=== PATIENT | male | born 1940 | race Caucasian/White ===

== ENCOUNTER 2020-01-20 00:29 | Outpatient (CLI) | payer MEDICARE, SELFPAY ==
[2020-01-20 19:09] LABS: SARS-CoV-2 RNA PCR Negative
== END 2020-01-20 00:30 | disposition home or self-care (01) ==
LOC: ANHCOVIDDT 00:30
PROVIDERS: PCP Internal Medicine; Visit Provider Internal Medicine Gastroenterology
DX: Z01.812 Encounter for preprocedural laboratory examination (principal); Z11.59 Encounter for screening for other viral diseases
CPT/HCPCS: 87635; C9803; U0003

== ENCOUNTER 2020-01-20 22:09 | Emergency (ER) | payer MEDICARE, SELFPAY ==
[2020-01-20 22:11] VITALS: BP 182/111; PULSE 94; RESP 19; O2SAT 98
[2020-01-20 22:20] VITALS: BP 175/116; PULSE 78; RESP 18; O2SAT 98
[2020-01-20 22:28] VITALS: BP 175/114; PULSE 95; RESP 16; O2SAT 100
--- NOTE | 2020-01-20 22:40 | ED.GENADULT ---
HPI - General Adult General Chief complaint: Recheck/Abnormal Lab/Rx Stated complaint: High BP, REHMAN Time Seen by Provider: 01/20/20 22:39 Source: patient and family History of Present Illness HPI narrative: High blood pressure. 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 Patient also started on new medication for overactive bladder,MYRBETRIQ which also can increase blood pressure. Patient should measure his blood pressure once a day, today he measured more than 3 times, and every time the blood pressure goes higher and higher. Patient denies any chest pain, shortness of breath, back pain, headache, focal neurologic deficiency. Currently patient feeling okay. Blood pressure at home was 180/113, currently 159/105. Related Data Home Medications Medication Instructions Recorded Confirmed blood sugar diagnostic #10 each 06/03/19 07/15/19 cholecalciferol (vitamin D3) 25 1,000 unit PO DAILY 06/03/19 01/15/20 mcg (1,000 unit) capsule lancets #50 each 06/03/19 07/15/19 aspirin 81 mg tablet,delayed 81 mg PO DAILY 06/23/19 01/15/20 release coenzyme Q10 100 mg capsule 100 mg PO DAILY 06/23/19 01/15/20 finasteride 5 mg tablet 5 mg PO DAILY 06/23/19 01/15/20 polyethylene glycol 3350 17 gram 17 gm PO DAILY 06/23/19 01/15/20 oral powder packet metoprolol succinate 25 mg 25 mg PO BID 01/12/20 01/15/20 tablet,extended release 24 hr mirabegron [Myrbetriq] 25 mg PO DAILY 01/15/20 01/15/20 diltiazem HCl [DILT-XR] PO 01/20/20 Allergies Allergy/AdvReac Type Severity Reaction Status Date / Time rosuvastatin Allergy Mild leg cramps Verified 01/20/20 22:16 Tetanus Vaccines and Toxoid Allergy Mild Hives Verified 01/20/20 22:16 Penicillins Allergy Unknown Hives Verified 01/20/20 22:16 Review of Systems Review of Systems: Narrative: CONSTITUTIONAL: Denies fever, chills, or sweats. EYES: Denies visual changes, redness, or discharge. ENT: Denies rhinorrhea, congestion, sore throat, or otalgia. CARDIOVASCULAR: Denies chest pain, palpitations, or edema. RESPIRATORY: Denies cough or dyspnea. GASTROINTESTINAL: Denies abdominal pain, nausea, vomiting, or diarrhea. GENITOURINARY: Denies dysuria or hematuria. SKIN: Denies rash or itching. MUSCULOSKELETAL: Denies back pain, joint pain, or myalgia. NEUROLOGIC: Denies headache, numbness, or weakness. PSYCHIATRIC: Denies anxiety or depression. [facility] Past Medical History Medical History Enlarged prostate High cholesterol Presence of Watchman left atrial appendage closure device Thyroid disease Surgical History Surgical History H/O heart surgery History of thyroid surgery Total knee replacement status Family History Family History Father Heart attack Mother , passed at age 104 No problems noted. Sibling Cancer Mother Hypertension Sibling Family history of malignant neoplasm of breast in first degree relative Malignant neoplasm of prostate Father Patient's father is Other Diabetes mellitus Family history of malignant neoplasm of thyroid Social History Social History Smoking status: Never smoker Second hand tobacco smoke exposure: No Smoking end date: 07/09/92 Alcohol intake: never Substance use: never Gender identity (if verbalized by the patient): Male Exam Narrative: Exam Narrative: General appearance: Well-developed, well-nourished Skin: Normal color Head: Normocephalic, nontraumatic Eyes: Clear conjunctiva ENT: Oropharynx normal, ears normal, nose normal Neck: Supple, nontender Chest and respiratory: Airway patent, no respiratory d
[2020-01-20 23:00] VITALS: BP 156/94; PULSE 83; RESP 21; O2SAT 98
[2020-01-20 23:09] VITALS: BP 163/110; PULSE 84; RESP 16; O2SAT 98
[2020-01-20] MEDS: LORazepam 0.5 MG TABLET PO (23:09)
== END 2020-01-20 23:15 | disposition home or self-care (01) ==
PROVIDERS: Emergency Provider Emergency Medicine; PCP Internal Medicine
DX: I16.0 Hypertensive urgency (principal); E78.5 Hyperlipidemia, unspecified
CPT/HCPCS: 87635; 99283; A9270; C9803; U0003

== ENCOUNTER 2020-11-04 10:11 | Outpatient (CLI) | payer MEDICARE, SELFPAY ==
[2020-11-04 10:44] LABS: Hematocrit 48.5 % (42.0-52.0); Hemoglobin 16.5 g/dL (14.0-18.0); Mean Corpuscular Hemoglobin 33.7 pg (26-34); Mean Platelet Volume 9.7 fl (7.4-10.4); Platelet Count Result 197 k/mm3 (150-375); Red Cell Distribution Width 12.3 % (11.5-14.5); White Blood Count 6.9 K/mm3 (4.5-10.0)
[2020-11-04 11:21] LABS: Creatinine Urine 42.8 mg/dL
[2020-11-04 11:25] LABS: MALB Creatinine Ratio 195.3 mg/g (0-30); Microalbumin Urine Random 83.6 mg/L (0-16.7)
[2020-11-04 11:36] LABS: Hemoglobin A1C 5.7 % (<5.7)
[2020-11-04 11:37] LABS: Free T4 Free Thyroxine 1.73 ng/mL (0.78-2.19); Vitamin D 25 Hydroxy 35.8 ng/mL
[2020-11-04 11:41] LABS: Alanine Aminotransferase 23 U/L (4-50); Albumin Level 4.9 g/dL (3.5-5.1); Alkaline Phosphatase 71 U/L (38-126); Anion Gap 9 mmol/L (8-16); Aspartate Amino Transferase 34 U/L (17-59); Bilirubin,Total 2.1 mg/dL (0.2-1.3); Blood Urea Nitrogen 18 mg/dL (9-20); Calcium 9.5 mg/dL (8.4-10.2); Carbon Dioxide 28 mmol/L (22-30); Chloride 104 mmol/L (98-107); Cholesterol 177 mg/dL (0-200); Estimated Glomerular Filt Rate > 60; Glucose 130 mg/dL (75-110); HDL Direct 64 mg/dL; Potassium 3.7 mmol/L (3.4-5.0); Sodium 141 mmol/L (137-145); Triglycerides 98 mg/dL (<150)
[2020-11-04 11:58] LABS: LDL Cholesterol Direct 89 mg/dL
[2020-11-04 12:21] LABS: Prostate Specific Antigen 0.6 ng/mL (< OR = 4.0)
== END 2020-11-04 10:12 | disposition home or self-care (01) ==
PROVIDERS: PCP Internal Medicine; Visit Provider Internal Medicine
DX: E03.9 Hypothyroidism, unspecified (principal); E11.9 Type 2 diabetes mellitus without complications; I10 Essential (primary) hypertension; Z12.5 Encounter for screening for malignant neoplasm of prostate; E55.9 Vitamin D deficiency, unspecified
CPT/HCPCS: 36415; 80053; 80061; 82043; 82306; 83036; 84153; 84439; 84443; 85027; G0103

== ENCOUNTER 2021-02-22 10:31 | Outpatient (CLI) | payer MEDICARE, SELFPAY ==
[2021-02-22 11:23] LABS: Alanine Aminotransferase 22 U/L (4-50); Albumin Level 4.6 g/dL (3.5-5.1); Alkaline Phosphatase 63 U/L (38-126); Anion Gap 8 mmol/L (8-16); Aspartate Amino Transferase 32 U/L (17-59); Bilirubin,Total 1.8 mg/dL (0.2-1.3); Blood Urea Nitrogen 20 mg/dL (9-20); Calcium 9.4 mg/dL (8.4-10.2); Carbon Dioxide 27 mmol/L (22-30); Chloride 102 mmol/L (98-107); Estimated Glomerular Filt Rate > 60; Glucose 124 mg/dL (65-110); Potassium 4.5 mmol/L (3.4-5.0); Sodium 137 mmol/L (137-145)
[2021-02-22 13:58] LABS: Hemoglobin A1C 5.9 % (<5.7)
[2021-02-22 15:56] LABS: Folic Acid 9.8 ng/mL (2.76->20)
[2021-02-25 03:53] LABS: Albumin 4.2 g/dL (3.8-4.8); Alpha 1 Globulin 0.3 g/dL (0.2-0.3); Alpha 2 Globulin 0.8 g/dL (0.5-0.9); Beta 1 Globulin 0.4 g/dL (0.4-0.6); Protein, Total 7.1 g/dL (6.1-8.1)
[2021-02-26 07:01] LABS: Creatinine, Random Urine 105 mg/dL (20-320); Total Protein/Creatinine Ratio 95 mg/g creat (22-128)
== END 2021-02-22 10:32 | disposition home or self-care (01) ==
PROVIDERS: PCP Internal Medicine; Visit Provider Internal Medicine
DX: R77.8 Other specified abnormalities of plasma proteins (principal); R53.83 Other fatigue; E11.9 Type 2 diabetes mellitus without complications
CPT/HCPCS: 36415; 80053; 82570; 82607; 82746; 83036; 84155; 84156; 84165; 84166

== ENCOUNTER 2021-03-24 00:46 | Day surgery (SDC) | payer MEDICARE, SELFPAY ==
[2021-03-17 11:55] VITALS: BMI 28.2
--- NOTE | 2021-03-24 08:16 | WPDANESEPPF ---
Anes - Initial Pre Proc Eval Procedure: Operation Date: 03/24/21 10:00 Proposed Procedures p Esophagogastroduodenoscopy & Screening Colonoscopy - Sourav Traore MD Date/Time: 03/24/21 08:16 Surgeon: Sourav Traore MD Pre Op Diagnosis: Neoplasm screening Z12.11 GERD K21.9 Patient Data Age: 80 Gender: M Height: 1.7 m Weight: 81.8 kg Allergies Allergy/AdvReac Type Severity Reaction Status Date / Time rosuvastatin Allergy Mild leg cramps Verified 03/24/21 08:51 Tetanus Vaccines and Toxoid Allergy Mild Hives Verified 03/24/21 08:51 Penicillins Allergy Unknown Hives Verified 03/24/21 08:51 Home Medications Medication Instructions Recorded Confirmed Type blood sugar diagnostic #10 each 06/03/19 03/24/21 History cholecalciferol (vitamin D3) 25 1,000 unit PO DAILY 06/03/19 03/24/21 History mcg (1,000 unit) capsule lancets #50 each 06/03/19 03/24/21 History aspirin 81 mg tablet,delayed 81 mg PO DAILY 06/23/19 03/24/21 History release finasteride 5 mg tablet 5 mg PO DAILY 06/23/19 03/24/21 History polyethylene glycol 3350 17 gram 17 gm PO DAILY 06/23/19 03/24/21 History oral powder packet fluticasone propionate 50 2 spray NASAL DAILY PRN #15.8 ml 01/12/20 03/24/21 Rx mcg/actuation nasal spray,suspension simvastatin 20 mg tablet 20 mg PO DAILY #90 tablet 09/30/20 03/24/21 Rx metoprolol succinate 50 mg See Rx Instructions .ROUTE 10/08/20 03/17/21 Rx tablet,extended release 24 hr .COMPLEX #90 tablet levothyroxine 100 mcg tablet 100 mcg PO DAILY #90 tablet 10/12/20 03/17/21 Rx pantoprazole 40 mg tablet,delayed 40 mg PO QAM #90 tablet 01/11/21 03/24/21 Rx release irbesartan 300 mg tablet 300 mg PO DAILY #90 tablet 01/16/21 03/17/21 Rx amlodipine 5 mg tablet 5 mg PO DAILY #90 tablet 03/11/21 03/17/21 Rx Patient hx anesthesia problems: none Family hx anesthesia problems: none PMFSH Past Medical History Medical History (Updated 03/24/21 @ 09:26 by Sourav Traore MD) Afib Angina pectoris Arthritis BMI 28.0-28.9,adult BPH (benign prostatic hyperplasia) Chronic GERD Diabetes Enlarged prostate Essential (primary) hypertension High cholesterol History of CVA (cerebrovascular accident) Hypothyroidism Presence of Watchman left atrial appendage closure device Thyroid disease Surgical History Surgical History H/O heart surgery History of thyroid surgery Total knee replacement status Family History Family History Father Heart attack Mother , passed at age 104 No problems noted. Sibling Cancer Mother Hypertension Sibling Family history of malignant neoplasm of breast in first degree relative Malignant neoplasm of prostate Father Patient's father is Other Diabetes mellitus Family history of malignant neoplasm of thyroid Social History Social History Smoking status: Former smoker Tobacco type: cigarettes Second hand tobacco smoke exposure: No Smoking end date: 07/09/92 Alcohol intake: never Alcohol use details: wine occasionally Substance use: never Substance use type: does not use Living arrangements: with family Gender identity (if verbalized by the patient): Male Spiritual care concerns: No Anes - Eval Final PreProcedure Day of Procedure 03/24/21 08:16 Patient weight: overweight Heart: regular rate and rhythm Lungs: clear to auscultation and normal air movement Airway: Mallampati scale Neurological: alert and oriented Last oral intake: >/= 8 hours ASA classification: III Emergent: no Anesthetic plan: proceed Anesthesia type and monitoring: general GIVS Informed Consent: The patient's anesthetic plan and its attendant risks and benefits were discussed with the patient/family/POA. Questions were solicited and answers provid
[2021-03-24 08:53] VITALS: BP 145/101; PULSE 92; RESP 18; TEMP 36.3; O2SAT 98; BMI 27.1
[2021-03-24] MEDS: LACTATED RINGERS 1,000 ML 150 ML IV CONT (09:07)
--- NOTE | 2021-03-24 09:24 | WPDGICN ---
Assessment and Plan Assessment and plan (1) Encounter for screening colonoscopy: Code(s): Z12.11 - Encounter for screening for malignant neoplasm of colon Status: Acute Assessment and Plan: Patient referred for screening colonoscopy by primary care service. Plan is for patient to be on a high-fiber diet. Further recommendations may be given after endoscopy. GI Consult Note Consult date/time: 03/24/21 09:24 HPI: Colt Mann Jr. is a 80 year old male Referred at the request of Dr. Dexter. Patient is referred for neoplasia screening. Patient states his current weight appetite bowel movements are normal. He does have a history of a colonoscopy 2014 at which time diverticulosis was identified. Patient denies abdominal pain. He has had no blood in his stools. Past medical history significant for is GE reflux disease. He has a history of heart disease currently has a Watchman device implanted. Neoplasia screening to be performed today. Review of Systems Review of Systems: All systems reviewed & are unremarkable except as noted in HPI and below PMFSH Past Medical History Medical History (Updated 03/24/21 @ 09:26 by Sourav Traore MD) Afib Angina pectoris Arthritis BMI 28.0-28.9,adult BPH (benign prostatic hyperplasia) Chronic GERD Diabetes Enlarged prostate Essential (primary) hypertension High cholesterol History of CVA (cerebrovascular accident) Hypothyroidism Presence of Watchman left atrial appendage closure device Thyroid disease Surgical History Surgical History H/O heart surgery History of thyroid surgery Total knee replacement status Family History Family History Father Heart attack Mother , passed at age 104 No problems noted. Sibling Cancer Mother Hypertension Sibling Family history of malignant neoplasm of breast in first degree relative Malignant neoplasm of prostate Father Patient's father is Other Diabetes mellitus Family history of malignant neoplasm of thyroid Social History Social History Smoking status: Former smoker Tobacco type: cigarettes Second hand tobacco smoke exposure: No Smoking end date: 07/09/92 Alcohol intake: never Alcohol use details: wine occasionally Substance use: never Substance use type: does not use Living arrangements: with family Gender identity (if verbalized by the patient): Male Spiritual care concerns: No Meds Home Medications and Allergies Home Medications Medication Instructions Recorded Confirmed Type blood sugar diagnostic #10 each 06/03/19 03/24/21 History cholecalciferol (vitamin D3) 25 1,000 unit PO DAILY 06/03/19 03/24/21 History mcg (1,000 unit) capsule lancets #50 each 06/03/19 03/24/21 History aspirin 81 mg tablet,delayed 81 mg PO DAILY 06/23/19 03/24/21 History release finasteride 5 mg tablet 5 mg PO DAILY 06/23/19 03/24/21 History polyethylene glycol 3350 17 gram 17 gm PO DAILY 06/23/19 03/24/21 History oral powder packet fluticasone propionate 50 2 spray NASAL DAILY PRN #15.8 ml 01/12/20 03/24/21 Rx mcg/actuation nasal spray,suspension simvastatin 20 mg tablet 20 mg PO DAILY #90 tablet 09/30/20 03/24/21 Rx metoprolol succinate 50 mg See Rx Instructions .ROUTE 10/08/20 03/17/21 Rx tablet,extended release 24 hr .COMPLEX #90 tablet levothyroxine 100 mcg tablet 100 mcg PO DAILY #90 tablet 10/12/20 03/17/21 Rx pantoprazole 40 mg tablet,delayed 40 mg PO QAM #90 tablet 01/11/21 03/24/21 Rx release irbesartan 300 mg tablet 300 mg PO DAILY #90 tablet 01/16/21 03/17/21 Rx amlodipine 5 mg tablet 5 mg PO DAILY #90 tablet 03/11/21 03/17/21 Rx Allergies Allergy/AdvReac Type Severity Reaction Status Date / Time rosuvastatin 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
[2021-03-24 10:28] VITALS: BP 109/74; PULSE 93; RESP 18; O2SAT 99
[2021-03-24 10:38] VITALS: BP 119/79; PULSE 84; RESP 18; O2SAT 100
[2021-03-24 10:48] VITALS: BP 128/85; PULSE 77; RESP 18; O2SAT 100
== END 2021-03-24 11:08 | disposition home or self-care (01) ==
PROVIDERS: PCP Internal Medicine; Visit Provider Internal Medicine Gastroenterology
PROC: 0DJ08ZZ Inspection of Upper Intestinal Tract, Via Natural or Artificial Opening Endoscopic (ICD-10-PCS; CPT 43235; principal; 2021-03-24 10:00)
DX: Z12.11 Encounter for screening for malignant neoplasm of colon (principal); K64.8 Other hemorrhoids; K57.30 Diverticulosis of large intestine without perforation or abscess without bleeding; K21.00 Gastro-esophageal reflux disease with esophagitis, without bleeding; I48.91 Unspecified atrial fibrillation; E11.9 Type 2 diabetes mellitus without complications; I10 Essential (primary) hypertension; E78.00 Pure hypercholesterolemia, unspecified; K21.9 Gastro-esophageal reflux disease without esophagitis; E03.9 Hypothyroidism, unspecified; Z86.73 Personal history of transient ischemic attack (TIA), and cerebral infarction without residual deficits; N40.0 Benign prostatic hyperplasia without lower urinary tract symptoms; Z87.891 Personal history of nicotine dependence; Z79.82 Long term (current) use of aspirin
CPT/HCPCS: 43239; G0121; 87081; J2704; J7120

== ENCOUNTER → 2021-05-06 13:50 | Outpatient (CLI) | payer MEDICARE, SELFPAY ==
--- NOTE | ~2021-05-06 | CT_ITS ---
EXAMINATION: CT lumbar spine wo con DATE: 05/06/2021 14:10 INDICATION: Low back pain. Lumbar stenosis. TECHNIQUE: Computed tomography (CT) of the lumbar spine was performed without intravenous contrast. A utomated exposure control and iterative reconstruction technique were employed. The dose-length produ ct was 749.75 mGy-cm. COMPARISON: Lumbar spine radiographs 01/07/2008 FINDINGS: There is 5 degrees levocurvature of thoracolumbar spine. There is 3 mm retrolisthesis of T1 2 on L1 and 5 mm retrolisthesis of L1 on L2. There are chronic bilateral L5 pars defects. There is 5 mm anterolisthesis of L5 on S1. There is mild chronic anterior wedging of T12 and L1 vertebral bodies . There is severely decreased disc height at T12-L1, L1-L2, and L2-L3 and moderately decreased disc h eight at L3-L4, L4-L5, and L5-S1. The following disc levels are specifically discussed: T12-L1: The disc is bulging. There is moderate and mild left facet joint osteoarthritis. There is mod erate right and mild left neural foraminal stenosis. There is mild central canal stenosis. L1-L2: The disc is bulging. There is mild bilateral facet joint osteoarthritis. There is moderate tobin ateral neural foraminal stenosis. There is mild central canal stenosis. L2-L3: The disc is bulging. There is moderate right and mild left facet joint osteoarthritis. There i s moderate bilateral neural foraminal stenosis. There is mild central canal stenosis. L3-L4: The disc is bulging. There is mild right and moderate left facet joint osteoarthritis. There i s mild bilateral neural foraminal stenosis. There is mild central canal stenosis. L4-L5: The disc is bulging. There is severe bilateral facet joint osteoarthritis. There is moderate b ilateral neural foraminal stenosis. There is mild central canal stenosis. L5-S1: The disc is bulging. There is severe bilateral facet joint osteoarthritis. There is mild bilat eral neural foraminal stenosis. There is no central canal stenosis. IMPRESSION: 1. Severe lumbar spondylosis. 2. Chronic bilateral L5 pars defects with grade 1 anterolisthesis of L5 on S1. Reviewed, dictated and finalized at location A.
== END ==
PROVIDERS: PCP Internal Medicine; Visit Provider Nurse Practitioner Family
DX: M47.896 Other spondylosis, lumbar region (principal)
CPT/HCPCS: 72131

== ENCOUNTER 2021-06-15 11:06 | Outpatient (CLI) | payer MEDICARE, SELFPAY ==
[2021-06-15 12:23] LABS: Add Urine Microscopic? NO; Appearance Urine Clear (Clear); Bilirubin Urine Negative (Negative); Blood Urine Negative (Negative); Color Urine Yellow (Yellow); Glucose Urine UA Negative (Negative); Ketones Urine Negative (Negative); Leukocyte Esterase Ur Negative LEU/UL (Negative); Nitrate Urine Negative (Negative); Protein Urine Negative (Negative); Specific Grav Ur 1.013 (1.001-1.035); Urobilinogen Urine Negative mg/dL (<2.0)
== END 2021-06-15 11:07 | disposition home or self-care (01) ==
LOC: ANHLAB 11:09
PROVIDERS: PCP Internal Medicine; Visit Provider Internal Medicine
DX: M54.9 Dorsalgia, unspecified (principal)
CPT/HCPCS: 81003

== ENCOUNTER 2021-11-02 09:30 | Outpatient (CLI) | payer MEDICARE, SELFPAY ==
[2021-11-02 10:20] LABS: Basophils Percent Auto 0.6 % (0.2-1.2); Eosinophils Absolute Auto 0.2 K/mm3 (0-0.3); Eosinophils Percent Auto 2.6 % (0-4.4); Hematocrit 44.9 % (42.0-52.0); Hemoglobin 14.6 g/dL (14.0-18.0); Immature Granulocyte Absolute 0.01 K/mm3 (0.00-0.031); Immature Granulocyte Percent A 0.2 % (0-0.5); Lymphocytes Absolute Auto 2.91 K/mm3 (0.9-3.2); Lymphocytes Percent Auto 43.9 % (18.3-44.2); Mean Corpuscular HGB Conc 32.5 g/dl (32-36); Mean Corpuscular Hemoglobin 33.6 pg (26-34); Mean Corpuscular Volume 103.5 fl (80-100); Mean Platelet Volume 10.2 fl (7.4-10.4); Monocytes Absolute Auto 0.5 K/mm3 (0.1-0.6); Monocytes Percent Auto 8.1 % (2.6-8.5); Neutrophils Percent Auto 44.6 % (45.5-73.1); Platelet Count Result 210 k/mm3 (150-375); Red Blood Count 4.34 M/mm3 (4.6-6.20); Red Cell Distribution Width 12.8 % (11.5-14.5); White Blood Count 6.6 K/mm3 (4.5-10.0)
[2021-11-02 10:33] LABS: Creatinine Urine 45.1 mg/dL
[2021-11-02 10:37] LABS: Alanine Aminotransferase 23 U/L (4-50); Albumin Level 4.5 g/dL (3.5-5.1); Alkaline Phosphatase 70 U/L (38-126); Anion Gap 6 mmol/L (8-16); Aspartate Amino Transferase 36 U/L (17-59); Bilirubin,Total 1.4 mg/dL (0.2-1.3); Blood Urea Nitrogen 15 mg/dL (9-20); Calcium 8.8 mg/dL (8.4-10.2); Carbon Dioxide 29 mmol/L (22-30); Chloride 104 mmol/L (98-107); Estimated Glomerular Filt Rate > 60; Glucose 128 mg/dL (65-110); Potassium 4.2 mmol/L (3.4-5.0); Sodium 139 mmol/L (137-145)
[2021-11-02 10:38] LABS: MALB Creatinine Ratio 121.1 mg/g (0-30); Microalbumin Urine Random 54.6 mg/L (0-16.7)
[2021-11-02 10:54] LABS: Hemoglobin A1C 5.6 % (<5.7)
[2021-11-02 11:02] LABS: Free T4 Free Thyroxine 1.87 ng/mL (0.78-2.19); Vitamin D 25 Hydroxy 47.4 ng/mL
[2021-11-02 11:21] LABS: Prostate Specific Antigen 0.2 ng/mL (< OR = 4.0)
[2021-11-02 11:57] LABS: Folic Acid 6.6 ng/mL (2.76->20)
== END 2021-11-02 09:31 | disposition home or self-care (01) ==
LOC: ANHLAB 09:32
PROVIDERS: PCP Internal Medicine; Visit Provider Internal Medicine
DX: E03.9 Hypothyroidism, unspecified (principal); E11.9 Type 2 diabetes mellitus without complications; E55.9 Vitamin D deficiency, unspecified; I10 Essential (primary) hypertension; R53.83 Other fatigue; N40.0 Benign prostatic hyperplasia without lower urinary tract symptoms; Z12.5 Encounter for screening for malignant neoplasm of prostate
CPT/HCPCS: 36415; 80053; 82043; 82306; 82607; 82746; 83036; 83735; 84153; 84439; 84443; 85025; G0103

== ENCOUNTER 2021-11-15 11:30 | Outpatient (CLI) | payer MEDICARE, SELFPAY ==
--- NOTE | 2021-11-15 11:30 | ECG_ITS ---
Measurements Intervals [place]antam Rate: 96 P: LA: 0 QRS: 95 QRSD: 117 T: -40 QT: 359 QTc: 454 Interpretive Statements ATRIAL FIBRILLATION INTRAVENTRICULAR CONDUCTION DELAY CANNOT RULE OUT SEPTAL INFARCT, AGE INDETERMINATE BORDERLINE ST-T WAVE ABNORMALITY- INFERIOR LEADS BASELINE ARTIFACT- I, II, III, AVR, AVL, AVF, V4 ABNORMAL ECG Electronically Signed On 11-15-2021 12:20:25 CDT by Giovany Kennedy D.O.
== END 2021-11-15 11:31 | disposition home or self-care (01) ==
PROVIDERS: PCP Internal Medicine; Visit Provider Urology
DX: N40.1 Benign prostatic hyperplasia with lower urinary tract symptoms (principal); I10 Essential (primary) hypertension; Z01.818 Encounter for other preprocedural examination; I45.9 Conduction disorder, unspecified
CPT/HCPCS: 87086; 93005

== ENCOUNTER 2021-11-22 00:37 | Day surgery (SDC) | payer MEDICARE, SELFPAY ==
[2021-11-10 14:06] VITALS: BMI 29.0
--- NOTE | 2021-11-10 14:37 | PC.NURSE ---
Report to the Outpatient Waiting Room, entrance under the green pavilion located off [facility], at time __6:00AM on date __11/22/21 . OR Time: ___7:30AM . - You and your visitor will be asked a series of questions to screen for COVID 19 for your protection. - Only one visitor is allowed at this time. - The patient visitor is requested to leave or wait in car when not with patient. - A mask is required within the hospital. Patients may have clear liquids (water, carbonated beverages, clear teas, apple juice) until 3 hours prior to surgery with a maximum of 20 ounces. - No food from midnight until time of surgery - Infants may have breast milk until 4 hours before surgery, formula 6 hours prior to surgery. - Children will be allowed to drink immediately following surgery. If applicable, please bring a bottle or sippy cup to assist with drinking. Juice, water, soda, and popsicles are readily available. For infants on formula, please bring formula the day of surgery. Pacifiers are allowed. Take the following medications with a SIP of water the morning of surgery: ____AMLODIPINE, LEVOTHYROXINE, METOPROLOL Medications to discontinue per physician ___HOLD ASPIRIN 7 DAYS PRE-OP- LAST DOSE 11/15/21, HOLD ALL VITAMINS/SUPPLEMENTS 3 DAYS PRE-OP- LAST DOSE 11/11/21 Please no make-up, nail macedonian, hairspray, perfume, deodorant, or body powder the day of surgery. No jewelry (including any body piercings) or valuables the day of surgery, leave them at home. Please take a shower or bath the night before, or the morning of, surgery with an antibacterial soap. Wear comfortable, loose fitting clothing. Children are encouraged to wear pajamas. - Jewelry must be removed prior to entering the operating room. Rings and piercings that are not removed may be cut off. - The hospital will not accept responsibility for valuables. - Please leave all valuables, including medications, at home the day of surgery. If you are going home after surgery, a licensed high lift driver must drive you home. - NO public transportation without another adult. - We recommend that an adult stay with you for 24 hours following discharge. - We also recommend that you do not drive, make important decision, drink alcoholic beverages, or take any drugs that were not prescribed by your health care provider for at least 24 hours after your discharge time. For Pediatric surgeries, we recommend two adults accompany the child home (only one inside the building at this time). Follow any additional instructions given to you from your surgeon. If you or anyone in your household have experienced Covid symptoms in the past week, please notify your surgeon or the nurse liaison at the phone number below for possible testing. Telephone instructions given to __PATIENT AND WIFE__and asked if any additional questions and then verbalized understanding. Patient advised to call surgeon office or pre surgery nurse liaison [phone] if any additional questions.
[2021-11-22] VITALS (10 sets, daily range): BP systolic 106–157; BP diastolic 76–96; PULSE 70–105; RESP 12–18; TEMP 36.3–36.6; O2SAT 94–99; BMI 27.3
[2021-11-22] MEDS: LACTATED RINGERS 1,000 ML 30 ML IV CONT (06:30)
--- NOTE | 2021-11-22 06:33 | WPDANESEPPF ---
Anes - Initial Pre Proc Eval Procedure: Operation Date: 11/22/21 07:30 Proposed Procedures p Urolift - Rishi Dougherty MD Date/Time: 11/22/21 06:33 Surgeon: Rishi Dougherty MD Pre Op Diagnosis: BPH Obstruction Patient Data Age: 81 Gender: M Height: 1.7 m Weight: 84 kg Allergies Allergy/AdvReac Type Severity Reaction Status Date / Time Tetanus Vaccines and Toxoid Allergy Mild Hives Verified 11/10/21 13:56 Penicillins Allergy Unknown Hives Verified 11/10/21 13:56 rosuvastatin AdvReac Mild leg cramps Verified 11/10/21 13:56 Home Medications Medication Instructions Recorded Confirmed Type blood sugar diagnostic #10 each 06/03/19 07/30/21 History cholecalciferol (vitamin D3) 25 1,000 unit PO DAILY 06/03/19 11/10/21 History mcg (1,000 unit) capsule lancets #50 each 06/03/19 07/30/21 History aspirin 81 mg tablet,delayed 81 mg PO DAILY 06/23/19 11/10/21 History release finasteride 5 mg tablet 5 mg PO DAILY 06/23/19 11/10/21 History polyethylene glycol 3350 17 gram 17 gm PO DAILY PRN 06/23/19 11/10/21 History oral powder packet simethicone 125 mg capsule 125 mg PO TID PRN #30 cap 05/23/21 11/10/21 Rx amlodipine 5 mg PO QAM 11/10/21 11/10/21 History docusate sodium [Dulcolax Stool 100 mg PO BID PRN 11/10/21 11/10/21 History Softener (dss)] fluticasone propionate 2 spray NASAL HS PRN 11/10/21 11/10/21 History irbesartan 300 mg PO QAM 11/10/21 11/10/21 History levothyroxine 112 mcg PO QAM 11/10/21 11/10/21 History metoprolol succinate 50 mg PO BID 11/10/21 11/10/21 History pantoprazole [Protonix] 40 mg PO BID 11/10/21 11/10/21 History simvastatin 20 mg PO HS 11/10/21 11/10/21 History tamsulosin 0.4 mg PO HS 11/10/21 11/10/21 History Patient hx anesthesia problems: none Family hx anesthesia problems: none Results Review: All pre-operative results and documents have been reviewed as part of the pre-operative evaluation. [facility] Past Medical History Medical History Afib Angina pectoris Arthritis BMI 28.0-28.9,adult BPH (benign prostatic hyperplasia) Chronic GERD Diabetes Enlarged prostate Essential (primary) hypertension High cholesterol History of CVA (cerebrovascular accident) Hypothyroidism Presence of Watchman left atrial appendage closure device Thyroid disease Surgical History Surgical History H/O heart surgery History of thyroid surgery Total knee replacement status Family History Family History Father Heart attack Mother , passed at age 104 No problems noted. Sibling Cancer Mother Hypertension Sibling Family history of malignant neoplasm of breast in first degree relative Malignant neoplasm of prostate Father Patient's father is Other Diabetes mellitus Family history of malignant neoplasm of thyroid Social History Social History Smoking status: Former smoker Tobacco type: cigarettes Second hand tobacco smoke exposure: No Smoking end date: 07/09/92 Alcohol intake: never Alcohol use details: wine occasionally Substance use: never Substance use type: does not use Living arrangements: with family Additional living arrangements comments: Gender identity (if verbalized by the patient): Male Spiritual care concerns: No Anes - Eval Final PreProcedure Day of Procedure 11/22/21 06:33 Patient weight: overweight Heart: irregular rhythm Lungs: clear to auscultation Airway: Mallampati scale class II Neurological: alert and oriented Last oral intake: >/= 8 hours ASA classification: III Emergent: no Anesthetic plan: proceed Anesthesia type and monitoring: general LMA Results Review: All pre-operative results and documents have been reviewed as part of the pre-o
--- NOTE | 2021-11-22 06:52 | WPDHPUPDATE1 ---
History and Physical Update Update Date/Time: 11/22/21 06:52 History and Physical has been reviewed, including an updated exam of the patient. There are NO changes in the patient's condition. Risks, benefits, and alternatives have been discussed and questions answered. Patient agrees to proceed with procedure. Proceed with urolift
[2021-11-22] MEDS: ceFAZolin 2 GM/D5W 50 ML 2 GM/50 ML BAG IVPB (07:27)
[2021-11-22] MEDS: LIDOCAINE HCL 2% GEL UROJET 10 ML PKG MUCOUS MEM (07:48)
--- NOTE | 2021-11-22 08:02 | W.PM.PROC2 ---
Procedure Note - Detailed Date of Procedure 11/22/21 Pre-op Diagnosis BPH Obstruction Post-op Diagnosis Same Procedure Performed Uro lift with 4 maria del carmen Surgeon Rishi Dougherty MD Anesthesia General Description of Procedure Patient is taken to the operative suite correctly identified. Once anesthesia was obtained was placed in dorsal lithotomy position and prepped and draped usual sterile fashion. Your left scope was inserted into the bladder under direct vision. Patient has some mild lateral lobe hypertrophy it did not appear overly obstructive in nature but his uro cuff showed a high-pressure low-flow pattern consistent with an obstructive process. The bladder itself does have some marked trabeculation present no tumors noted. We went ahead and placed a staple somewhat at the mid prostate at the 1 to 2 o'clock position. Second staple was placed at 10 to 11 o'clock position. 3rd staple at the 3 o'clock position and the final staple approximately 9 o'clock position. The prostatic fossa appeared open. Flexible scope was used to retroflex at the bladder neck. There was no evidence of any maria del carmen in the bladder. Bladder was somewhat drained and 2% viscous lidocaine was inserted into the urethra. Patient is taken recovery stable condition. Drains No Packing No Pathology None sent Complications No immediate complications Condition Stable Disposition PACU
[2021-11-22] MEDS: fentaNYL CITRATE INJ (*CRX) 100 MCG/2 ML VIAL 25 MCG IV PUSH ×4 (08:34→08:53)
[2021-11-22 08:41] LABS: Glucose Point of Care 119 mg/dl (65-105)
[2021-11-22] MEDS: oxyCODONE HCL (*CRX) 2.5 MG TAB IR PO (10:02)
== END 2021-11-22 10:05 | disposition home or self-care (01) ==
PROVIDERS: PCP Internal Medicine; Visit Provider Urology
PROC: 0T7D8DZ Dilation of Urethra with Intraluminal Device, Via Natural or Artificial Opening Endoscopic (ICD-10-PCS; CPT 52441; principal; 2021-11-22 07:30)
DX: N40.1 Benign prostatic hyperplasia with lower urinary tract symptoms (principal); R35.0 Frequency of micturition; R35.1 Nocturia; R39.15 Urgency of urination; I10 Essential (primary) hypertension; I48.91 Unspecified atrial fibrillation; E11.9 Type 2 diabetes mellitus without complications; E03.9 Hypothyroidism, unspecified; K21.9 Gastro-esophageal reflux disease without esophagitis; E78.00 Pure hypercholesterolemia, unspecified; Z86.73 Personal history of transient ischemic attack (TIA), and cerebral infarction without residual deficits; Z87.891 Personal history of nicotine dependence
CPT/HCPCS: C9740; 82948; A9270; J0690; J2405; J2704; J3010; J7120; L8699

== ENCOUNTER 2022-01-17 10:33 | Outpatient (CLI) | payer MEDICARE, SELFPAY ==
--- NOTE | ~2022-01-17 | US_ITS ---
US abdomen complete EXAMINATION: US Abdomen Complete INDICATION: Abdominal pain PROCEDURE: Realtime High Resolution abdomen ultrasound. COMPARISON: No prior studies for comparison FINDINGS: Gallbladder within normal limits. No gallstones, pericholecystic fluid, gallbladder wall t hickening or biliary dilatation. Common bile duct measures 3.6 mm. Study limited by bowel gas. Liver echotexture within normal limits without focal mass. Pancreas within normal limits. Pancreati c tail is obscured by bowel gas. Spleen is unremarkeable. Renal echotexture is within normal limits bilaterally without hydronephrosis, contour deforming mass or renal stone. Right kidney measures 9.8 cm. Left kidney measures 10.5 cm. Visualized aspects of the aorta and IVC are within normal limits. Portal vein is patent. No sonograph ic Hernandez's sign indicated by the technologist. IMPRESSION: 1: Unremarkable abdominal ultrasound. Reviewed, dictated and finalized at location A.
== END 2022-01-17 10:34 | disposition home or self-care (01) ==
PROVIDERS: PCP Internal Medicine; Visit Provider Internal Medicine
DX: R10.9 Unspecified abdominal pain (principal)
CPT/HCPCS: 76700

== ENCOUNTER 2022-01-18 09:45 | Outpatient (CLI) | payer MEDICARE, SELFPAY ==
--- NOTE | ~2022-01-18 | US_ITS ---
EXAMINATION: US art doppler w press UE BI DATE: 01/18/2022 10:52 INDICATION: Decreased pulses at the right hand TECHNIQUE: Segmental pressures and plethysmographic and Doppler waveforms of the upper extremity dario melia were obtained. COMPARISON: None. FINDINGS: Right and left brachial artery pressures of 125 mm Hg and 138 mm Hg, respectively, are concordant (no rmal difference <= 30 mmHg). The right finger:brachial systolic pressure ratio is 0.77 (normal > 0.8) . Arterial waveforms are triphasic at the right radial artery and biphasic in the remaining arteries with brisk systolic upstrokes throughout (normal upstroke < 0.2 s). The left finger:brachial systolic pressure ratio is 0.69. Arterial waveforms are triphasic at the lef t brachial, radial and ulnar arteries and biphasic at the left subclavian and axillary arteries with brisk systolic upstrokes throughout. IMPRESSION: 1. 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 2. Cardiac arrhythmia is present. Correlate with EKG. Reviewed, dictated and finalized at location B. IMPRESSION: 1. 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 2. Cardiac arrhythmia is present. Correlate with EKG.
== END 2022-01-18 09:46 | disposition home or self-care (01) ==
PROVIDERS: PCP Internal Medicine; Visit Provider Internal Medicine
DX: R09.89 Other specified symptoms and signs involving the circulatory and respiratory systems (principal); I70.208 Unspecified atherosclerosis of native arteries of extremities, other extremity; I49.8 Other specified cardiac arrhythmias
CPT/HCPCS: 93923

== ENCOUNTER 2022-02-03 09:17 | Outpatient (CLI) | payer MEDICARE, SELFPAY ==
[2022-02-03 10:24] LABS: Free T4 Free Thyroxine 1.67 ng/mL (0.78-2.19)
== END 2022-02-03 09:18 | disposition home or self-care (01) ==
LOC: ANHLAB 09:20
PROVIDERS: PCP Internal Medicine; Visit Provider Internal Medicine
DX: E03.9 Hypothyroidism, unspecified (principal)
CPT/HCPCS: 36415; 84439; 84443

== ENCOUNTER 2022-04-13 01:52 | Day surgery (SDC) | payer MEDICARE, SELFPAY ==
[2022-04-06 08:57] VITALS: BMI 27.4
--- NOTE | 2022-04-06 09:17 | PC.NURSE ---
Report to the Outpatient Waiting Room, entrance under the green pavilion located off [facility], at time _1000 on date _04/13/22 . OR Time: ____1200____. Time changes happen often and if your time is changed the preop area will call you the afternoon before. - You and your visitor will be asked to self-screen and do not enter if you have any COVID symptoms. - Only one visitor and NO children visitors are allowed at this time. - The patient visitor is requested to leave or wait in car when not with patient due to restrictions. - A mask is required within the hospital. Patients may have clear liquids (water, carbonated beverages, clear teas, apple juice) until 3 hours prior to surgery (0900 AM) with a maximum of 20 ounces. - No food from midnight until time of surgery - Infants may have breast milk until 4 hours before surgery, infant formula 6 hours prior to surgery. - Children will be allowed to drink immediately following surgery. If applicable, please bring a bottle or sippy cup to assist with drinking. Juice, water, soda, and popsicles are readily available. For infants on formula, please bring formula the day of surgery. Pacifiers are allowed. Take the following medications with a SIP of water the morning of surgery: _AMLODIPINE, LEVOTHYROXINE, METOPROLOL__ Medications to discontinue per physician _VITAMINS/SUPPLEMENTS 3 DAYS PRIOR TO SURGERY__ Date to take last dose____04/09/22 Please no make-up, nail tajik, hairspray, perfume, deodorant, or body powder the day of surgery. No jewelry (including any body piercings) or valuables the day of surgery, leave them at home. Please take a shower or bath the night before, or the morning of, surgery with an antibacterial soap. Wear comfortable, loose fitting clothing. Children are encouraged to wear pajamas. - Jewelry must be removed prior to entering the operating room. Rings and piercings that are not removed may be cut off. - The hospital will not accept responsibility for valuables. - Please leave all valuables, including medications, at home the day of surgery. If you are going home after surgery, a licensed dump truck driver must drive you home. - NO public transportation without another adult. - We recommend that an adult stay with you for 24 hours following discharge. - We also recommend that you do not drive, make important decision, drink alcoholic beverages, or take any drugs that were not prescribed by your health care provider for at least 24 hours after your discharge time. For Pediatric surgeries, we recommend two adults accompany the child home (only one inside the building at this time). Follow any additional instructions given to you from your surgeon. If you or anyone in your household have experienced Covid symptoms in the past week, please notify your surgeon or the nurse liaison at the phone number below for possible testing. Telephone instructions given to __PT and asked if any additional questions and then verbalized understanding. Patient advised to call surgeon office or pre surgery nurse liaison [phone] if any additional questions.
--- NOTE | 2022-04-11 15:45 | PM.SD2 ---
Same Day Admit/Disch: HPI History of Present Illness Chief complaint: Rt Ing Hernia Narrative: Colt Mann Jr. is a 81 year old male Who has had a bulge in the right groin area for at least 2 years. It has been getting bigger and causes him to have a pulling sensation when he sits up or gets out of bed. He was seen in the office and found to have a reducible right inguinal hernia. He is taken to surgery now for repair. [facility] Past Medical History Medical History (Updated 04/13/22 @ 14:14 by Doug Singh MD) Afib Angina pectoris Arthritis BMI 28.0-28.9,adult BPH (benign prostatic hyperplasia) Chronic GERD Diabetes Enlarged prostate Essential (primary) hypertension High cholesterol History of CVA (cerebrovascular accident) HTN (hypertension) Hypothyroidism Overweight (BMI 25.0-29.9) Presence of Watchman left atrial appendage closure device Thyroid disease Surgical History Surgical History H/O heart surgery History of thyroid surgery Total knee replacement status Family History Family History Father Heart attack Mother , passed at age 104 No problems noted. Sibling Cancer Mother Hypertension Sibling Family history of malignant neoplasm of breast in first degree relative Malignant neoplasm of prostate Father Patient's father is Other Diabetes mellitus Family history of malignant neoplasm of thyroid Social History Social History Smoking status: Never smoker Tobacco type: cigarettes Second hand tobacco smoke exposure: No Smoking end date: 07/09/92 Alcohol intake: never Alcohol use details: wine occasionally Substance use: never Substance use type: does not use Living arrangements: with family Additional living arrangements comments: Gender identity (if verbalized by the patient): Male Spiritual care concerns: No Same Day Admit/Disch: Med Pre-admit Medications Home Medications Medication Instructions Recorded Confirmed Type blood sugar diagnostic #10 ea 06/03/19 04/06/22 History cholecalciferol (vitamin D3) 25 1,000 unit PO DAILY 06/03/19 04/13/22 History mcg (1,000 unit) capsule lancets #50 ea 06/03/19 04/06/22 History aspirin 81 mg tablet,delayed 81 mg PO DAILY 06/23/19 04/13/22 History release (Adult Low Dose Aspirin) finasteride 5 mg tablet 5 mg PO DAILY 06/23/19 04/13/22 History polyethylene glycol 3350 17 gram 17 gm PO DAILY PRN Constipation 06/23/19 04/13/22 History oral powder packet (Miralax) simethicone 125 mg capsule (Gas 125 mg PO TID PRN abdominal 05/23/21 04/13/22 Rx Relief (simethicone)) distention #30 caps docusate sodium 100 mg capsule 100 mg PO BID PRN Constipation 11/10/21 04/13/22 History (Dulcolax Stool Softener (docusate)) fluticasone propionate 50 2 spray intranasal HS PRN nasal 11/10/21 04/13/22 History mcg/actuation nasal congestion spray,suspension irbesartan 300 mg tablet 300 mg PO QAM 11/10/21 04/13/22 History levothyroxine 112 mcg tablet 112 mcg PO QAM 11/10/21 04/13/22 History pantoprazole 40 mg tablet,delayed 40 mg PO BID 11/10/21 04/13/22 History release (Protonix) tamsulosin 0.4 mg capsule 0.4 mg PO HS 11/10/21 04/13/22 History metoprolol succinate 50 mg 50 mg PO BID #180 tabs 12/18/21 04/13/22 Rx tablet,extended release 24 hr amlodipine 5 mg tablet 5 mg PO QAM #90 tabs 03/07/22 04/13/22 Rx simvastatin 20 mg tablet 20 mg PO HS #90 tabs 03/29/22 04/13/22 Rx tramadol 50 mg tablet 50 - 100 mg PO Q6H PRN pain #15 04/13/22 Rx tabs Exam Const: General: comfortable, no acute distress, alert and awake HENMT: Head: normocephalic and atraumatic Mouth: Yes Normal oral and palatal mucosa present Eyes: Conjunctivae: conjunctivae normal Pupils: Equal, round and reactive
--- NOTE | 2022-04-12 13:56 | WPDANESEPPF ---
Anes - Initial Pre Proc Eval Procedure: Operation Date: 04/13/22 12:00 Proposed Procedures p Right Inguinal Hernia Repair with Mesh - Doug Singh MD Date/Time: 04/12/22 13:56 Surgeon: Doug Singh MD Pre Op Diagnosis: Rt Ing Hernia Patient Data Age: 81 Gender: M Height: 1.7 m Weight: 79.5 kg Allergies Allergy/AdvReac Type Severity Reaction Status Date / Time Tetanus Vaccines and Toxoid Allergy Mild Hives Verified 04/13/22 10:28 Penicillins Allergy Unknown Hives Verified 04/13/22 10:28 rosuvastatin AdvReac Mild leg cramps Verified 04/13/22 10:28 Home Medications Medication Instructions Recorded Confirmed Type blood sugar diagnostic #10 ea 06/03/19 04/06/22 History cholecalciferol (vitamin D3) 25 1,000 unit PO DAILY 06/03/19 04/13/22 History mcg (1,000 unit) capsule lancets #50 ea 06/03/19 04/06/22 History aspirin 81 mg tablet,delayed 81 mg PO DAILY 06/23/19 04/13/22 History release (Adult Low Dose Aspirin) finasteride 5 mg tablet 5 mg PO DAILY 06/23/19 04/13/22 History polyethylene glycol 3350 17 gram 17 gm PO DAILY PRN Constipation 06/23/19 04/13/22 History oral powder packet (Miralax) simethicone 125 mg capsule (Gas 125 mg PO TID PRN abdominal 05/23/21 04/13/22 Rx Relief (simethicone)) distention #30 caps docusate sodium 100 mg capsule 100 mg PO BID PRN Constipation 11/10/21 04/13/22 History (Dulcolax Stool Softener (docusate)) fluticasone propionate 50 2 spray intranasal HS PRN nasal 11/10/21 04/13/22 History mcg/actuation nasal congestion spray,suspension irbesartan 300 mg tablet 300 mg PO QAM 11/10/21 04/13/22 History levothyroxine 112 mcg tablet 112 mcg PO QAM 11/10/21 04/13/22 History pantoprazole 40 mg tablet,delayed 40 mg PO BID 11/10/21 04/13/22 History release (Protonix) tamsulosin 0.4 mg capsule 0.4 mg PO HS 11/10/21 04/13/22 History metoprolol succinate 50 mg 50 mg PO BID #180 tabs 12/18/21 04/13/22 Rx tablet,extended release 24 hr amlodipine 5 mg tablet 5 mg PO QAM #90 tabs 03/07/22 04/13/22 Rx simvastatin 20 mg tablet 20 mg PO HS #90 tabs 03/29/22 04/13/22 Rx ECG: Date of Service: 11/15/21 Procedure(s): CA 12 lead EKG Accession Number(s): [id number] cc: ~ ? Measurements Intervals? [place]? Rate: ? 96 ? P:? IA: ? 0? QRS:? 95 QRSD: ? 117? T:? -40 QT: ? 359? QTc:? 454? Interpretive Statements ATRIAL FIBRILLATION INTRAVENTRICULAR CONDUCTION DELAY CANNOT RULE OUT SEPTAL INFARCT, AGE INDETERMINATE BORDERLINE ST-T WAVE ABNORMALITY- INFERIOR LEADS BASELINE ARTIFACT- I, II, III, AVR, AVL, AVF, V4 ABNORMAL ECG Electronically Signed On 11-15-2021 12:20:25 CDT by Giovany Kennedy D.O. Patient hx anesthesia problems: none Family hx anesthesia problems: none Results Review: All pre-operative results and documents have been reviewed as part of the pre-operative evaluation. [facility] Past Medical History Medical History (Updated 04/12/22 @ 13:57 by Benito Valadez MD) Afib Angina pectoris Arthritis BMI 28.0-28.9,adult BPH (benign prostatic hyperplasia) Chronic GERD Diabetes Enlarged prostate Essential (primary) hypertension High cholesterol History of CVA (cerebrovascular accident) HTN (hypertension) Hypothyroidism Overweight (BMI 25.0-29.9) Presence of Watchman left atrial appendage closure device Thyroid disease Surgical History Surgical History H/O heart surgery History of thyroid surgery Total knee replacement status Family History Family History Father Heart attack Mother , passed at age 104 No problems noted.
[2022-04-13 10:15] VITALS: BP 140/84; PULSE 79; RESP 18; TEMP 37; O2SAT 99
[2022-04-13] MEDS: LACTATED RINGERS 1,000 ML 30 ML IV CONT (10:55)
[2022-04-13] MEDS: ACETAMINOPHEN 500 MG TABLET 1000 MG PO (10:56)
[2022-04-13] MEDS: KETOROLAC 15 MG/ML VIAL (*BKC) IV PUSH (10:56)
--- NOTE | 2022-04-13 12:20 | WPDHPUPDATE1 ---
History and Physical Update Update Date/Time: 04/13/22 12:20 History and Physical has been reviewed, including an updated exam of the patient. There are NO changes in the patient's condition. Risks, benefits, and alternatives have been discussed and questions answered. Patient agrees to proceed with procedure.
[2022-04-13] MEDS: ceFAZolin 2 GM/D5W 50 ML 2 GM/50 ML BAG IVPB (12:29)
[2022-04-13] MEDS: BUPIVACAINE/EPINEPHRINE 0.25% 50 ML VIAL INFILTRATE (13:02)
[2022-04-13 14:03] VITALS: BP 117/72; PULSE 77; RESP 14; O2SAT 97
--- NOTE | 2022-04-13 14:18 | P.OP_ITS ---
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 Exam in the office showed a right inguinal hernia. He is taken to surgery now for repair. Findings Patient had a large direct right inguinal hernia. Description of Procedure Patient was taken to surgery and anesthesia was introduced. The right groin and genitalia were prepped and draped. The proposed incision was marked on the skin in the right inguinal region. Local was infiltrated into the skin and the deeper subcutaneous tissues. Incision was made dissection was carried down through the skin and subcutaneous. We continued the dissection down to the external oblique aponeurosis. The aponeurosis was exposed as was the external ring. I infiltrated additional local deep to the aponeurosis in the area of the inguinal canal and the spermatic cord. I then opened the aponeurosis laterally and extended this medially through the external ring. The ilioinguinal nerve was left attached to the cord and was carefully preserved during the surgery. The leaves of the aponeurosis were freed from the inguinal canal contents. The cord was mobilized medially on a Diallo drain. I then mobilized the cord back to the internal ring. A large hernia sac was evident. It was carefully dissected away from the spermatic cord. It was evident this was a large direct hernia. I dissected that out completely and circumferentially. I then scored circumferentially around the hernia sac just above its neck. It was scored through the transversalis fascia. I then dunked hernia into the retroperitoneum. The extra-large plug was then placed in the defect. I sutured the edges of the plug to the transversalis fascia. I then partially closed the defect with interrupted 3-0 Vicryl. I cut the patch to the appropriate size and placed it over the inguinal canal floor. The lateral leaves were passed beyond the cord. I then placed the 1st piece of Xaracoll over the patch. The cord and ilioinguinal nerve were then laid over the Xaracoll. The external oblique aponeurosis was closed with interrupted 3-0 Vicryl suture. The 2nd piece of Xaracoll was then placed. Sana's fascia was closed with interrupted 3-0 Vicryl suture. The last pieces Xaracoll was placed in the subcutaneous. The skin was loosely approximated with 4-0 Vicryl subcuticular skin stitches. Finally the skin was closed with a running 4-0 Monocryl skin suture. The wound was dressed with Exofin surgical adhesive. The patient was then awakened and taken to recovery in good condition. Sponge and needle counts were correct x2. Implants Extra large PerFix plug and patch Estimated Blood Loss -5 Urine Output 600 Drains No Packing No Pathology None sent Complications No immediate complications Condition Stable Disposition Same day [facility] Billing Surgery - Charge Forward: Surgery Billing (Right inguinal hernia repair)
[2022-04-13 14:30] VITALS: BP 112/73; PULSE 71; O2SAT 100
[2022-04-13 15:00] VITALS: BP 117/72; PULSE 77
--- NOTE | 2022-04-13 15:35 | SUR.PHASEII ---
Rt leg was weak prior to surgery from a previous CVA. This RN didn't know patient's baseline. RN called Dr. Singh and he said if patient felt comfortable going home it was fine to send patient home.
== END 2022-04-13 15:30 | disposition home or self-care (01) ==
PROVIDERS: PCP Internal Medicine; Visit Provider Surgery
PROC: (CPT 49505; principal; 2022-04-13 12:00)
DX: K40.90 Unilateral inguinal hernia, without obstruction or gangrene, not specified as recurrent (principal); I48.91 Unspecified atrial fibrillation; K21.9 Gastro-esophageal reflux disease without esophagitis; E11.9 Type 2 diabetes mellitus without complications; I10 Essential (primary) hypertension; E78.00 Pure hypercholesterolemia, unspecified; E03.9 Hypothyroidism, unspecified; Z86.73 Personal history of transient ischemic attack (TIA), and cerebral infarction without residual deficits
CPT/HCPCS: 49505; A9270; C1781; J0690; J1885; J2704; J3010; J7120

== ENCOUNTER 2022-05-08 11:40 | Outpatient (CLI) | payer MEDICARE, SELFPAY ==
[2022-05-08 12:36] LABS: Basophils Percent Auto 0.6 % (0.2-1.2); Eosinophils Absolute Auto 0.6 K/mm3 (0-0.3); Eosinophils Percent Auto 8.9 % (0-4.4); Hematocrit 45.5 % (42.0-52.0); Hemoglobin 15.3 g/dL (14.0-18.0); Immature Granulocyte Absolute 0.01 K/mm3 (0.00-0.031); Immature Granulocyte Percent A 0.1 % (0-0.5); Lymphocytes Absolute Auto 2.42 K/mm3 (0.9-3.2); Lymphocytes Percent Auto 36.1 % (18.3-44.2); Mean Corpuscular HGB Conc 33.6 g/dl (32-36); Mean Corpuscular Hemoglobin 33.3 pg (26-34); Mean Corpuscular Volume 99.1 fl (80-100); Monocytes Absolute Auto 0.5 K/mm3 (0.1-0.6); Monocytes Percent Auto 6.9 % (2.6-8.5); Neutrophils Absolute Auto 3.2 K/mm3 (1.3-6.7); Neutrophils Percent Auto 47.4 % (45.5-73.1); Platelet Count Result 187 k/mm3 (150-375); Red Blood Count 4.59 M/mm3 (4.6-6.20); Red Cell Distribution Width 12.5 % (11.5-14.5); White Blood Count 6.7 K/mm3 (4.5-10.0)
[2022-05-08 12:47] LABS: Alanine Aminotransferase 24 U/L (6-50); Albumin Level 4.4 g/dL (3.5-5.1); Alkaline Phosphatase 78 U/L (38-126); Anion Gap 10 mmol/L (8-16); Aspartate Amino Transferase 33 U/L (17-59); Bilirubin,Total 1.6 mg/dL (0.2-1.3); Blood Urea Nitrogen 14 mg/dL (9-20); Calcium 8.8 mg/dL (8.4-10.2); Carbon Dioxide 22 mmol/L (22-30); Chloride 104 mmol/L (98-107); Cholesterol 165 mg/dL (0-200); Estimated Glomerular Filt Rate > 60; Glucose 133 mg/dL (65-110); HDL Direct 51 mg/dL; Potassium 3.8 mmol/L (3.4-5.0); Sodium 136 mmol/L (137-145); Triglycerides 87 mg/dL (<150)
[2022-05-08 12:48] LABS: Hemoglobin A1C 6.1 % (<5.7)
[2022-05-08 12:58] LABS: LDL Cholesterol Direct 79 mg/dL
[2022-05-08 13:11] LABS: Creatinine Urine 138.7 mg/dL
[2022-05-08 13:15] LABS: MALB Creatinine Ratio 37.2 mg/g (0-30); Microalbumin Urine Random 51.6 mg/L (0-16.7)
[2022-05-08 13:26] LABS: Vitamin D 25 Hydroxy 45.6 ng/mL
[2022-05-08 13:51] LABS: Folic Acid 8.3 ng/mL (2.76->20)
== END 2022-05-08 11:41 | disposition home or self-care (01) ==
PROVIDERS: PCP Internal Medicine; Visit Provider Internal Medicine
DX: E11.9 Type 2 diabetes mellitus without complications (principal); E55.9 Vitamin D deficiency, unspecified; R53.83 Other fatigue; Z79.02 Long term (current) use of antithrombotics/antiplatelets
CPT/HCPCS: 36415; 80053; 80061; 82043; 82306; 82607; 82746; 83036; 85025

== ENCOUNTER 2022-05-29 10:54 | Outpatient (CLI) | payer MEDICARE, SELFPAY ==
[2022-05-29 11:45] LABS: Appearance Urine Clear (Clear); Bilirubin Urine Negative (Negative); Blood Urine Negative (Negative); Color Urine Light Yellow (Yellow); Glucose Urine UA Negative (Negative); Ketones Urine Negative (Negative); Leukocyte Esterase Ur Trace LEU/UL (Negative); Nitrate Urine Negative (Negative); Protein Urine Negative (Negative); Urobilinogen Urine 0.2 mg/dL (<2.0)
[2022-05-29 12:04] LABS: Mucus Urine Rare /lpf; RBC Urine 0-2 /hpf (0-2); Squamous Epithelial Cell Urine Rare /hpf (Few)
[2022-05-29 12:15] LABS: Add Urine Microscopic? YES
== END 2022-05-29 10:55 | disposition home or self-care (01) ==
PROVIDERS: PCP Internal Medicine; Visit Provider Internal Medicine
DX: R35.0 Frequency of micturition (principal)
CPT/HCPCS: 81001; 87086

== ENCOUNTER 2022-09-11 11:46 | Outpatient (CLI) | payer MEDICARE, SELFPAY ==
[2022-09-11 13:59] LABS: Toxigenic C. Diff POSITIVE (NEGATIVE)
== END 2022-09-11 11:47 | disposition home or self-care (01) ==
LOC: ANHLAB 11:47
PROVIDERS: PCP Internal Medicine; Visit Provider Internal Medicine
DX: R19.7 Diarrhea, unspecified (principal)
CPT/HCPCS: 87493

== ENCOUNTER 2022-09-20 07:00 | Outpatient (NON) | payer MEDICARE, SELFPAY | END 2022-09-20 07:01 | disposition home or self-care (01) | LOC: ANHLAB 09-21 11:19 | PROVIDERS: PCP Internal Medicine | DX: L92.8 Other granulomatous disorders of the skin and subcutaneous tissue (principal); A42.89 Other forms of actinomycosis | CPT/HCPCS: 88304 ==

== ENCOUNTER 2022-10-31 10:17 | Outpatient (CLI) | payer MEDICARE, SELFPAY ==
[2022-10-31 10:58] LABS: Basophils Percent Auto 0.4 % (0.2-1.2); Eosinophils Absolute Auto 0.4 K/mm3 (0-0.3); Eosinophils Percent Auto 4.6 % (0-4.4); Hematocrit 49.3 % (42.0-52.0); Hemoglobin 16.5 g/dL (14.0-18.0); Immature Granulocyte Absolute 0.03 K/mm3 (0.00-0.031); Immature Granulocyte Percent A 0.4 % (0-0.5); Lymphocytes Absolute Auto 3.84 K/mm3 (0.9-3.2); Lymphocytes Percent Auto 47.5 % (18.3-44.2); Mean Corpuscular HGB Conc 33.5 g/dl (32-36); Mean Corpuscular Hemoglobin 32.7 pg (26-34); Mean Corpuscular Volume 97.8 fl (80-100); Mean Platelet Volume 9.8 fl (7.4-10.4); Monocytes Absolute Auto 0.5 K/mm3 (0.1-0.6); Monocytes Percent Auto 6.2 % (2.6-8.5); Neutrophils Absolute Auto 3.3 K/mm3 (1.3-6.7); Neutrophils Percent Auto 40.9 % (45.5-73.1); Platelet Count Result 180 k/mm3 (150-375); Red Blood Count 5.04 M/mm3 (4.6-6.20); Red Cell Distribution Width 12.7 % (11.5-14.5); White Blood Count 8.1 K/mm3 (4.5-10.0)
[2022-10-31 11:12] LABS: Alanine Aminotransferase 32 U/L (6-50); Albumin Level 4.5 g/dL (3.5-5.1); Alkaline Phosphatase 66 U/L (38-126); Anion Gap 7 mmol/L (8-16); Aspartate Amino Transferase 32 U/L (17-59); Bilirubin,Total 2.3 mg/dL (0.2-1.3); Blood Urea Nitrogen 19 mg/dL (9-20); Carbon Dioxide 28 mmol/L (22-30); Chloride 102 mmol/L (98-107); Cholesterol 170 mg/dL (0-200); Estimated Glomerular Filt Rate > 60; Glucose 129 mg/dL (65-110); HDL Direct 58 mg/dL; Magnesium 2.3 mg/dL (1.6-2.3); Potassium 4.3 mmol/L (3.4-5.0); Sodium 137 mmol/L (137-145); Triglycerides 91 mg/dL (<150)
[2022-10-31 11:22] LABS: LDL Cholesterol Direct 82 mg/dL
[2022-10-31 11:33] LABS: Microalbumin Urine Random 39.3 mg/L (0-16.7)
== END 2022-10-31 10:18 | disposition home or self-care (01) ==
LOC: ANHLAB 10:19
PROVIDERS: PCP Internal Medicine; Visit Provider Internal Medicine
DX: E03.9 Hypothyroidism, unspecified (principal); E11.9 Type 2 diabetes mellitus without complications; E55.9 Vitamin D deficiency, unspecified; I10 Essential (primary) hypertension; I48.91 Unspecified atrial fibrillation; R53.83 Other fatigue
CPT/HCPCS: 36415; 80053; 80061; 82043; 82306; 82607; 82746; 83036; 83735; 84439; 84443; 85025

== ENCOUNTER 2022-12-13 12:27 | Outpatient (CLI) | payer MEDICARE, SELFPAY ==
--- NOTE | ~2022-12-13 | CT_ITS ---
EXAMINATION: CT abdomen pelvis w con DATE: 12/13/2022 13:18 INDICATION: Left lower quadrant abdominal pain TECHNIQUE: Computed tomography (CT) of the abdomen and pelvis was performed with 100 CC Omnipaque 350 intravenous contrast. Automated exposure control and iterative reconstruction technique were employe d. Exam dose: 525.03 mGy-cm total exam DLP. COMPARISON: 12/13/2022 complete abdominal ultrasound examination FINDINGS: The lung bases are clear of infiltrate or consolidation. Heart size is within normal range. Coronary artery calcifications. There is some calcification at the aortic valve. No pericardial or pleural effusion. No suspicious hepatic, splenic, pancreatic, and adrenal space-occupying mass lesions. At least 7 right renal cysts and 2 left renal cysts. No urinary tract calculus or hydroureteronephros is. There is prostate enlargement, with some prostate clips or seeds noted. There is diffuse thickening o f the urinary bladder wall and a couple of posterolateral prominent right-sided urinary bladder diver ticula. Small bilateral fat-containing inguinal hernias. There are diverticula of the left and right colon, particularly the sigmoid and descending colon; no CT evidence of diverticulitis. No bowel obstruction, bowel wall thickening, pneumatosis or intraperit jefferson free air. Normal appendix. There is atherosclerotic calcification and tortuosity of the aorta but no aneurysm. There is prominen t calcification at the origins of the celiac, superior mesenteric and left and right renal arteries. No intraperitoneal or retroperitoneal or pelvic mass lesion or adenopathy or ascites is noted. Small fat-containing umbilical hernia. Diffuse idiopathic skeletal hyperostosis of the thoracic spine. 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 There is bilateral L5 pars interarticularis defects, with associated grade 1 anterolisthesis at L5-S1 . 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 Reviewed, dictated and finalized at location [] IMPRESSION: Aortic valve calcification Coronary artery calcifications Bilateral renal cysts Prostate enlargement; prostate clips and/or seeds Bladder outlet obstruction with diffuse urinary bladder wall thickening and a c ouple prominent right-sided urinary bladder diverticula Small bilateral fat-containing inguinal hernias Diverticulosis of the colon; no evidence of diverticulitis Normal appendix Bilateral L5 pars interarticularis defects with associated grade 1 anterolisthe sis at L5-S1
--- NOTE | ~2022-12-13 | US_ITS ---
Abdominal Sonogram: Real-time sonographic imaging of the abdomen was performed. Clinical History: Abdominal pain Findings: The liver appears normal with no evidence of mass lesion or bile duct dilatation. Main por violet vein demonstrates normal direction of flow. The spleen is normal in size without evidence of foca l lesion. The gallbladder is well distended, and appears normal with no evidence of gallstone or wal l thickening. The common bile duct measures 4 mm. The pancreas is obscured by bowel gas shadowing. A ashley and IVC are unremarkable. The right kidney measures 8.5 cm in length and the left kidney measure s 10.4 cm. There is no hydronephrosis or renal calculus. Impression: No significant abnormality seen. Reviewed, dictated and finalized at location . Impression: No significant abnormality seen.
[2022-12-13 13:09] LABS: Estimated Glomerular Filt Rate > 60
== END 2022-12-13 12:28 | disposition home or self-care (01) ==
PROVIDERS: PCP Internal Medicine; Visit Provider Internal Medicine
DX: I70.0 Atherosclerosis of aorta (principal); I25.10 Atherosclerotic heart disease of native coronary artery without angina pectoris; N28.1 Cyst of kidney, acquired; N40.0 Benign prostatic hyperplasia without lower urinary tract symptoms; K40.20 Bilateral inguinal hernia, without obstruction or gangrene, not specified as recurrent; K57.30 Diverticulosis of large intestine without perforation or abscess without bleeding; N32.3 Diverticulum of bladder; M43.17 Spondylolisthesis, lumbosacral region
CPT/HCPCS: 74177; 76700; Q9967

== ENCOUNTER 2022-12-14 10:11 | Outpatient (CLI) | payer MEDICARE, SELFPAY ==
[2022-12-14 11:23] LABS: Prostate Specific Antigen 0.2 ng/mL (< OR = 4.0)
== END 2022-12-14 10:12 | disposition home or self-care (01) ==
PROVIDERS: PCP Internal Medicine; Visit Provider Internal Medicine
DX: N40.0 Benign prostatic hyperplasia without lower urinary tract symptoms (principal); Z12.5 Encounter for screening for malignant neoplasm of prostate
CPT/HCPCS: 36415; 84153; G0103

== ENCOUNTER 2022-12-18 11:48 | Observation (INO) | payer MEDICARE, SELFPAY ==
[2022-12-18] VITALS (11 sets, daily range): BP systolic 125–168; BP diastolic 73–109; PULSE 71–101; RESP 14–20; TEMP 36.2–37; O2SAT 97–100
--- NOTE | ~2022-12-18 | CT_ITS ---
EXAMINATION: CT brain wo con INDICATION: Left arm weakness COMPARISON: None TECHNIQUE: Standard unenhanced head CT. The dose-length product (DLP) was 605.33 mGy-cm. The mA was a djusted according to patient size. Iterative reconstruction technique was employed. FINDINGS: There is no acute intraparenchymal hemorrhage. No evidence of mass lesion. No evidence of a cute infarction. There is an old infarct of the left basal ganglia with mild compensatory enlargement in the anterior horn of the left lateral ventricle. There is mild periventricular and subcortical hy podensity probably related to small vessel ischemic disease. There is mild prominence of the sulci an d ventricles related to cerebral atrophy. Intracranial calcified cerebral atherosclerosis is noted. T here are no extra-axial collections. There is no mass effect or midline shift. Changes in the globes are likely from ocular lens surgery. The visualized sinuses and mastoid air cells are well aerated. IMPRESSION: 1. No acute intracranial abnormality. 2. Age related findings. As per stroke protocol, I called these results to the Emergency Department, and discussed with Dr. Alisha Oliver MD at 1212 hours on 12/18/2022. Reviewed, dictated and finalized at location A. IMPRESSION: 1. No acute intracranial abnormality. 2. Age related findings. As per stroke protocol, I called these results to the Emergency Department, and discussed with Dr. Paramjit Oliver MD at 1212 hours on 12/18/2022.
--- NOTE | ~2022-12-18 | XR_ITS ---
EXAMINATION: XR chest 1V portable 12/18/2022 12:48 INDICATION: CVA PROCEDURE: AP portable chest COMPARISON: Comparison to multiple prior studies sequentially, with oldest reviewed study dated 09/05. FINDINGS: The lungs are clear. The cardiomediastinal silhouette is within normal limits. There are no pleural effusions. There is no pneumothorax suspected. IMPRESSION: 1: NO ACUTE CARDIOPULMONARY DISEASE. Reviewed, dictated and finalized at location []
--- NOTE | ~2022-12-18 | CT_ITS ---
EXAMINATION: CTA brain carotid DATE: 12/18/2022 12:38 INDICATION: Left upper extremity weakness. TECHNIQUE: Computed tomographic angiography (CTA) of the head was performed with 100 mL Omnipaque-350 intravenous contrast. CTA of the neck was performed with intravenous contrast. Automated exposure co ntrol and iterative reconstruction technique were employed. The dose-length product was 1160.71 mGy-c m. Maximum intensity projection and volume rendered 3D-reconstructions were created by the [employer]bhav[employer]ai on a separate workstation. COMPARISON: Head CT 12/18/2022 FINDINGS: HEAD CTA: There is an old infarct involving the left basal ganglia and left internal capsule. There a re scattered areas of low attenuation in the cerebral white matter. There is no intracranial hemorrha ge, acute infarction, or abnormal intracranial mass lesion. There is ex vacuo dilatation of body of l eft lateral ventricle. There is mild mucosal thickening in the paranasal sinuses. There are likely ch anges of ocular lens replacement surgeries. The mastoid air cells are normal. The vertebral arteries are codominant. There is no significant stenosis of basilar artery or the posterior cerebral arteries . There is no significant stenosis of the intracranial internal carotid arteries or anterior or middl e cerebral arteries. Anterior communicating artery is normal. The posterior communicating arteries ar e normal. There is no aneurysm. NECK CTA: There are no pathologically enlarged lymph nodes. There are changes of right hemithyroidect kirti. There is no significant stenosis of the vertebral arteries. There is plaque in the proximal inte rnal carotid arteries. There is 17% stenosis of the proximal right internal carotid artery relative t o normal distal artery lumen diameter (NASCET criteria). There is 0% stenosis of the proximal left in ternal carotid artery relative to normal distal artery lumen diameter. There is severe cervical spond ylosis. IMPRESSION: 1. Old infarct involving the left basal ganglia and left internal capsule. 2. Moderate nonspecific cerebral white matter disease, which likely represents chronic small vessel i schemic disease. 3. No aneurysm or significant intracranial arterial stenosis. 4. 17% stenosis of the proximal right internal carotid artery relative to normal distal artery lumen diameter (NASCET criteria). 5. 0% stenosis of the proximal left internal carotid artery relative to normal distal artery lumen di ameter. Reviewed, dictated and finalized at location A. IMPRESSION: 1. Old infarct involving the left basal ganglia and left internal capsule. 2. Moderate nonspecific cerebral white matter disease, which likely represents chronic small vessel ischemic disease. 3. No aneurysm or significant intracranial arterial stenosis. 4. 17% stenosis of the proximal right internal carotid artery relative to manoj l distal artery lumen diameter (NASCET criteria). 5. 0% stenosis of the proximal left internal carotid artery relative to normal distal artery lumen diameter.
--- NOTE | 2022-12-18 11:57 | ECG_ITS ---
Measurements Intervals [place] Rate: 98 P: [place]: 0 QRS: -36 QRSD: 129 T: 95 QT: 355 QTc: 455 Interpretive Statements ATRIAL FIBRILLATION WITH ABERRANT CONDUCTION OR VENTRICULAR PREMATURE COMPLEXES LEFT AXIS DEVIATION POSSIBLE RIGHT VENTRICULAR CONDUCTION DELAY [RSR (QR) IN V1/V2] VOLTAGE CRITERIA FOR LVH CANNOT RULE OUT sEPTAL MYOCARDIAL INFARCTION , PROBABLY OLD ABNORMAL ECG COMPARED TO ECG 11/15/2021 11:50:53 ABERRANT CONDUCTION OF SUPRAVENTRICULAR BEAT(S) NOW PRESENT LEFT-AXIS DEVIATION NOW PRESENT LEFT VENTRICULAR HYPERTROPHY NOW PRESENT Electronically Signed On 12-18-2022 17:12:47 CDT by Colt Raymond M.D.
--- NOTE | 2022-12-18 12:00 | ED.NEUROSD ---
HPI - Neuro Symptoms/Deficit General Chief Complaint: Neuro Symptoms/Deficit Stated Complaint: left arm numbness 2 hours ago Time Seen by Provider: 12/18/22 11:59 History of Present Illness HPI Narrative: Patient is an 82-year-old male who presents ER with strokelike symptoms. At 10 AM patient began to have weakness in his left arm. Reports initial tingling in the finger which is improved. Patient has history of hemorrhagic stroke in 2003. He currently has an implanted Watchman device. He has had no regular heart rate in the past. He takes baby aspirin daily but takes no other blood thinning medications. He has no dizziness, he is able to walk, no slurred speech or facial droop. Denies any headache or trauma. Related Data Home Medications Medication Instructions Recorded Confirmed blood sugar diagnostic #10 ea 06/03/19 12/05/22 cholecalciferol (vitamin D3) 25 1,000 unit PO DAILY 06/03/19 12/05/22 mcg (1,000 unit) capsule lancets #50 ea 06/03/19 12/05/22 aspirin 81 mg tablet,delayed 81 mg PO DAILY 06/23/19 12/05/22 release (Adult Low Dose Aspirin) finasteride 5 mg tablet 5 mg PO DAILY 06/23/19 12/05/22 polyethylene glycol 3350 17 gram 17 gm PO DAILY PRN Constipation 06/23/19 12/05/22 oral powder packet (Miralax) docusate sodium 100 mg capsule 100 mg PO BID PRN Constipation 11/10/21 12/05/22 (Dulcolax Stool Softener (docusate)) fluticasone propionate 50 2 spray intranasal HS PRN nasal 11/10/21 12/05/22 mcg/actuation nasal congestion spray,suspension tamsulosin 0.4 mg capsule 0.4 mg PO HS 11/10/21 12/05/22 Allergies Allergy/AdvReac Type Severity Reaction Status Date / Time Tetanus Vaccines and Toxoid Allergy Mild Hives Verified 12/05/22 10:18 Penicillins Allergy Unknown Hives Verified 12/05/22 10:18 rosuvastatin AdvReac Mild leg cramps Verified 12/05/22 10:18 Review of Systems Review of Systems: All systems reviewed & are unremarkable except as noted in HPI and below Constitutional: Constitutional: Denies chills, Denies fatigue and Denies fever(s) Eyes: Eyes: Denies change in vision and Denies photophobia Cardiovascular: Cardiovascular: Denies chest pain, Denies rapid heart rate and Denies radiating jaw, neck or arm pain Respiratory: Respiratory: Denies cough and Denies dyspnea Gastrointestinal: Gastrointestinal: Denies abdominal pain, Denies nausea and Denies vomiting Neurologic: Denies syncope, Denies headache(s), Reports focal weakness and Denies numbness [facility] Past Medical History Medical History Afib Angina pectoris Arthritis BMI 28.0-28.9,adult BPH (benign prostatic hyperplasia) Chronic GERD Diabetes Enlarged prostate Essential (primary) hypertension High cholesterol History of CVA (cerebrovascular accident) HTN (hypertension) Hypothyroidism Overweight (BMI 25.0-29.9) Presence of Watchman left atrial appendage closure device Thyroid disease Surgical History Surgical History H/O heart surgery H/O right inguinal hernia repair 04/13/22 History of thyroid surgery Total knee replacement status Family History Family History Father Heart attack Mother , passed at age 104 No problems noted. Sibling Cancer Mother Hypertension Sibling Family history of malignant neoplasm of breast in first degree relative Malignant neoplasm of prostate Father Patient's father is Other Diabetes mellitus Family history of malignant neoplasm of thyroid Social History Social History (Updated 12/05/22 @ 10:22 by Mary Bustamante MA) Smoking status: Never smoker Tobacco type: cigarettes Second hand tobacco smoke exposure: No Smoking end date: 07/09/92 Alcohol intake: never Alcohol use details: wine occasionally Substance use: never Substance use type: does not
[2022-12-18 12:01] LABS: Glucose Point of Care 206 mg/dl (65-105)
[2022-12-18 12:10] LABS: Basophils Percent Auto 0.3 % (0.2-1.2); Eosinophils Absolute Auto 0.1 K/mm3 (0-0.3); Eosinophils Percent Auto 2.1 % (0-4.4); Hematocrit 45.2 % (42.0-52.0); Hemoglobin 15.4 g/dL (14.0-18.0); Immature Granulocyte Absolute 0.02 K/mm3 (0.00-0.031); Immature Granulocyte Percent A 0.3 % (0-0.5); Lymphocytes Absolute Auto 2.79 K/mm3 (0.9-3.2); Mean Corpuscular HGB Conc 34.1 g/dl (32-36); Mean Corpuscular Hemoglobin 33.1 pg (26-34); Mean Corpuscular Volume 97.2 fl (80-100); Mean Platelet Volume 9.2 fl (7.4-10.4); Monocytes Absolute Auto 0.3 K/mm3 (0.1-0.6); Monocytes Percent Auto 5.3 % (2.6-8.5); Neutrophils Absolute Auto 2.9 K/mm3 (1.3-6.7); Platelet Count Result 223 k/mm3 (150-375); Red Blood Count 4.65 M/mm3 (4.6-6.20); Red Cell Distribution Width 12.6 % (11.5-14.5); White Blood Count 6.2 K/mm3 (4.5-10.0)
[2022-12-18 12:20] LABS: Alanine Aminotransferase 28 U/L (6-50); Albumin Level 4.5 g/dL (3.5-5.1); Alkaline Phosphatase 65 U/L (38-126); Anion Gap 9 mmol/L (8-16); Aspartate Amino Transferase 33 U/L (17-59); Bilirubin,Total 1.8 mg/dL (0.2-1.3); Blood Urea Nitrogen 16 mg/dL (9-20); Calcium 8.9 mg/dL (8.4-10.2); Carbon Dioxide 26 mmol/L (22-30); Chloride 102 mmol/L (98-107); Estimated CRCL calculation 50 ml/min; Estimated Glomerular Filt Rate > 60; Glucose 204 mg/dL (65-110); Potassium 3.8 mmol/L (3.4-5.0); Sodium 137 mmol/L (137-145)
[2022-12-18 12:22] LABS: Estimated CRCL calculation 45 ml/min; Estimated Glomerular Filt Rate > 60
[2022-12-18 12:23] LABS: Partial Thromboplastin Time 25.6 SECONDS (22.3-36.8); Prothrombin Time 13.9 Seconds (11.1-14.7)
[2022-12-18 12:31] LABS: Troponin I < 0.012 ng/mL (0.000-0.034)
[2022-12-18] MEDS: CLOPIDOGREL BISULFATE 300 MG TABLET PO (14:19)
--- NOTE | 2022-12-18 20:23 | PM.IMHP ---
H&P: HPI History of Present Illness Date/Time: 12/18/22 16:30 Chief Complaint: Left arm weakness and numbness. Narrative: This is a very pleasant 82-year-old gentleman with history hemorrhagic stroke, persistent atrial fibrillation status post Watchman procedure, hypertension, type 2 diabetes mellitus, and hypothyroidism who presented to the emergency department via private vehicle from home for evaluation of left arm weakness and numbness. The patient provides the following history. He felt just fine when he got up this morning and did some work on his pool. When his work was completed he sat down to remove his boots and his left arm suddenly fell off of the arm rest. It felt heavy, numb, and weak and he had difficulties lifting it back up. His symptoms persisted for almost 2 hours before presenting to the ER. He had no other deficits and he specifically denies vertigo, visual changes, facial droop, and difficulty speaking and swallowing. On initial exam he had some difficulties with left-sided oxwysj-pw-blsh and left upper extremity drift. CTA of the head and neck showed old infarcts and no significant aneurysm or stenosis. ED physician spoke with [facility] stroke center and due to his history of hemorrhagic stroke in 2003 they did not recommend tPA or TNKase. He was loaded with clopidogrel 300 mg and is being admitted in this setting for close observation and neurology consultation. Within a couple of hours the weakness in his left arm improved significantly at the time my evaluation he does not have any specific complaints. Review of Systems Review of Systems: Twelve systems were reviewed and are negative except for as per HPI. [facility] Past Medical History Medical History (Updated 12/18/22 @ 20:42 by Jerrica Sampson PA-C) Arthritis Basal cell carcinoma of skin Benign prostatic hyperplasia Cerebrovascular accident Chronic GERD Hyperlipidemia Hypertension Hypothyroidism Persistent atrial fibrillation Type 2 diabetes mellitus Surgical History Surgical History (Updated 12/18/22 @ 20:42 by Jerrica Sampson PA-C) History of arthroplasty of right knee History of cataract extraction with lens replacement History of partial thyroidectomy History of right inguinal hernia repair (04/13/22) Presence of Watchman left atrial appendage closure device Family History Family History Father Heart attack Mother , passed at age 104 No problems noted. Sibling Cancer Mother Hypertension Sibling Family history of malignant neoplasm of breast in first degree relative Malignant neoplasm of prostate Father Patient's father is Other Diabetes mellitus Family history of malignant neoplasm of thyroid Social History Social History (Updated 12/18/22 @ 20:38 by Jerrica Sampson PA-C) Social History: Surrogate medical decision maker: Madonna Mann, spouse. Code status: Full code. Smoking status: Former smoker Tobacco type: cigarettes Second hand tobacco smoke exposure: No Smoking end date: 07/09/92 Alcohol intake: never Alcohol use details: wine occasionally Substance use: never Substance use type: does not use Lack of Transportation: No Lack of Food: Never True Current Housing: I Have Housing Concerned About Future Housing: No Difficulty Paying Gas/Electric Bills: No Difficulty Paying for Meds: No Currently Unemployed: No Education: High School Diploma/GED Difficulty w/ Childcare or Family Care: No Living arrangements: with family Additional living arrangements comments: Lives with spouse in [place]. Occupation/Education: retired Additional occupation/education comments: Retired from [employer]. Spiritual care concerns: No Meds Home Medications and Allergies Home Medications Medication Instructions Recorded Confirmed Type cholecalciferol (vitamin D3
[2022-12-18 21:16] LABS: Glucose Point of Care 151 mg/dl (65-105)
[2022-12-18] MEDS: PANTOPRAZOLE 40 MG TABLET PO (22:09)
[2022-12-18] MEDS: METOPROLOL SUCCINATE EXT REL 50 MG TABCR PO (22:09)
[2022-12-18] MEDS: TAMSULOSIN HCL 0.4 MG CAPSULE PO (22:09)
[2022-12-18] MEDS: SIMVASTATIN 20 MG TABLET PO (22:09)
[2022-12-19] VITALS (7 sets, daily range): BP systolic 141; BP diastolic 88; PULSE 71–87; RESP 16; TEMP 35.9; O2SAT 97–99
--- NOTE | 2022-12-19 06:00 | ECHO_ITS ---
Patient Info Name: Colt Mann Age: 82 years : 1940 Gender: Male Ht: 67 in Wt: 176 lbs BSA: 1.96 m2 HR: 86 bpm BP: 141 / 88 mmHg Heart Rhythm: Atrial Fibrillation Technical Quality: Fair Exam Date: 12/19/2022 9:15 AM Exam Location: [facility] Card Pulmonary Patient Status: Inpatient Admit Date: 12/18/2022 Staff Ordering Physician: Paramjit Oliver MD Ops Manager: PATRICIA Attending Provider: Saul Lou MD Referring Physician: Benito HARO; Exam Type: CA echo doppler color flow Study Info Indications - stroke Complete two-dimensional, color flow and Doppler transthoracic echocardiogram is performed. Summary 1. Complete two-dimensional, color flow and Doppler transthoracic echocardiogram is performed. 2. Left ventricular chamber dimension is normal. 3. Left ventricular systolic function is normal, estimated at 65-70%. 4. There is moderately increased left ventricular wall thickness. 5. Right ventricular systolic function is normal. 6. Left atrial chamber dimension is moderately enlarged. 7. There is moderate aortic valve calcification. 8. The mitral valve has thickened leaflets. 9. The mitral valve annulus is moderately calcified. 10. There is mild mitral valve regurgitation. 11. There is mild tricuspid valve regurgitation. Left Ventricle Left ventricular chamber dimension is normal. Left ventricular systolic function is normal, estimated at 65-70%. There is moderately increased left ventricular wall thickness. Right Ventricle Right ventricular chamber dimension is normal. Right ventricular systolic function is normal. Left Atria Left atrial chamber dimension is moderately enlarged. Right Atria Right atrial chamber dimension is normal. Atrial Septum Intact interatrial septum visualized by color flow imaging. Aortic Valve The aortic valve is trileaflet. There is no aortic valve stenosis. There is no aortic valve regurgitation. There is moderate aortic valve calcification. Pulmonic Valve The pulmonic valve is not well visualized. Mitral Valve The mitral valve has thickened leaflets. There is mild mitral valve regurgitation. The mitral valve annulus is moderately calcified. Tricuspid Valve There is mild tricuspid valve regurgitation. Pericardium/Pleural There is no pericardial effusion. Inferior Vena Cava Normal inferior vena cava with >50% collapse upon inspiration consistent with normal right atrial pressure, 3 mmHg. Aorta The aortic root size at the sinus of Valsalva is normal. Tricuspid Valve Name Value Normal Estimated PAP/RSVP RA Pressure 3 mmHg <=5 Report Signatures
[2022-12-19] MEDS: LEVOTHYROXINE SODIUM 100 MCG TABLET PO (06:14)
[2022-12-19 06:29] LABS: Hematocrit 44.2 % (42.0-52.0); Hemoglobin 15.1 g/dL (14.0-18.0); Mean Corpuscular HGB Conc 34.2 g/dl (32-36); Mean Corpuscular Hemoglobin 33.1 pg (26-34); Mean Corpuscular Volume 96.9 fl (80-100); Mean Platelet Volume 9.4 fl (7.4-10.4); Platelet Count Result 215 k/mm3 (150-375); Red Blood Count 4.56 M/mm3 (4.6-6.20); Red Cell Distribution Width 12.6 % (11.5-14.5); White Blood Count 6.6 K/mm3 (4.5-10.0)
[2022-12-19 06:45] LABS: Anion Gap 9 mmol/L (8-16); Blood Urea Nitrogen 17 mg/dL (9-20); Calcium 8.5 mg/dL (8.4-10.2); Carbon Dioxide 23 mmol/L (22-30); Chloride 106 mmol/L (98-107); Cholesterol 148 mg/dL (0-200); Estimated CRCL calculation 56 ml/min; Estimated Glomerular Filt Rate > 60; Glucose 116 mg/dL (65-110); HDL Direct 54 mg/dL; Magnesium 2.1 mg/dL (1.6-2.3); Potassium 3.8 mmol/L (3.4-5.0); Sodium 138 mmol/L (137-145); Triglycerides 56 mg/dL (<150)
[2022-12-19 06:56] LABS: LDL Cholesterol Direct 76 mg/dL
[2022-12-19 07:16] LABS: Hemoglobin A1C 5.9 % (<5.7)
[2022-12-19] MEDS: amLODIPine BESYLATE 5 MG TABLET PO (08:16)
[2022-12-19] MEDS: CHOLECALCIFEROL 1,000 UNITS TABLET 1000 UNITS PO (08:16)
[2022-12-19] MEDS: ASPIRIN 81 MG ENTERIC TABLET PO (08:16)
[2022-12-19] MEDS: IRBESARTAN 150 MG TABLET 300 MG PO (08:16)
[2022-12-19] MEDS: PANTOPRAZOLE 40 MG TABLET PO (08:16)
[2022-12-19] MEDS: FINASTERIDE 5 MG TABLET PO (08:16)
[2022-12-19] MEDS: METOPROLOL SUCCINATE EXT REL 50 MG TABCR PO (08:58)
--- NOTE | 2022-12-19 11:15 | WPDNEURCNPN ---
Assessment and Plan Assessment and plan (1) Presence of Watchman left atrial appendage closure device: Code(s): Z95.818 - Presence of other cardiac implants and grafts Status: Acute (2) Left arm weakness: Code(s): R29.898 - Other symptoms and signs involving the musculoskeletal system Status: Acute (3) Cerebrovascular accident: Code(s): I63.9 - Cerebral infarction, unspecified Status: Acute (4) Hypertension: Code(s): I10 - Essential (primary) hypertension Status: Acute (5) Type 2 diabetes mellitus: Code(s): E11.9 - Type 2 diabetes mellitus without complications Status: Acute (6) Persistent atrial fibrillation: Code(s): I48.19 - Other persistent atrial fibrillation Status: Acute Plan 1 atrial fibrillation2 diabetes mellitus 3 hypertension. 4 left upper extremity weakness with a change in status .admitted for neuro evaluation otherwise, obviously not a candidate for tPA andtnkase, given the history of hemorrhagic stroke and also now negative CTA as well ,medications will be continued as such once the MRI obtained will discuss further. Consult date: 12/19/22 HPI: Colt Mann Jr. is a 82 year old male Admitted to the hospital through the emergency room with information that around 10:00 a.m. he began to have weakness in his left upper extremity. He complained of no dizziness was able to walk and his speech was not slurred,and also he gave no history of headaches, patient does have a history of hemorrhagic stroke in 2003. Medications included aspirin 81 mg daily ,he is allergic to rosuvastatin, Does have ongoing history of atrial fibrillation, diabetes mellitus, hypercholesterolemia, hypertension, has a watchman in left atrial appendage closure devise and also has undergone surgery in the past on his heart, he has never smoked, drinks alcohol occasionally and on initial exam in the emergency room he was noted to have left upper extremity difficulties, vital signs were normal, lab was normal, CT scan of head was negative and CTA documented only old infarct involving left basal ganglia and left internal capsule but no aneurysm and only 17% stenosis of proximal right internal carotid artery, negative chest x-ray,l EKG with atrial fibrillation and stroke scale of 1 , ER physician had talked to the [facility] due to the history of hemorrhagic stroke in 2003 and they did not recommend tPA orTNKase ,was loaded with clopidogrel 300 mg admitted for only neurology consultation and observation his past history as mentioned before consistent with the atrial fibrillation and type 2 diabetes mellitus in addition to the history of stroke. [facility] Past Medical History Medical History (Updated 12/18/22 @ 20:42 by Jerrica Sampson PA-C) Arthritis Basal cell carcinoma of skin Benign prostatic hyperplasia Cerebrovascular accident Chronic GERD Hyperlipidemia Hypertension Hypothyroidism Persistent atrial fibrillation Type 2 diabetes mellitus Surgical History Surgical History (Updated 12/18/22 @ 20:42 by Jerrica Sampson PA-C) History of arthroplasty of right knee History of cataract extraction with lens replacement History of partial thyroidectomy History of right inguinal hernia repair (04/13/22) Presence of Watchman left atrial appendage closure device Family History Family History Father Heart attack Mother , passed at age 104 No problems noted. Sibling Cancer Mother Hypertension Sibling Family history of malignant neoplasm of breast in first degree relative Malignant neoplasm of prostate Father Patient's father is Other Diabetes mellitus Family history of malignant neoplasm of thyroid Social History Social History (Updated 12/18/22 @ 20:38 by Jerrica Sampson PA-C) Social History: Surrogate medical decision maker: Madonna Mcconnell
[2022-12-19 11:36] LABS: Glucose Point of Care 132 mg/dl (65-105)
--- NOTE | 2022-12-19 12:53 | WPDPN ---
Progress Note: A&P Assessment and Plan (1) Left arm weakness: Code(s): R29.898 - Other symptoms and signs involving the musculoskeletal system Status: Acute (2) Persistent atrial fibrillation: Code(s): I48.19 - Other persistent atrial fibrillation Status: Acute (3) Presence of Watchman left atrial appendage closure device: Code(s): Z95.818 - Presence of other cardiac implants and grafts Status: Acute (4) Type 2 diabetes mellitus: Code(s): E11.9 - Type 2 diabetes mellitus without complications Status: Acute (5) Hypertension: Code(s): I10 - Essential (primary) hypertension Status: Acute (6) Hypothyroidism: Code(s): E03.9 - Hypothyroidism, unspecified Status: Acute Plan The patient presented to the emergency department approximately 2 hours after sudden onset of left upper extremity weakness and numbness. Initial exam in the ED demonstrated left upper extremity drift and dysmetria with left snunxc-pe-ytqz. CTA of the head and neck did not show any acute finding. [facility] stroke team did not recommend tPA are TNKase given his history of hemorrhagic stroke. Within a couple of hours of presentation to the ER his left upper extremity weakness improved significantly. He has been loaded with clopidogrel 300 mg. He will be monitored on telemetry. Echocardiogram ordered for a.m. Continue neurologic checks q.4 hours. Neurology has been consulted and their input is appreciated. His blood pressures were reviewed and they have been reasonable. Random glucose today was 204 and I do not see that he is currently on any medications to treat diabetes; presumably this has been diet controlled. Initiate sliding scale insulin, Accu-Cheks, and hypoglycemic protocol. Check hemoglobin A1c. Continue levothyroxine and check TSH. Home medications will be reviewed and resumed as appropriate. 12/19/2022 interval history: Patient with left upper extremity weakness stats his symptoms have improved some is able to lift his left arm but unable to touch his nose, CT scan of the head is negative for acute stroke and patient is refusing MRI of the brain, patient being treated with aspirin, will have a PT OT evaluate the patient, patient will be seen by Neurologist and further recommendation to follow. Subjective Date/time seen: 12/19/22 12:53 Interval history: HPI-Narrative: This is a very pleasant 82-year-old gentleman with history hemorrhagic stroke, persistent atrial fibrillation status post Watchman procedure, hypertension, type 2 diabetes mellitus, and hypothyroidism who presented to the emergency department via private vehicle from home for evaluation of left arm weakness and numbness.? The patient provides the following history. He felt just fine when he got up this morning and did some work on his pool. When his work was completed he sat down to remove his boots and his left arm suddenly fell off of the arm rest. It felt heavy, numb, and weak and he had difficulties lifting it back up. His symptoms persisted for almost 2 hours before presenting to the ER. He had no other deficits and he specifically denies vertigo, visual changes, facial droop, and difficulty speaking and swallowing. On initial exam he had some difficulties with left-sided aqtyzs-pl-pkwg and left upper extremity drift. CTA of the head and neck showed old infarcts and no significant aneurysm or stenosis. ED physician spoke with [facility] stroke center and due to his history of hemorrhagic stroke in 2003 they did not recommend tPA or TNKase. He was loaded with clopidogrel 300 mg and is being admitted in this setting for close observation and neurology consultation. Within a couple of hours the weakness in his left arm improved significantly at the time my evaluation he does not have any specific complaints. 12/19/2022 interval history: Patient with left upper extremity weakness stats his symptoms have improved some is able to lift his left arm bu
--- NOTE | 2022-12-19 14:27 | PM.DS ---
DS: Admitting Diagnosis Discharge Date 12/19/2022 Admitting Diagnosis Left arm weakness and numbness. DS: Discharge Diagnosis Discharge Diagnosis (1) Left arm weakness: Code(s): R29.898 - Other symptoms and signs involving the musculoskeletal system Status: Acute (2) Persistent atrial fibrillation: Code(s): I48.19 - Other persistent atrial fibrillation Status: Acute (3) Presence of Watchman left atrial appendage closure device: Code(s): Z95.818 - Presence of other cardiac implants and grafts Status: Acute (4) Type 2 diabetes mellitus: Code(s): E11.9 - Type 2 diabetes mellitus without complications Status: Acute (5) Hypertension: Code(s): I10 - Essential (primary) hypertension Status: Acute (6) Hypothyroidism: Code(s): E03.9 - Hypothyroidism, unspecified Status: Acute Plan The patient presented to the emergency department approximately 2 hours after sudden onset of left upper extremity weakness and numbness. Initial exam in the ED demonstrated left upper extremity drift and dysmetria with left iavsqu-fo-xxdd. CTA of the head and neck did not show any acute finding. [facility] stroke team did not recommend tPA are TNKase given his history of hemorrhagic stroke. Within a couple of hours of presentation to the ER his left upper extremity weakness improved significantly. He has been loaded with clopidogrel 300 mg. He will be monitored on telemetry. Echocardiogram ordered for a.m. Continue neurologic checks q.4 hours. Neurology has been consulted and their input is appreciated. His blood pressures were reviewed and they have been reasonable. Random glucose today was 204 and I do not see that he is currently on any medications to treat diabetes; presumably this has been diet controlled. Initiate sliding scale insulin, Accu-Cheks, and hypoglycemic protocol. Check hemoglobin A1c. Continue levothyroxine and check TSH. Home medications will be reviewed and resumed as appropriate. 12/19/2022 interval history: Patient with left upper extremity weakness stats his symptoms have improved some is able to lift his left arm but unable to touch his nose, CT scan of the head is negative for acute stroke and patient is refusing MRI of the brain, patient being treated with aspirin, will have a PT OT evaluate the patient, patient will be seen by Neurologist and further recommendation to follow. DS: Summary Hospital Course Reason for hospitalization: Left arm weakness and numbness. Narrative: This is a very pleasant 82-year-old gentleman with history hemorrhagic stroke, persistent atrial fibrillation status post Watchman procedure, hypertension, type 2 diabetes mellitus, and hypothyroidism who presented to the emergency department via private vehicle from home for evaluation of left arm weakness and numbness.? The patient provides the following history. He felt just fine when he got up this morning and did some work on his pool. When his work was completed he sat down to remove his boots and his left arm suddenly fell off of the arm rest. It felt heavy, numb, and weak and he had difficulties lifting it back up. His symptoms persisted for almost 2 hours before presenting to the ER. He had no other deficits and he specifically denies vertigo, visual changes, facial droop, and difficulty speaking and swallowing. On initial exam he had some difficulties with left-sided frooun-kf-oogb and left upper extremity drift. CTA of the head and neck showed old infarcts and no significant aneurysm or stenosis. ED physician spoke with [facility] stroke center and due to his history of hemorrhagic stroke in 2003 they did not recommend tPA or TNKase. He was loaded with clopidogrel 300 mg and is being admitted in this setting for close observation and neurology consultation. Within a couple of hours the weakness in his left arm improved significantly at the time my evaluation he does not have any specific complaints. [facility]
== END 2022-12-19 15:15 | disposition home or self-care (01) ==
LOC: ANHED 14:27 → ANH3MEDSUR 12-19 13:14
PROVIDERS: Physician Assistant; Admitting Provider Hospitalist; Emergency Provider Emergency Medicine; PCP Internal Medicine; Visit Provider Family Medicine
DX: R29.898 Other symptoms and signs involving the musculoskeletal system (principal); I48.19 Other persistent atrial fibrillation; Z95.818 Presence of other cardiac implants and grafts; E11.9 Type 2 diabetes mellitus without complications; I10 Essential (primary) hypertension; E03.9 Hypothyroidism, unspecified; R20.2 Paresthesia of skin; N40.0 Benign prostatic hyperplasia without lower urinary tract symptoms; E66.3 Overweight; R94.31 Abnormal electrocardiogram [ECG] [EKG]; Z68.27 Body mass index [BMI] 27.0-27.9, adult; F10.90 Alcohol use, unspecified, uncomplicated; Z87.891 Personal history of nicotine dependence; Z86.73 Personal history of transient ischemic attack (TIA), and cerebral infarction without residual deficits; Z79.82 Long term (current) use of aspirin; Z79.51 Long term (current) use of inhaled steroids; Z79.899 Other long term (current) drug therapy; Z82.49 Family history of ischemic heart disease and other diseases of the circulatory system; Z83.3 Family history of diabetes mellitus
CPT/HCPCS: 36415; 70450; 70496; 70498; 71045; 80048; 80053; 80061; 82948; 83036; 83735; 84443; 84484; 85025; 85027; 85610; 85730; 93005; 93306; 99285; A9270; G0378; Q9967

== ENCOUNTER 2023-02-10 16:22 | Emergency (ER) | payer MEDICARE, SELFPAY ==
[2023-02-10 16:38] VITALS: BP 141/82; PULSE 73; RESP 18; TEMP 36.7; O2SAT 100
--- NOTE | 2023-02-10 16:39 | ED.MALEGU ---
HPI - Male Genitourinary General Chief complaint: Urogenital-Male Stated complaint: uti symptoms Time Seen by Provider: 02/10/23 16:40 Source: patient Mode of arrival: ambulatory Limitations: no limitations History of Present Illness HPI Narrative: Colt is an 82-year-old male patient presenting to the clinic today with complaints of possible urinary tract infection. His reports that he just finished antibiotics about for 5 days ago. States that he is still having UTI symptoms- Complaining of fatigue and frequent urination. History of overactive bladder syndrome and BPH. His urologist tested his urine and placed him on Bactrim. He finished all the Bactrim except for 1 dose. States the Bactrim made him nauseous and the urologist sent him and prescription for Zofran. He denies any fever, chills, abdominal pain, or flank pain. Related Data Home Medications Medication Instructions Recorded Confirmed cholecalciferol (vitamin D3) 25 1,000 unit PO DAILY 06/03/19 02/10/23 mcg (1,000 unit) capsule aspirin 81 mg tablet,delayed 81 mg PO DAILY 06/23/19 02/10/23 release (Adult Low Dose Aspirin) finasteride 5 mg tablet 5 mg PO DAILY 06/23/19 02/10/23 docusate sodium 100 mg capsule 100 mg PO BID PRN Constipation 11/10/21 02/10/23 (Dulcolax Stool Softener (docusate)) tamsulosin 0.4 mg capsule 0.4 mg PO HS 11/10/21 02/10/23 ondansetron HCl 4 mg tablet 4 mg PO DAILY 02/10/23 02/10/23 trospium 20 mg tablet 20 mg PO DAILY 02/10/23 02/10/23 Allergies Allergy/AdvReac Type Severity Reaction Status Date / Time Tetanus Vaccines and Toxoid Allergy Mild Hives Verified 02/10/23 16:45 Penicillins Allergy Unknown Hives Verified 02/10/23 16:45 rosuvastatin AdvReac Mild leg cramps Verified 02/10/23 16:45 Sulfa (Sulfonamide AdvReac Unknown Verified 02/10/23 16:46 Antibiotics) PMFSH Past Medical History Medical History Arthritis Basal cell carcinoma of skin Benign prostatic hyperplasia Cerebrovascular accident Chronic GERD Hyperlipidemia Hypertension Hypothyroidism Persistent atrial fibrillation Type 2 diabetes mellitus Surgical History Surgical History History of arthroplasty of right knee History of cataract extraction with lens replacement History of partial thyroidectomy History of right inguinal hernia repair (04/13/22) Presence of Watchman left atrial appendage closure device Family History Family History Father Heart attack Mother , passed at age 104 No problems noted. Sibling Cancer Mother Hypertension Sibling Family history of malignant neoplasm of breast in first degree relative Malignant neoplasm of prostate Father Patient's father is Other Diabetes mellitus Family history of malignant neoplasm of thyroid Social History Social History Social History: Surrogate medical decision maker: Madonna Mann, spouse. Code status: Full code. Smoking status: Former smoker Tobacco type: cigarettes Second hand tobacco smoke exposure: No Smoking end date: 07/09/92 Alcohol intake: never Alcohol use details: wine occasionally Substance use: never Substance use type: does not use Lack of Transportation: No Lack of Food: Never True Current Housing: I Have Housing Concerned About Future Housing: No Difficulty Paying Gas/Electric Bills: No Difficulty Paying for Meds: No Currently Unemployed: No Education: High School Diploma/GED Difficulty w/ Childcare or Family Care: No Living arrangements: with family Additional living arrangements comments: Lives with spouse in [place]. Occupation/Education: retired Additional occupation/education comments: Retired from [employer])
== END 2023-02-10 17:00 | disposition home or self-care (01) ==
PROVIDERS: Emergency Provider Nurse Practitioner Family; PCP Internal Medicine
DX: R35.0 Frequency of micturition (principal); N32.81 Overactive bladder; R53.83 Other fatigue; R31.29 Other microscopic hematuria; Z87.891 Personal history of nicotine dependence; M19.90 Unspecified osteoarthritis, unspecified site; N40.0 Benign prostatic hyperplasia without lower urinary tract symptoms; Z86.73 Personal history of transient ischemic attack (TIA), and cerebral infarction without residual deficits; K21.9 Gastro-esophageal reflux disease without esophagitis; E78.5 Hyperlipidemia, unspecified; I10 Essential (primary) hypertension; E03.9 Hypothyroidism, unspecified; E11.9 Type 2 diabetes mellitus without complications; I48.19 Other persistent atrial fibrillation; Z90.89 Acquired absence of other organs; Z96.651 Presence of right artificial knee joint; Z79.82 Long term (current) use of aspirin
CPT/HCPCS: 81003; 99212; G0463

== ENCOUNTER 2023-02-13 19:55 | Emergency (ER) | payer MEDICARE, SELFPAY ==
--- NOTE | ~2023-02-13 | CT_ITS ---
EXAMINATION: CT brain wo con DATE: 02/13/2023 21:01 INDICATION: fall . TECHNIQUE: Computed tomography (CT) of the head was performed without intravenous contrast. The mA wa s adjusted according to patient size. Iterative reconstruction technique was employed. The dose-lengt h product was 605.33 mGy-cm. COMPARISON: 12/18/2022. FINDINGS: No acute intracranial hemorrhage or extra-axial fluid collection. No hydrocephalus, mass, or herniation. No acute ischemic infarct. Unremarkable dural venous sinus attenuation. No acute osseous abnormality. The aerated spaces are clear. Moderate atrophy and chronic white matter change. Atherosclerotic intracranial calcification. Bilater al lens replacements. Focal left basal ganglia and bilateral periventricular encephalomalacia. IMPRESSION: No acute intracranial process. Reviewed, dictated and finalized at location K.
--- NOTE | ~2023-02-13 | CT_ITS ---
EXAMINATION: CT cervical spine wo con DATE: 02/13/2023 21:01 INDICATION: fall TECHNIQUE: Computed tomography (CT) of the cervical spine was performed without intravenous contrast. Automated exposure control and iterative reconstruction technique were employed. The dose-length pro duct was 524.54 mGy-cm. COMPARISON: None. FINDINGS: Vertebral Body Alignment: Intact. Craniocervical and atlantoaxial alignment: Moderate degenerative change. Alignment intact. Osseous structures/fracture: No evidence of a lytic or blastic process in the visualized spine. No e vidence of acute fracture. Cervical soft tissues: The paraspinal soft tissues planes are maintained. Degenerative changes: Degenerative changes, without severe neural foraminal or central canal narrowin g. IMPRESSION: No acute fracture or traumatic malalignment in the cervical spine. Reviewed, dictated and finalized at location K.
[2023-02-13 20:20] VITALS: BP 137/84; PULSE 72; RESP 16; TEMP 37.1; O2SAT 100
[2023-02-13 22:08] VITALS: BP 146/92; PULSE 77; RESP 20; TEMP 36.7; O2SAT 97
--- NOTE | 2023-02-13 22:13 | ECG_ITS ---
Measurements Intervals [place] Rate: 75 P: GA: 0 QRS: -33 QRSD: 120 T: 114 QT: 368 QTc: 411 Interpretive Statements ATRIAL FIBRILLATION MARKED LEFT AXIS DEVIATION [QRS AXIS < -30] POSSIBLE RIGHT VENTRICULAR CONDUCTION DELAY [RSR (QR) IN V1/V2] VOLTAGE CRITERIA FOR LVH [MEETS CRITERIA IN ONE OF: R(aVL), S(V1), R(V5), R(V5/V6)+S(V1)] POSSIBLE SEPTAL MYOCARDIAL INFARCTION , OF INDETERMINATE AGE [30 ms Q WAVE IN V1/V2] MODERATE T-WAVE ABNORMALITY, CONSIDER LATERAL ISCHEMIA [-0.1+ mV T WAVE IN I/aVL/V5/V6] ABNORMAL ECG COMPARED TO ECG 12/18/2022 12:10:54 NO SIGNIFICANT CHANGES Electronically Signed On 02-14-2023 9:24:28 CDT by Oscar Powell M.D.
[2023-02-13 22:32] VITALS: BP 142/95; PULSE 77; RESP 15; TEMP 37.1; O2SAT 98
[2023-02-13 23:16] VITALS: PULSE 84
[2023-02-13] MEDS: METOPROLOL SUCCINATE EXT REL 50 MG TABCR PO (23:16)
--- NOTE | 2023-02-14 01:05 | ED.FALL ---
HPI - Fall General Chief Complaint: Fall Stated Complaint: fall Time Seen by Provider: 02/13/23 22:40 History of Present Illness HPI Narrative: Patient has history of bad arthritis and as a result was having difficulty ambulating due to his bad left knee, for which she is going to physical therapy for them for which she has a walker at home due to the knee and the fact that he was only using his cane earlier, he did lose his balance and fall, landing on his face, causing a black eye and a small cut above his eyebrow. He has no injuries or pain anywhere else other than his chronic knee pain, no loss of consciousness, no nausea or vomiting, no focal numbness or weakness. Related Data Home Medications Medication Instructions Recorded Confirmed cholecalciferol (vitamin D3) 25 1,000 unit PO DAILY 06/03/19 02/10/23 mcg (1,000 unit) capsule aspirin 81 mg tablet,delayed 81 mg PO DAILY 06/23/19 02/10/23 release (Adult Low Dose Aspirin) finasteride 5 mg tablet 5 mg PO DAILY 06/23/19 02/10/23 docusate sodium 100 mg capsule 100 mg PO BID PRN Constipation 11/10/21 02/10/23 (Dulcolax Stool Softener (docusate)) tamsulosin 0.4 mg capsule 0.4 mg PO HS 11/10/21 02/10/23 ondansetron HCl 4 mg tablet 4 mg PO DAILY 02/10/23 02/10/23 trospium 20 mg tablet 20 mg PO DAILY 02/10/23 02/10/23 Allergies Allergy/AdvReac Type Severity Reaction Status Date / Time Tetanus Vaccines and Toxoid Allergy Mild Hives Verified 02/13/23 20:23 Penicillins Allergy Unknown Hives Verified 02/13/23 20:23 rosuvastatin AdvReac Mild leg cramps Verified 02/13/23 20:23 Sulfa (Sulfonamide AdvReac Unknown Verified 02/13/23 20:23 Antibiotics) Review of Systems Review of Systems: CONST: No fever. HEENT: No sore throat C/V: No chest pain RESP: No cough GI: No nausea or vomiting : No dysuria. M/S: Knee pain SKIN: Cut to right eyebrow NEURO: [No headache or focal numbness or weakness] PSYCH: [No depression] [facility] Past Medical History Medical History Arthritis Basal cell carcinoma of skin Benign prostatic hyperplasia Cerebrovascular accident Chronic GERD Hyperlipidemia Hypertension Hypothyroidism Persistent atrial fibrillation Type 2 diabetes mellitus Surgical History Surgical History History of arthroplasty of right knee History of cataract extraction with lens replacement History of partial thyroidectomy History of right inguinal hernia repair (04/13/22) Presence of Watchman left atrial appendage closure device Family History Family History Father Heart attack Mother , passed at age 104 No problems noted. Sibling Cancer Mother Hypertension Sibling Family history of malignant neoplasm of breast in first degree relative Malignant neoplasm of prostate Father Patient's father is Other Diabetes mellitus Family history of malignant neoplasm of thyroid Social History Social History Social History: Surrogate medical decision maker: Madonna Mann, spouse. Code status: Full code. Smoking status: Former smoker Tobacco type: cigarettes Second hand tobacco smoke exposure: No Smoking end date: 07/09/92 Alcohol intake: never Alcohol use details: wine occasionally Substance use: never Substance use type: does not use Lack of Transportation: No Lack of Food: Never True Current Housing: I Have Housing Concerned About Future Housing: No Difficulty Paying Gas/Electric Bills: No Difficulty Paying for Meds: No Currently Unemployed: No Education: High School Diploma/GED Difficulty w/ Childcare or Family Care: No Living arrangements: with family Additional living arrangements comments: Lives with spouse in
== END 2023-02-13 23:40 | disposition home or self-care (01) ==
PROVIDERS: Emergency Provider Emergency Medicine; PCP Internal Medicine
DX: S01.111A Laceration without foreign body of right eyelid and periocular area, initial encounter (principal); S00.11XA Contusion of right eyelid and periocular area, initial encounter; I48.19 Other persistent atrial fibrillation; I10 Essential (primary) hypertension; E03.9 Hypothyroidism, unspecified; E78.5 Hyperlipidemia, unspecified; E11.9 Type 2 diabetes mellitus without complications; N40.0 Benign prostatic hyperplasia without lower urinary tract symptoms; K21.9 Gastro-esophageal reflux disease without esophagitis; M19.90 Unspecified osteoarthritis, unspecified site; Z96.651 Presence of right artificial knee joint; Z86.73 Personal history of transient ischemic attack (TIA), and cerebral infarction without residual deficits; Z85.828 Personal history of other malignant neoplasm of skin; Z98.49 Cataract extraction status, unspecified eye; Z96.1 Presence of intraocular lens; Z87.891 Personal history of nicotine dependence; R94.31 Abnormal electrocardiogram [ECG] [EKG]; W18.39XA Other fall on same level, initial encounter; Z79.82 Long term (current) use of aspirin
CPT/HCPCS: 12011; 70450; 72125; 93005; 99284; A9270

== ENCOUNTER 2023-02-15 10:00 | Inpatient (IN) | payer MEDICARE, SELFPAY ==
[2023-02-15] VITALS (7 sets, daily range): BP systolic 119–142; BP diastolic 63–88; PULSE 70–97; RESP 16–20; TEMP 36.2–37.1; O2SAT 97–99; BMI 26.6
--- NOTE | ~2023-02-15 | XR_ITS ---
EXAMINATION: XR hip LT min 3V w AP pelvis DATE: 02/15/2023 12:06 INDICATION: Fall. Inability to walk. TECHNIQUE: An anteroposterior view of the pelvis and 3 views of left hip were obtained. COMPARISON: None. FINDINGS: There is lumbar dextrocurvature and moderate spondylosis. No fracture. There is mild osteoa rthritis of the hips. There are surgical clips in the pelvis. IMPRESSION: 1. Mild osteoarthritis of the hips. Reviewed, dictated and finalized at location A.
--- NOTE | ~2023-02-15 | CT_ITS ---
EXAMINATION: CT knee LT wo con DATE: 02/15/2023 15:21 INDICATION: Left knee pain post fall TECHNIQUE: High resolution computed tomography (CT) of the left knee was performed without intravenou s contrast. Additional sagittal and coronal reconstructions were performed. Automated exposure contro l and iterative reconstruction technique were employed. The dose-length product was 452.14 mGy-cm. COMPARISON: Left knee radiograph dated 02/15/2023 FINDINGS: There is a nondisplaced intra-articular fracture extending obliquely from the superolateral to the in feromedial aspect of the patella with no significant fracture gap or incongruity at the articular cor tomasz. There is a secondary moderate sized lipohemarthrosis with dependently layering hematocrit level in the suprapatellar pouch. No other fractures identified. Tricompartmental osteoarthritis with small marginal osteophytes in all 3 compartments and at least moderate joint space narrowing in the latera l compartment. IMPRESSION: 1. Nondisplaced intra-articular fracture of the patella with moderate-sized hemarthrosis. Reviewed, dictated and finalized at location L. IMPRESSION: 1. Nondisplaced intra-articular fracture of the patella with moderate-sized hem arthrosis.
--- NOTE | ~2023-02-15 | XR_ITS ---
EXAMINATION: XR knee LT min 4V DATE: 02/15/2023 12:06 INDICATION: Left knee pain and swelling. Fall. TECHNIQUE: 4 views of left knee were obtained. COMPARISON: None. FINDINGS: Bone alignment is normal. No fracture. There is mild osteoarthritis of medial compartment a nd moderate osteoarthritis of lateral and patellofemoral compartments. There is a moderate-sized knee joint effusion. IMPRESSION: 1. Moderate left knee osteoarthritis. 2. Moderate-sized left knee joint effusion. Reviewed, dictated and finalized at location A.
--- NOTE | 2023-02-15 11:45 | ED.LOWEXIN ---
HPI - Extremity Injury (Lower) General Chief Complaint: Extremity Injury, Lower <Judith Whyte PA-C - Last Filed: 02/15/23 16:15> Stated Complaint: fall/ knee pain <MACEY Souza Last Filed: 02/15/23 16:15> Time Seen by Provider: 02/15/23 10:05 <MACEY Souza Last Filed: 02/15/23 16:15> Source: patient, family and old records reviewed <MACEY Souza Last Filed: 02/15/23 16:15> Mode of arrival: ambulatory <MACEY Souza Last Filed: 02/15/23 16:15> Limitations: no limitations <MACEY Souza Last Filed: 02/15/23 16:15> History of Present Illness HPI Narrative: Patient is an 82-year-old male who presents ED with report of left knee pain. Patient was seen in the ED here 2 days ago after a ground-level fall in which he became lightheaded, lost his balance and fell hitting his head. He had a benign workup at that time, CT scans were negative. He was not having any pain in his left knee at that time. Since then, however he has had progressively worsening pain and swelling in his left anterior knee. He has been unable to ambulate or bear weight due to the pain. He has been mostly in bed since the fall occurred. He is prescribed tramadol and has been taking this without much relief. Denies any further injury. Denies any numbness or tingling. Denies any hip pain. <MACEY Souza Last Filed: 02/15/23 16:15> Related Data Home Medications: Home Medications Medication Instructions Recorded Confirmed cholecalciferol (vitamin D3) 25 1,000 unit PO DAILY 06/03/19 02/15/23 mcg (1,000 unit) capsule aspirin 81 mg tablet,delayed 81 mg PO DAILY 06/23/19 02/15/23 release (Adult Low Dose Aspirin) finasteride 5 mg tablet 5 mg PO DAILY 06/23/19 02/15/23 docusate sodium 100 mg capsule 100 mg PO BID PRN Constipation 11/10/21 02/15/23 (Dulcolax Stool Softener (docusate)) tamsulosin 0.4 mg capsule 0.4 mg PO HS 11/10/21 02/15/23 ondansetron HCl 4 mg tablet 4 mg PO DAILY 02/10/23 02/15/23 trospium 20 mg tablet 20 mg PO DAILY 02/10/23 02/15/23 metoprolol succinate 50 mg 50 mg PO Q12H 02/15/23 02/15/23 tablet,extended release 24 hr <Judith Whyte PA-C - Last Filed: 02/15/23 16:15> Allergies/Adverse Reactions: Allergies Allergy/AdvReac Type Severity Reaction Status Date / Time Tetanus Vaccines and Toxoid Allergy Mild Hives Verified 02/15/23 18:02 Penicillins Allergy Unknown Hives Verified 02/15/23 18:02 rosuvastatin AdvReac Mild Other Verified 02/15/23 18:03 Sulfa (Sulfonamide AdvReac Unknown Verified 02/15/23 18:02 Antibiotics) <Judith Whyte PA-C - Last Filed: 02/15/23 16:15> Review of Systems Review of Systems: CONSTITUTIONAL: Denies fever, chills, or sweats. EYES: Denies visual changes. CARDIOVASCULAR: Denies chest pain. RESPIRATORY: Denies dyspnea. GASTROINTESTINAL: Denies abdominal pain, nausea, vomiting. MUSCULOSKELETAL: See HPI. NEUROLOGIC: Denies headache, numbness, or weakness. <Judith Whyte PA-C - Last Filed: 02/15/23 16:15> All systems reviewed & are unremarkable except as noted in HPI and below <Judith Whyte PA-C - Last Filed: 02/15/23 16:15> [facility] Past Medical History Medical History: Medical History Arthritis Basal cell carcinoma of skin Benign prostatic hyperplasia Cerebrovascular accident Chronic GERD Hyperlipidemia Hypertension Hypothyroidism Persistent atrial fibrillation Type 2 diabetes mellitus <Judith Whyte PA-C - Last Filed: 02/15/23 16:15> Surgical History Surgical History: Surgical History History of arthroplasty of right knee History of cataract extraction with lens replacement History of partial thyroidectomy History of right inguinal hernia repair (04/13/22) P
[2023-02-15] MEDS: HYDROcodone/acetaminophen (*CRX) 5-325 MG TABLET 1 TAB PO (12:17)
[2023-02-15 12:29] LABS: Appearance Urine Clear (Clear); Bacteria Urine None Seen /hpf; Bilirubin Urine Negative (Negative); Blood Urine Trace (Negative); Color Urine Yellow (Yellow); Glucose Urine UA 1+ mg/dL (Negative); Ketones Urine Trace mg/dL (Negative); Leukocyte Esterase Ur Negative LEU/UL (Negative); Nitrate Urine Negative (Negative); Non Pathogenic Casts 0-2; Protein Urine 1+ mg/dL (Negative); Specific Grav Ur 1.019 (1.001-1.035); Squamous Epithelial Cell Urine None seen /hpf (Few); Urobilinogen Urine 0.2 mg/dL (<2.0); WBC Urine 0-5 /hpf; pH Urine 6.5 (5.0-9.0)
[2023-02-15 12:31] LABS: Add Urine Microscopic? YES
--- NOTE | 2023-02-15 13:01 | PC.NURSE ---
Patient's sister-in law for any communication needs. Radha Thompson [phone]
[2023-02-15] MEDS: SODIUM CHLORIDE 0.9% IV 1,000 ML 999 ML IV CONT (14:43)
[2023-02-15 14:56] LABS: Basophils Percent Auto 0.2 % (0.2-1.2); Hemoglobin 15.4 g/dL (14.0-18.0); Immature Granulocyte Absolute 0.07 K/mm3 (0.00-0.031); Immature Granulocyte Percent A 0.5 % (0-0.5); Lymphocytes Absolute Auto 1.43 K/mm3 (0.9-3.2); Lymphocytes Percent Auto 11.1 % (18.3-44.2); Mean Corpuscular HGB Conc 35.8 g/dl (32-36); Mean Corpuscular Hemoglobin 33.6 pg (26-34); Mean Corpuscular Volume 93.7 fl (80-100); Mean Platelet Volume 8.5 fl (7.4-10.4); Monocytes Absolute Auto 1.1 K/mm3 (0.1-0.6); Monocytes Percent Auto 8.7 % (2.6-8.5); Neutrophils Absolute Auto 10.2 K/mm3 (1.3-6.7); Neutrophils Percent Auto 79.5 % (45.5-73.1); Platelet Count Result 202 k/mm3 (150-375); Red Blood Count 4.59 M/mm3 (4.6-6.20); Red Cell Distribution Width 12.1 % (11.5-14.5); White Blood Count 12.9 K/mm3 (4.5-10.0)
[2023-02-15 15:05] LABS: Alanine Aminotransferase 28 U/L (6-50); Albumin Level 4.2 g/dL (3.5-5.1); Alkaline Phosphatase 48 U/L (38-126); Anion Gap 9 mmol/L (8-16); Aspartate Amino Transferase 35 U/L (17-59); Bilirubin,Total 3.1 mg/dL (0.2-1.3); Blood Urea Nitrogen 15 mg/dL (9-20); Calcium 8.7 mg/dL (8.4-10.2); Carbon Dioxide 22 mmol/L (22-30); Chloride 88 mmol/L (98-107); Estimated CRCL calculation 73 ml/min; Estimated Glomerular Filt Rate > 60; Glucose 175 mg/dL (65-110); Potassium 4.2 mmol/L (3.4-5.0); Sodium 119 mmol/L (137-145)
[2023-02-15] MEDS: SODIUM CHLORIDE 0.9% IV 1,000 ML 100 ML IV CONT (15:45)
--- NOTE | 2023-02-15 17:59 | ADMGEN ---
This patient, Colt Mann Jr., was admitted to [address] [place] [address] Room 316-02. Patient/family oriented to hospital policies and general routines including ID bracelet, bed and alarms, visiting hours, pain management, procedures, bathroom and other care routines, personal items, smoking policy, room service/diet, and visiting hours. Information on how to activate the Rapid Response Team has been discussed. Patient/Family are encouraged to report perceived risks to care and to ask questions if they do not understand what they are told or what they should do.
--- NOTE | 2023-02-15 18:21 | ECG_ITS ---
Measurements Intervals [place] Rate: 75 P: SC: 0 QRS: -34 QRSD: 117 T: 125 QT: 379 QTc: 425 Interpretive Statements ATRIAL FIBRILLATION MARKED LEFT AXIS DEVIATION [QRS AXIS < -30] MODERATE INTRAVENTRICULAR CONDUCTION DELAY [110+ ms QRS DURATION] VOLTAGE CRITERIA FOR LVH [MEETS CRITERIA IN ONE OF: R(aVL), S(V1), R(V5), R(V5/V6)+S(V1)] ST DEVIATION AND MODERATE T-WAVE ABNORMALITY, CONSIDER LATERAL ISCHEMIA [-0.1+ mV T WAVE IN I/aVL/V5/V6] COMPARED TO ECG 02/13/2023 22:45:20 NO SIGNIFICANT CHANGES Electronically Signed On 02-16-2023 8:53:31 CDT by Melecio Acosta M.D.
[2023-02-15 19:19] LABS: Anion Gap 6 mmol/L (8-16); Blood Urea Nitrogen 14 mg/dL (9-20); Calcium 8.2 mg/dL (8.4-10.2); Carbon Dioxide 20 mmol/L (22-30); Chloride 91 mmol/L (98-107); Estimated CRCL calculation 73 ml/min; Estimated Glomerular Filt Rate > 60; Glucose 194 mg/dL (65-110); Potassium 3.9 mmol/L (3.4-5.0); Sodium 117 mmol/L (137-145)
--- NOTE | 2023-02-15 23:49 | PM.IMHP ---
H&P: HPI History of Present Illness Date/Time: 02/15/23 20:00 Chief Complaint: Left knee pain Narrative: 82-year-old male with a past medical history of essential hypertension, chronic atrial fibrillation status post Watchman procedure, BPH, chronic constipation and hypothyroidism who presented to the ER with left knee pain. The patient fell 02/13/2023. He stated he had just finished putting chemicals in his pool. He was walking in his basement and suddenly felt lightheaded. He reportedly took another couple steps with his cane and then fell. Initially it sounded like he may have passed out but the patient is adamant that he did not pass out. He did strike his head and had bleeding from above his eyebrow. He came in and had a CT scan of his head. No labs were done at that time. No imaging was done of his lower extremities. He reported that he hit 1 of his knees but he did not know which knee he hit. He reports that they pushed on his right knee in the ER but he did not think they exam in his left knee. He reported that the knee began to swell and became painful. It was 11/10 in intensity when he would try to bend it and walk. He reports that he has chronic nausea for the last month or so. He stated that his nausea got hours after he was placed on antibiotics for UTI. Review of external records indicate the patient was placed on Bactrim 01/30/2023. Since that time he has had more persistent nausea. And received a script for Zofran on the 07 of February. The Zofran does seem to help his nausea. He is still had persistently decreased appetite. Since all this occurred he has had episodes of lightheadedness. He denies any palpitations. He denies lower extremity edema or orthopnea. He has not noticed any palpitations. He does have a history of chronic atrial fibrillation but was rate controlled on arrival to the ER. He denies any chest pain. In the ER and x-ray of the knee demonstrated arthritic changes and a moderate joint effusion. CT scan of the knee demonstrated nondisplaced intra-articular fracture of the patella with moderate sized hemarthrosis. Patient tells nursing staff that he is on tramadol but this has not been ordered since April of 2022. Source of information is past medical records and patient report. Patient is a fair historian. Review of Systems Review of Systems: 12 systems were reviewed with pertinent positives and negatives per HPI. Except as documented in the HPI, all other systems were reviewed and are negative. [facility] Past Medical History Medical History (Updated 02/16/23 @ 00:51 by Kimberli Mcneil DO) Arthritis Basal cell carcinoma of skin Benign prostatic hyperplasia Cerebrovascular accident Chronic GERD Hyperlipidemia Hypertension Hypothyroidism Peripheral artery disease Persistent atrial fibrillation Type 2 diabetes mellitus Surgical History Surgical History History of arthroplasty of right knee History of cataract extraction with lens replacement History of partial thyroidectomy History of right inguinal hernia repair (04/13/22) Presence of Watchman left atrial appendage closure device Family History Family History Father Heart attack Mother , passed at age 104 No problems noted. Sibling Cancer Family history of malignant neoplasm of thyroid Mother Hypertension Sibling Malignant neoplasm of prostate Family history of malignant neoplasm of breast in first degree relative Father Patient's father is Sibling Diabetes mellitus Grandparent Diabetes mellitus Social History Social History (Updated 02/16/23 @ 00:45 by Kimberli Mcneil DO) Social History: Surrogate medical decision maker: Madonna Mann, spouse. Code status: Full code. Smoking status: Never smoker Second hand tobacco smoke exposure: No
[2023-02-16] VITALS (8 sets, daily range): BP systolic 128–140; BP diastolic 78–80; PULSE 71–100; RESP 14–16; TEMP 36.8–37.5; O2SAT 98
[2023-02-16 00:16] LABS: Sodium 119 mmol/L (137-145)
[2023-02-16 05:32] LABS: Alanine Aminotransferase 25 U/L (6-50); Albumin Level 3.4 g/dL (3.5-5.1); Alkaline Phosphatase 50 U/L (38-126); Anion Gap 7 mmol/L (8-16); Aspartate Amino Transferase 29 U/L (17-59); Bilirubin,Total 2.3 mg/dL (0.2-1.3); Blood Urea Nitrogen 12 mg/dL (9-20); Calcium 8.1 mg/dL (8.4-10.2); Carbon Dioxide 21 mmol/L (22-30); Chloride 92 mmol/L (98-107); Estimated CRCL calculation 73 ml/min; Estimated Glomerular Filt Rate > 60; Glucose 143 mg/dL (65-110); Potassium 4.1 mmol/L (3.4-5.0); Sodium 120 mmol/L (137-145)
[2023-02-16] MEDS: LEVOTHYROXINE SODIUM 100 MCG TABLET PO (05:43)
[2023-02-16 06:06] LABS: Hematocrit 37.6 % (42.0-52.0); Hemoglobin 13.3 g/dL (14.0-18.0); Mean Corpuscular HGB Conc 35.4 g/dl (32-36); Mean Corpuscular Hemoglobin 33.7 pg (26-34); Mean Corpuscular Volume 95.2 fl (80-100); Mean Platelet Volume 8.9 fl (7.4-10.4); Platelet Count Result 180 k/mm3 (150-375); Red Blood Count 3.95 M/mm3 (4.6-6.20); Red Cell Distribution Width 12.2 % (11.5-14.5); White Blood Count 9.2 K/mm3 (4.5-10.0)
[2023-02-16 07:08] LABS: Creatinine Urine 62.2 mg/dL
[2023-02-16 07:09] LABS: Sodium Urine Random 17 meq/L
--- NOTE | 2023-02-16 08:02 | PM.CNOR ---
Assessment and Plan Assessment and plan (1) Patellar fracture: Qualifiers: Encounter type: initial encounter Fracture alignment: nondisplaced Fracture morphology: unspecified fracture morphology Fracture type: closed Laterality: left Qualified Code(s): S82.002A - Unspecified fracture of left patella, initial encounter for closed fracture <ORLY Dinero - Last Filed: 02/16/23 08:10> Code(s): S82.009A - Unspecified fracture of unspecified patella, initial encounter for closed fracture <ORLY Dinero - Last Filed: 02/16/23 08:10> Status: Acute <ORLY Dinero - Last Filed: 02/16/23 08:10> Assessment and Plan: Patient seen and examined. I agree with plan as outlined. 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 He may resume his aspirin. I also encouraged early gentle range of motion, quadriceps set exercises and mobilization while using a walker and a knee immobilizer. He may remove the immobilizer while in bed for comfort, hygiene, and exercise. Follow-up in 1 month in clinic with x-rays. <Robles Harman MD - Last Filed: 02/16/23 14:05> (2) Ground-level fall: Code(s): W18.30XA - Fall on same level, unspecified, initial encounter <ORLY Dinero - Last Filed: 02/16/23 08:10> Status: Acute <ORLY Dinero - Last Filed: 02/16/23 08:10> Assessment and Plan: Nondisplaced transverse patella fracture after a fall from standing height on 02/15/23. He fell in his home. He was dizzy and woke up on the floor. Typically lives at home with his . Fracture can be treated non-operatively with a knee immobilizer. He may weight bear as tolerated with a walker and the knee immobilizer. We discussed the risk of displacement. I recommend follow up in the office in 2 weeks with xrays. Will discuss with Dr. Harman. <ORLY Dinero - Last Filed: 02/16/23 08:10> History of Present Illness HPI Consult date: 02/16/23 <ORLY Dinero - Last Filed: 02/16/23 08:10> 02/16/23 <Robles Harman MD - Last Filed: 02/16/23 14:05> Chief complaint: l knee pain/joint effusion,unable to ambulate <ORLY Dinero - Last Filed: 02/16/23 08:10> Narrative: Patient fell yesterday 02/15/23 in his home from standing height. He was in his basement, got dizzy, and fell. He states he did walk after but had pain in his left knee and stopped. He did have some pain in his chest on the right but this is improving. Patient complains of some pain at his right eye. No numbness or tingling. No other pain. <ORLY Dinero - Last Filed: 02/16/23 08:10> Review of Systems Review of Systems: All systems reviewed & are unremarkable except as noted in HPI and below <ORLY Dinero - Last Filed: 02/16/23 08:10> [facility] Past Medical History Medical History: Medical History (Updated 02/16/23 @ 00:51 by Kimberli Mcneil DO) Arthritis Basal cell carcinoma of skin Benign prostatic hyperplasia Cerebrovascular accident Chronic GERD Hyperlipidemia Hypertension Hypothyroidism Peripheral artery disease Persistent atrial fibrillation Type 2 diabetes mellitus <ORLY Dinero - Last Filed: 02/16/23 08:10> Surgical History Surgical History: Surgical History History of arthroplasty of right knee History of cataract extraction with lens replacement History of partial thyroidectomy History of right inguinal hernia repair (04/13/22) Presence of Watchman left atrial appendage closure device <ORLY Dinero - Last Filed: 02/16/23 08:10> Family History Family History: Family History Father Heart attack Mother , passed at age 104 No problems noted. Sibling Cancer Fam
[2023-02-16] MEDS: IRBESARTAN 150 MG TABLET 300 MG PO (08:26)
[2023-02-16] MEDS: FINASTERIDE 5 MG TABLET PO (08:26)
[2023-02-16] MEDS: amLODIPine BESYLATE 5 MG TABLET PO (08:26)
[2023-02-16] MEDS: PANTOPRAZOLE 40 MG TABLET PO ×2 (08:26→16:17)
[2023-02-16] MEDS: METOPROLOL SUCCINATE EXT REL 50 MG TABCR PO ×2 (08:26→20:46)
[2023-02-16] MEDS: polyethylene glycoL 3350 17 GM POWD.PACK PO (08:26)
--- NOTE | 2023-02-16 09:51 | PM.IMPN ---
Progress Note: A&P Assessment and Plan (1) Patellar fracture: Qualifiers: Encounter type: initial encounter Fracture alignment: nondisplaced Fracture morphology: unspecified fracture morphology Fracture type: closed Laterality: left Qualified Code(s): S82.002A - Unspecified fracture of left patella, initial encounter for closed fracture Code(s): S82.009A - Unspecified fracture of unspecified patella, initial encounter for closed fracture Status: Acute Assessment and Plan: Appreciate orthopedic consultation, non operable, knee immobilizer and rehab at d/c recommended (2) Acute hyponatremia: Code(s): E87.1 - Hypo-osmolality and hyponatremia Status: Acute Assessment and Plan: Worsened with IV fluid administration, trial fluid restriction Appreciate nephrology consultation, suspect SIADH (3) Unable to ambulate: Code(s): R26.2 - Difficulty in walking, not elsewhere classified Status: Acute Assessment and Plan: PT/OT, likely secondary to patellar fracture (4) Ground-level fall: Code(s): W18.30XA - Fall on same level, unspecified, initial encounter Status: Acute (5) Persistent atrial fibrillation: Code(s): I48.19 - Other persistent atrial fibrillation Status: Acute (6) Hypertension: Qualifiers: Hypertension type: primary hypertension Qualified Code(s): I10 - Essential (primary) hypertension Code(s): I10 - Essential (primary) hypertension Status: Acute Assessment and Plan: Blood pressure reviewed 02/16 Plan DVT prophylaxis with SCDs GI prophylaxis not indicated Code status full code Subjective Date/time seen: 02/16/23 09:51 Interval history: 82-year-old male with history of high blood pressure, atrial fibrillation, hypothyroidism other comorbidities is presenting with left knee pain and being treated for left patellar fracture. No overnight events noted. No chest pain or shortness of breath. No nausea, vomiting or diarrhea. No fevers or chills. Review of Systems Review of Systems: 12 point review of systems was assessed and was negative except as noted in the HPI Exam Narrative: General: No acute distress, alert and oriented per baseline HEENT: Atraumatic, normocephalic, mucous membranes moist CV: Regular rate and rhythm, S1, S2 Lungs: Clear to auscultation bilaterally, no rales or crackles noted, no wheezes, good air entry Abdomen: Soft, nontender, nondistended Extremities: Normal to inspection Skin: No rashes noted, no lesions or wounds seen Psych: Euthymic, normal affect Objective Data Vital Signs Vital Signs: Vital Signs - 24 hr 02/15/23 10:02 02/15/23 12:17 02/15/23 15:46 Temperature 97.1 F L Pulse Rate 82 76 97 Respiratory Rate 18 18 18 Blood Pressure 139/87 128/83 130/88 Pulse Oximetry 98 97 98 Oxygen Delivery Room Air 02/15/23 17:13 02/15/23 17:45 02/15/23 18:24 Temperature 97.6 F Pulse Rate 82 70 Respiratory Rate 16 20 Blood Pressure 142/84 H 124/63 Pulse Oximetry 99 98 Oxygen Delivery Room Air 02/15/23 20:37 02/16/23 00:00 02/16/23 04:43 Temperature 98.7 F 98.2 F Pulse Rate 83 75 71 Respiratory Rate 16 16 Blood Pressure 119/77 140/80 Pulse Oximetry 99 98 Oxygen Delivery 02/16/23 08:00 02/15/23 18:13 Temperature 97.6 F Pulse Rate 70 Respiratory Rate 20 Blood Pressure 124/63 Pulse Oximetry 98 Oxygen Delivery Room Air Intake/Output Intake/Output: Intake & Output 02/13/23 02/14/23 02/15/23 02/16/23 23:59 23:59 23:59 23:59 Intake Total 1000 240 Output Total 125 Balance 1000 115 Meds/Results Medications: Active Medications Generic Name Dose Route Start Last Admin Trade Name Freq PRN Reason Stop Dose Admin Amlodipine Besylate 5 mg 02/16/23 09:00 02/16/23 08:26 Amlodipine Besylate 5 Mg Tablet PO 5 mg QAM ALLEN Administration Docusate Sod
--- NOTE | 2023-02-16 11:10 | PM.CNNEP ---
Assessment and Plan Assessment and plan (1) Hyponatremia: Code(s): E87.1 - Hypo-osmolality and hyponatremia Status: Acute Assessment and Plan: appears acute -- sodium normal in December 2022 admission sodium 119 and now down to 117mmol/L no significant improvement in sodium with normal saline IVF hydration agree with holding further normal saline and fluid restriction will give 3% saline to try to get sodium back up to 120ish range check urine studies, cortisol, SPEP, UPEP, and serum/urine osmolality agree with holding SSRI/sertraline since this medication was started in late December 2022, it may be responsible for his drop in sodium follow serial sodium levels (2) Patellar fracture: Qualifiers: Encounter type: initial encounter Fracture alignment: nondisplaced Fracture morphology: unspecified fracture morphology Fracture type: closed Laterality: left Qualified Code(s): S82.002A - Unspecified fracture of left patella, initial encounter for closed fracture Code(s): S82.009A - Unspecified fracture of unspecified patella, initial encounter for closed fracture Status: Acute Assessment and Plan: as noted by admission imaging Orthopedic recommendations noted: non-operative management with knee imobilizer and DVT prophylaxis pain control gentle ROM as tolerated (3) Hypertension: Qualifiers: Hypertension type: primary hypertension Qualified Code(s): I10 - Essential (primary) hypertension Code(s): I10 - Essential (primary) hypertension Status: Chronic Assessment and Plan: reasonable control at this time follow trend of hemodynamics (4) Type 2 diabetes mellitus: Code(s): E11.9 - Type 2 diabetes mellitus without complications Status: Acute Assessment and Plan: follow accu-cheks glycemic control per hospitalists I will continue to follow patient with you while remains hospitalized and make further recommendations as needed. Thank you for allowing me to participate in care this patient. History of Present Illness Reason for Consult Consult date: 02/16/23 Reason for consult: hyponatremia Chief Complaint Chief complaint: l knee pain/joint effusion,unable to ambulate History of Present Illness Narrative: The patient is an 82-year-old male with a past medical history as outlined below who presented to [facility] Emergency room for further evaluation of left knee pain. The patient actually fell several days ago. He apparently was putting chemicals in his pool and when he was walking to his basement some the felt lightheaded and fell. He reports he did not lose consciousness or pass out. He did strike his head within noted laceration above his right eyebrow. He came into the ER for evaluation at that time which include a CT scan of his head but no imaging or blood work was done at that time. He did report that when he fell he hit 1 of his knees but he was not clear on which one. In any case, he was discharged. Following his discharge from the ER, he noticed that his left knee started to swell and become painful to touch. Any type of movement or ambulation with the use of his left knee resulted in severe pain. Further complicating matters is that he has been having issues and problems with nausea for the last several weeks which she attributes to an antibiotic that he was given for a suspected urinary tract infection, specifically, Bactrim. He has been taking fugi-fhi-xigglth and prescription nausea medications would seem to help. Unfortunately, because of the nausea, he reports a decrease in his overall appetite as well. Given these constellation of symptoms, he presented to the ER for further assessment. Workup and evaluation emergency room demonstrated patient be hemodynamically stable and in body-jy-[id number] distress secondary to his left knee pain. Routine blood test were significant for hypona
[2023-02-16 11:55] LABS: Sodium 117 mmol/L (137-145)
[2023-02-16] MEDS: SODIUM CHLORIDE 3% 225 ML 75 ML IVPB (12:58)
[2023-02-16] MEDS: ASPIRIN 81 MG ENTERIC TABLET PO (16:17)
[2023-02-16 17:40] LABS: Sodium 120 mmol/L (137-145)
[2023-02-16] MEDS: TAMSULOSIN HCL 0.4 MG CAPSULE PO (20:46)
[2023-02-16] MEDS: SIMVASTATIN 20 MG TABLET PO (20:46)
[2023-02-16 21:33] LABS: Sodium 120 mmol/L (137-145)
[2023-02-17] VITALS (10 sets, daily range): BP systolic 124–151; BP diastolic 71–82; PULSE 73–106; RESP 12–20; TEMP 36.7–37.7; O2SAT 96–97
[2023-02-17] MEDS: LEVOTHYROXINE SODIUM 100 MCG TABLET PO (05:49)
[2023-02-17 08:41] LABS: Albumin Level 3.3 g/dL (3.5-5.1); Anion Gap 7 mmol/L (8-16); Blood Urea Nitrogen 12 mg/dL (9-20); Calcium 8.2 mg/dL (8.4-10.2); Carbon Dioxide 22 mmol/L (22-30); Chloride 96 mmol/L (98-107); Estimated CRCL calculation 63 ml/min; Estimated Glomerular Filt Rate > 60; Glucose 108 mg/dL (65-110); Phosphorus 2.7 mg/dL (2.5-4.5); Potassium 4.4 mmol/L (3.4-5.0); Sodium 125 mmol/L (137-145)
[2023-02-17] MEDS: amLODIPine BESYLATE 5 MG TABLET PO (08:59)
[2023-02-17] MEDS: PANTOPRAZOLE 40 MG TABLET PO ×2 (08:59→16:15)
[2023-02-17] MEDS: IRBESARTAN 150 MG TABLET 300 MG PO (08:59)
[2023-02-17] MEDS: FINASTERIDE 5 MG TABLET PO (08:59)
[2023-02-17] MEDS: METOPROLOL SUCCINATE EXT REL 50 MG TABCR PO ×2 (09:00→20:00)
[2023-02-17] MEDS: ASPIRIN 81 MG ENTERIC TABLET PO ×2 (09:01→16:17)
[2023-02-17 10:48] LABS: Creatinine Urine 38.9 mg/dL; Total Protein Urine Random 17 mg/dL; Ur Ttl Prot Creatinine Ratio 0.44 mg/mg (0-0.20)
--- NOTE | 2023-02-17 11:07 | PM.IMPN ---
Progress Note: A&P Assessment and Plan (1) Patellar fracture: Qualifiers: Encounter type: initial encounter Fracture alignment: nondisplaced Fracture morphology: unspecified fracture morphology Fracture type: closed Laterality: left Qualified Code(s): S82.002A - Unspecified fracture of left patella, initial encounter for closed fracture Code(s): S82.009A - Unspecified fracture of unspecified patella, initial encounter for closed fracture Status: Acute Assessment and Plan: Appreciate orthopedic consultation, non operable, knee immobilizer and rehab at d/c recommended (2) Acute hyponatremia: Code(s): E87.1 - Hypo-osmolality and hyponatremia Status: Acute Assessment and Plan: Worsened with IV fluid administration, trial fluid restriction Appreciate nephrology consultation, suspect SIADH D/c SSRI (3) Unable to ambulate: Code(s): R26.2 - Difficulty in walking, not elsewhere classified Status: Acute Assessment and Plan: PT/OT, likely secondary to patellar fracture (4) Ground-level fall: Code(s): W18.30XA - Fall on same level, unspecified, initial encounter Status: Acute (5) Persistent atrial fibrillation: Code(s): I48.19 - Other persistent atrial fibrillation Status: Acute (6) Hypertension: Qualifiers: Hypertension type: primary hypertension Qualified Code(s): I10 - Essential (primary) hypertension Code(s): I10 - Essential (primary) hypertension Status: Chronic Assessment and Plan: Blood pressure reviewed 02/17 Plan Dispo pending rehab acceptance DVT prophylaxis with SCDs GI prophylaxis not indicated Code status full code Subjective Date/time seen: 02/17/23 11:07 Interval history: 82-year-old male with history of high blood pressure, atrial fibrillation, hypothyroidism other comorbidities is presenting with left knee pain and being treated for left patellar fracture. No overnight events noted. No chest pain or shortness of breath. No nausea, vomiting or diarrhea. No fevers or chills. Review of Systems Review of Systems: 12 point review of systems was assessed and was negative except as noted in the HPI Exam Narrative: General: No acute distress, alert and oriented per baseline HEENT: Bruising noted over right orbit, normocephalic, mucous membranes moist CV: Regular rate and rhythm, S1, S2 Lungs: Clear to auscultation bilaterally, no rales or crackles noted, no wheezes, good air entry Abdomen: Soft, nontender, nondistended Extremities: Normal to inspection Skin: No rashes noted, no lesions or wounds seen Psych: Euthymic, normal affect Objective Data Vital Signs Vital Signs: Vital Signs - 24 hr 02/16/23 13:40 02/16/23 12:00 02/16/23 16:00 Temperature 99.5 F Pulse Rate 77 87 82 Respiratory Rate 16 Blood Pressure 128/78 Pulse Oximetry 98 Oxygen Delivery 02/16/23 21:32 02/16/23 20:00 02/16/23 20:00 Temperature 98.6 F Pulse Rate 88 91 Respiratory Rate 14 Blood Pressure 129/79 Pulse Oximetry 98 Oxygen Delivery Room Air 02/17/23 00:00 02/17/23 04:00 02/17/23 05:43 Temperature 98.1 F Pulse Rate 85 79 73 Respiratory Rate 12 Blood Pressure 151/82 H Pulse Oximetry 97 Oxygen Delivery 02/17/23 09:00 02/17/23 08:55 02/17/23 08:00 Temperature Pulse Rate 76 82 Respiratory Rate Blood Pressure Pulse Oximetry Oxygen Delivery Room Air Intake/Output Intake/Output: Intake & Output 02/14/23 02/15/23 02/16/23 02/17/23 23:59 23:59 23:59 23:59 Intake Total 1000 1170 740 Output Total 425 500 Balance 1000 745 240 Meds/Results Medications: Active Medications Generic Name Dose Route Start Last Admin Trade Name Freq PRN Reason Stop Dose Admin Amlodipine Besylate 5 mg 02/16/23 09:00 02/17/23 08:59 Amlodipine Besylate 5 Mg Tablet PO 5 mg [facility]
--- NOTE | 2023-02-17 11:13 | PM.PNNEP ---
Progress Note: A&P Assessment and Plan (1) Hyponatremia: Code(s): E87.1 - Hypo-osmolality and hyponatremia Status: Acute Assessment and Plan: slow improvement noted appears acute -- sodium normal in December 2022 sodium dropped as low as 117mmol/L risk factors for low sodium: acute pain recent initiation/use of SSRI PPI use history of BPH thyroid disease no significant improvement in sodium with normal saline IVF hydration evaluation to date: TSH okay cortisol, SPEP/UPEP and serum/urine osmo pending urine electrolytes prerenal started on fluid restriction s/p 3% saline to get sodium > 120 agree with holding SSRI/sertraline since this medication was started in late December 2022, it may be responsible for his drop in sodium follow serial sodium levels (2) Patellar fracture: Qualifiers: Encounter type: initial encounter Fracture alignment: nondisplaced Fracture morphology: unspecified fracture morphology Fracture type: closed Laterality: left Qualified Code(s): S82.002A - Unspecified fracture of left patella, initial encounter for closed fracture Code(s): S82.009A - Unspecified fracture of unspecified patella, initial encounter for closed fracture Status: Acute Assessment and Plan: as noted by admission imaging Orthopedic recommendations noted: non-operative management with knee imobilizer and DVT prophylaxis pain control gentle ROM as tolerated (3) Hypertension: Qualifiers: Hypertension type: primary hypertension Qualified Code(s): I10 - Essential (primary) hypertension Code(s): I10 - Essential (primary) hypertension Status: Chronic Assessment and Plan: reasonable control at this time follow trend of hemodynamics (4) Type 2 diabetes mellitus: Code(s): E11.9 - Type 2 diabetes mellitus without complications Status: Acute Assessment and Plan: follow accu-cheks glycemic control per hospitalists Will continue to follow. Subjective Date/time seen: 02/17/23 11:13 Interval history: Follow-up for acute hyponatremia. Appears to be doing reasonably well; tolerated 3% saline infusion yesterday with appropriate rise in sodium level; otherwise, no apparent disress noted; no other issues/events overnight or earlier this morning. Exam Narrative: General: elderly but WD/WN male in NAD Heart: normal S1 and S2; no rub Lungs: clear to auscultation Abdomen: soft, nontender, nondistended, positive bowel sounds Extremities: no cyanosis or clubbing; no edema Skin: warm and dry Objective Data Vital Signs Vital Signs: Vital Signs Temp Pulse Resp BP Pulse Ox O2 Del Method 02/17/23 08:00 82 02/17/23 08:55 Room Air 02/17/23 09:00 76 02/17/23 05:43 98.1 F 73 12 151/82 H 97 02/17/23 04:00 79 02/17/23 00:00 85 02/16/23 20:00 91 02/16/23 20:00 Room Air 02/16/23 21:32 98.6 F 88 14 129/79 98 02/16/23 16:00 82 02/16/23 12:00 87 02/16/23 13:40 99.5 F 77 16 128/78 98 Intake/Output Intake/Output: Intake & Output 02/14/23 02/15/23 02/16/23 02/17/23 23:59 23:59 23:59 23:59 Intake Total 1000 1170 740 Output Total 425 500 Balance 1000 745 240 Meds/Results Medications: Active Medications Generic Name Dose Route Start Last Admin Trade Name Jorgeq PRN Reason Stop Dose Admin Amlodipine Besylate 5 mg 02/16/23 09:00 02/17/23 08:59 Amlodipine Besylate 5 Mg Tablet PO 5 mg QAM ALLEN Administration Aspirin 81 mg 02/16/23 17:00 02/17/23 09:01 Aspirin 81 Mg Enteric Tablet PO 81 mg BID ALLEN Administration Docusate Sodium 100 mg 02/15/23 23:51 Docusate Sodium 100 Mg Capsule PO BID PRN Constipation Finasteride 5 mg 02/16/23 09:00 02/17/23 08:59 Finasteride 5 Mg Tablet PO 5 mg DAILY ALLEN Administration Irbesartan 300 mg 02/16/23 09
--- NOTE | 2023-02-17 11:13 | P.PNNP_ITS ---
Progress Note: A&P Assessment and Plan (1) Hyponatremia: Code(s): E87.1 - Hypo-osmolality and hyponatremia Status: Acute Assessment and Plan: * slow improvement noted * appears acute -- sodium normal in December 2022 * sodium dropped as low as 117mmol/L * risk factors for low sodium: * acute pain * recent initiation/use of SSRI * PPI use * history of BPH * thyroid disease * no significant improvement in sodium with normal saline IVF hydration * evaluation to date: * TSH okay * cortisol, SPEP/UPEP and serum/urine osmo pending * urine electrolytes prerenal * started on fluid restriction * s/p 3% saline to get sodium > 120 * agree with holding SSRI/sertraline * since this medication was started in late December 2022, it may be responsible for his drop in sodium * follow serial sodium levels (2) Patellar fracture: Qualifiers: Encounter type: initial encounter Fracture alignment: nondisplaced Fracture morphology: unspecified fracture morphology Fracture type: closed Laterality: left Qualified Code(s): S82.002A - Unspecified fracture of left patella, initial encounter for closed fracture Code(s): S82.009A - Unspecified fracture of unspecified patella, initial encounter for closed fracture Status: Acute Assessment and Plan: * as noted by admission imaging * Orthopedic recommendations noted: * non-operative management with knee imobilizer and DVT prophylaxis * pain control * gentle ROM as tolerated (3) Hypertension: Qualifiers: Hypertension type: primary hypertension Qualified Code(s): I10 - Essential (primary) hypertension Code(s): I10 - Essential (primary) hypertension Status: Chronic Assessment and Plan: * reasonable control at this time * follow trend of hemodynamics (4) Type 2 diabetes mellitus: Code(s): E11.9 - Type 2 diabetes mellitus without complications Status: Acute Assessment and Plan: * follow accu-cheks * glycemic control per hospitalists Will continue to follow. Subjective Date/time seen: 02/17/23 11:13 Interval history: Follow-up for acute hyponatremia. Appears to be doing reasonably well; tolerated 3% saline infusion yesterday with appropriate rise in sodium level; otherwise, no apparent disress noted; no other issues/events overnight or earlier this morning. Exam Narrative: General: elderly but WD/WN male in NAD Heart: normal S1 and S2; no rub Lungs: clear to auscultation Abdomen: soft, nontender, nondistended, positive bowel sounds Extremities: no cyanosis or clubbing; no edema Skin: warm and dry Objective Data Vital Signs Vital Signs: Vital Signs Temp Pulse Resp BP Pulse Ox O2 Del Method 02/17/23 08:00 82 02/17/23 08:55 Room Air 02/17/23 09:00 76 02/17/23 05:43 98.1 F 73 12 151/82 H 97 02/17/23 04:00 79 02/17/23 00:00 85 02/16/23 20:00 91 02/16/23 20:00 Room Air 02/16/23 21:32 98.6 F 88 14 129/79 98 02/16/23 16:00 82 02/16/23 12:00 87 02/16/23 13:40 99.5 F 77 16 128/78 98 Intake/Output Intake/Output: Intake & Output 02/14/23 02/15/23 02/16/23 02/17/23 23:5
[2023-02-17 12:25] LABS: Sodium 122 mmol/L (137-145)
[2023-02-17 18:18] LABS: Sodium 125 mmol/L (137-145)
[2023-02-17] MEDS: TAMSULOSIN HCL 0.4 MG CAPSULE PO (20:00)
[2023-02-17] MEDS: SIMVASTATIN 20 MG TABLET PO (20:00)
[2023-02-18] VITALS (9 sets, daily range): BP systolic 113–127; BP diastolic 71–77; PULSE 80–98; RESP 18–20; TEMP 36.1–37.3; O2SAT 97–98
[2023-02-18 00:49] LABS: Sodium 126 mmol/L (137-145)
[2023-02-18] MEDS: LEVOTHYROXINE SODIUM 100 MCG TABLET PO (05:53)
[2023-02-18 06:58] LABS: Albumin Level 3.4 g/dL (3.5-5.1); Anion Gap 6 mmol/L (8-16); Blood Urea Nitrogen 13 mg/dL (9-20); Calcium 8.4 mg/dL (8.4-10.2); Carbon Dioxide 23 mmol/L (22-30); Chloride 97 mmol/L (98-107); Estimated CRCL calculation 63 ml/min; Estimated Glomerular Filt Rate > 60; Glucose 117 mg/dL (65-110); Phosphorus 3.4 mg/dL (2.5-4.5); Potassium 4.1 mmol/L (3.4-5.0); Sodium 126 mmol/L (137-145)
[2023-02-18] MEDS: PANTOPRAZOLE 40 MG TABLET PO ×2 (08:02→16:18)
[2023-02-18] MEDS: IRBESARTAN 150 MG TABLET 300 MG PO (08:02)
[2023-02-18] MEDS: polyethylene glycoL 3350 17 GM POWD.PACK PO (08:02)
[2023-02-18] MEDS: METOPROLOL SUCCINATE EXT REL 50 MG TABCR PO ×2 (08:02→21:10)
[2023-02-18] MEDS: ASPIRIN 81 MG ENTERIC TABLET PO ×2 (08:02→16:18)
[2023-02-18] MEDS: amLODIPine BESYLATE 5 MG TABLET PO (08:02)
[2023-02-18] MEDS: FINASTERIDE 5 MG TABLET PO (08:02)
[2023-02-18] MEDS: ONDANSETRON INJ 4 MG/2 ML VIAL IV PUSH (08:03)
--- NOTE | 2023-02-18 08:49 | PM.IMPN ---
Progress Note: A&P Assessment and Plan (1) Acute hyponatremia: Code(s): E87.1 - Hypo-osmolality and hyponatremia Status: Acute Assessment and Plan: Worsened with IV fluid administration, trial fluid restriction, now improving to 129 Appreciate nephrology consultation, suspect SIADH D/c SSRI (2) Patellar fracture: Qualifiers: Encounter type: initial encounter Fracture alignment: nondisplaced Fracture morphology: unspecified fracture morphology Fracture type: closed Laterality: left Qualified Code(s): S82.002A - Unspecified fracture of left patella, initial encounter for closed fracture Code(s): S82.009A - Unspecified fracture of unspecified patella, initial encounter for closed fracture Status: Acute Assessment and Plan: Appreciate orthopedic consultation, non operable, knee immobilizer and rehab at d/c recommended (3) Unable to ambulate: Code(s): R26.2 - Difficulty in walking, not elsewhere classified Status: Acute Assessment and Plan: PT/OT, likely secondary to patellar fracture (4) Ground-level fall: Code(s): W18.30XA - Fall on same level, unspecified, initial encounter Status: Acute (5) Persistent atrial fibrillation: Code(s): I48.19 - Other persistent atrial fibrillation Status: Acute (6) Hypertension: Qualifiers: Hypertension type: primary hypertension Qualified Code(s): I10 - Essential (primary) hypertension Code(s): I10 - Essential (primary) hypertension Status: Chronic Assessment and Plan: Blood pressure reviewed 02/18 Plan Dispo pending rehab acceptance and sodium stabilization DVT prophylaxis with SCDs GI prophylaxis not indicated Code status full code Subjective Date/time seen: 02/18/23 08:49 Interval history: 82-year-old male with history of high blood pressure, atrial fibrillation, hypothyroidism other comorbidities is presenting with left knee pain and being treated for left patellar fracture. No overnight events noted. No chest pain or shortness of breath. No nausea, vomiting or diarrhea. No fevers or chills. Review of Systems Review of Systems: 12 point review of systems was assessed and was negative except as noted in the HPI Exam Narrative: General: No acute distress, alert and oriented per baseline HEENT: Bruising noted over right orbit, normocephalic, mucous membranes moist CV: Regular rate and rhythm, S1, S2 Lungs: Clear to auscultation bilaterally, no rales or crackles noted, no wheezes, good air entry Abdomen: Soft, nontender, nondistended Extremities: Normal to inspection Skin: No rashes noted, no lesions or wounds seen Psych: Euthymic, normal affect Objective Data Vital Signs Vital Signs: Vital Signs - 24 hr 02/17/23 09:00 02/17/23 08:55 02/17/23 12:00 Temperature Pulse Rate 76 99 Respiratory Rate Blood Pressure Pulse Oximetry Oxygen Delivery Room Air 02/17/23 14:00 02/17/23 16:00 02/17/23 21:57 Temperature 99.9 F H 99 F Pulse Rate 98 101 H 97 Respiratory Rate 16 20 Blood Pressure 129/80 124/71 Pulse Oximetry 96 97 Oxygen Delivery 02/17/23 20:00 02/17/23 20:00 02/18/23 00:00 Temperature Pulse Rate 106 H 84 Respiratory Rate Blood Pressure Pulse Oximetry Oxygen Delivery Room Air 02/18/23 04:00 02/18/23 05:01 02/18/23 08:02 Temperature 99.1 F Pulse Rate 87 87 80 Respiratory Rate 20 Blood Pressure 127/73 Pulse Oximetry 97 Oxygen Delivery Intake/Output Intake/Output: Intake & Output 02/15/23 02/16/23 02/17/23 02/18/23 23:59 23:59 23:59 23:59 Intake Total 1000 1170 980 Output Total 425 1700 350 Balance 1000 355 -055 -350 Meds/Results Medications: Active Medications Generic Name Dose Route Start Last Admin Trade Name Freq PRN Reason Stop Dose Admin Amlodipine Besylate 5 mg 02/16/23 09:00 02/18/23 08:0
[2023-02-18 09:09] LABS: Basophils Percent Auto 0.6 % (0.2-1.2); Eosinophils Absolute Auto 0.2 K/mm3 (0-0.3); Eosinophils Percent Auto 3.1 % (0-4.4); Hematocrit 40.2 % (42.0-52.0); Hemoglobin 13.9 g/dL (14.0-18.0); Immature Granulocyte Absolute 0.03 K/mm3 (0.00-0.031); Immature Granulocyte Percent A 0.4 % (0-0.5); Lymphocytes Absolute Auto 1.25 K/mm3 (0.9-3.2); Lymphocytes Percent Auto 18.7 % (18.3-44.2); Mean Corpuscular HGB Conc 34.6 g/dl (32-36); Mean Corpuscular Hemoglobin 33.7 pg (26-34); Mean Corpuscular Volume 97.3 fl (80-100); Mean Platelet Volume 9.1 fl (7.4-10.4); Monocytes Absolute Auto 0.6 K/mm3 (0.1-0.6); Monocytes Percent Auto 8.4 % (2.6-8.5); Neutrophils Absolute Auto 4.6 K/mm3 (1.3-6.7); Neutrophils Percent Auto 68.8 % (45.5-73.1); Platelet Count Result 219 k/mm3 (150-375); Red Blood Count 4.13 M/mm3 (4.6-6.20); Red Cell Distribution Width 12.5 % (11.5-14.5); White Blood Count 6.7 K/mm3 (4.5-10.0)
[2023-02-18 09:50] LABS: Alanine Aminotransferase 68 U/L (6-50); Albumin Level 3.7 g/dL (3.5-5.1); Alkaline Phosphatase 74 U/L (38-126); Anion Gap 9 mmol/L (8-16); Aspartate Amino Transferase 50 U/L (17-59); Bilirubin,Total 2.6 mg/dL (0.2-1.3); Blood Urea Nitrogen 14 mg/dL (9-20); Calcium 8.5 mg/dL (8.4-10.2); Carbon Dioxide 23 mmol/L (22-30); Chloride 97 mmol/L (98-107); Estimated CRCL calculation 63 ml/min; Estimated Glomerular Filt Rate > 60; Glucose 135 mg/dL (65-110); Potassium 4.4 mmol/L (3.4-5.0); Sodium 129 mmol/L (137-145)
--- NOTE | 2023-02-18 12:15 | P.PNNP_ITS ---
Progress Note: A&P Assessment and Plan (1) Hyponatremia: Code(s): E87.1 - Hypo-osmolality and hyponatremia Status: Acute Assessment and Plan: * slow improvement noted * appears acute -- sodium normal in December 2022 * sodium dropped as low as 117mmol/L on admission * risk factors for low sodium: * acute pain * recent initiation/use of SSRI (started zoloft in late December 2022) * PPI use * history of BPH * thyroid disease * no significant improvement in sodium with normal saline IVF hydration * evaluation to date: * TSH okay * cortisol, SPEP/UPEP and serum/urine osmo pending * urine electrolytes prerenal * 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 given evidence to date * started on fluid restriction * s/p 3% saline x 1 to get sodium > 120 * agree with holding SSRI/sertraline * follow serial sodium levels (2) Patellar fracture: Qualifiers: Encounter type: initial encounter Fracture alignment: nondisplaced Fracture morphology: unspecified fracture morphology Fracture type: closed Laterality: left Qualified Code(s): S82.002A - Unspecified fracture of left patella, initial encounter for closed fracture Code(s): S82.009A - Unspecified fracture of unspecified patella, initial encounter for closed fracture Status: Acute Assessment and Plan: * as noted by admission imaging * Orthopedic recommendations noted: * non-operative management with knee imobilizer and DVT prophylaxis * pain control * gentle ROM as tolerated (3) Hypertension: Qualifiers: Hypertension type: primary hypertension Qualified Code(s): I10 - Essential (primary) hypertension Code(s): I10 - Essential (primary) hypertension Status: Chronic Assessment and Plan: * reasonable control at this time * follow trend of hemodynamics (4) Type 2 diabetes mellitus: Code(s): E11.9 - Type 2 diabetes mellitus without complications Status: Acute Assessment and Plan: * follow accu-cheks * glycemic control per hospitalists Will continue to follow. Subjective Date/time seen: 02/18/23 12:15 Interval history: Follow-up for acute hyponatremia. Continues to do well in general; sodium was fluctuation but overall is slowly improving in the last 24 hours with fluid restriction; no further need for 3% saline since admission; no other issues/events overnight or earlier this morning; no apparent distress noted. Exam Narrative: General: elderly but WD/WN male in NAD Heart: normal S1 and S2; no rub Lungs: clear to auscultation Abdomen: soft, nontender, nondistended, positive bowel sounds Extremities: no cyanosis or clubbing; no edema Skin: warm and intact Objective Data Vital Signs Vital Signs: Vital Signs Temp Pulse Resp BP Pulse Ox O2 Del Method 02/18/23 12:00 96.9 F L 98 18 113/71 98 02/18/23 08:00 91 02/18/23 08:00 Room Air 02/18/23 08:02 80 02/18/23 05:01 99.1 F 87 20 127/73 97 02/18/23 04:00 87 02/18/23 00:00 84 02/17/23 20:00 106 H 02/17/23 20:00 Room Air 02/17/23 21:57 99 F 97 20 124/71 97 02/17/23 16:00 101 H Intake/Output Intake/Output: Intake & Output 02/15/23 02/16/23 02/17/23 0
--- NOTE | 2023-02-18 12:15 | PM.PNNEP ---
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 given evidence to date started on fluid restriction s/p 3% saline x 1 to get sodium > 120 agree with holding SSRI/sertraline follow serial sodium levels (2) Patellar fracture: Qualifiers: Encounter type: initial encounter Fracture alignment: nondisplaced Fracture morphology: unspecified fracture morphology Fracture type: closed Laterality: left Qualified Code(s): S82.002A - Unspecified fracture of left patella, initial encounter for closed fracture Code(s): S82.009A - Unspecified fracture of unspecified patella, initial encounter for closed fracture Status: Acute Assessment and Plan: as noted by admission imaging Orthopedic recommendations noted: non-operative management with knee imobilizer and DVT prophylaxis pain control gentle ROM as tolerated (3) Hypertension: Qualifiers: Hypertension type: primary hypertension Qualified Code(s): I10 - Essential (primary) hypertension Code(s): I10 - Essential (primary) hypertension Status: Chronic Assessment and Plan: reasonable control at this time follow trend of hemodynamics (4) Type 2 diabetes mellitus: Code(s): E11.9 - Type 2 diabetes mellitus without complications Status: Acute Assessment and Plan: follow accu-cheks glycemic control per hospitalists Will continue to follow. Subjective Date/time seen: 02/18/23 12:15 Interval history: Follow-up for acute hyponatremia. Continues to do well in general; sodium was fluctuation but overall is slowly improving in the last 24 hours with fluid restriction; no further need for 3% saline since admission; no other issues/events overnight or earlier this morning; no apparent distress noted. Exam Narrative: General: elderly but WD/WN male in NAD Heart: normal S1 and S2; no rub Lungs: clear to auscultation Abdomen: soft, nontender, nondistended, positive bowel sounds Extremities: no cyanosis or clubbing; no edema Skin: warm and intact Objective Data Vital Signs Vital Signs: Vital Signs Temp Pulse Resp BP Pulse Ox O2 Del Method 02/18/23 12:00 96.9 F L 98 18 113/71 98 02/18/23 08:00 91 02/18/23 08:00 Room Air 02/18/23 08:02 80 02/18/23 05:01 99.1 F 87 20 127/73 97 02/18/23 04:00 87 02/18/23 00:00 84 02/17/23 20:00 106 H 02/17/23 20:00 Room Air 02/17/23 21:57 99 F 97 20 124/71 97 02/17/23 16:00 101 H Intake/Output Intake/Output: Intake & Output 02/15/23 02/16/23 02/17/23 02/18/23 23:59 23:59 23:59 23:59 Intake Total 1000 1170 980 240 Output Total 425 1700 350 Balance 1000 745 -720 -110 Meds/Results Medications: Active Medications Generic Name Dose Route Start Last Admin Trade Name Freq PRN Reason Stop Dose Admin Amlodipine Besylate 5 mg 02/16/23 09:00 02/18/23 08:02 Amlodipine Besylate 5 Mg Tablet PO 5 mg QAM [facility] Administration Aspirin 81 mg 02/16/23 17:00 02/18/23 08:02 Aspirin 81 Mg Enteric Tablet PO 81 mg BID [facility] Administration Docusate Sodium 100 mg 02/15/23 23:51 Docusate Sodium 100 Mg Capsule PO BID PRN Constipation Finasteride 5 mg 02/16/23 09:00 02/18/23 08:02 Finasteride 5 Mg Tablet PO 5 mg DAILY
[2023-02-18] MEDS: TAMSULOSIN HCL 0.4 MG CAPSULE PO (21:10)
[2023-02-18] MEDS: SIMVASTATIN 20 MG TABLET PO (21:10)
[2023-02-19] MEDS: LEVOTHYROXINE SODIUM 100 MCG TABLET PO (05:41)
[2023-02-19 06:00] VITALS: BP 128/75; PULSE 80; RESP 16; TEMP 36.3; O2SAT 98
[2023-02-19] MEDS: ACETAMINOPHEN 500 MG TABLET 1000 MG PO (06:24)
[2023-02-19 06:36] LABS: Basophils Percent Auto 0.7 % (0.2-1.2); Eosinophils Absolute Auto 0.2 K/mm3 (0-0.3); Eosinophils Percent Auto 3.4 % (0-4.4); Hematocrit 39.5 % (42.0-52.0); Hemoglobin 13.6 g/dL (14.0-18.0); Immature Granulocyte Absolute 0.02 K/mm3 (0.00-0.031); Immature Granulocyte Percent A 0.4 % (0-0.5); Lymphocytes Absolute Auto 1.57 K/mm3 (0.9-3.2); Lymphocytes Percent Auto 27.7 % (18.3-44.2); Mean Corpuscular HGB Conc 34.4 g/dl (32-36); Mean Corpuscular Hemoglobin 33.5 pg (26-34); Mean Corpuscular Volume 97.3 fl (80-100); Mean Platelet Volume 8.9 fl (7.4-10.4); Monocytes Absolute Auto 0.6 K/mm3 (0.1-0.6); Monocytes Percent Auto 10.6 % (2.6-8.5); Neutrophils Absolute Auto 3.3 K/mm3 (1.3-6.7); Neutrophils Percent Auto 57.2 % (45.5-73.1); Platelet Count Result 224 k/mm3 (150-375); Red Blood Count 4.06 M/mm3 (4.6-6.20); Red Cell Distribution Width 12.4 % (11.5-14.5); White Blood Count 5.7 K/mm3 (4.5-10.0)
[2023-02-19 06:49] LABS: Alanine Aminotransferase 104 U/L (6-50); Albumin Level 3.3 g/dL (3.5-5.1); Alkaline Phosphatase 83 U/L (38-126); Anion Gap 5 mmol/L (8-16); Aspartate Amino Transferase 73 U/L (17-59); Blood Urea Nitrogen 19 mg/dL (9-20); Calcium 8.3 mg/dL (8.4-10.2); Carbon Dioxide 24 mmol/L (22-30); Chloride 98 mmol/L (98-107); Estimated CRCL calculation 56 ml/min; Estimated Glomerular Filt Rate > 60; Glucose 117 mg/dL (65-110); Sodium 127 mmol/L (137-145)
[2023-02-19 08:46] VITALS: PULSE 75
[2023-02-19] MEDS: METOPROLOL SUCCINATE EXT REL 50 MG TABCR PO (08:46)
[2023-02-19] MEDS: IRBESARTAN 150 MG TABLET 300 MG PO (08:46)
[2023-02-19] MEDS: PANTOPRAZOLE 40 MG TABLET PO ×2 (08:46→16:43)
[2023-02-19] MEDS: FINASTERIDE 5 MG TABLET PO (08:47)
[2023-02-19] MEDS: amLODIPine BESYLATE 5 MG TABLET PO (08:47)
[2023-02-19] MEDS: polyethylene glycoL 3350 17 GM POWD.PACK PO (08:48)
[2023-02-19] MEDS: ASPIRIN 81 MG ENTERIC TABLET PO ×2 (08:53→16:30)
[2023-02-19] MEDS: SODIUM CHLORIDE 1 GM TABLET PO ×2 (08:57→14:19)
--- NOTE | 2023-02-19 09:40 | PM.IMPN ---
Progress Note: A&P Assessment and Plan (1) Acute hyponatremia: Code(s): E87.1 - Hypo-osmolality and hyponatremia Status: Acute Assessment and Plan: Worsened with IV fluid administration, trial fluid restriction, now improving to 127, increase NaCl tabs to 1g TID from BID Appreciate nephrology consultation, suspect SIADH D/c SSRI (2) Patellar fracture: Qualifiers: Encounter type: initial encounter Fracture alignment: nondisplaced Fracture morphology: unspecified fracture morphology Fracture type: closed Laterality: left Qualified Code(s): S82.002A - Unspecified fracture of left patella, initial encounter for closed fracture Code(s): S82.009A - Unspecified fracture of unspecified patella, initial encounter for closed fracture Status: Acute Assessment and Plan: Appreciate orthopedic consultation, non operable, knee immobilizer and rehab at d/c recommended (3) Unable to ambulate: Code(s): R26.2 - Difficulty in walking, not elsewhere classified Status: Acute Assessment and Plan: PT/OT, likely secondary to patellar fracture (4) Ground-level fall: Code(s): W18.30XA - Fall on same level, unspecified, initial encounter Status: Acute (5) Persistent atrial fibrillation: Code(s): I48.19 - Other persistent atrial fibrillation Status: Acute (6) Hypertension: Qualifiers: Hypertension type: primary hypertension Qualified Code(s): I10 - Essential (primary) hypertension Code(s): I10 - Essential (primary) hypertension Status: Chronic Assessment and Plan: Blood pressure reviewed 02/19 Plan Dispo pending rehab acceptance and sodium stabilization DVT prophylaxis with SCDs GI prophylaxis not indicated Code status full code Subjective Date/time seen: 02/19/23 09:40 Interval history: 82-year-old male with history of high blood pressure, atrial fibrillation, hypothyroidism other comorbidities is presenting with left knee pain and being treated for left patellar fracture. No overnight events noted. No chest pain or shortness of breath. No nausea, vomiting or diarrhea. No fevers or chills. Review of Systems Review of Systems: 12 point review of systems was assessed and was negative except as noted in the HPI Exam Narrative: General: No acute distress, alert and oriented per baseline HEENT: Bruising noted over right orbit, normocephalic, mucous membranes moist CV: Regular rate and rhythm, S1, S2 Lungs: Clear to auscultation bilaterally, no rales or crackles noted, no wheezes, good air entry Abdomen: Soft, nontender, nondistended Extremities: Normal to inspection Skin: No rashes noted, no lesions or wounds seen Psych: Euthymic, normal affect Objective Data Vital Signs Vital Signs: Vital Signs - 24 hr 02/18/23 12:00 02/18/23 14:00 02/18/23 21:10 Temperature 96.9 F L Pulse Rate 86 98 85 Respiratory Rate 18 Blood Pressure 113/71 Pulse Oximetry 98 Oxygen Delivery 02/18/23 20:00 02/18/23 22:00 02/19/23 06:00 Temperature 96.9 F L 97.3 F L Pulse Rate 87 80 Respiratory Rate 18 16 Blood Pressure 122/77 128/75 Pulse Oximetry 98 98 Oxygen Delivery Room Air 02/19/23 08:46 Temperature Pulse Rate 75 Respiratory Rate Blood Pressure Pulse Oximetry Oxygen Delivery Intake/Output Intake/Output: Intake & Output 02/16/23 02/17/23 02/18/23 02/19/23 23:59 23:59 23:59 23:59 Intake Total 1170 980 480 240 Output Total 425 1399 538 5276 Balance 745 -720 130 -860 Meds/Results Medications: Active Medications Generic Name Dose Route Start Last Admin Trade Name David PRN Reason Stop Dose Admin Amlodipine Besylate 5 mg 02/16/23 09:00 02/19/23 08:47 Amlodipine Besylate 5 Mg Tablet PO 5 mg QAM [facility] Administration Aspirin 81 mg 02/16/23 17:00 02/19/23 08:53 Aspirin 81 Mg Enteric Tablet PO 81 mg BID [facility]
--- NOTE | 2023-02-19 10:59 | P.PNNP_ITS ---
Progress Note: A&P Assessment and Plan (1) Hyponatremia: Code(s): E87.1 - Hypo-osmolality and hyponatremia Status: Acute Assessment and Plan: * slow improvement noted * appears acute -- sodium normal in December 2022 * sodium dropped as low as 117mmol/L on admission * risk factors for low sodium: * acute pain * recent initiation/use of SSRI (started zoloft in late December 2022) * PPI use * history of BPH * thyroid disease * no significant improvement in sodium with normal saline IVF hydration * evaluation to date: * TSH okay * cortisol, SPEP/UPEP and serum/urine osmo pending * urine electrolytes prerenal * 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 given evidence to date * on fluid restriction and salt tabs * s/p 3% saline x 1 to get sodium > 120 * continue to holding SSRI/sertraline * follow serial sodium levels (2) Patellar fracture: Qualifiers: Encounter type: initial encounter Fracture alignment: nondisplaced Fracture morphology: unspecified fracture morphology Fracture type: closed Laterality: left Qualified Code(s): S82.002A - Unspecified fracture of left patella, initial encounter for closed fracture Code(s): S82.009A - Unspecified fracture of unspecified patella, initial encounter for closed fracture Status: Acute Assessment and Plan: * as noted by admission imaging * Orthopedic recommendations noted: * non-operative management with knee imobilizer and DVT prophylaxis * pain control * gentle ROM as tolerated (3) Hypertension: Qualifiers: Hypertension type: primary hypertension Qualified Code(s): I10 - Essential (primary) hypertension Code(s): I10 - Essential (primary) hypertension Status: Chronic Assessment and Plan: * reasonable control at this time * follow trend of hemodynamics (4) Type 2 diabetes mellitus: Code(s): E11.9 - Type 2 diabetes mellitus without complications Status: Acute Assessment and Plan: * follow accu-cheks * glycemic control per hospitalists Will continue to follow. Subjective Date/time seen: 02/19/23 10:59 Interval history: Follow-up for acute hyponatremia. Sodium appears relatively stable; reports significant nausea at the time of my visit due to salt tablet that he took earlier this morning; other than this issue/complaint; he was doing reasonably well; no acute distress voiced. Exam Narrative: General: elderly but WD/WN male in NAD Heart: normal S1 and S2; no rub Lungs: clear to auscultation Abdomen: soft, nontender, nondistended, positive bowel sounds Extremities: no cyanosis or clubbing; no edema Skin: no rash Objective Data Vital Signs Vital Signs: Vital Signs Temp Pulse Resp BP Pulse Ox O2 Del Method 02/19/23 08:45 Room Air 02/19/23 08:46 75 02/19/23 06:00 97.3 F L 80 16 128/75 98 02/18/23 22:00 96.9 F L 87 18 122/77 98 02/18/23 20:00 Room Air 02/18/23 21:10 85 02/18/23 14:00 96.9 F L 98 18 113/71 98 Intake/Output Intake/Output: Intake & Output 02/16/23 02/17/23 02/18/23 02/19/23 23:59 23:59 23:59 23:59 Intake Total 1170 980 480 240 Output Total 425 5442 227 9984 Balance 745 720 130 -860 M
--- NOTE | 2023-02-19 10:59 | PM.PNNEP ---
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 given evidence to date on fluid restriction and salt tabs s/p 3% saline x 1 to get sodium > 120 continue to holding SSRI/sertraline follow serial sodium levels (2) Patellar fracture: Qualifiers: Encounter type: initial encounter Fracture alignment: nondisplaced Fracture morphology: unspecified fracture morphology Fracture type: closed Laterality: left Qualified Code(s): S82.002A - Unspecified fracture of left patella, initial encounter for closed fracture Code(s): S82.009A - Unspecified fracture of unspecified patella, initial encounter for closed fracture Status: Acute Assessment and Plan: as noted by admission imaging Orthopedic recommendations noted: non-operative management with knee imobilizer and DVT prophylaxis pain control gentle ROM as tolerated (3) Hypertension: Qualifiers: Hypertension type: primary hypertension Qualified Code(s): I10 - Essential (primary) hypertension Code(s): I10 - Essential (primary) hypertension Status: Chronic Assessment and Plan: reasonable control at this time follow trend of hemodynamics (4) Type 2 diabetes mellitus: Code(s): E11.9 - Type 2 diabetes mellitus without complications Status: Acute Assessment and Plan: follow accu-cheks glycemic control per hospitalists Will continue to follow. Subjective Date/time seen: 02/19/23 10:59 Interval history: Follow-up for acute hyponatremia. Sodium appears relatively stable; reports significant nausea at the time of my visit due to salt tablet that he took earlier this morning; other than this issue/complaint; he was doing reasonably well; no acute distress voiced. Exam Narrative: General: elderly but WD/WN male in NAD Heart: normal S1 and S2; no rub Lungs: clear to auscultation Abdomen: soft, nontender, nondistended, positive bowel sounds Extremities: no cyanosis or clubbing; no edema Skin: no rash Objective Data Vital Signs Vital Signs: Vital Signs Temp Pulse Resp BP Pulse Ox O2 Del Method 02/19/23 08:45 Room Air 02/19/23 08:46 75 02/19/23 06:00 97.3 F L 80 16 128/75 98 02/18/23 22:00 96.9 F L 87 18 122/77 98 02/18/23 20:00 Room Air 02/18/23 21:10 85 02/18/23 14:00 96.9 F L 98 18 113/71 98 Intake/Output Intake/Output: Intake & Output 02/16/23 02/17/23 02/18/23 02/19/23 23:59 23:59 23:59 23:59 Intake Total 1170 980 480 240 Output Total 425 3643 487 5980 Balance 745 -292 130 -860 Meds/Results Medications: Active Medications Generic Name Dose Route Start Last Admin Trade Name Freq PRN Reason Stop Dose Admin Amlodipine Besylate 5 mg 02/16/23 09:00 02/19/23 08:47 Amlodipine Besylate 5 Mg Tablet PO 5 mg QAM [facility] Administration Aspirin 81 mg 02/16/23 17:00 02/19/23 08:53 Aspirin 81 Mg Enteric Tablet PO 81 mg BID [facility] Administration Docusate Sodium 100 mg 02/15/23 23:51 Docusate Sodium 100 Mg Capsule PO BID PRN Constipation Finasteride 5 mg 02/16/23 09:00 02/19/23 08:47 Finasteride 5 Mg Tablet PO 5 mg DAILY [facility] Administration Irbesartan 300 mg 02/16/23 09:00 02/19/23 08:46 Irbesartan 150 Mg Tablet PO 300 mg QAM [facility] Administration
--- NOTE | 2023-02-19 11:28 | PCOTNOTE ---
Attempted to see pt for Occupational Therapy this AM. Pt reports very sleepy and tired and being nauseous from the salt tablets. Pt declined to participate in any self care and/or therapeutic activities at this time despite education from therapist on benefits of participation. RN is made aware of pt's complaints. Will continue per poc duration/frequency tomorrow.
[2023-02-19] MEDS: ONDANSETRON INJ 4 MG/2 ML VIAL IV PUSH (11:30)
--- NOTE | 2023-02-19 13:23 | PM.DS ---
DS: Admitting Diagnosis Discharge Date 02/19/23 Admitting Diagnosis knee pain DS: Summary Hospital Course Hospital Course: 82-year-old male with history of high blood pressure, atrial fibrillation, hypothyroidism other comorbidities is presenting with left knee pain and being treated for left patellar fracture. Hyponatremia: Worsened with IV fluid administration, trial fluid restriction, now improving to 127, NaCl tabs to 1g BID, appreciate nephrology consultation, suspect SIADH, D/c SSRI. Appreciate orthopedic consultation, non operable, knee immobilizer and rehab at d/c recommended. See above and med rec for details. Patient was discharged inpatient rehab in stable condition. Time Spent with Patient Time attestation: Total time spent providing and/or coordinating discharge services: DS: Data Data Completed and Pending Labs on day of discharge: Labs from last 24 hours 02/19/23 05:53 WBC 5.7 RBC 4.06 L Hgb 13.6 L Hct 39.5 L MCV 97.3 MCH 33.5 MCHC 34.4 RDW 12.4 Plt Count 224 MPV 8.9 Immature Gran % (Auto) 0.4 Neut % (Auto) 57.2 Lymph % (Auto) 27.7 [place] % (Auto) 10.6 H Eos % (Auto) 3.4 Baso % (Auto) 0.7 Lymph # (Auto) 1.57 [place] # (Auto) 0.6 Eos # (Auto) 0.2 Baso # (Auto) 0.0 Abs Immat Gran (auto) 0.02 Absolute Neuts (auto) 3.3 Absolute Nucleated RBC 0.0 Nucleated RBC % 0.0 Sodium 127 L Potassium 4.0 Chloride 98 Carbon Dioxide 24 Anion Gap 5 L BUN 19 Creatinine 0.80 Estim Creat Clear Calc 56 Estimated GFR > 60 Glucose 117 H Calcium 8.3 L Total Bilirubin 2.0 H AST 73 H ALT 104 H Alkaline Phosphatase 83 Total Protein 6.0 L Albumin 3.3 L Discharge Plan Discharge Attending physician on discharge: Paula Colmenares Consulting providers: Robles Harman; Judith Whyte; Deneen Dunaway Discharging Clinician: Paula Colmenares Patient Disposition: Inpatient Rehab Facility Activity: as tolerated Diet: as tolerated Patient Instructions: Pain Management (DC) Stand Alone Forms: General Discharge Information Follow-up/Referrals: Suman Dexter DO [Primary Care Provider] - Deneen Dunaway MD [Physician] - Robles Harman MD [Physician] - Discharge Medications: New polyethylene glycol 3350 [Miralax] 17 gram Powder In Packet 17 g PO QAM 30 Days Qty: 30 0RF sodium chloride 1,000 mg Tablet,Soluble 1,000 mg PO BID 30 Days Qty: 60 0RF Continued ondansetron HCl 4 mg tablet 4 mg PO DAILY Rx Instructions: family lost pill bottle, unknown last date trospium 20 mg tablet 20 mg PO DAILY cholecalciferol (vitamin D3) 1,000 unit capsule 1,000 unit PO DAILY Patient Comments: QAM aspirin [Adult Low Dose Aspirin] 81 mg tablet,delayed release (DR/EC) 81 mg PO DAILY Patient Comments: QAM finasteride 5 mg tablet 5 mg PO DAILY Patient Comments: QAM sertraline 25 mg tablet 25 mg PO DAILY Qty: 90 1RF docusate sodium [Dulcolax Stool Softener (dss)] 100 mg Capsule 100 mg PO BID PRN (Reason: Constipation) tamsulosin 0.4 mg capsule 0.4 mg PO HS metoprolol succinate 50 mg tablet extended release 24 hr 50 mg PO Q12H amlodipine 5 mg tablet 5 mg PO QAM Qty: 90 1RF pantoprazole [Protonix] 40 mg tablet,delayed release (DR/EC) 40 mg PO BID Qty: 60 12RF simvastatin 20 mg tablet 20 mg PO HS Qty: 90 1RF irbesartan 300 mg tablet 300 mg PO QAM Qty: 90 1RF levothyroxine 100 mcg tablet 100 mcg PO DAILY Qty: 90 1RF tramadol 50 mg tablet 50 mg PO Q8H PRN (Reason: pain) Qty: 30 0RF Other Ambulatory Orders: Basic Metabolic Panel (Routine) Timeframe: 1 Week Location: Determined by Patient Ordered By: Paula Colmenares Date of admission: 02/16/23 10:31 Primary Care Provider: Suman Dexter Admitting Provider: Kimberli Mcneil Attending physician on admission: Kimberli Mcneil
[2023-02-19 14:00] VITALS: BP 113/66; PULSE 73; RESP 16; TEMP 36.4; O2SAT 99
--- NOTE | 2023-02-19 15:55 | PM.PNORT ---
Progress Note: A&P Assessment and Plan (1) Patellar fracture: Qualifiers: Encounter type: initial encounter Fracture alignment: nondisplaced Fracture morphology: unspecified fracture morphology Fracture type: closed Laterality: left Qualified Code(s): S82.002A - Unspecified fracture of left patella, initial encounter for closed fracture Code(s): S82.009A - Unspecified fracture of unspecified patella, initial encounter for closed fracture Status: Acute Assessment and Plan: Non-displaced patella fracture. Healing appropriately. Minimal pain. Working well with PT. Plan to be discharged to inpt rehab. Continue immobilizer and therapy. Follow up in 1 month with xrays in office. Subjective Subjective Date/Time Seen: 02/19/23 15:55 Interval history: Patient resting comfortably in bed. He just finished PT. He notes minimal pain. Wearing immobilizer. NO other complaints. Review of Systems Review of Systems: All systems reviewed & are unremarkable except as noted in HPI and below Exam Narrative: Elderly 82 y/o male. Resting comfortably in bed. Large ecchymosis around the right eye. Left Knee immobilizer and karie wrap in place. Moderate swelling at the left knee. No ecchymosis at the knee. Unable to raise the leg due to pain. Quad fires. No pain at the hip. Hip exam benign. No pain at the ankle. Light touch sensation intact. Distal neurovascularly intact. No drop foot. Objective Data Vital Signs Vital Signs: Vital Signs - 24 hr 02/18/23 21:10 02/18/23 20:00 02/18/23 22:00 Temperature 96.9 F L Pulse Rate 85 87 Respiratory Rate 18 Blood Pressure 122/77 Pulse Oximetry 98 Oxygen Delivery Room Air 02/19/23 06:00 02/19/23 08:46 02/19/23 08:45 Temperature 97.3 F L Pulse Rate 80 75 Respiratory Rate 16 Blood Pressure 128/75 Pulse Oximetry 98 Oxygen Delivery Room Air 02/19/23 14:00 Temperature 97.6 F Pulse Rate 73 Respiratory Rate 16 Blood Pressure 113/66 Pulse Oximetry 99 Oxygen Delivery Intake/Output Intake/Output: Intake & Output 02/16/23 02/17/23 02/18/23 02/19/23 23:59 23:59 23:59 23:59 Intake Total 1170 980 480 240 Output Total 425 6819 346 3912 Balance 745 -720 130 -860 Meds/Results Medications: Active Medications Generic Name Dose Route Start Last Admin Trade Name David PRN Reason Stop Dose Admin Amlodipine Besylate 5 mg 02/16/23 09:00 02/19/23 08:47 Amlodipine Besylate 5 Mg Tablet PO 5 mg QAM ALLEN Administration Aspirin 81 mg 02/16/23 17:00 02/19/23 08:53 Aspirin 81 Mg Enteric Tablet PO 81 mg BID ALLEN Administration Docusate Sodium 100 mg 02/15/23 23:51 Docusate Sodium 100 Mg Capsule PO BID PRN Constipation Finasteride 5 mg 02/16/23 09:00 02/19/23 08:47 Finasteride 5 Mg Tablet PO 5 mg DAILY ALLEN Administration Irbesartan 300 mg 02/16/23 09:00 02/19/23 08:46 Irbesartan 150 Mg Tablet PO 300 mg QAM ALLEN Administration Levothyroxine Sodium 100 mcg 02/16/23 06:30 02/19/23 05:41 Levothyroxine Sodium 100 Mcg Tablet PO 100 mcg DAILY@0630 ALLEN Administration Metoprolol Succinate 50 mg 02/16/23 09:00 02/19/23 08:46 Metoprolol Succinate Ext Rel 50 Mg Tabcr PO 50 mg Q12HR ALLEN Administration Ondansetron HCl 4 mg 02/15/23 19:10 02/19/23 11:30 Ondansetron Inj 4 Mg/2 Ml Vial IV PUSH 4 mg Q4H PRN Administration Nausea And Vomiting Pantoprazole Sodium 40 mg 02/16/23 09:00 02/19/23 08:46 Pantoprazole 40 Mg Tablet PO 40 mg BID ALLEN Administration Polyethylene Glycol 17 gm 02/16/23 09:00 02/19/23 08:48 Polyethylene Glycol 3350 17 Gm Powd.Pack PO 17 gm QAM ALLEN Administration Sertraline HCl 25 mg 02/16/23 09:00 Sertraline Hcl 25 Mg Tablet PO DAILY ALLEN Simvastatin 20 mg 02/16/23 21:00 02/18/23 21:10 Simvastatin 20 Mg Tablet PO 20 mg HS ALLEN Administration Sodium Chloride 1 gm 02/19/23 13:00 02/19
[2023-02-19 16:18] LABS: SARS-CoV-2 RNA PCR Negative (Negative)
[2023-02-21 09:54] LABS: Kappa\\Lambda Light Chains 1.17 (0.26-1.65); Lambda Light Chain 16.2 mg/L (5.7-26.3)
[2023-02-21 11:11] LABS: Albumin 2.8 g/dL (3.8-4.8); Alpha 1 Globulin 0.4 g/dL (0.2-0.3); Alpha 2 Globulin 0.9 g/dL (0.5-0.9); Beta 1 Globulin 0.4 g/dL (0.4-0.6); Gamma Globulin 0.6 g/dL (0.8-1.7); Protein, Total 5.5 g/dL (6.1-8.1)
[2023-02-21 13:23] LABS: Osmolality, Urine 228 mOsm/kg (50-1200)
[2023-02-22 04:52] LABS: Creatinine, Random Urine 39 mg/dL (20-320); Total Protein/Creatinine Ratio 205 mg/g creat (25-148)
== END 2023-02-19 18:10 | DRG 563 ==
LOC: ANHED 15:01 → ANH3MEDSUR 17:01
PROVIDERS: Internal Medicine; Internal Medicine Nephrology; Admitting Provider Internal Medicine; Emergency Provider Physician Assistant; PCP Internal Medicine; Visit Provider Student in an Organized Health Care Education/Training Program
DX: S82.035A Nondisplaced transverse fracture of left patella, initial encounter for closed fracture (principal); I48.19 Other persistent atrial fibrillation; E22.2 Syndrome of inappropriate secretion of antidiuretic hormone; W18.30XA Fall on same level, unspecified, initial encounter; I10 Essential (primary) hypertension; N40.0 Benign prostatic hyperplasia without lower urinary tract symptoms; K59.09 Other constipation; E03.9 Hypothyroidism, unspecified; Z86.73 Personal history of transient ischemic attack (TIA), and cerebral infarction without residual deficits; K21.9 Gastro-esophageal reflux disease without esophagitis; E11.9 Type 2 diabetes mellitus without complications; E86.1 Hypovolemia
CPT/HCPCS: 12011; 36415; 70450; 72125; 73502; 73564; 73700; 80048; 80053; 80069; 81001; 81050; 82533; 82570; 83883; 83930; 83935; 84155; 84156; 84165; 84166; 84295; 84300; 84443; 85025; 85027; 87635; 93005; 96360; 97110; 97116; 97162; 97165; 97530; 97535; 99284; 99285; A9270; G0378; J2405; J7030; J7131

== ENCOUNTER 2023-03-09 14:34 | Outpatient (NON) | payer MEDICARE, SELFPAY ==
[2023-03-09 15:20] LABS: Appearance Urine Clear (Clear); Bilirubin Urine Negative (Negative); Blood Urine Negative (Negative); Color Urine Yellow (Yellow); Glucose Urine UA Negative (Negative); Ketones Urine Negative (Negative); Leukocyte Esterase Ur Negative LEU/UL (NEGATIVE); Nitrate Urine Negative (Negative); Protein Urine Negative (Negative); Specific Grav Ur 1.007 (1.001-1.035); Urobilinogen Urine 0.2 mg/dL (<2.0); pH Urine 6.5 (5.0-9.0)
[2023-03-09 15:21] LABS: Add Urine Microscopic? NO
== END 2023-03-09 14:35 | disposition home or self-care (01) ==
LOC: ANHLAB 14:36
PROVIDERS: PCP Physician Assistant; Visit Provider Physician Assistant
DX: R41.0 Disorientation, unspecified (principal)
CPT/HCPCS: 81003; 87086

== ENCOUNTER 2023-03-27 09:29 | Outpatient (CLI) | payer MEDICARE, SELFPAY ==
[2023-03-27 10:58] LABS: Basophils Percent Auto 0.4 % (0.2-1.2); Eosinophils Absolute Auto 0.2 K/mm3 (0-0.3); Hematocrit 43.8 % (42.0-52.0); Hemoglobin 15.2 g/dL (14.0-18.0); Immature Granulocyte Absolute 0.02 K/mm3 (0.00-0.031); Immature Granulocyte Percent A 0.3 % (0-0.5); Lymphocytes Absolute Auto 1.72 K/mm3 (0.9-3.2); Lymphocytes Percent Auto 25.6 % (18.3-44.2); Mean Corpuscular HGB Conc 34.7 g/dl (32-36); Mean Platelet Volume 9.4 fl (7.4-10.4); Monocytes Absolute Auto 0.4 K/mm3 (0.1-0.6); Monocytes Percent Auto 6.1 % (2.6-8.5); Neutrophils Absolute Auto 4.3 K/mm3 (1.3-6.7); Neutrophils Percent Auto 64.6 % (45.5-73.1); Platelet Count Result 191 k/mm3 (150-375); Red Blood Count 4.47 M/mm3 (4.6-6.20); Red Cell Distribution Width 13.1 % (11.5-14.5); White Blood Count 6.7 K/mm3 (4.5-10.0)
[2023-03-27 11:14] LABS: Alanine Aminotransferase 23 U/L (6-50); Albumin Level 4.3 g/dL (3.5-5.1); Alkaline Phosphatase 67 U/L (38-126); Anion Gap 11 mmol/L (8-16); Aspartate Amino Transferase 29 U/L (17-59); Bilirubin,Total 1.7 mg/dL (0.2-1.3); Blood Urea Nitrogen 20 mg/dL (9-20); Calcium 9.1 mg/dL (8.4-10.2); Carbon Dioxide 23 mmol/L (22-30); Chloride 102 mmol/L (98-107); Estimated Glomerular Filt Rate > 60; Glucose 136 mg/dL (65-110); Potassium 3.9 mmol/L (3.4-5.0); Sodium 136 mmol/L (137-145)
[2023-03-27 11:18] LABS: Albumin Level 4.4 g/dL (3.5-5.1); Anion Gap 8 mmol/L (8-16); Blood Urea Nitrogen 20 mg/dL (9-20); Calcium 9.2 mg/dL (8.4-10.2); Carbon Dioxide 25 mmol/L (22-30); Chloride 102 mmol/L (98-107); Estimated Glomerular Filt Rate > 60; Glucose 136 mg/dL (65-110); Phosphorus 3.5 mg/dL (2.5-4.5); Potassium 3.8 mmol/L (3.4-5.0); Sodium 135 mmol/L (137-145)
[2023-03-27 11:34] LABS: Hemoglobin A1C 5.8 % (<5.7)
== END 2023-03-27 09:30 | disposition home or self-care (01) ==
PROVIDERS: PCP Internal Medicine; Referring Provider Internal Medicine Nephrology; Visit Provider Internal Medicine
DX: I48.91 Unspecified atrial fibrillation (principal); I10 Essential (primary) hypertension; R79.89 Other specified abnormal findings of blood chemistry; E03.9 Hypothyroidism, unspecified; E53.8 Deficiency of other specified B group vitamins; E87.1 Hypo-osmolality and hyponatremia; E11.9 Type 2 diabetes mellitus without complications
CPT/HCPCS: 36415; 80053; 80069; 82607; 83036; 84439; 84443; 85025

== ENCOUNTER 2023-04-16 15:03 | Outpatient (CLI) | payer MEDICARE, SELFPAY ==
[2023-04-16 16:41] LABS: Albumin Level 4.5 g/dL (3.5-5.1); Anion Gap 12 mmol/L (8-16); Blood Urea Nitrogen 18 mg/dL (9-20); Calcium 9.1 mg/dL (8.4-10.2); Carbon Dioxide 20 mmol/L (22-30); Chloride 103 mmol/L (98-107); Estimated Glomerular Filt Rate > 60; Glucose 236 mg/dL (65-110); Phosphorus 2.3 mg/dL (2.5-4.5); Potassium 4.1 mmol/L (3.4-5.0); Sodium 135 mmol/L (137-145)
== END 2023-04-16 15:04 | disposition home or self-care (01) ==
PROVIDERS: PCP Internal Medicine; Visit Provider Internal Medicine Nephrology
DX: E87.1 Hypo-osmolality and hyponatremia (principal)
CPT/HCPCS: 36415; 80069

== ENCOUNTER 2023-05-08 01:35 | Day surgery (SDC) | payer MEDICARE, SELFPAY ==
[2023-04-26 12:24] VITALS: BMI 26.7
[2023-05-08 09:40] VITALS: BP 151/99; PULSE 84; RESP 18; TEMP 36.3; O2SAT 99; BMI 26.4
--- NOTE | 2023-05-08 10:04 | PM.HPGS ---
History of Present Illness History of Present Illness Consent: Risks, benefits, and alternatives have been discussed and questions answered. Patient agrees to proceed with procedure. Chief complaint: GERD Narrative: Colt Mann Jr. is a 83 year old male Presents for EGD. Patient complains of ongoing nausea. Patient known to have GE reflux. Was found to have distal esophageal erosions on previous EGD several years ago. Recently has had multiple medical problems including a fall in a patellar fracture. He has been on narcotics. Recently became constipated. Currently followed by Nephrology for chronic kidney disease. Because of ongoing nausea follow-up EGD advised this time. Patient currently maintained on pantoprazole 40mg p.o. b.i.d.. Review of Systems Review of Systems: Review of systems noncontributory. [facility] Past Medical History Medical History Arthritis Basal cell carcinoma of skin Benign prostatic hyperplasia Cerebrovascular accident Chronic GERD Hyperlipidemia Hypertension Hypothyroidism Peripheral artery disease Persistent atrial fibrillation Type 2 diabetes mellitus Surgical History Surgical History History of arthroplasty of right knee History of cataract extraction with lens replacement History of partial thyroidectomy History of right inguinal hernia repair (04/13/22) Presence of Watchman left atrial appendage closure device Family History Family History Father Heart attack Mother , passed at age 104 No problems noted. Sibling Cancer Family history of malignant neoplasm of thyroid Mother Hypertension Sibling Malignant neoplasm of prostate Family history of malignant neoplasm of breast in first degree relative Father Patient's father is Sibling Diabetes mellitus Grandparent Diabetes mellitus Social History Social History Social History: Surrogate medical decision maker: Madonna Caritotanmay, spouse. Code status: Full code. Smoking status: Never smoker Second hand tobacco smoke exposure: No Alcohol intake: current Drinks per week: 1 Alcohol use details: wine occasionally Substance use: never Substance use type: does not use Lack of Transportation: No Lack of Food: Never True Current Housing: I Have Housing Concerned About Future Housing: No Difficulty Paying Gas/Electric Bills: No Difficulty Paying for Meds: No Currently Unemployed: No Education: High School Diploma/GED Difficulty w/ Childcare or Family Care: No Living arrangements: with family Additional living arrangements comments: Lives with spouse in [place]. They have been since he was 20 years old. They have a daughter was a nurse practitioner in [place]. Their son lives nearby. He ambulates with a cane. Occupation/Education: retired Additional occupation/education comments: Retired from [employer]. Gender identity (if verbalized by the patient): Male Sexual Orientation (if Verbalized by the Patient): Straight or Heterosexual Spiritual care concerns: No Meds Home Medications and Allergies Home Medications Medication Instructions Recorded Confirmed Type finasteride 5 mg tablet 5 mg PO DAILY 06/23/19 05/08/23 History docusate sodium 100 mg capsule 100 mg PO BID PRN Constipation 11/10/21 05/08/23 History (Dulcolax Stool Softener (docusate)) tamsulosin 0.4 mg capsule 0.4 mg PO HS 11/10/21 05/08/23 History metoprolol succinate 50 mg 50 mg PO Q12H 02/15/23 05/08/23 History tablet,extended release 24 hr acetaminophen 650 mg 650 mg PO Q6H PRN Pain (Scale 02/19/23 05/08/23 History tablet,extended release (Tylenol Score 4-6) Arthritis Pain) calcium carbonat
[2023-05-08] MEDS: LACTATED RINGERS 1,000 ML 150 ML IV CONT (10:08)
--- NOTE | 2023-05-08 10:21 | WPDANESEPPF ---
Anes - Initial Pre Proc Eval Procedure: Operation Date: 05/08/23 11:00 Proposed Procedures p Esophagogastroduodenoscopy - Sourav Traore MD Date/Time: 05/08/23 10:21 Surgeon: Sourav Traore MD Pre Op Diagnosis: GERD Patient Data Age: 83 Gender: M Height: 1.7 m Weight: 76.4 kg Last Vital Signs Temp 97.3 F L 05/08/23 09:40 Pulse 84 05/08/23 09:40 Resp 18 05/08/23 09:40 BP 151/99 H 05/08/23 09:40 Pulse Ox 99 05/08/23 09:40 O2 Del Method Room Air 05/08/23 09:40 Allergies Allergy/AdvReac Type Severity Reaction Status Date / Time Tetanus Vaccines and Toxoid Allergy Mild Hives Verified 05/08/23 09:53 Penicillins Allergy Unknown Hives Verified 05/08/23 09:53 rosuvastatin AdvReac Mild Other Verified 05/08/23 09:53 Sulfa (Sulfonamide AdvReac Unknown Verified 05/08/23 09:53 Antibiotics) Home Medications Medication Instructions Recorded Confirmed Type finasteride 5 mg tablet 5 mg PO DAILY 06/23/19 05/08/23 History docusate sodium 100 mg capsule 100 mg PO BID PRN Constipation 11/10/21 05/08/23 History (Dulcolax Stool Softener (docusate)) tamsulosin 0.4 mg capsule 0.4 mg PO HS 11/10/21 05/08/23 History metoprolol succinate 50 mg 50 mg PO Q12H 02/15/23 05/08/23 History tablet,extended release 24 hr acetaminophen 650 mg 650 mg PO Q6H PRN Pain (Scale 02/19/23 05/08/23 History tablet,extended release (Tylenol Score 4-6) Arthritis Pain) calcium carbonate 200 mg calcium 200 mg PO PRN PRN Acid Reflux 02/19/23 05/08/23 History (500 mg) chewable tablet (Tums) aspirin 81 mg chewable tablet 81 mg PO BID #60 tabs 03/01/23 05/08/23 Rx (Children's Aspirin) pantoprazole 40 mg tablet,delayed 40 mg PO Q12HR #30 tabs 03/01/23 05/08/23 Rx release polyethylene glycol 3350 17 gram 17 g PO DAILY #30 ea 03/01/23 05/08/23 Rx oral powder packet (Miralax) sodium chloride 1,000 mg soluble 1,000 mg PO BID 1 month #60 tabs 03/05/23 05/08/23 Rx tablet levothyroxine 88 mcg tablet 88 mcg PO DAILY #90 tabs 03/27/23 05/08/23 Rx simvastatin 20 mg tablet 20 mg PO HS #90 tabs 04/25/23 05/08/23 Rx Patient hx anesthesia problems: none Family hx anesthesia problems: none Results Review: All pre-operative results and documents have been reviewed as part of the pre-operative evaluation. PENDING SALE TO [facility] Past Medical History Medical History Arthritis Basal cell carcinoma of skin Benign prostatic hyperplasia Cerebrovascular accident Chronic GERD Hyperlipidemia Hypertension Hypothyroidism Peripheral artery disease Persistent atrial fibrillation Type 2 diabetes mellitus Surgical History Surgical History History of arthroplasty of right knee History of cataract extraction with lens replacement History of partial thyroidectomy History of right inguinal hernia repair (04/13/22) Presence of Watchman left atrial appendage closure device Family History Family History Father Heart attack Mother , passed at age 104 No problems noted. Sibling Cancer Family history of malignant neoplasm of thyroid Mother Hypertension Sibling Malignant neoplasm of prostate Family history of malignant neoplasm of breast in first degree relative Father Patient's father is Sibling Diabetes mellitus Grandparent Diabetes mellitus Social History Social History Social History: Surrogate medical decision maker: Madonna Johnathan, spouse. Code status: Full code. Smoking status: Never smoker Second hand tobacco smoke exposure: No Alcohol intake: current Drinks per week: 1 Alcohol use details: wine occasionally Substance use: never Substance use type: does not use Lack of Transportation: No Lack of Food: Never
[2023-05-08 10:50] VITALS: BP 141/88; PULSE 94; RESP 21; O2SAT 97
[2023-05-08 11:00] VITALS: BP 147/98; PULSE 88; RESP 24; O2SAT 97
[2023-05-08 11:10] VITALS: BP 144/100; PULSE 88; RESP 22; O2SAT 98
== END 2023-05-08 11:24 | disposition home or self-care (01) ==
PROVIDERS: PCP Internal Medicine; Visit Provider Internal Medicine Gastroenterology
PROC: 0DJ08ZZ Inspection of Upper Intestinal Tract, Via Natural or Artificial Opening Endoscopic (ICD-10-PCS; CPT 43235; principal; 2023-05-08 11:00)
DX: R11.0 Nausea (principal); K21.9 Gastro-esophageal reflux disease without esophagitis; N40.0 Benign prostatic hyperplasia without lower urinary tract symptoms; I10 Essential (primary) hypertension; E78.5 Hyperlipidemia, unspecified; E03.9 Hypothyroidism, unspecified; E11.51 Type 2 diabetes mellitus with diabetic peripheral angiopathy without gangrene; I48.19 Other persistent atrial fibrillation; Z79.82 Long term (current) use of aspirin; Z87.81 Personal history of (healed) traumatic fracture
CPT/HCPCS: 43239; 87081; J2704; J7120

== ENCOUNTER 2023-05-09 12:23 | Outpatient (CLI) | payer MEDICARE, SELFPAY ==
[2023-05-09 14:08] LABS: Albumin Level 4.7 g/dL (3.5-5.1); Anion Gap 8 mmol/L (8-16); Blood Urea Nitrogen 18 mg/dL (9-20); Calcium 9.4 mg/dL (8.4-10.2); Carbon Dioxide 29 mmol/L (22-30); Chloride 101 mmol/L (98-107); Estimated Glomerular Filt Rate > 60; Glucose 179 mg/dL (65-110); Phosphorus 3.1 mg/dL (2.5-4.5); Sodium 138 mmol/L (137-145)
== END 2023-05-09 12:24 | disposition home or self-care (01) ==
LOC: ANHLAB 12:24
PROVIDERS: PCP Internal Medicine; Visit Provider Internal Medicine Nephrology
DX: E87.1 Hypo-osmolality and hyponatremia (principal)
CPT/HCPCS: 36415; 80069

== ENCOUNTER 2023-05-29 13:20 | Outpatient (CLI) | payer MEDICARE, SELFPAY ==
[2023-05-29 14:12] LABS: Albumin Level 4.4 g/dL (3.5-5.1); Anion Gap 10 mmol/L (8-16); Blood Urea Nitrogen 19 mg/dL (9-20); Calcium 9.3 mg/dL (8.4-10.2); Carbon Dioxide 23 mmol/L (22-30); Chloride 104 mmol/L (98-107); Estimated Glomerular Filt Rate > 60; Glucose 168 mg/dL (65-110); Potassium 3.8 mmol/L (3.4-5.0); Sodium 137 mmol/L (137-145)
== END 2023-05-29 13:21 | disposition home or self-care (01) ==
LOC: ANHLAB 13:22
PROVIDERS: PCP Internal Medicine; Visit Provider Internal Medicine Nephrology
DX: E87.1 Hypo-osmolality and hyponatremia (principal)
CPT/HCPCS: 36415; 80069

== ENCOUNTER → 2023-06-22 13:41 | Outpatient (CLI) | payer MEDICARE, SELFPAY ==
--- NOTE | ~2023-06-22 | CT_ITS ---
EXAMINATION: CT lumbar spine wo con DATE: 06/22/2023 14:02 INDICATION: Lumbago. TECHNIQUE: Computed tomography (CT) of the lumbar spine was performed without intravenous contrast. A utomated exposure control and iterative reconstruction technique were employed. The dose-length produ ct was 594.07 mGy-cm. COMPARISON: None FINDINGS: There is calcified atherosclerosis of the aorta and many of the other arteries. There is d iverticulosis of the colon without evidence of diverticulitis. There are diverticula of the bladder. There is 9 degrees levocurvature of thoracolumbar spine and 9 degrees dextrocurvature of lower lumbar spine. There is 3 mm retrolisthesis of T12 on L1 and 4 mm retrolisthesis of L1 on L2. There is 5 mm anterolisthesis of L5 on S1. There are chronic bilateral L5 pars defects. There is mild chronic anter ior wedging of T12 vertebral body. There is severely decreased disc height from T12-L1 through L5-S1. The following disc levels are specifically discussed: L1-L2: The disc is bulging. There is mild right and moderate left facet joint osteoarthritis. There i s moderate bilateral neural foraminal stenosis. There is mild central canal stenosis. L2-L3: The disc is bulging. There is moderate right and mild left facet joint osteoarthritis. There i s moderate bilateral neural foraminal stenosis. There is mild central canal stenosis. L3-L4: The disc is bulging. There is mild right and severe left facet joint osteoarthritis. There is mild bilateral neural foraminal stenosis. There is mild central canal stenosis. L4-L5: The disc is bulging. There is severe bilateral facet joint osteoarthritis. There is mild bilat eral neural foraminal stenosis. There is mild central canal stenosis. L5-S1: The disc is bulging. There is severe bilateral facet joint osteoarthritis. There is mild bilat eral neural foraminal stenosis. There is mild central canal stenosis. IMPRESSION: 1. Severe lumbar spondylosis. 2. Chronic bilateral L5 pars defects with grade 1 anterolisthesis of L5 on S1. Reviewed, dictated and finalized at location A. ROOM TABLE ATTENDANT
== END ==
PROVIDERS: PCP Internal Medicine; Visit Provider Nurse Practitioner Family
DX: M47.896 Other spondylosis, lumbar region (principal)
CPT/HCPCS: 72131

== ENCOUNTER 2023-06-27 12:47 | Outpatient (CLI) | payer MEDICARE, SELFPAY ==
[2023-06-27 13:18] LABS: Albumin Level 4.6 g/dL (3.5-5.1); Anion Gap 11 mmol/L (8-16); Blood Urea Nitrogen 16 mg/dL (9-20); Calcium 9.5 mg/dL (8.4-10.2); Carbon Dioxide 21 mmol/L (22-30); Chloride 106 mmol/L (98-107); Estimated Glomerular Filt Rate > 60; Glucose 180 mg/dL (65-110); Phosphorus 3.4 mg/dL (2.5-4.5); Potassium 3.9 mmol/L (3.4-5.0); Sodium 138 mmol/L (137-145)
[2023-06-27 14:03] LABS: Free T4 Free Thyroxine 1.97 ng/mL (0.78-2.19)
== END 2023-06-27 12:48 | disposition home or self-care (01) ==
PROVIDERS: PCP Internal Medicine; Visit Provider Internal Medicine Nephrology
DX: I48.91 Unspecified atrial fibrillation (principal); E03.9 Hypothyroidism, unspecified; E87.1 Hypo-osmolality and hyponatremia
CPT/HCPCS: 36415; 80069; 84439; 84443

== ENCOUNTER 2023-07-08 19:09 | Emergency (ER) | payer MEDICARE, SELFPAY ==
--- NOTE | ~2023-07-08 | XR_ITS ---
EXAMINATION: XR chest 2V Exam Date/Time: 07/08/2023 19:43 WAREHOUSE COORDINATOR HISTORY: cough for 2 weeks Comparison: 12/18/2022. RESULT: Lines, tubes, and devices: Atrial occlusion device. Surgical clips over the lower neck. Lungs and pleura: Senescent change otherwise clear. Cardiomediastinal silhouette: Stable. Other: No acute osseous or upper abdominal finding. IMPRESSION: No acute cardiopulmonary process. Reviewed, dictated and finalized at location K. HOUSE COORDINATOR
[2023-07-08 19:20] VITALS: BP 127/85; PULSE 133; RESP 16; TEMP 37.4; O2SAT 98
--- NOTE | 2023-07-08 19:49 | ED.GENADULT ---
HPI - General Adult General Chief complaint: Upper Respiratory Infection Stated complaint: Cough,Congestion,Sore Throat Source: patient and family Mode of arrival: wheelchair Limitations: no limitations History of Present Illness HPI narrative: Patient presents for evaluation of cough for last 2 weeks. Cough is nonproductive. He does reports some clear rhinorrhea and a sore throat but he attributes to frequent coughing. He denies any fever, chills, nausea, vomiting, diarrhea, chest pain, shortness of breath. No recent sick contacts to his knowledge. He took mucinex but is not sure whether it contained dextromethorphan. He does not smoke. Related Data Home Medications Medication Instructions Recorded Confirmed finasteride 5 mg tablet 5 mg PO DAILY 06/23/19 07/08/23 docusate sodium 100 mg capsule 100 mg PO BID PRN Constipation 11/10/21 07/08/23 (Dulcolax Stool Softener (docusate)) tamsulosin 0.4 mg capsule 0.4 mg PO HS 11/10/21 07/08/23 metoprolol succinate 50 mg 50 mg PO Q12H 02/15/23 07/08/23 tablet,extended release 24 hr acetaminophen 650 mg 650 mg PO Q6H PRN Pain (Scale 02/19/23 07/08/23 tablet,extended release (Tylenol Score 4-6) Arthritis Pain) calcium carbonate 200 mg calcium 200 mg PO PRN PRN Acid Reflux 02/19/23 07/08/23 (500 mg) chewable tablet (Tums) Allergies Allergy/AdvReac Type Severity Reaction Status Date / Time Penicillins AdvReac Mild Hives Verified 07/08/23 19:16 rosuvastatin AdvReac Mild Hives Verified 07/08/23 19:16 Sulfa (Sulfonamide AdvReac Mild Hives Verified 07/08/23 19:16 Antibiotics) Tetanus Vaccines and Toxoid AdvReac Mild Hives Verified 07/08/23 19:16 Review of Systems Review of Systems: CONSTITUTIONAL: Denies fever, chills, or sweats. EYES: Denies visual changes, redness, or discharge. ENT: Reports rhinorrhea and sore throat which he attributes to coughing. Denies congestion or otalgia. CARDIOVASCULAR: Denies chest pain, palpitations, or edema. RESPIRATORY: reports cough. Denies shortness of breath. GASTROINTESTINAL: Denies abdominal pain, nausea, vomiting, or diarrhea. GENITOURINARY: Denies dysuria or hematuria. SKIN: Denies rash or itching. MUSCULOSKELETAL: Denies back pain, joint pain, or myalgia. NEUROLOGIC: Denies headache, numbness, dizziness, or weakness. PSYCHIATRIC: Denies anxiety or depression. [facility] Past Medical History Medical History Arthritis Basal cell carcinoma of skin Benign prostatic hyperplasia Cerebrovascular accident Chronic GERD Hyperlipidemia Hypertension Hypothyroidism Peripheral artery disease Persistent atrial fibrillation Type 2 diabetes mellitus Surgical History Surgical History History of arthroplasty of right knee History of cataract extraction with lens replacement History of partial thyroidectomy History of right inguinal hernia repair (04/13/22) Presence of Watchman left atrial appendage closure device Family History Family History Father Heart attack Mother , passed at age 104 No problems noted. Sibling Cancer Family history of malignant neoplasm of thyroid Mother Hypertension Sibling Malignant neoplasm of prostate Family history of malignant neoplasm of breast in first degree relative Father Patient's father is Sibling Diabetes mellitus Grandparent Diabetes mellitus Social History Social History Social History: Surrogate medical decision maker: Madonna Mann, spouse. Code status: Full code. Smoking status: Never smoker Second hand tobacco smoke exposure: No Alcohol intake: current Drinks per week: 1 Alcohol use details: wine occasionally Substance use: never Substance use type: does not
--- NOTE | 2023-07-08 19:58 | ECG_ITS ---
Measurements Intervals [place] Rate: 103 P: [place]: 0 QRS: -32 QRSD: 117 T: 112 QT: 337 QTc: 442 Interpretive Statements ATRIAL FIBRILLATION WITH RAPID VENTRICULAR RESPONSE LEFT AXIS DEVIATION INTRAVENTRICULAR CONDUCTION DELAY DELAYED PRECORDIAL R/S TRANSITION LEFT VENTRICULAR HYPERTROPHY WITH ST-T CHANGE BASELINE ARTIFACT- I, II, III, AVR, AVL, AVF, V1-V2 ABNORMAL ECG COMPARED TO ECG 02/15/2023 18:41:42 HEART RATE HAS INCREASED Electronically Signed On 07-09-2023 8:15:52 HOUSEHOLD COORDINATOR by Giovany Kennedy D.O.
== END 2023-07-08 20:25 | disposition left against medical advice (07) ==
PROVIDERS: Emergency Provider Nurse Practitioner; PCP Internal Medicine
DX: J06.9 Acute upper respiratory infection, unspecified (principal); I48.91 Unspecified atrial fibrillation; E78.5 Hyperlipidemia, unspecified; I10 Essential (primary) hypertension; E03.9 Hypothyroidism, unspecified; E11.9 Type 2 diabetes mellitus without complications; Z79.899 Other long term (current) drug therapy; Z20.822 Contact with and (suspected) exposure to COVID-19
CPT/HCPCS: 71046; 87081; 87426; 87804; 87880; 93005; 99213; C9803; G0463

== ENCOUNTER 2023-07-09 10:42 | Emergency (ER) | payer MEDICARE, SELFPAY ==
--- NOTE | ~2023-07-09 | XR_ITS ---
EXAMINATION: XR chest 1V portable DATE: 07/09/2023 11:23 INDICATION: Cough. Weakness. TECHNIQUE: A single frontal view of the chest was obtained. COMPARISON: Chest 2 views 07/08/2023, CT abdomen and pelvis 12/13/2022 FINDINGS: There is no pneumonia, pleural effusion, or pneumothorax. Cardiomegaly is noted. Surgical c lips overlie the superior mediastinum. IMPRESSION: 1. Cardiomegaly. Reviewed, dictated and finalized at location A. RIALS ENGINEER IMPRESSION: 1. Cardiomegaly.
[2023-07-09 10:42] VITALS: BP 116/67; PULSE 88; RESP 16; TEMP 36.9; O2SAT 98
[2023-07-09 11:00] VITALS: BP 119/77; PULSE 87; RESP 20; O2SAT 97
--- NOTE | 2023-07-09 11:04 | ECG_ITS ---
Measurements Intervals [place] Rate: 86 P: CT: 0 QRS: -33 QRSD: 121 T: 127 QT: 390 QTc: 467 Interpretive Statements ATRIAL FIBRILLATION LEFT AXIS DEVIATION INTRAVENTRICULAR CONDUCTION DELAY LEFT VENTRICULAR HYPERTROPHY WITH ST-T CHANGE BASELINE WANDER- I, AVL, V6 ABNORMAL ECG COMPARED TO ECG 07/08/2023 20:02:58 HEART RATE HAS DECREASED Electronically Signed On 07-09-2023 14:28:00 LEAD MOBILE DEVELOPER by Giovany Kennedy D.O.
--- NOTE | 2023-07-09 11:06 | ED.WEAKNESS ---
HPI - Weakness General Chief complaint: Weakness Stated complaint: blood pressure, afib? Time Seen by Provider: 07/09/23 10:47 Source: patient Mode of arrival: ambulatory Limitations: no limitations History of Present Illness HPI Narrative: Colt is an 83-year-old male patient presenting to the ER today with complaints blood pressure issues/AFib. Reports he has week. States he went to the [facility] in [place] yesterday for a cough and they were concerned about his heart rate being 133 beats per minute. States he got COVID, flu, strep, chest x-ray, and EKG done at that time. Reports that the provider told him everything was normal. He denies any chest pain or shortness of breath currently. Does have history of AFib. States he took an extra dose of his metoprolol (50mg instead of 25mg). Heart rate is 80s to 90s in the ER and blood pressure is 119/80. Reports he has a productive cough but he is not able to get up the phlegm. Has a watchman's device. Related Data Home Medications Medication Instructions Recorded Confirmed finasteride 5 mg tablet 5 mg PO DAILY 06/23/19 07/08/23 docusate sodium 100 mg capsule 100 mg PO BID PRN Constipation 11/10/21 07/08/23 (Dulcolax Stool Softener (docusate)) tamsulosin 0.4 mg capsule 0.4 mg PO HS 11/10/21 07/08/23 metoprolol succinate 50 mg 50 mg PO Q12H 02/15/23 07/08/23 tablet,extended release 24 hr acetaminophen 650 mg 650 mg PO Q6H PRN Pain (Scale 02/19/23 07/08/23 tablet,extended release (Tylenol Score 4-6) Arthritis Pain) calcium carbonate 200 mg calcium 200 mg PO PRN PRN Acid Reflux 02/19/23 07/08/23 (500 mg) chewable tablet (Tums) Allergies Allergy/AdvReac Type Severity Reaction Status Date / Time Penicillins AdvReac Mild Hives Verified 07/08/23 19:16 rosuvastatin AdvReac Mild Hives Verified 07/08/23 19:16 Sulfa (Sulfonamide AdvReac Mild Hives Verified 07/08/23 19:16 Antibiotics) Tetanus Vaccines and Toxoid AdvReac Mild Hives Verified 07/08/23 19:16 Review of Systems Review of Systems: Pertinent positives per HPI. Patient denies any fever, chills, rash, headache, visual changes, dizziness, shortness of breath, chest pain, palpitations, nausea, vomiting, diarrhea, constipation, abdominal pain, or any urinary issues. [facility] Past Medical History Medical History Arthritis Basal cell carcinoma of skin Benign prostatic hyperplasia Cerebrovascular accident Chronic GERD Hyperlipidemia Hypertension Hypothyroidism Peripheral artery disease Persistent atrial fibrillation Type 2 diabetes mellitus Surgical History Surgical History History of arthroplasty of right knee History of cataract extraction with lens replacement History of partial thyroidectomy History of right inguinal hernia repair (04/13/22) Presence of Watchman left atrial appendage closure device Family History Family History Father Heart attack Mother , passed at age 104 No problems noted. Sibling Cancer Family history of malignant neoplasm of thyroid Mother Hypertension Sibling Malignant neoplasm of prostate Family history of malignant neoplasm of breast in first degree relative Father Patient's father is Sibling Diabetes mellitus Grandparent Diabetes mellitus Social History Social History Social History: Surrogate medical decision maker: Madonna Mann, spouse. Code status: Full code. Smoking status: Never smoker Second hand tobacco smoke exposure: No Alcohol intake: current Drinks per week: 1 Alcohol use details: wine occasionally Substance use: never Substance use type: does not use Lack of Transportation: No Lack of Food: Never True Current Housing: I Have Housing
[2023-07-09 11:22] LABS: Basophils Percent Auto 0.5 % (0.2-1.2); Hematocrit 41.7 % (42.0-52.0); Hemoglobin 13.7 g/dL (14.0-18.0); Immature Granulocyte Absolute 0.01 K/mm3 (0.00-0.031); Immature Granulocyte Percent A 0.2 % (0-0.5); Lymphocytes Absolute Auto 0.98 K/mm3 (0.9-3.2); Lymphocytes Percent Auto 16.2 % (18.3-44.2); Mean Corpuscular HGB Conc 32.9 g/dl (32-36); Mean Corpuscular Hemoglobin 32.5 pg (26-34); Mean Corpuscular Volume 98.8 fl (80-100); Mean Platelet Volume 9.7 fl (7.4-10.4); Monocytes Absolute Auto 0.7 K/mm3 (0.1-0.6); Monocytes Percent Auto 11.9 % (2.6-8.5); Neutrophils Absolute Auto 4.3 K/mm3 (1.3-6.7); Neutrophils Percent Auto 71.2 % (45.5-73.1); Platelet Count Result 154 k/mm3 (150-375); Red Blood Count 4.22 M/mm3 (4.6-6.20); Red Cell Distribution Width 11.9 % (11.5-14.5); White Blood Count 6.1 K/mm3 (4.5-10.0)
[2023-07-09 11:32] LABS: Alanine Aminotransferase 28 U/L (6-50); Albumin Level 3.8 g/dL (3.5-5.1); Alkaline Phosphatase 56 U/L (38-126); Anion Gap 7 mmol/L (8-16); Aspartate Amino Transferase 34 U/L (17-59); Bilirubin,Total 2.6 mg/dL (0.2-1.3); Blood Urea Nitrogen 16 mg/dL (9-20); Calcium 8.6 mg/dL (8.4-10.2); Carbon Dioxide 25 mmol/L (22-30); Chloride 101 mmol/L (98-107); Estimated CRCL calculation 62 ml/min; Estimated Glomerular Filt Rate > 60; Glucose 206 mg/dL (65-110); Potassium 3.5 mmol/L (3.4-5.0); Sodium 133 mmol/L (137-145)
[2023-07-09 11:38] LABS: INR 1.1; Prothrombin Time 14.9 Seconds (11.1-14.7)
[2023-07-09 11:43] LABS: Troponin I 0.033 ng/mL (0.000-0.034)
[2023-07-09 11:52] VITALS: O2SAT 98
[2023-07-09 11:58] LABS: Influenza A QL RT-PCR Negative (Negative); Influenza B QL RT-PCR Negative (Negative); RSV RNA, RT-PCR Negative (Negative); SARS-CoV-2 RNA PCR Negative (Negative)
[2023-07-09 13:07] VITALS: BP 109/70; PULSE 84; RESP 22; O2SAT 98
== END 2023-07-09 14:52 | disposition home or self-care (01) ==
PROVIDERS: Emergency Provider Nurse Practitioner Family; PCP Internal Medicine
DX: I48.20 Chronic atrial fibrillation, unspecified (principal); R53.1 Weakness; Z20.822 Contact with and (suspected) exposure to COVID-19; Z79.82 Long term (current) use of aspirin; I51.7 Cardiomegaly; I45.9 Conduction disorder, unspecified
CPT/HCPCS: 36415; 71045; 80053; 84484; 85025; 85610; 87637; 93005; 99284

== ENCOUNTER 2023-07-12 01:46 | Emergency (ER) | payer MEDICARE, SELFPAY ==
[2023-07-12] VITALS (21 sets, daily range): BP systolic 108–152; BP diastolic 56–120; PULSE 101–135; RESP 13–29; TEMP 37.2; O2SAT 91–98
--- NOTE | ~2023-07-12 | XR_ITS ---
Clinical Indication: Tachycardia AP and lateral views of the chest: Comparison: 07/09/2023 Findings: Possible minimal central congestive change. No focal consolidation or pleural effusion. Ca rdiomediastinal silhouette is stable. Bones and soft tissues are unremarkable. Impression: Possible minimal central congestive change. Reviewed, dictated and finalized at [facility]. STICS TEAM LEADER Impression: Possible minimal central congestive change.
--- NOTE | ~2023-07-12 | CT_ITS ---
CT of the Abdomen and Pelvis: Indication: Abdominal pain Technique: 2.5 mm axial scans were obtained through the abdomen and pelvis following intravenous adm inistration of 100 cc of Omnipaque 350. Dose reduction technique was used on this scan by utilizing a utomated exposure control and iterative reconstruction technique. The dose-length product (DLP) was 7 40.61 mGy-cm. COMPARISON: 12/13/2022 Findings: Scans through the lung bases demonstrate mild bibasilar interstitial edema versus chronic interstitial change. The liver, spleen, pancreas, gallbladder, adrenals and kidneys are within normal limits. There are at herosclerotic calcifications of the aorta. No lymphadenopathy. No bowel obstruction or bowel wall thickening. There is asymmetric enlargement of the inferior left r ectus abdominis muscle with a small focal blush of contrast (axial image 135), compatible with intram uscular hematoma with suspected small focus of active bleeding. Hematoma measures approximately up to 3.5 x 2.2 6.5 cm. Images through the pelvis were performed. Small urinary bladder diverticulum noted. Possible minimal urinary bladder wall thickening. No other pelvic mass evident. No ascites. Impression: Intramuscular hematoma at the inferior left rectus abdominis muscle, with active extravasation, as de tailed above. Possible cystitis. Correlate with urinalysis. Small right-sided urinary bladder diverticulum. Reviewed, dictated and finalized at [facility]. ENT RECORDS COORDINATOR Impression: Intramuscular hematoma at the inferior left rectus abdominis muscle, with activ e extravasation, as detailed above. Possible cystitis. Correlate with urinalysis. Small right-sided urinary bladder diverticulum.
--- NOTE | 2023-07-12 01:54 | ECG_ITS ---
Measurements Intervals [place] Rate: 138 P: [place]: 0 QRS: -32 QRSD: 118 T: 121 QT: 309 QTc: 469 Interpretive Statements ATRIAL FIBRILLATION WITH RAPID VENTRICULAR RESPONSE VENTRICULAR PREMATURE COMPLEXES LEFT AXIS DEVIATION INTRAVENTRICULAR CONDUCTION DELAY LEFT VENTRICULAR HYPERTROPHY WITH ST-T CHANGE BASELINE WANDER- I, V2, V6 ABNORMAL ECG COMPARED TO ECG 07/09/2023 11:17:26 HEART RATE HAS INCREASED Electronically Signed On 07-12-2023 6:54:20 UNION LABORER by Giovany Kennedy D.O.
--- NOTE | 2023-07-12 01:58 | ED.GENADULT ---
HPI - General Adult General Chief complaint: Weakness Stated complaint: LLQ PAIN, FEVER, GEN WEAKNESS, RE-EVALUATION Source: patient Limitations: no limitations History of Present Illness HPI narrative: Patient is an 83-year-old male present to the emergency department complaining of abdominal pain. Patient states he around a couple hours prior to arrival he developed left lower quadrant abdominal pain, denies any history is pain in the past, took a tramadol for the pain without any significant relief, describes the pain as sharp, comes and goes, worse with movement, denies radiation of the pain, pain is better when he stays still. Patient admits to history getting colonoscopies. Patient also missed having a fever tonight, he was unsure of how high the temperature was but did not take any antipyretics. Patient admits to a chronic cough that is overall unchanged. Patient admits to feeling generally weak. Patient denies any recent injuries, recent illness, chest pain, shortness of breath, nausea, vomiting, diarrhea, melena, hematochezia, dysuria, hematuria, urinary frequency, urinary urgency, difficulty urinating, rash, numbness, focal weakness, headache, sore throat, palpitations. Patient admits to some slight rhinorrhea. Patient admits to recently being put on a new medication however he is unsure as to what the medication is or what it is for. Patient admits to taking all his medications as prescribed without any recent changes. Patient admits to feeling slightly dehydrated. Related Data Home Medications Medication Instructions Recorded Confirmed finasteride 5 mg tablet 5 mg PO DAILY 06/23/19 07/12/23 docusate sodium 100 mg capsule 100 mg PO BID PRN Constipation 11/10/21 07/12/23 (Dulcolax Stool Softener (docusate)) tamsulosin 0.4 mg capsule 0.4 mg PO HS 11/10/21 07/12/23 metoprolol succinate 50 mg 50 mg PO Q12H 02/15/23 07/12/23 tablet,extended release 24 hr acetaminophen 650 mg 650 mg PO Q6H PRN Pain (Scale 02/19/23 07/12/23 tablet,extended release (Tylenol Score 4-6) Arthritis Pain) calcium carbonate 200 mg calcium 200 mg PO PRN PRN Acid Reflux 02/19/23 07/08/23 (500 mg) chewable tablet (Tums) Allergies Allergy/AdvReac Type Severity Reaction Status Date / Time Penicillins AdvReac Mild Hives Verified 07/08/23 19:16 rosuvastatin AdvReac Mild Hives Verified 07/08/23 19:16 Sulfa (Sulfonamide AdvReac Mild Hives Verified 07/08/23 19:16 Antibiotics) Tetanus Vaccines and Toxoid AdvReac Mild Hives Verified 07/08/23 19:16 Review of Systems Review of Systems: A 10 system review of systems was completed on the patient and is negative except for what is stated in the HPI. Nursing and ancillary documentation was reviewed. [facility] Past Medical History Medical History Arthritis Basal cell carcinoma of skin Benign prostatic hyperplasia Cerebrovascular accident Chronic GERD Hyperlipidemia Hypertension Hypothyroidism Peripheral artery disease Persistent atrial fibrillation Type 2 diabetes mellitus Surgical History Surgical History History of arthroplasty of right knee History of cataract extraction with lens replacement History of partial thyroidectomy History of right inguinal hernia repair (04/13/22) Presence of Watchman left atrial appendage closure device Family History Family History Father Heart attack Mother , passed at age 104 No problems noted. Sibling Cancer Family history of malignant neoplasm of thyroid Mother Hypertension Sibling Malignant neoplasm of prostate Family history of malignant neoplasm of breast in first degree relative Father Patient's father is Sibling Diabetes mellitus Grandparent Diabetes mellitus Social History Social History
[2023-07-12] MEDS: SODIUM CHLORIDE 0.9% IV 1,000 ML 999 ML IV CONT ×2 (02:04→03:24)
[2023-07-12 02:26] LABS: Basophils Percent Auto 0.3 % (0.2-1.2); Hematocrit 35.8 % (42.0-52.0); Hemoglobin 12.3 g/dL (14.0-18.0); Immature Granulocyte Absolute 0.03 K/mm3 (0.00-0.031); Immature Granulocyte Percent A 0.4 % (0-0.5); Lymphocytes Absolute Auto 1.06 K/mm3 (0.9-3.2); Lymphocytes Percent Auto 14.7 % (18.3-44.2); Mean Corpuscular HGB Conc 34.4 g/dl (32-36); Mean Corpuscular Hemoglobin 32.7 pg (26-34); Mean Corpuscular Volume 95.2 fl (80-100); Mean Platelet Volume 9.9 fl (7.4-10.4); Monocytes Absolute Auto 0.7 K/mm3 (0.1-0.6); Monocytes Percent Auto 10.1 % (2.6-8.5); Neutrophils Absolute Auto 5.4 K/mm3 (1.3-6.7); Neutrophils Percent Auto 74.5 % (45.5-73.1); Platelet Count Result 173 k/mm3 (150-375); Red Blood Count 3.76 M/mm3 (4.6-6.20); Red Cell Distribution Width 11.6 % (11.5-14.5); White Blood Count 7.2 K/mm3 (4.5-10.0)
[2023-07-12 02:35] LABS: INR 1.1; Prothrombin Time 14.6 Seconds (11.1-14.7)
[2023-07-12 02:37] LABS: Partial Thromboplastin Time 35.5 SECONDS (22.3-36.8)
[2023-07-12 02:38] LABS: Alanine Aminotransferase 71 U/L (6-50); Albumin Level 3.5 g/dL (3.5-5.1); Alkaline Phosphatase 85 U/L (38-126); Anion Gap 10 mmol/L (8-16); Aspartate Amino Transferase 91 U/L (17-59); Bilirubin,Total 2.8 mg/dL (0.2-1.3); Blood Urea Nitrogen 16 mg/dL (9-20); Calcium 8.1 mg/dL (8.4-10.2); Carbon Dioxide 21 mmol/L (22-30); Chloride 92 mmol/L (98-107); Estimated CRCL calculation 72 ml/min; Estimated Glomerular Filt Rate > 60; Glucose 143 mg/dL (65-110); Lipase 42 U/L (23-300); Magnesium 1.7 mg/dL (1.6-2.3); Potassium 3.7 mmol/L (3.4-5.0); Sodium 123 mmol/L (137-145)
[2023-07-12 02:46] LABS: NT Pro B Type Natriuretic Pept 3520 pg/mL (19.9-100)
[2023-07-12 02:48] LABS: Troponin I 0.016 ng/mL (0.000-0.034)
[2023-07-12 03:01] LABS: Influenza A QL RT-PCR Negative (Negative); Influenza B QL RT-PCR Negative (Negative); RSV RNA, RT-PCR Negative (Negative); SARS-CoV-2 RNA PCR Negative (Negative)
[2023-07-12 03:16] LABS: CRP 17.2 mg/dL (<1.0)
[2023-07-12] MEDS: HYDROcodone/acetaminophen (*CRX) 5-325 MG TABLET 1 TAB PO (03:35)
[2023-07-12] MEDS: ERYTHROMYCIN OPHTH OINTMENT 1 GM TUBE 1 APPLIC EACH EYE (04:28)
[2023-07-12 04:35] LABS: Appearance Urine Turbid (Clear); Bacteria Urine None Seen /hpf; Bilirubin Urine Negative (Negative); Blood Urine 1+ (Negative); Color Urine Dark Yellow (Yellow); Glucose Urine UA Negative (Negative); Ketones Urine 2+ mg/dL (Negative); Leukocyte Esterase Ur Negative LEU/UL (Negative); Nitrate Urine Negative (Negative); Non Pathogenic Casts 0-2; Protein Urine 1+ mg/dL (Negative); Squamous Epithelial Cell Urine None seen /hpf (Few); WBC Urine 0-5 /hpf
[2023-07-12 04:41] LABS: Add Urine Microscopic? YES; Specific Grav Ur 1.056 (1.001-1.035)
[2023-07-12 04:48] LABS: Amphetamine Screen Urine Negative (Negative); Barbiturate Screen Urine Negative (Negative); Benzodiazepines Screen Urine Negative (Negative); Cannabinoid Screen Urine Negative (Negative); Cocaine Screen Urine Negative (Negative); Methadone Screen Urine Negative (Negative); Opiate Screen Urine Negative (Negative); Phencyclidine Screen Urine Negative (Negative)
[2023-07-12] MEDS: MORPHINE SULFATE (*CRX) 4 MG/ML INJ IV PUSH (05:35)
[2023-07-12 05:40] LABS: Hemoglobin 11.6 g/dL (14.0-18.0)
[2023-07-12 06:01] LABS: Troponin I 0.018 ng/mL (0.000-0.034)
[2023-07-12] MEDS: SODIUM CHLORIDE 0.9% IV 1,000 ML 125 ML IV CONT (06:05)
--- NOTE | 2023-07-12 07:45 | PC.NURSE ---
pts family requesting pt be transferred to [facility]. had a member of their family who is a physician from [place] call dept and talk to dr. fulton. made aware that [facility] was aware of this when they arranged the transfer. [facility] in dept. delay in pt care due to indecision.
== END 2023-07-12 08:06 | disposition short-term general hospital (02) ==
PROVIDERS: Emergency Provider Student in an Organized Health Care Education/Training Program
DX: M79.81 Nontraumatic hematoma of soft tissue (principal); R10.32 Left lower quadrant pain; I48.19 Other persistent atrial fibrillation; Z20.822 Contact with and (suspected) exposure to COVID-19; I10 Essential (primary) hypertension; E78.5 Hyperlipidemia, unspecified; E11.51 Type 2 diabetes mellitus with diabetic peripheral angiopathy without gangrene; I73.9 Peripheral vascular disease, unspecified; E89.0 Postprocedural hypothyroidism; N40.0 Benign prostatic hyperplasia without lower urinary tract symptoms; K21.9 Gastro-esophageal reflux disease without esophagitis; M19.90 Unspecified osteoarthritis, unspecified site; Z96.651 Presence of right artificial knee joint; Z96.1 Presence of intraocular lens; Z98.49 Cataract extraction status, unspecified eye; Z86.73 Personal history of transient ischemic attack (TIA), and cerebral infarction without residual deficits; Z85.828 Personal history of other malignant neoplasm of skin; Z79.899 Other long term (current) drug therapy; Z79.82 Long term (current) use of aspirin; I49.3 Ventricular premature depolarization; I45.9 Conduction disorder, unspecified; I51.7 Cardiomegaly; R93.41 Abnormal radiologic findings on diagnostic imaging of renal pelvis, ureter, or bladder
CPT/HCPCS: 36415; 71046; 74177; 80053; 80307; 81001; 83605; 83690; 83735; 83880; 84443; 84484; 85014; 85018; 85025; 85610; 85730; 86140; 87040; 87637; 93005; 96361; 96374; 99285; A9270; J2270; J7030; Q9967

== ENCOUNTER 2023-07-18 16:51 | Inpatient (IN) | payer MEDICARE, SELFPAY ==
--- NOTE | ~2023-07-18 | XR_ITS ---
EXAMINATION: XR chest 1V portable Exam Date/Time: 07/18/2023 18:15 LEAD JANITOR HISTORY: cough Comparison: 07/12/2023. RESULT: Lines, tubes, and devices: Surgical clips over the lower neck. Atrial occlusion device. Lungs and pleura: Senescent change, otherwise clear. Cardiomediastinal silhouette: Stable. Other: No acute osseous or upper abdominal finding. IMPRESSION: No acute cardiopulmonary process. Reviewed, dictated and finalized at location K. JANITOR
[2023-07-18 16:53] VITALS: BP 158/91; PULSE 118; RESP 30; TEMP 39.3; O2SAT 95
--- NOTE | 2023-07-18 17:20 | ECG_ITS ---
Measurements Intervals [place] Rate: 121 P: [place]: 0 QRS: -40 QRSD: 115 T: 123 QT: 326 QTc: 464 Interpretive Statements ATRIAL FIBRILLATION WITH RAPID VENTRICULAR RESPONSE LEFT AXIS DEVIATION INTRAVENTRICULAR CONDUCTION DELAY LEFT VENTRICULAR HYPERTROPHY WITH ST-T CHANGE ABNORMAL ECG COMPARED TO ECG 07/12/2023 01:53:41 NO SIGNIFICANT CHANGES Electronically Signed On 07-18-2023 19:04:17 CLE[employer]ER [employer]URNITURE by Giovany Kennedy D.O.
--- NOTE | 2023-07-18 17:25 | ED.GENADULT ---
HPI - General Adult General Chief complaint: Unspecified Stated complaint: abnormal VS Time Seen by Provider: 07/18/23 17:13 History of Present Illness HPI narrative: Patient is an 83 year old male with history of hemorrhagic stroke, multiple TIAs, here with worsening cough, tachycardia and possible neuro deficit. Family at bedside helps with history. Patient has had a cough for several weeks. He had been seen at an urgent care and here several times. He was negative with swabs each visit but on his latest visit to our ER he was diagnosed with a rectal sheath hematoma after coughing and sent to [place] for further care. Daughter notes that he had a normal EF while at [place], constantly sits in a.fib but seems to have been in RVR recently. He notes that he seemed to have worsened last night, had difficulty sleeping and getting comfortable. Today he was at his therapy appointment at rehab where they were concerned he may have a facial droop and he was sent here for an outpatient CT. After CT EMS was worried that his vitals were unstable and he was checked into the ER. He notes cough is horrible, is unsure if it has changed in any way. Denies abdominal pain, denies diarrhea, denies urinary symptoms. Related Data Home Medications Medication Instructions Recorded Confirmed finasteride 5 mg tablet mg 07/18/23 07/18/23 irbesartan 300 mg tablet mg 07/18/23 levothyroxine 88 mcg tablet mcg 07/18/23 metoprolol succinate 50 mg mg PO BID 07/18/23 tablet,extended release 24 hr pantoprazole 40 mg tablet,delayed mg PO 07/18/23 release simvastatin 20 mg tablet mg 07/18/23 tamsulosin 0.4 mg capsule mg PO 07/18/23 trazodone 50 mg tablet See Rx Instructions .Route .COMPLEX 07/18/23 07/18/23 Allergies Allergy/AdvReac Type Severity Reaction Status Date / Time sertraline [From Zoloft] Allergy Other Verified 07/18/23 17:03 Penicillins AdvReac Mild Hives Verified 07/18/23 17:03 rosuvastatin AdvReac Mild Hives Verified 07/18/23 17:03 Sulfa (Sulfonamide AdvReac Mild Hives Verified 07/18/23 17:03 Antibiotics) Tetanus Vaccines and Toxoid AdvReac Mild Hives Verified 01/10/24 17:03 Review of Systems Review of Systems: All systems reviewed & are unremarkable except as noted in HPI and below PMFSH Past Medical History Medical History Arthritis Basal cell carcinoma of skin Benign prostatic hyperplasia Cerebrovascular accident Chronic GERD Hyperlipidemia Hypertension Hypothyroidism Peripheral artery disease Persistent atrial fibrillation Type 2 diabetes mellitus Surgical History Surgical History History of arthroplasty of right knee History of cataract extraction with lens replacement History of partial thyroidectomy History of right inguinal hernia repair (04/13/22) Presence of Watchman left atrial appendage closure device Family History Family History Father Heart attack Mother , passed at age 104 No problems noted. Sibling Cancer Family history of malignant neoplasm of thyroid Mother Hypertension Sibling Malignant neoplasm of prostate Family history of malignant neoplasm of breast in first degree relative Father Patient's father is Sibling Diabetes mellitus Grandparent Diabetes mellitus Social History Social History Social History: Surrogate medical decision maker: Madonna Johnathan, spouse. Code status: Full code. Smoking status: Never smoker Second hand tobacco smoke exposure: No Alcohol intake: current Drinks per week: 1 Alcohol use details: wine occasionally Substance use: never Substance use type: does not use Lack of Transportation: No Lack of Food: Never True Current Housing: I Have Housing Concerned About Future Hous
[2023-07-18] MEDS: ACETAMINOPHEN 650 MG SUPPOSITORY RECTAL (17:56)
[2023-07-18 18:05] LABS: Basophils Percent Auto 0.5 % (0.2-1.2); Hematocrit 42.3 % (42.0-52.0); Hemoglobin 14.2 g/dL (14.0-18.0); Immature Granulocyte Absolute 0.09 K/mm3 (0.00-0.031); Immature Granulocyte Percent A 1.5 % (0-0.5); Lymphocytes Absolute Auto 0.32 K/mm3 (0.9-3.2); Lymphocytes Percent Auto 5.3 % (18.3-44.2); Mean Corpuscular HGB Conc 33.6 g/dl (32-36); Mean Corpuscular Hemoglobin 32.7 pg (26-34); Mean Corpuscular Volume 97.5 fl (80-100); Monocytes Absolute Auto 0.3 K/mm3 (0.1-0.6); Monocytes Percent Auto 5.6 % (2.6-8.5); Neutrophils Absolute Auto 5.3 K/mm3 (1.3-6.7); Neutrophils Percent Auto 87.1 % (45.5-73.1); Platelet Count Result 356 k/mm3 (150-375); Red Blood Count 4.34 M/mm3 (4.6-6.20); White Blood Count 6.1 K/mm3 (4.5-10.0)
[2023-07-18 18:14] LABS: INR 1.1; Prothrombin Time 14.2 Seconds (11.1-14.7)
[2023-07-18 18:15] LABS: Partial Thromboplastin Time 31.2 SECONDS (22.3-36.8)
[2023-07-18] MEDS: LACTATED RINGERS 1,000 ML 999 ML IV CONT (18:35)
[2023-07-18 18:38] VITALS: BP 141/80; PULSE 109; RESP 28; TEMP 38.9; O2SAT 95
[2023-07-18 18:52] LABS: Lactic Acid Reflex 1.5 mmol/L (0.7-2.0)
[2023-07-18 19:22] LABS: Influenza A QL RT-PCR Positive (Negative); Influenza B QL RT-PCR Negative (Negative); RSV RNA, RT-PCR Negative (Negative); SARS-CoV-2 RNA PCR Negative (Negative)
[2023-07-18 19:49] LABS: Appearance Urine Clear (Clear); Bacteria Urine None Seen /hpf; Bilirubin Urine Negative (Negative); Blood Urine Trace (Negative); Color Urine Yellow (Yellow); Glucose Urine UA Negative (Negative); Ketones Urine Negative (Negative); Leukocyte Esterase Ur Negative LEU/UL (Negative); Nitrate Urine Negative (Negative); Non Pathogenic Casts 0-2; Protein Urine Negative (Negative); RBC Urine 0-2 /hpf (0-2); Specific Grav Ur 1.009 (1.001-1.035); Squamous Epithelial Cell Urine None seen /hpf (Few); Urobilinogen Urine 0.2 mg/dL (<2.0); WBC Urine 0-5 /hpf; pH Urine 6.5 (5.0-9.0)
[2023-07-18 19:50] LABS: Add Urine Microscopic? YES
[2023-07-18 20:24] VITALS: PULSE 116
[2023-07-18] MEDS: METOPROLOL TARTRATE INJ 5 MG/5 ML VIAL IV PUSH (20:24)
[2023-07-18 20:27] LABS: Alanine Aminotransferase 60 U/L (6-50); Albumin Level 3.7 g/dL (3.5-5.1); Alkaline Phosphatase 85 U/L (38-126); Anion Gap 9 mmol/L (8-16); Aspartate Amino Transferase 72 U/L (17-59); Bilirubin,Total 1.4 mg/dL (0.2-1.3); Blood Urea Nitrogen 13 mg/dL (9-20); CRP 3.3 mg/dL (<1.0); Calcium 8.5 mg/dL (8.4-10.2); Carbon Dioxide 26 mmol/L (22-30); Chloride 92 mmol/L (98-107); Estimated CRCL calculation 55 ml/min; Estimated Glomerular Filt Rate > 60; Glucose 130 mg/dL (65-110); Potassium 3.9 mmol/L (3.4-5.0); Sodium 127 mmol/L (137-145)
[2023-07-18 20:58] VITALS: BP 148/98; PULSE 104; RESP 15; O2SAT 96
--- NOTE | 2023-07-18 21:25 | PM.IMHP ---
H&P: HPI History of Present Illness Date/Time: 07/18/23 21:25 Chief Complaint: Generalized weakness Narrative: This is an 83-year-old male with past medical history significant for hypertension, hyponatremia, chronic kidney disease, spinal stenosis, gait disturbance, uses walker at home, patient had been in the emergency room and evaluated for cough found to have a rectus muscle sheath hematoma patient was transferred to tertiary facility and discharge to rehabilitation however EMS was called due to patient's generalized weakness while participating in session with Physical therapy was noted that he might have had some facial droop. In emergency room patient was evaluated. He was found to be positive for influenza type A. Patient denies any discomfort at the present time, has had poor appetite and weight loss. Patient has been admitted for further evaluation management and treatment. EXAMINATION: CT brain wo con DATE: 07/18/2023 16:22 INDICATION: Facial weakness. TECHNIQUE: Computed tomography (CT) of the head was performed without intravenous contrast. The mA was adjusted according to patient size. Iterative reconstruction technique was employed. The dose-length product was 681.00 mGy-cm. COMPARISON: Head CT 02/13/23 FINDINGS: There is an infarct in right temporal occipital region. There is old infarct involving the left basal ganglia and left internal capsule. There is an old infarct in right parietal lobe. There is old infarct in posterior right frontal lobe. There are scattered areas of low attenuation in the cerebral white matter. There is no intracranial hemorrhage or abnormal intracranial mass lesion. There is ex vacuo dilatation of body of left lateral ventricle. There are likely changes of ocular lens replacement surgeries. There is mucosal thickening in the paranasal sinuses. The mastoid air cells are normal. IMPRESSION: 1. Age-indeterminate infarct in right temporal occipital region, new from 02/13/2023. 2. Old infarcts in the left basal ganglia, left internal capsule, right parietal lobe, and right frontal lobe. 3. Extensive nonspecific cerebral white matter disease, which likely represents chronic small vessel ischemic disease. EXAMINATION:? XR chest 1V portable Exam Date/Time:? 07/18/2023 18:15 TICKET TAKER FERRYBOAT HISTORY: cough ? Comparison:? 07/12/2023. RESULT: Lines, tubes, and devices:? Surgical clips over the lower neck. Atrial occlusion device. Lungs and pleura:? Senescent change, otherwise clear. Cardiomediastinal silhouette:? Stable. Other:? No acute osseous or upper abdominal finding. ? IMPRESSION: No acute cardiopulmonary process. Review of Systems Review of Systems: generalized weakness. Constitutional: Constitutional: Denies chills, Reports fatigue, Denies fever(s), Denies frequent falls, Reports malaise, Reports night sweats, Reports poor appetite and Reports weakness Eyes: Eyes: Denies change in vision ENT: Denies dysphagia and Denies odynophagia Cardiovascular: Cardiovascular: Denies chest pain, Denies radiating jaw, neck or arm pain and Denies palpitations Respiratory: Respiratory: Denies chest congestion, Reports cough, Denies excessive phlegm production and Denies wheezing Gastrointestinal: Gastrointestinal: Denies abdominal pain, Denies dyspepsia, Denies heartburn, Denies diarrhea, Denies nausea and Denies vomiting Genitourinary: Genitourinary: Denies dysuria Musculoskeletal: Musculoskeletal: Reports back pain and Reports muscle weakness Integumentary/Breasts: Skin/Breast: Denies rash Neurologic: Denies focal weakness and Denies Sensory deficit (Neuro) Psychiatric: Psychiatric: Reports no additional psychiatric complaints and Reports as per HPI Endocrine: Endocrine: Denies cold intolerance, Denies flushing, Denies heat intolerance, Denies polyphagia, Denies polydipsia and Denies palpitations Hematologic/Lymphatic: Hematologic/Lymphatic: Reports no additional hematologic/lymphatic complai
[2023-07-18 21:58] VITALS: PULSE 107
[2023-07-18] MEDS: OSELTAMIVIR PHOSPHATE 75 MG CAPSULE PO (21:58)
[2023-07-18] MEDS: METOPROLOL SUCCINATE EXT REL 25 MG TABCR PO (21:58)
--- NOTE | 2023-07-18 23:27 | PC.NURSE ---
This patient, Colt Mann Jr., was admitted to [facility] Surg Room 312-01. Patient/family oriented to hospital policies and general routines including ID bracelet, bed and alarms, visiting hours, pain management, procedures, bathroom and other care routines, personal items, smoking policy, room service/diet, and visiting hours. Information on how to activate the Rapid Response Team has been discussed. Patient/Family are encouraged to report perceived risks to care and to ask questions if they do not understand what they are told or what they should do.
[2023-07-18 23:42] VITALS: BP 122/78; PULSE 113; RESP 18; TEMP 37.1; O2SAT 97; BMI 25.7
[2023-07-19] VITALS (11 sets, daily range): BP systolic 109–125; BP diastolic 68–82; PULSE 62–120; RESP 14–19; TEMP 36.7–37.3; O2SAT 97–98
--- NOTE | 2023-07-19 | ECHO_ITS ---
Patient Info Name: Colt Mann Age: 83 years : 1940 Gender: Male Ht: 67 in Wt: 169 lbs BSA: 1.92 m2 HR: 62 bpm BP: 102 / 82 mmHg Heart Rhythm: Atrial Fibrillation Technical Quality: Good Exam Date: 07/19/2023 4:18 PM Exam Location: Echo Lab Patient Status: Inpatient Admit Date: 07/18/2023 Staff Ordering Physician: Leora Burgos Visual Merchandising Assistant: Yocasta Biswas RDCS Attending Provider: Leora Burgos Referring Physician: Aubrye STAPLES; Exam Type: CA echo doppler color flow Study Info Indications - newonset a fib Complete two-dimensional, color flow and Doppler transthoracic echocardiogram is performed. Summary 1. Complete two-dimensional, color flow and Doppler transthoracic echocardiogram is performed. 2. Left ventricular chamber dimension is normal. 3. Left ventricular systolic function is normal, estimated at 60-65%. 4. There is moderately increased left ventricular wall thickness. 5. The left ventricular diastolic function is indeterminate. 6. Left atrial chamber dimension is moderately enlarged. 7. Right atrial chamber dimension is moderately enlarged. 8. There is no aortic valve stenosis. 9. There is mild to moderate mitral valve regurgitation. 10. There is mild tricuspid valve regurgitation. 11. No pulmonary hypertension, estimated pulmonary arterial systolic pressure is 31 mmHg. Left Ventricle Left ventricular chamber dimension is normal. Left ventricular systolic function is normal, estimated at 60-65%. There is moderately increased left ventricular wall thickness. The left ventricular diastolic function is indeterminate. Right Ventricle Right ventricular chamber dimension is normal. Right ventricular systolic function is normal. Left Atria Left atrial chamber dimension is moderately enlarged. Right Atria Right atrial chamber dimension is moderately enlarged. Aortic Valve The aortic valve is trileaflet. There is mild aortic valve sclerosis. There is no aortic valve stenosis. There is trace aortic valve regurgitation. Pulmonic Valve The pulmonic valve is not well visualized. There is trace pulmonic regurgitation. Mitral Valve The mitral valve has normal leaflets. There is mild to moderate mitral valve regurgitation. The mitral valve annulus is moderately calcified. Tricuspid Valve The tricuspid valve leaflets are normal. There is mild tricuspid valve regurgitation. No pulmonary hypertension, estimated pulmonary arterial systolic pressure is 31 mmHg. Pericardium/Pleural The pericardium appears not well visualized. Aorta The aortic root size at the sinus of Valsalva is normal. There is mild-moderate aortic atherosclerosis. Left Ventricular Outflow Tract Name Value Normal LVOT 2D LVOT Diameter 2.2 cm LVOT Doppler LVOT Peak Gradient 2 mmHg LVOT Mean Gradient 2 mmHg LVOT VTI 17 cm LVOT VTI/AV VTI Ratio 0.5 LVOT Stroke Volume 65 ml LVOT CO 6.3 l/min LVOT CI 3.3 l/min/m2 Pulmonic Valve
[2023-07-19 00:48] LABS: Anion Gap 9 mmol/L (8-16); Blood Urea Nitrogen 14 mg/dL (9-20); Calcium 8.2 mg/dL (8.4-10.2); Carbon Dioxide 25 mmol/L (22-30); Chloride 92 mmol/L (98-107); Estimated CRCL calculation 55 ml/min; Estimated Glomerular Filt Rate > 60; Glucose 129 mg/dL (65-110); Potassium 3.6 mmol/L (3.4-5.0); Sodium 126 mmol/L (137-145)
[2023-07-19 01:04] LABS: Troponin I 0.041 ng/mL (0.000-0.034)
--- NOTE | 2023-07-19 01:05 | PC.NURSE ---
reported critical lab to MD Recinos 0.041 2nd trop of 3
[2023-07-19] MEDS: ACETAMINOPHEN 325 MG TABLET 650 MG PO ×3 (04:57→21:38)
[2023-07-19] MEDS: LEVOTHYROXINE SODIUM 88 MCG TABLET PO (05:37)
[2023-07-19] MEDS: METOPROLOL SUCCINATE EXT REL 50 MG TABCR PO ×2 (09:15→21:28)
[2023-07-19] MEDS: SIMVASTATIN 20 MG TABLET PO (09:16)
[2023-07-19] MEDS: FINASTERIDE 5 MG TABLET PO (09:16)
[2023-07-19] MEDS: OSELTAMIVIR PHOSPHATE 75 MG CAPSULE PO ×2 (09:16→21:28)
[2023-07-19] MEDS: amLODIPine BESYLATE 5 MG TABLET PO (09:16)
[2023-07-19] MEDS: DOCUSATE SODIUM 100 MG CAPSULE PO (09:16)
[2023-07-19] MEDS: TAMSULOSIN HCL 0.4 MG CAPSULE PO (09:16)
[2023-07-19] MEDS: PANTOPRAZOLE 40 MG TABLET PO ×2 (09:16→16:17)
[2023-07-19] MEDS: IRBESARTAN 150 MG TABLET 300 MG PO (09:16)
[2023-07-19] MEDS: SODIUM CHLORIDE 0.9% IV 1,000 ML 100 ML IV CONT ×2 (09:43→21:25)
--- NOTE | 2023-07-19 13:51 | PM.IMPN ---
Progress Note: A&P Assessment and Plan (1) Influenza A: Code(s): J10.1 - Influenza due to other identified influenza virus with other respiratory manifestations Status: Acute Assessment and Plan: Continue Tamiflu and supportive care Monitor VS (2) Acute hyponatremia: Code(s): E87.1 - Hypo-osmolality and hyponatremia Status: Acute Assessment and Plan: Monitor daily labs and trend NS at 100 ml/hr (3) Atrial fibrillation with RVR: Code(s): I48.91 - Unspecified atrial fibrillation Status: Acute Assessment and Plan: Rate currently controlled New dx. Consult Cardiology Unable to anticoagulate secondary to risk of repeat brain bleed. Admissions Rn VS. ECHO ordered (4) Gait abnormality: Code(s): R26.9 - Unspecified abnormalities of gait and mobility Status: Chronic Assessment and Plan: PT and OT eval Fall precautions (5) HTN (hypertension): Code(s): I10 - Essential (primary) hypertension Status: Chronic Assessment and Plan: Monitor VS Resume home meds (6) Cough: Code(s): R05.9 - Cough, unspecified Status: Acute Assessment and Plan: Supportive care only (7) Rectus sheath hematoma: Code(s): S30.1XXA - Contusion of abdominal wall, initial encounter Status: Chronic Assessment and Plan: Abdominal binder in place Stable without any s/s of acute bleeding. (8) GERD (gastroesophageal reflux disease): Code(s): K21.9 - Gastro-esophageal reflux disease without esophagitis Status: Chronic Assessment and Plan: Continue PPI therapy Subjective Date/time seen: 07/19/23 13:51 Interval history: This 83 year old male pt is examined at the bedside in interval assessment after he was admitted with increased weakness and persistent fatigue testing positive for Influenza. He was also found to have Hyponatremia. He is being started on NS at 100 ml/hr and his mildly elevated trop is most likely due to his A-fib RVR. He remains here being treated for his hyponatremia and weakness. We will repeat trops and trend them. Heart rate is controlled. He is not anticoagulated secondary to previous brain bleed remote in time. Will consult cardiology. He has no acute complaints today other than feeling generally weak. Review of Systems Review of Systems: All systems reviewed & are unremarkable except as noted in HPI and below Exam Const: General: cooperative, comfortable, no acute distress, well developed, alert and awake Orientation/consciousness: patient oriented x3 HENMT: Head: normocephalic and atraumatic Eyes: General: appearance normal, both eyes and all related structures Pupils: Equal, round and reactive pupils present Neck: Neck: full ROM, no lymphadenopathy and no JVD Resp: Effort & Inspection: normal respiratory effort and able to speak in complete sentences Auscultation: diminished lung sounds (throughout) Cardio: Jugular venous distension: no JVD Rate: regular rate Rhythm: abnormal rhythm irregularly irregular Heart sounds: S1 normal heart sound present and S2 normal heart sound present Skin: Rashes: no rashes Wounds: no wounds Neuro: General: patient oriented x3 Cognition (Neuro): normal cognition Speech: normal speech Motor exam (neuro): 5/5 motor strength present throughout Sensory Exam: No Sensory deficit (Neuro) Extrem: General: normal to inspection, full ROM, no joint enlargement and no pedal edema Objective Data Vital Signs Vital Signs: Vital Signs - 24 hr 07/18/23 16:53 07/18/23 18:38 07/18/23 20:24 Temperature 102.7 F H 102.0 F H Pulse Rate 118 H 109 H 116 H Respiratory Rate 30 H 28 H Blood Pressure 158/91 H 141/80 H Pulse Oximetry 95 95 Oxygen Delivery Room Air 07/18/23 20:58 07/18/23 21:58 07/18/23 23:42 Temperature 98.7 F Pulse Rate 104 H 107 H 113 H Respiratory Rate 15 18 Blood Pressure 148/98 H 122/78
[2023-07-19] MEDS: guaiFENesin/DEXTROMETHORPHAN 10 ML UDC 5 ML PO ×2 (15:13→21:38)
[2023-07-20] VITALS (9 sets, daily range): BP systolic 102–132; BP diastolic 76–81; PULSE 73–96; RESP 13–18; TEMP 36.6–36.9; O2SAT 97–98; BMI 25.7
[2023-07-20] MEDS: guaiFENesin/DEXTROMETHORPHAN 10 ML UDC 5 ML PO ×2 (05:19→22:35)
[2023-07-20] MEDS: ACETAMINOPHEN 325 MG TABLET 650 MG PO ×2 (05:20→22:34)
[2023-07-20] MEDS: SODIUM CHLORIDE 0.9% IV 1,000 ML 100 ML IV CONT ×2 (05:54→16:03)
[2023-07-20 06:55] LABS: Basophils Percent Auto 0.8 % (0.2-1.2); Hematocrit 41.9 % (42.0-52.0); Hemoglobin 14.2 g/dL (14.0-18.0); Immature Granulocyte Absolute 0.04 K/mm3 (0.00-0.031); Immature Granulocyte Percent A 1.1 % (0-0.5); Lymphocytes Absolute Auto 1.66 K/mm3 (0.9-3.2); Lymphocytes Percent Auto 46.9 % (18.3-44.2); Mean Corpuscular HGB Conc 33.9 g/dl (32-36); Mean Corpuscular Hemoglobin 33.3 pg (26-34); Mean Corpuscular Volume 98.1 fl (80-100); Monocytes Absolute Auto 0.5 K/mm3 (0.1-0.6); Monocytes Percent Auto 15.3 % (2.6-8.5); Neutrophils Absolute Auto 1.3 K/mm3 (1.3-6.7); Neutrophils Percent Auto 35.9 % (45.5-73.1); Platelet Count Result 357 k/mm3 (150-375); Red Blood Count 4.27 M/mm3 (4.6-6.20); Red Cell Distribution Width 12.1 % (11.5-14.5); White Blood Count 3.5 K/mm3 (4.5-10.0)
[2023-07-20] MEDS: LEVOTHYROXINE SODIUM 88 MCG TABLET PO (07:05)
[2023-07-20 07:08] LABS: Alanine Aminotransferase 57 U/L (6-50); Albumin Level 3.2 g/dL (3.5-5.1); Alkaline Phosphatase 67 U/L (38-126); Anion Gap 7 mmol/L (8-16); Aspartate Amino Transferase 86 U/L (17-59); Bilirubin,Total 1.1 mg/dL (0.2-1.3); Blood Urea Nitrogen 15 mg/dL (9-20); Calcium 7.8 mg/dL (8.4-10.2); Carbon Dioxide 22 mmol/L (22-30); Chloride 100 mmol/L (98-107); Estimated CRCL calculation 62 ml/min; Estimated Glomerular Filt Rate > 60; Glucose 100 mg/dL (65-110); Magnesium 1.9 mg/dL (1.6-2.3); Potassium 3.6 mmol/L (3.4-5.0); Sodium 129 mmol/L (137-145)
--- NOTE | 2023-07-20 08:23 | PM.CNCAR ---
History of Present Illness History of Present Illness Consult date/time: 07/20/23 08:23 Requesting physician: Leora Burgos APN-C Consult reason: atrial fibrillation Reason For Visit: Influenza, Afib, with RVR, Hyponatremia PMFSH Past Medical History Medical History Arthritis Basal cell carcinoma of skin Benign prostatic hyperplasia Cerebrovascular accident Chronic GERD Hyperlipidemia Hypertension Hypothyroidism Peripheral artery disease Persistent atrial fibrillation Type 2 diabetes mellitus Surgical History Surgical History History of arthroplasty of right knee History of cataract extraction with lens replacement History of partial thyroidectomy History of right inguinal hernia repair (04/13/22) Presence of Watchman left atrial appendage closure device Family History Family History Father Heart attack Mother , passed at age 104 No problems noted. Sibling Cancer Family history of malignant neoplasm of thyroid Mother Hypertension Sibling Malignant neoplasm of prostate Family history of malignant neoplasm of breast in first degree relative Father Patient's father is Sibling Diabetes mellitus Grandparent Diabetes mellitus Social History Social History Social History: Surrogate medical decision maker: Madonna Mann, spouse. Code status: Full code. Smoking status: Never smoker Second hand tobacco smoke exposure: No Alcohol intake: never Drinks per week: 1 Alcohol use details: wine occasionally Substance use: never Substance use type: does not use Do You Feel Safe in your Home?: Yes Lack of Transportation: No Lack of Food: Never True Current Housing: I Have Housing Concerned About Future Housing: No Difficulty Paying Gas/Electric Bills: No Difficulty Paying for Meds: No Currently Unemployed: No Education: High School Diploma/GED Difficulty w/ Childcare or Family Care: No Living arrangements: with family Additional living arrangements comments: Lives with spouse in [place]. They have been since he was 20 years old. They have a daughter was a nurse practitioner in [place]. Their son lives nearby. He ambulates with a cane. Occupation/Education: retired Additional occupation/education comments: Retired from [employer]. Gender identity (if verbalized by the patient): Male Sexual Orientation (if Verbalized by the Patient): Straight or Heterosexual Spiritual care concerns: No Meds Home Medications and Allergies Home Medications Medication Instructions Recorded Confirmed Type amlodipine 5 mg tablet 5 mg PO DAILY 07/18/23 07/18/23 History finasteride 5 mg tablet 5 mg PO DAILY 07/18/23 07/18/23 History guaifenesin 100 mg/5 mL oral liquid 100 mg PO Q4H 07/18/23 07/18/23 History irbesartan 300 mg tablet 300 mg PO DAILY 07/18/23 07/18/23 History levothyroxine 88 mcg tablet 88 mcg PO DAILY 07/18/23 07/18/23 History metoprolol succinate 50 mg 50 mg PO BID 07/18/23 07/18/23 History tablet,extended release 24 hr pantoprazole 40 mg tablet,delayed 40 mg PO BID 07/18/23 07/18/23 History release simvastatin 20 mg tablet 20 mg PO DAILY 07/18/23 07/18/23 History tamsulosin 0.4 mg capsule 0.4 mg PO DAILY 07/18/23 07/18/23 History trazodone 50 mg tablet See Rx Instructions .Route .COMPLEX 07/18/23 07/18/23 History docusate sodium 100 mg capsule 100 mg PO DAILY 07/19/23 07/19/23 History (Colace) Allergies Allergy/AdvReac Type Severity Reaction Status Date / Time sertraline [From Zoloft] Allergy Other Verified 07/18/23 17:03 Penicillins AdvReac Mild Hives Verified 07/18/23 17:03 rosuvastatin AdvReac Mild Hives Verified 07/18/23 17:03 Sulfa (Sulfonamide AdvReac Mil
[2023-07-20] MEDS: IRBESARTAN 150 MG TABLET 300 MG PO (09:06)
[2023-07-20] MEDS: TAMSULOSIN HCL 0.4 MG CAPSULE PO (09:06)
[2023-07-20] MEDS: PANTOPRAZOLE 40 MG TABLET PO ×2 (09:06→16:03)
[2023-07-20] MEDS: DOCUSATE SODIUM 100 MG CAPSULE PO (09:06)
[2023-07-20] MEDS: amLODIPine BESYLATE 5 MG TABLET PO (09:06)
[2023-07-20] MEDS: OSELTAMIVIR PHOSPHATE 75 MG CAPSULE PO ×2 (09:06→21:38)
[2023-07-20] MEDS: SIMVASTATIN 20 MG TABLET PO (09:06)
[2023-07-20] MEDS: METOPROLOL SUCCINATE EXT REL 50 MG TABCR PO ×2 (09:06→21:39)
[2023-07-20] MEDS: FINASTERIDE 5 MG TABLET PO (09:06)
--- NOTE | 2023-07-20 14:15 | PM.IMPN ---
Progress Note: A&P Assessment and Plan (1) Influenza A: Code(s): J10.1 - Influenza due to other identified influenza virus with other respiratory manifestations Status: Acute Assessment and Plan: Continue Tamiflu and supportive care Monitor VS (2) Acute hyponatremia: Code(s): E87.1 - Hypo-osmolality and hyponatremia Status: Acute Assessment and Plan: Monitor daily labs and trend NS at 100 ml/hr continued. No s/s of fluid overload. There has been interval improvement in pt's Sodium level from 126-129 today with IVF. (3) Atrial fibrillation with RVR: Code(s): I48.91 - Unspecified atrial fibrillation Status: Acute Assessment and Plan: Rate currently controlled Consult Cardiology Unable to anticoagulate secondary to risk of repeat brain bleed. Flight Follower VS. ECHO showing normal LVSF with EF of 60-65% Not a new dx - see interval hx as documented today. (4) Gait abnormality: Code(s): R26.9 - Unspecified abnormalities of gait and mobility Status: Chronic Assessment and Plan: PT evaluation recommends acute inpatient rehab for strengthening prior to returning to home. [facility]. Will plan for discharge to there at discharge, possibly tomorrow. OT Evaluation. Fall precautions (5) HTN (hypertension): Code(s): I10 - Essential (primary) hypertension Status: Chronic Assessment and Plan: Monitor VS Resume home meds Currently stable BP at 119/81. (6) Cough: Code(s): R05.9 - Cough, unspecified Status: Acute Assessment and Plan: Supportive care only (7) Rectus sheath hematoma: Code(s): S30.1XXA - Contusion of abdominal wall, initial encounter Status: Chronic Assessment and Plan: Abdominal binder in place Stable without any s/s of acute bleeding. (8) GERD (gastroesophageal reflux disease): Code(s): K21.9 - Gastro-esophageal reflux disease without esophagitis Status: Chronic Assessment and Plan: Continue PPI therapy Time Spent With Patient Time with patient: 15 - 25 minutes Subjective Date/time seen: 07/20/23 1015 Interval history: This pt was examined at the bedside in interval assessment today after he was admitted to the hospital for weakness, Influenza A and hyponatremia. He reports today that he continues to feel very weak and just wants to sleep and rest. He has not had any fevers and his overall VSS. He was found to be in Atrial fibrillation on admission with the inability to anticoagulate due to his remote hx of a brain bleed. A cardiology consult had been placed, but I was notified by Cardiology VESSEL OPERATOR this AM that the documentation for them consulting and treating this pt is found in another EMR. They are aware of pt's difficult management with the A-fib and he has previously had a Watchman procedure. This is not a new dx and the consult is cancelled. Pt without any other new or acute complaints or symptoms today. Exam Const: General: cooperative, comfortable, no acute distress, well developed, alert and awake Orientation/consciousness: patient oriented x3 HENMT: Head: normocephalic and atraumatic Eyes: General: appearance normal, both eyes and all related structures Pupils: Equal, round and reactive pupils present Neck: Neck: full ROM, no lymphadenopathy and no JVD Resp: Effort & Inspection: normal respiratory effort and able to speak in complete sentences Auscultation: diminished lung sounds (throughout) Cardio: Jugular venous distension: no JVD Rate: regular rate Rhythm: abnormal rhythm irregularly irregular Heart sounds: S1 normal heart sound present and S2 normal heart sound present Skin: Rashes: no rashes Wounds: no wounds Neuro: General: patient oriented x3 Cranial nerves: Yes Equal, round and reactive pupils present Cognition (Neuro): normal cognition Speech: normal speech Motor exam (neuro)
[2023-07-21] VITALS (7 sets, daily range): BP systolic 104–130; BP diastolic 80–89; PULSE 75–96; RESP 12–20; TEMP 36.6–36.8; O2SAT 98–99
[2023-07-21] MEDS: SODIUM CHLORIDE 0.9% IV 1,000 ML 100 ML IV CONT (06:35)
[2023-07-21] MEDS: LEVOTHYROXINE SODIUM 88 MCG TABLET PO (06:35)
[2023-07-21 06:47] LABS: Basophils Percent Auto 0.8 % (0.2-1.2); Hematocrit 41.1 % (42.0-52.0); Hemoglobin 13.4 g/dL (14.0-18.0); Immature Granulocyte Absolute 0.01 K/mm3 (0.00-0.031); Immature Granulocyte Percent A 0.3 % (0-0.5); Lymphocytes Absolute Auto 2.01 K/mm3 (0.9-3.2); Lymphocytes Percent Auto 51.4 % (18.3-44.2); Mean Corpuscular HGB Conc 32.6 g/dl (32-36); Mean Corpuscular Volume 98.1 fl (80-100); Mean Platelet Volume 9.2 fl (7.4-10.4); Monocytes Absolute Auto 0.4 K/mm3 (0.1-0.6); Neutrophils Absolute Auto 1.5 K/mm3 (1.3-6.7); Neutrophils Percent Auto 38.5 % (45.5-73.1); Platelet Count Result 376 k/mm3 (150-375); Red Blood Count 4.19 M/mm3 (4.6-6.20); Red Cell Distribution Width 12.2 % (11.5-14.5); White Blood Count 3.9 K/mm3 (4.5-10.0)
[2023-07-21 07:10] LABS: Alanine Aminotransferase 56 U/L (6-50); Alkaline Phosphatase 69 U/L (38-126); Anion Gap 5 mmol/L (8-16); Aspartate Amino Transferase 77 U/L (17-59); Bilirubin,Total 0.8 mg/dL (0.2-1.3); Blood Urea Nitrogen 12 mg/dL (9-20); Calcium 7.7 mg/dL (8.4-10.2); Carbon Dioxide 24 mmol/L (22-30); Chloride 104 mmol/L (98-107); Estimated CRCL calculation 62 ml/min; Estimated Glomerular Filt Rate > 60; Glucose 98 mg/dL (65-110); Magnesium 1.8 mg/dL (1.6-2.3); Potassium 3.4 mmol/L (3.4-5.0); Sodium 133 mmol/L (137-145)
[2023-07-21] MEDS: FINASTERIDE 5 MG TABLET PO (07:43)
[2023-07-21] MEDS: amLODIPine BESYLATE 5 MG TABLET PO (07:43)
[2023-07-21] MEDS: DOCUSATE SODIUM 100 MG CAPSULE PO (07:43)
[2023-07-21] MEDS: IRBESARTAN 150 MG TABLET 300 MG PO (07:43)
[2023-07-21] MEDS: TAMSULOSIN HCL 0.4 MG CAPSULE PO (07:43)
[2023-07-21] MEDS: OSELTAMIVIR PHOSPHATE 75 MG CAPSULE PO ×2 (07:43→20:54)
[2023-07-21] MEDS: METOPROLOL SUCCINATE EXT REL 50 MG TABCR PO ×2 (07:44→20:54)
[2023-07-21] MEDS: PANTOPRAZOLE 40 MG TABLET PO ×2 (07:44→16:14)
[2023-07-21] MEDS: SIMVASTATIN 20 MG TABLET PO (07:44)
--- NOTE | 2023-07-21 12:00 | PM.IMPN ---
Progress Note: A&P Assessment and Plan (1) Influenza A: Code(s): J10.1 - Influenza due to other identified influenza virus with other respiratory manifestations Status: Acute Assessment and Plan: Continue Tamiflu and supportive care Monitor VS (2) Acute hyponatremia: Code(s): E87.1 - Hypo-osmolality and hyponatremia Status: Acute Assessment and Plan: Monitor daily labs and trend NS at 100 ml/hr continued. No s/s of fluid overload. There has been interval improvement in pt's Sodium level from 126-129 today with IVF. 07/21/23: Further improvement in sodium level to 133 today. We are stopping IVF and will recheck in AM to see if pt can maintain his sodium level. (3) Atrial fibrillation with RVR: Code(s): I48.91 - Unspecified atrial fibrillation Status: Acute Assessment and Plan: Rate currently controlled Consult Cardiology Unable to anticoagulate secondary to risk of repeat brain bleed. Cleaning Associate VS. ECHO showing normal LVSF with EF of 60-65% Not a new dx - see interval hx as documented 07/20/23. (4) Gait abnormality: Code(s): R26.9 - Unspecified abnormalities of gait and mobility Status: Chronic Assessment and Plan: PT evaluation recommends acute inpatient rehab for strengthening prior to returning to home. He has previously been at [facility]. Will plan for discharge to there at discharge, possibly tomorrow. OT Evaluation. Fall precautions (5) HTN (hypertension): Code(s): I10 - Essential (primary) hypertension Status: Chronic Assessment and Plan: Monitor VS Resume home meds Currently stable BP at 130/89. (6) Cough: Code(s): R05.9 - Cough, unspecified Status: Acute Assessment and Plan: Supportive care only (7) Rectus sheath hematoma: Code(s): S30.1XXA - Contusion of abdominal wall, initial encounter Status: Chronic Assessment and Plan: Abdominal binder in place Stable without any s/s of acute bleeding. (8) GERD (gastroesophageal reflux disease): Code(s): K21.9 - Gastro-esophageal reflux disease without esophagitis Status: Chronic Assessment and Plan: Continue PPI therapy Plan Likely discharge tomorrow. Time Spent With Patient Time with patient: 15 - 25 minutes Subjective Date/time seen: 07/21/23 1000 Interval history: This pt was examined at the bedside today in interval assessment. He reports that he does not really feel well today as he did not sleep well last evening due to his pure wick catheter coming off multiple times and needing to clean up from repeat urine spills. He appears weaker this AM and does not appear the same as he did the day before. His Sodium level has increased without the need to involve Nephrology or the need for salt tablets to 133. I have stopped his IVF to see if he can maintain and if so, will be discharged tomorrow. He verbalizes understanding of this plan and is in agreement. All questions were answered to his satisfaction. Review of Systems Review of Systems: All systems reviewed & are unremarkable except as noted in HPI and below Exam Const: General: cooperative, comfortable, no acute distress, well developed, alert and awake Orientation/consciousness: patient oriented x3 HENMT: Head: normocephalic and atraumatic Eyes: General: appearance normal, both eyes and all related structures Pupils: Equal, round and reactive pupils present Neck: Neck: full ROM, no lymphadenopathy and no JVD Resp: Effort & Inspection: normal respiratory effort and able to speak in complete sentences Auscultation: diminished lung sounds (throughout) Cardio: Jugular venous distension: no JVD Rate: regular rate Rhythm: abnormal rhythm irregularly irregular Heart sounds: S1 normal heart sound present and S2 normal heart sound present Skin: Rashes: no rashes Wounds: no wounds Neuro: General: patient oriented
[2023-07-21] MEDS: guaiFENesin/DEXTROMETHORPHAN 10 ML UDC 5 ML PO ×2 (15:36→20:54)
[2023-07-21] MEDS: ACETAMINOPHEN 325 MG TABLET 650 MG PO (16:16)
[2023-07-22] MEDS: ACETAMINOPHEN 325 MG TABLET 650 MG PO ×2 (00:34→06:32)
[2023-07-22 05:36] VITALS: BP 127/76; PULSE 84; RESP 12; TEMP 36.6; O2SAT 95
[2023-07-22 06:17] LABS: Basophils Percent Auto 0.6 % (0.2-1.2); Eosinophils Absolute Auto 0.1 K/mm3 (0-0.3); Eosinophils Percent Auto 2.3 % (0-4.4); Hemoglobin 13.2 g/dL (14.0-18.0); Immature Granulocyte Absolute 0.02 K/mm3 (0.00-0.031); Immature Granulocyte Percent A 0.3 % (0-0.5); Lymphocytes Absolute Auto 2.52 K/mm3 (0.9-3.2); Lymphocytes Percent Auto 40.5 % (18.3-44.2); Mean Corpuscular Hemoglobin 32.3 pg (26-34); Mean Corpuscular Volume 97.8 fl (80-100); Mean Platelet Volume 9.3 fl (7.4-10.4); Monocytes Absolute Auto 0.5 K/mm3 (0.1-0.6); Neutrophils Percent Auto 48.3 % (45.5-73.1); Platelet Count Result 394 k/mm3 (150-375); Red Blood Count 4.09 M/mm3 (4.6-6.20); Red Cell Distribution Width 12.1 % (11.5-14.5); White Blood Count 6.2 K/mm3 (4.5-10.0)
[2023-07-22] MEDS: LEVOTHYROXINE SODIUM 88 MCG TABLET PO (06:29)
[2023-07-22] MEDS: guaiFENesin/DEXTROMETHORPHAN 10 ML UDC 5 ML PO (06:33)
[2023-07-22 06:46] LABS: Alanine Aminotransferase 50 U/L (6-50); Albumin Level 3.2 g/dL (3.5-5.1); Alkaline Phosphatase 69 U/L (38-126); Anion Gap 6 mmol/L (8-16); Aspartate Amino Transferase 86 U/L (17-59); Blood Urea Nitrogen 12 mg/dL (9-20); Calcium 8.1 mg/dL (8.4-10.2); Carbon Dioxide 26 mmol/L (22-30); Chloride 100 mmol/L (98-107); Estimated CRCL calculation 62 ml/min; Estimated Glomerular Filt Rate > 60; Glucose 97 mg/dL (65-110); Magnesium 1.9 mg/dL (1.6-2.3); Potassium 3.5 mmol/L (3.4-5.0); Sodium 132 mmol/L (137-145)
--- NOTE | 2023-07-22 07:06 | P.DS_ITS ---
DS: Admitting Diagnosis Discharge Date 07/22/2023 Admitting Diagnosis Influenza A Hyponatremia Atrial Fibrillation with RVR Gait Abnormality HTN Cough GERD Rectus Sheath Hematoma DS: Discharge Diagnosis Discharge Diagnosis (1) Influenza A: Code(s): J10.1 - Influenza due to other identified influenza virus with other respiratory manifestations Status: Acute Assessment and Plan: * Continue Tamiflu and supportive care * Monitor VS * 07/22/23, Date of discharge: Pt has remained stable w/VS and labs. He is stable for discharge. Has Today is day #5 of Tamiflu therapy. (2) Acute hyponatremia: Code(s): E87.1 - Hypo-osmolality and hyponatremia Status: Acute Assessment and Plan: * Monitor daily labs and trend * NS at 100 ml/hr continued. No s/s of fluid overload. * There has been interval improvement in pt's Sodium level from 126-129 today with IVF. * 07/21/23: Further improvement in sodium level to 133 today. We are stopping IVF and will recheck in AM to see if pt can maintain his sodium level. * 07/22/23, Date of discharge: Pts fluids discontinued yesterday. He has maintained his Sodium level independently of fluids this AM. He is stable for discharge with recheck of labs in 2 days as outpatient. (3) Atrial fibrillation with RVR: Code(s): I48.91 - Unspecified atrial fibrillation Status: Acute Assessment and Plan: * Rate currently controlled * Consult Cardiology * Unable to anticoagulate secondary to risk of repeat brain bleed. * Telemetry * Monitor VS. * ECHO showing normal LVSF with EF of 60-65% * Not a new dx - see interval hx as documented 07/20/23. * 07/22/23, Date of discharge: Stable and rate controlled. (4) Gait abnormality: Code(s): R26.9 - Unspecified abnormalities of gait and mobility Status: Chronic Assessment and Plan: * PT evaluation recommends acute inpatient rehab for strengthening prior to returning to home. He has previously been at [facility]. Will plan for discharge to there at discharge, possibly tomorrow. * OT Evaluation. * Fall precautions * 07/22/23, Date of discharge: Pt still remains weak overall, but has improved. He will still need to be watched for fall precautions. (5) HTN (hypertension): Code(s): I10 - Essential (primary) hypertension Status: Chronic Assessment and Plan: * Monitor VS * Resume home meds * Currently stable BP at 130/89. * 07/22/23, Date of discharge: Stable BP (6) Cough: Code(s): R05.9 - Cough, unspecified Status: Acute Assessment and Plan: * Supportive care only * 07/22/23, Date of discharge: Symptomatic management only. Cough secondary to Influenza. (7) Rectus sheath hematoma: Code(s): S30.1XXA - Contusion of abdominal wall, initial encounter Status: Chronic Assessment and Plan: * Abdominal binder in place * Stable without any s/s of acute bleeding. * 07/22/23, Date of discharge: Stable w/out any further s/s of complication. (8) GERD (gastroesophageal reflux disease): Code(s): K21.9 - Gastro-esophageal reflux disease without esophagitis Status: Chronic Assessment and Plan: * Continue PPI therapy * 07/22/23, Date of discharge: Continue PPI therapy as outpatient. Plan Discharge today. DS: Summary Hospital Course Reason for hospitalization: Weakness with gait abnormality and Influenza A and Hyponatremia Hospital Course: This 83 year old male pt w/PMH of arthritis, Basal cell carcinoma, BPH, CVA, G
--- NOTE | 2023-07-22 07:06 | PM.DS ---
DS: Admitting Diagnosis Discharge Date 07/22/2023 Admitting Diagnosis Influenza A Hyponatremia Atrial Fibrillation with RVR Gait Abnormality HTN Cough GERD Rectus Sheath Hematoma DS: Discharge Diagnosis Discharge Diagnosis (1) Influenza A: Code(s): J10.1 - Influenza due to other identified influenza virus with other respiratory manifestations Status: Acute Assessment and Plan: Continue Tamiflu and supportive care Monitor VS 07/22/23, Date of discharge: Pt has remained stable w/VS and labs. He is stable for discharge. Has Today is day #5 of Tamiflu therapy. (2) Acute hyponatremia: Code(s): E87.1 - Hypo-osmolality and hyponatremia Status: Acute Assessment and Plan: Monitor daily labs and trend NS at 100 ml/hr continued. No s/s of fluid overload. There has been interval improvement in pt's Sodium level from 126-129 today with IVF. 07/21/23: Further improvement in sodium level to 133 today. We are stopping IVF and will recheck in AM to see if pt can maintain his sodium level. 07/22/23, Date of discharge: Pts fluids discontinued yesterday. He has maintained his Sodium level independently of fluids this AM. He is stable for discharge with recheck of labs in 2 days as outpatient. (3) Atrial fibrillation with RVR: Code(s): I48.91 - Unspecified atrial fibrillation Status: Acute Assessment and Plan: Rate currently controlled Consult Cardiology Unable to anticoagulate secondary to risk of repeat brain bleed. Process Assistant VS. ECHO showing normal LVSF with EF of 60-65% Not a new dx - see interval hx as documented 07/20/23. 07/22/23, Date of discharge: Stable and rate controlled. (4) Gait abnormality: Code(s): R26.9 - Unspecified abnormalities of gait and mobility Status: Chronic Assessment and Plan: PT evaluation recommends acute inpatient rehab for strengthening prior to returning to home. He has previously been at [facility]. Will plan for discharge to there at discharge, possibly tomorrow. OT Evaluation. Fall precautions 07/22/23, Date of discharge: Pt still remains weak overall, but has improved. He will still need to be watched for fall precautions. (5) HTN (hypertension): Code(s): I10 - Essential (primary) hypertension Status: Chronic Assessment and Plan: Monitor VS Resume home meds Currently stable BP at 130/89. 07/22/23, Date of discharge: Stable BP (6) Cough: Code(s): R05.9 - Cough, unspecified Status: Acute Assessment and Plan: Supportive care only 07/22/23, Date of discharge: Symptomatic management only. Cough secondary to Influenza. (7) Rectus sheath hematoma: Code(s): S30.1XXA - Contusion of abdominal wall, initial encounter Status: Chronic Assessment and Plan: Abdominal binder in place Stable without any s/s of acute bleeding. 07/22/23, Date of discharge: Stable w/out any further s/s of complication. (8) GERD (gastroesophageal reflux disease): Code(s): K21.9 - Gastro-esophageal reflux disease without esophagitis Status: Chronic Assessment and Plan: Continue PPI therapy 07/22/23, Date of discharge: Continue PPI therapy as outpatient. Plan Discharge today. DS: Summary Hospital Course Reason for hospitalization: Weakness with gait abnormality and Influenza A and Hyponatremia Hospital Course: This 83 year old male pt w/PMH of arthritis, Basal cell carcinoma, BPH, CVA, GERD, HLD, HTN, Hypothyroidism, PAD, PAF and DM2 was admitted 07/18/23-07/22/23 with increased weakness and persistent fatigue testing positive for Influenza. He was also found to have Hyponatremia which my understanding this is a chronic issue for the pt and previously Nephrology had to be involved w/treatment w/salt tabs which the pt desperately does not want to take. Being found in Fib RVR, his trops were mildly elevated most likely due to demand ischemia. He has a rem
[2023-07-22 08:56] VITALS: PULSE 84
[2023-07-22] MEDS: IRBESARTAN 150 MG TABLET 300 MG PO (08:56)
[2023-07-22] MEDS: DOCUSATE SODIUM 100 MG CAPSULE PO (08:56)
[2023-07-22] MEDS: FINASTERIDE 5 MG TABLET PO (08:56)
[2023-07-22] MEDS: SIMVASTATIN 20 MG TABLET PO (08:56)
[2023-07-22] MEDS: TAMSULOSIN HCL 0.4 MG CAPSULE PO (08:56)
[2023-07-22] MEDS: amLODIPine BESYLATE 5 MG TABLET PO (08:56)
[2023-07-22] MEDS: METOPROLOL SUCCINATE EXT REL 50 MG TABCR PO (08:56)
[2023-07-22] MEDS: OSELTAMIVIR PHOSPHATE 75 MG CAPSULE PO (08:57)
[2023-07-22] MEDS: PANTOPRAZOLE 40 MG TABLET PO (08:57)
== END 2023-07-22 11:13 | disposition home health service (06) | DRG 194 ==
LOC: ANHED 21:42 → ANH3MEDSUR 23:19
PROVIDERS: Admitting Provider Internal Medicine; Emergency Provider Student in an Organized Health Care Education/Training Program; PCP Internal Medicine; Visit Provider Nurse Practitioner Adult Health
DX: J10.1 Influenza due to other identified influenza virus with other respiratory manifestations (principal); E11.52 Type 2 diabetes mellitus with diabetic peripheral angiopathy with gangrene; E87.1 Hypo-osmolality and hyponatremia; E78.5 Hyperlipidemia, unspecified; E03.9 Hypothyroidism, unspecified; I12.9 Hypertensive chronic kidney disease with stage 1 through stage 4 chronic kidney disease, or unspecified chronic kidney disease; I48.0 Paroxysmal atrial fibrillation; K21.9 Gastro-esophageal reflux disease without esophagitis; M19.90 Unspecified osteoarthritis, unspecified site; N40.0 Benign prostatic hyperplasia without lower urinary tract symptoms; N18.9 Chronic kidney disease, unspecified; R26.9 Unspecified abnormalities of gait and mobility; S30.1XXD Contusion of abdominal wall, subsequent encounter; Z86.73 Personal history of transient ischemic attack (TIA), and cerebral infarction without residual deficits; Z85.828 Personal history of other malignant neoplasm of skin; Z88.0 Allergy status to penicillin; Z20.822 Contact with and (suspected) exposure to COVID-19
CPT/HCPCS: 36415; 71045; 80048; 80053; 81001; 83605; 83735; 84484; 85025; 85610; 85730; 86140; 87040; 87637; 93005; 93306; 96361; 96374; 97161; 97165; 99285; A9270; J7030; J7120

== ENCOUNTER 2023-07-24 14:25 | Outpatient (NON) | payer MEDICARE, SELFPAY ==
[2023-07-24 15:29] LABS: Hematocrit 37.6 % (42.0-52.0); Hemoglobin 12.5 g/dL (14.0-18.0); Mean Corpuscular HGB Conc 33.2 g/dl (32-36); Mean Corpuscular Hemoglobin 32.2 pg (26-34); Mean Corpuscular Volume 96.9 fl (80-100); Mean Platelet Volume 9.8 fl (7.4-10.4); Platelet Count Result 452 k/mm3 (150-375); Red Blood Count 3.88 M/mm3 (4.6-6.20); Red Cell Distribution Width 12.3 % (11.5-14.5); White Blood Count 6.2 K/mm3 (4.5-10.0)
[2023-07-24 15:41] LABS: Alanine Aminotransferase 49 U/L (6-50); Albumin Level 3.7 g/dL (3.5-5.1); Alkaline Phosphatase 69 U/L (38-126); Anion Gap 8 mmol/L (8-16); Aspartate Amino Transferase 62 U/L (17-59); Bilirubin,Total 1.5 mg/dL (0.2-1.3); Blood Urea Nitrogen 19 mg/dL (9-20); Calcium 8.2 mg/dL (8.4-10.2); Carbon Dioxide 22 mmol/L (22-30); Chloride 98 mmol/L (98-107); Estimated Glomerular Filt Rate > 60; Glucose 132 mg/dL (65-110); Sodium 128 mmol/L (137-145)
== END 2023-07-24 14:26 | disposition home or self-care (01) ==
LOC: HOME HLTH 14:28
PROVIDERS: Visit Provider Internal Medicine
DX: J10.1 Influenza due to other identified influenza virus with other respiratory manifestations (principal); E87.1 Hypo-osmolality and hyponatremia; R26.9 Unspecified abnormalities of gait and mobility
CPT/HCPCS: 80053; 85027

== ENCOUNTER 2023-07-25 16:53 | Emergency (ER) | payer MEDICARE, SELFPAY ==
--- NOTE | ~2023-07-25 | XR_ITS ---
EXAMINATION: XR chest 2V DATE: 07/25/2023 17:42 INDICATION: Chest pain. TECHNIQUE: Frontal and lateral views of the chest were obtained. COMPARISON: Chest single view 07/18/2023, CT abdomen and pelvis 07/12/2023 FINDINGS: There is no pneumonia, pleural effusion, or pneumothorax. Cardiomegaly is noted. There is a closure device at left atrial appendage. There are surgical clips from thyroidectomy. There is chron ic anterior wedging of multiple vertebral bodies. IMPRESSION: 1. Cardiomegaly. Reviewed, dictated and finalized at location E. GENCY WORKER IMPRESSION: 1. Cardiomegaly.
--- NOTE | ~2023-07-25 | CT_ITS ---
EXAMINATION: CTA chest PE abdomen pel DATE: 07/25/2023 21:32 INDICATION: Cough. Chest pain. Nausea. Abdominal pain. TECHNIQUE: Computed tomography angiography (CTA) of the chest was performed with 100 mL Omnipaque-350 intravenous contrast timed to evaluate the pulmonary arteries. Coronal maximum intensity projection 3D-reconstructions were created by the technologist. Computed tomography (CT) of the abdomen and pelv is was performed with intravenous contrast. Automated exposure control and iterative reconstruction t echnique were employed. The dose-length product was 1177.52 mGy-cm. COMPARISON: CT abdomen pelvis 07/12/2023 FINDINGS: CTA chest: The lungs demonstrate mild atelectasis. There is mild chronic peripheral septal thickening in the inferior lungs. No pleural effusion. There are changes of thyroidectomy. Cardiomegaly is note d. There is a closure device at left atrial appendage. No pericardial effusion. There is no pulmonary embolus. There is a small sliding hiatal hernia. There is severe cervical and thoracic spondylosis. There is mild chronic anterior wedging of multiple vertebral bodies. CT abdomen and pelvis: The liver, gallbladder, spleen, pancreas, and adrenal glands are normal. There is cortical thinning in the kidneys. There are cysts in the kidneys measuring up to 7 mm on the left . The bladder is distended. There is a right-sided bladder diverticulum. There is a left inguinal her yaw containing fat. There are likely changes of right inguinal hernia repair. There are subacute geo brandy in the rectus abdominis muscles measuring up to 2.7 x 2.0 cm on the left. There are brachythera py seeds in the prostate. There is diverticulosis of the colon without evidence of diverticulitis. Th ere are no dilated loops of bowel. The appendix is normal. There is calcified atherosclerosis of the aorta and many of the other arteries. There are no pathologically enlarged lymph nodes. There is no f ree intraperitoneal fluid. There is severe lumbar spondylosis. There are chronic bilateral L5 pars de fects. There is 5 mm anterolisthesis of L5 on S1. IMPRESSION: 1. No pulmonary embolus. 2. Mild chronic interstitial lung disease. 3. Subacute hematomas in the rectus abdominis muscles again seen. 4. Small sliding hiatal hernia. Reviewed, dictated and finalized at location E. VIDEOTAPE EDITOR
--- NOTE | 2023-07-25 16:54 | ECG_ITS ---
Measurements Intervals [place] Rate: 91 P: DE: 0 QRS: -31 QRSD: 121 T: 95 QT: 373 QTc: 460 Interpretive Statements ATRIAL FIBRILLATION LEFT AXIS DEVIATION INTRAVENTRICULAR CONDUCTION DELAY LEFT VENTRICULAR HYPERTROPHY WITH ST-T CHANGE ABNORMAL ECG COMPARED TO ECG 07/18/2023 17:32:39 HEART RATE HAS DECREASED Electronically Signed On 07-25-2023 19:01:59 [employer] by Giovany Kennedy D.O.
[2023-07-25 17:19] LABS: Basophils Percent Auto 0.4 % (0.2-1.2); Hematocrit 39.6 % (42.0-52.0); Immature Granulocyte Absolute 0.04 K/mm3 (0.00-0.031); Immature Granulocyte Percent A 0.5 % (0-0.5); Lymphocytes Absolute Auto 2.49 K/mm3 (0.9-3.2); Lymphocytes Percent Auto 32.5 % (18.3-44.2); Mean Corpuscular HGB Conc 32.8 g/dl (32-36); Mean Corpuscular Hemoglobin 32.1 pg (26-34); Mean Corpuscular Volume 97.8 fl (80-100); Mean Platelet Volume 9.3 fl (7.4-10.4); Monocytes Absolute Auto 0.7 K/mm3 (0.1-0.6); Monocytes Percent Auto 8.6 % (2.6-8.5); Neutrophils Absolute Auto 4.5 K/mm3 (1.3-6.7); Platelet Count Result 508 k/mm3 (150-375); Red Blood Count 4.05 M/mm3 (4.6-6.20); Red Cell Distribution Width 12.6 % (11.5-14.5); White Blood Count 7.7 K/mm3 (4.5-10.0)
[2023-07-25 17:22] VITALS: BP 111/68; PULSE 81; RESP 20; TEMP 37.2; O2SAT 100
[2023-07-25 17:29] LABS: Alanine Aminotransferase 52 U/L (6-50); Albumin Level 3.8 g/dL (3.5-5.1); Alkaline Phosphatase 77 U/L (38-126); Anion Gap 7 mmol/L (8-16); Aspartate Amino Transferase 64 U/L (17-59); Bilirubin,Total 1.4 mg/dL (0.2-1.3); Blood Urea Nitrogen 20 mg/dL (9-20); Calcium 8.5 mg/dL (8.4-10.2); Carbon Dioxide 23 mmol/L (22-30); Chloride 100 mmol/L (98-107); Estimated CRCL calculation 55 ml/min; Estimated Glomerular Filt Rate > 60; Glucose 134 mg/dL (65-110); Lipase 200 U/L (23-300); Potassium 4.3 mmol/L (3.4-5.0); Prothrombin Time 13.4 Seconds (11.1-14.7); Sodium 130 mmol/L (137-145)
[2023-07-25 17:41] LABS: Troponin I 0.012 ng/mL (0.000-0.034)
--- NOTE | 2023-07-25 20:16 | ECG_ITS ---
Measurements Intervals [place] Rate: 100 P: VA: 0 QRS: -27 QRSD: 116 T: 87 QT: 371 QTc: 478 Interpretive Statements ATRIAL FIBRILLATION WITH RAPID VENTRICULAR RESPONSE INTRAVENTRICULAR CONDUCTION DELAY LEFT VENTRICULAR HYPERTROPHY WITH ST-T CHANGE BASELINE ARTIFACT- I, II, AVR, V1 ABNORMAL ECG COMPARED TO ECG 07/25/2023 17:00:58 HEART RATE HAS INCREASED Electronically Signed On 07-26-2023 9:58:14 ASSISTANT PROFESSOR OF HISTORY by Giovany Kennedy D.O.
[2023-07-25 20:17] VITALS: PULSE 79
[2023-07-25 20:20] VITALS: BP 151/118; PULSE 88; RESP 20; TEMP 36.8; O2SAT 98
[2023-07-25 20:26] VITALS: O2SAT 100
--- NOTE | 2023-07-25 20:50 | ED.CHESTPAIN ---
HPI - Chest Pain General Chief Complaint: Chest Pain Stated Complaint: chest pain Time Seen by Provider: 07/25/23 20:16 Source: patient and family Limitations: no limitations History of Present Illness HPI narrative: patient is an 83-year-old male presents to the emergency department complaining of soreness of his bilateral lower ribs which he describes as stabbing and feels a primarily when he coughs noting that he has been coughing frequently for the past couple weeks. Patient notes that the soreness seemed worse this morning and he has been taking Tessalon Perles for the cough without any relief of the cough. Patient denies take any medications for the pain. Patient admits to minimal sputum production with the cough and was recently diagnosed with influenza and took Tamiflu to completion. Patient denies any difficulty breathing, recent injuries, abdominal pain, vomiting, diarrhea, melena, hematochezia, rash, sore throat, nasal congestion, chest pain, numbness, weakness. Patient admits to having extensive history of atrial fibrillation has been taking his medications as prescribed without any recent palpitations. Patient admits to a recent history of a rectus sheath hematoma that he is wearing an abdominal binder for appears to be well controlled but he would like this to be reassessed with imaging. Related Data Home Medications Medication Instructions Recorded Confirmed amlodipine 5 mg tablet 5 mg PO DAILY 07/18/23 07/18/23 finasteride 5 mg tablet 5 mg PO DAILY 07/18/23 07/18/23 guaifenesin 100 mg/5 mL oral liquid 100 mg PO Q4H 07/18/23 07/18/23 irbesartan 300 mg tablet 300 mg PO DAILY 07/18/23 07/18/23 levothyroxine 88 mcg tablet 88 mcg PO DAILY 07/18/23 07/18/23 metoprolol succinate 50 mg 50 mg PO BID 07/18/23 07/18/23 tablet,extended release 24 hr pantoprazole 40 mg tablet,delayed 40 mg PO BID 07/18/23 07/18/23 release simvastatin 20 mg tablet 20 mg PO DAILY 07/18/23 07/18/23 tamsulosin 0.4 mg capsule 0.4 mg PO DAILY 07/18/23 07/18/23 trazodone 50 mg tablet See Rx Instructions .Route .COMPLEX 07/18/23 07/18/23 docusate sodium 100 mg capsule 100 mg PO DAILY 07/19/23 07/19/23 (Colace) Allergies Allergy/AdvReac Type Severity Reaction Status Date / Time rosuvastatin Allergy Unknown leg Verified 07/25/23 20:56 cramps,Hives sertraline [From Zoloft] Allergy Other Verified 07/18/23 17:03 Penicillins AdvReac Mild Hives Verified 07/18/23 17:03 Sulfa (Sulfonamide AdvReac Mild Hives Verified 07/18/23 17:03 Antibiotics) Tetanus Vaccines and Toxoid AdvReac Mild Hives Verified 07/18/23 17:03 Review of Systems Review of Systems: A 10 system review of systems was completed on the patient and is negative except for what is stated in the HPI. Nursing and ancillary documentation was reviewed. FOR[facility]LY [facility] Past Medical History Medical History Arthritis Basal cell carcinoma of skin Benign prostatic hyperplasia Cerebrovascular accident Chronic GERD Hyperlipidemia Hypertension Hypothyroidism Peripheral artery disease Persistent atrial fibrillation Type 2 diabetes mellitus Surgical History Surgical History History of arthroplasty of right knee History of cataract extraction with lens replacement History of partial thyroidectomy History of right inguinal hernia repair (04/13/22) Presence of Watchman left atrial appendage closure device Family History Family History Father Heart attack Mother , passed at age 104 No problems noted. Sibling Cancer Family history of malignant neoplasm of thyroid Mother Hypertension Sibling Malignant neoplasm of prostate Family history of malignant neoplasm of breast in first degree relative Father Patient's father is Sibling Diabetes mellitus Grandparent Di
[2023-07-25 20:54] LABS: Troponin I 0.013 ng/mL (0.000-0.034)
[2023-07-25 21:03] LABS: Creatine Kinase 219 U/L (55-170); Magnesium 2.1 mg/dL (1.6-2.3)
[2023-07-25] MEDS: SODIUM CHLORIDE 0.9% IV 1,000 ML 999 ML IV CONT (21:13)
[2023-07-25] MEDS: KETOROLAC 15 MG/ML VIAL (*BKC) IV PUSH (21:13)
[2023-07-25] MEDS: HYDROcodone/acetaminophen (*CRX) 5-325 MG TABLET 1 TAB PO (21:14)
[2023-07-25 21:37] LABS: D Dimer 2.41 ug/mL (<0.48)
[2023-07-25 21:44] VITALS: BP 127/77; PULSE 112; RESP 29; O2SAT 97
[2023-07-25 23:45] VITALS: BP 142/87; PULSE 86; RESP 12; TEMP 36.3; O2SAT 97
== END 2023-07-25 23:46 | disposition home or self-care (01) ==
PROVIDERS: Emergency Medicine; Emergency Provider Student in an Organized Health Care Education/Training Program; PCP Internal Medicine
DX: R07.9 Chest pain, unspecified (principal); R05.9 Cough, unspecified; M94.0 Chondrocostal junction syndrome [Tietze]; I48.91 Unspecified atrial fibrillation; M19.90 Unspecified osteoarthritis, unspecified site; K21.9 Gastro-esophageal reflux disease without esophagitis; E78.5 Hyperlipidemia, unspecified; I10 Essential (primary) hypertension; E03.9 Hypothyroidism, unspecified; E11.9 Type 2 diabetes mellitus without complications
CPT/HCPCS: 36415; 71046; 71275; 74177; 80053; 82550; 83690; 83735; 84484; 85025; 85380; 85610; 85730; 93005; 96361; 96374; 99284; A9270; J1885; J7030; Q9967

== ENCOUNTER 2023-08-01 13:38 | Outpatient (NON) | payer MEDICARE, SELFPAY ==
[2023-08-01 14:25] LABS: Albumin Level 4.2 g/dL (3.5-5.1); Anion Gap 8 mmol/L (8-16); Blood Urea Nitrogen 16 mg/dL (9-20); Carbon Dioxide 24 mmol/L (22-30); Chloride 102 mmol/L (98-107); Estimated Glomerular Filt Rate > 60; Glucose 160 mg/dL (65-110); Phosphorus 3.2 mg/dL (2.5-4.5); Potassium 4.1 mmol/L (3.4-5.0); Sodium 134 mmol/L (137-145)
== END 2023-08-01 13:39 | disposition home or self-care (01) ==
LOC: HOME HLTH 13:38
PROVIDERS: PCP Internal Medicine; Visit Provider Internal Medicine Nephrology
DX: E87.1 Hypo-osmolality and hyponatremia (principal)
CPT/HCPCS: 80069

== ENCOUNTER 2023-08-17 12:10 | Outpatient (CLI) | payer MEDICARE, SELFPAY ==
[2023-08-17 13:26] LABS: Albumin Level 4.6 g/dL (3.5-5.1); Anion Gap 7 mmol/L (8-16); Blood Urea Nitrogen 18 mg/dL (9-20); Calcium 9.4 mg/dL (8.4-10.2); Carbon Dioxide 26 mmol/L (22-30); Chloride 105 mmol/L (98-107); Estimated Glomerular Filt Rate > 60; Glucose 167 mg/dL (65-110); Phosphorus 3.2 mg/dL (2.5-4.5); Sodium 138 mmol/L (137-145)
== END 2023-08-17 12:11 | disposition home or self-care (01) ==
LOC: ANHLAB 12:14
PROVIDERS: PCP Internal Medicine; Visit Provider Internal Medicine Nephrology
DX: E87.1 Hypo-osmolality and hyponatremia (principal)
CPT/HCPCS: 36415; 80069

== ENCOUNTER 2023-09-08 10:34 | Outpatient (CLI) | payer MEDICARE, SELFPAY ==
[2023-09-08 11:30] LABS: Albumin Level 4.4 g/dL (3.5-5.1); Anion Gap 9 mmol/L (8-16); Blood Urea Nitrogen 21 mg/dL (9-20); Calcium 9.3 mg/dL (8.4-10.2); Carbon Dioxide 25 mmol/L (22-30); Chloride 103 mmol/L (98-107); Estimated Glomerular Filt Rate > 60; Glucose 153 mg/dL (65-110); Phosphorus 3.6 mg/dL (2.5-4.5); Potassium 4.1 mmol/L (3.4-5.0); Sodium 137 mmol/L (137-145)
== END 2023-09-08 10:35 | disposition home or self-care (01) ==
PROVIDERS: PCP Internal Medicine; Visit Provider Internal Medicine Nephrology
DX: E87.1 Hypo-osmolality and hyponatremia (principal)
CPT/HCPCS: 36415; 80069

== ENCOUNTER 2023-10-16 11:39 | Outpatient (CLI) | payer MEDICARE, SELFPAY ==
[2023-10-16 12:33] LABS: Albumin Level 4.8 g/dL (3.5-5.1); Anion Gap 8 mmol/L (4-12); Blood Urea Nitrogen 23 mg/dL (9-20); Calcium 9.7 mg/dL (8.4-10.2); Carbon Dioxide 25 mmol/L (22-30); Chloride 103 mmol/L (98-107); Estimated Glomerular Filt Rate > 60; Glucose 196 mg/dL (65-110); Phosphorus 3.8 mg/dL (2.5-4.5); Potassium 3.9 mmol/L (3.4-5.0); Sodium 136 mmol/L (137-145)
== END 2023-10-16 11:40 | disposition home or self-care (01) ==
PROVIDERS: PCP Internal Medicine; Visit Provider Internal Medicine Nephrology
DX: E87.1 Hypo-osmolality and hyponatremia (principal)
CPT/HCPCS: 36415; 80069

== ENCOUNTER 2023-11-07 13:11 | Outpatient (CLI) | payer MEDICARE, SELFPAY ==
[2023-11-07 15:23] LABS: Albumin Level 4.8 g/dL (3.5-5.1); Anion Gap 8 mmol/L (4-12); Blood Urea Nitrogen 19 mg/dL (9-20); Calcium 9.4 mg/dL (8.4-10.2); Carbon Dioxide 25 mmol/L (22-30); Chloride 103 mmol/L (98-107); Estimated Glomerular Filt Rate > 60; Glucose 115 mg/dL (65-110); Phosphorus 3.8 mg/dL (2.5-4.5); Potassium 4.2 mmol/L (3.4-5.0); Sodium 136 mmol/L (137-145)
== END 2023-11-07 13:12 | disposition home or self-care (01) ==
PROVIDERS: PCP Internal Medicine; Visit Provider Internal Medicine Nephrology
DX: E87.1 Hypo-osmolality and hyponatremia (principal)
CPT/HCPCS: 36415; 80069

== ENCOUNTER 2023-12-07 10:53 | Outpatient (CLI) | payer MEDICARE, SELFPAY ==
[2023-12-07 11:54] LABS: Cholesterol 153 mg/dL (0-200); HDL Direct 59 mg/dL; Triglycerides 92 mg/dL (<150)
[2023-12-07 12:04] LABS: LDL Cholesterol Direct 79 mg/dL
[2023-12-07 13:00] LABS: Hemoglobin A1C 5.9 % (<5.7)
== END 2023-12-07 10:54 | disposition home or self-care (01) ==
PROVIDERS: PCP Internal Medicine; Visit Provider Internal Medicine
DX: E03.9 Hypothyroidism, unspecified (principal); E53.8 Deficiency of other specified B group vitamins; E55.9 Vitamin D deficiency, unspecified; I10 Essential (primary) hypertension; I48.91 Unspecified atrial fibrillation; R79.89 Other specified abnormal findings of blood chemistry; Z79.02 Long term (current) use of antithrombotics/antiplatelets; E11.9 Type 2 diabetes mellitus without complications
CPT/HCPCS: 36415; 80061; 82306; 83036

== ENCOUNTER 2024-01-30 12:09 | Outpatient (CLI) | payer MEDICARE, SELFPAY ==
[2024-01-30 12:41] LABS: Appearance Urine Turbid (Clear); Bacteria Urine 4+ /hpf; Bilirubin Urine Negative (Negative); Blood Urine 1+ (Negative); Color Urine Yellow (Yellow); Glucose Urine UA Negative (Negative); Ketones Urine Negative (Negative); Leukocyte Esterase Ur 3+ LEU/UL (Negative); Nitrate Urine Positive (Negative); Non Pathogenic Casts 0-2; Protein Urine 1+ mg/dL (Negative); Specific Grav Ur 1.015 (1.001-1.035); Squamous Epithelial Cell Urine None Seen /hpf (Few); Urobilinogen Urine 0.2 mg/dL (<2.0); WBC Urine >100 /hpf (0-3); pH Urine 6.5 (5.0-9.0)
[2024-01-30 12:45] LABS: Add Urine Microscopic? YES
== END 2024-01-30 12:10 | disposition home or self-care (01) ==
LOC: ANHLAB 12:11
PROVIDERS: PCP Internal Medicine; Visit Provider Internal Medicine
DX: R30.0 Dysuria (principal)
CPT/HCPCS: 81001; 87077; 87086; 87088; 87186

== ENCOUNTER 2024-02-08 12:06 | Outpatient (CLI) | payer MEDICARE, SELFPAY ==
[2024-02-08 12:36] LABS: Hematocrit 43.5 % (42.0-52.0); Hemoglobin 14.8 g/dL (14.0-18.0); Mean Corpuscular Hemoglobin 34.2 pg (26-34); Mean Corpuscular Volume 100.5 fl (80-100); Mean Platelet Volume 9.7 fl (7.4-10.4); Platelet Count Result 221 k/mm3 (150-375); Red Blood Count 4.33 M/mm3 (4.6-6.20); Red Cell Distribution Width 12.8 % (11.5-14.5); White Blood Count 5.9 K/mm3 (4.5-10.0)
== END 2024-02-08 12:07 | disposition home or self-care (01) ==
PROVIDERS: PCP Internal Medicine; Visit Provider Nurse Practitioner Adult Health
DX: J10.1 Influenza due to other identified influenza virus with other respiratory manifestations (principal); R26.9 Unspecified abnormalities of gait and mobility
CPT/HCPCS: 36415; 85027

== ENCOUNTER 2024-02-15 13:22 | Outpatient (CLI) | payer MEDICARE, SELFPAY ==
[2024-02-15 14:53] LABS: Anion Gap 12 mmol/L (4-12); Blood Urea Nitrogen 22 mg/dL (9-20); Calcium 9.3 mg/dL (8.4-10.2); Carbon Dioxide 26 mmol/L (22-30); Chloride 97 mmol/L (98-107); Estimated Glomerular Filt Rate > 60; Glucose 197 mg/dL (65-110); Potassium 5.1 mmol/L (3.4-5.0); Sodium 135 mmol/L (137-145)
== END 2024-02-15 13:23 | disposition home or self-care (01) ==
LOC: ANHLAB 13:24
PROVIDERS: PCP Internal Medicine; Visit Provider Internal Medicine
DX: E87.1 Hypo-osmolality and hyponatremia (principal)
CPT/HCPCS: 36415; 80048

== ENCOUNTER 2024-03-28 13:27 | Outpatient (CLI) | payer MEDICARE, SELFPAY ==
[2024-03-28 14:02] LABS: Alanine Aminotransferase 24 U/L (6-50); Albumin Level 4.3 g/dL (3.5-5.1); Alkaline Phosphatase 55 U/L (38-126); Anion Gap 9 mmol/L (4-12); Aspartate Amino Transferase 31 U/L (17-59); Bilirubin,Total 1.2 mg/dL (0.2-1.3); Blood Urea Nitrogen 26 mg/dL (9-20); Calcium 9.1 mg/dL (8.4-10.2); Carbon Dioxide 24 mmol/L (22-30); Chloride 103 mmol/L (98-107); Estimated Glomerular Filt Rate > 60; Glucose 186 mg/dL (65-110); Potassium 4.2 mmol/L (3.4-5.0); Sodium 136 mmol/L (137-145)
== END 2024-03-28 13:28 | disposition home or self-care (01) ==
PROVIDERS: PCP Internal Medicine; Visit Provider Internal Medicine
DX: E87.1 Hypo-osmolality and hyponatremia (principal)
CPT/HCPCS: 36415; 80053

== ENCOUNTER 2024-05-22 15:37 | Outpatient (CLI) | payer MEDICARE, SELFPAY ==
[2024-05-22 16:04] LABS: Add Urine Microscopic? YES; Appearance Urine Turbid (Clear); Bacteria Urine 4+ /hpf; Bilirubin Urine Negative (Negative); Blood Urine 3+ (Negative); Color Urine Yellow (Yellow); Glucose Urine UA Negative (Negative); Ketones Urine Negative (Negative); Leukocyte Esterase Ur 3+ LEU/UL (Negative); Nitrate Urine Positive (Negative); Non Pathogenic Casts 0-2; Protein Urine 2+ mg/dL (Negative); RBC Urine 51-100 /hpf (0-2); Specific Grav Ur 1.016 (1.001-1.035); Squamous Epithelial Cell Urine None Seen /hpf (Few); Urobilinogen Urine 0.2 mg/dL (<2.0); WBC Urine >100 /hpf (0-3); pH Urine 5.5 (5.0-9.0)
== END 2024-05-22 15:38 | disposition home or self-care (01) ==
PROVIDERS: PCP Internal Medicine; Visit Provider Internal Medicine
DX: R30.0 Dysuria (principal)
CPT/HCPCS: 81001

== ENCOUNTER 2024-05-30 10:56 | Outpatient (CLI) | payer MEDICARE, SELFPAY ==
[2024-05-30 11:46] LABS: Cholesterol 152 mg/dL (0-200); HDL Direct 55 mg/dL; Triglycerides 92 mg/dL (<150)
[2024-05-30 11:57] LABS: LDL Cholesterol Direct 67 mg/dL
== END 2024-05-30 10:57 | disposition home or self-care (01) ==
LOC: ANHLAB 10:57
PROVIDERS: PCP Internal Medicine; Visit Provider Internal Medicine
DX: E78.5 Hyperlipidemia, unspecified (principal)
CPT/HCPCS: 36415; 80061

== ENCOUNTER 2024-06-03 07:54 | Day surgery (SDC) | payer MEDICARE, SELFPAY ==
--- NOTE | ~2024-06-03 | XR_ITS ---
XR fluoroscopy no charge Indication: Left intra-articular sacroiliac joint steroid injection TECHNIQUE: Fluoroscopy used during left intra-articular sacroiliac joint steroid injection performed by Dr. Marv Ho MD on 06/03/2024. 12 seconds of fluoroscopy with 8 images captured. FINDINGS: Correlate with procedure note. IMPRESSION: Fluoroscopy used during left intra-articular sacroiliac joint steroid injection. Reviewed, dictated and finalized at location B. UCTION SUPPORT CONSULTANT IMPRESSION: Fluoroscopy used during left intra-articular sacroiliac joint stero id injection.
--- NOTE | 2024-06-03 05:36 | WPDHPUPDATE1 ---
History and Physical Update Update Date/Time: 06/03/24 05:36 History and Physical has been reviewed, including an updated exam of the patient. There are NO changes in the patient's condition. Risks, benefits, and alternatives have been discussed and questions answered. Patient agrees to proceed with procedure.
--- NOTE | 2024-06-03 05:38 | P.OP_ITS ---
Procedure Note - Detailed Date of Procedure 06/03/24 Pre-op Diagnosis Sacroiliitis, chronic low back pain Post-op Diagnosis Same Procedure Performed left Sacroiliac Joint Steroid Injection under Fluoroscopic Guidance and with Contrast Control. Surgeon Zion Ho MD Assistant Director Of Public Works None Anesthesia Local Description of Procedure INFORMED CONSENT: Risks, benefits and alternatives to the procedure were discussed in detail with the patient who expressed explicit understanding and consent to proceed. Patient was informed verbally and in written form regarding the risks associated with the procedure including the low risk of serious infection, bleeding/bruising, allergic reaction, nerve or organ injury, paralysis, procedural site pain or discomfort, worsening pain and/or mobility, failure to treat and/or disfigurement. The patient expressed explicit understanding and consent to proceed. All materials required for the procedure were available prior to procedure start. Site and side were marked prior to procedure and confirmed in the presence of the patient. PROCEDURE IN DETAIL: The patient was brought to the procedural suite and placed in the prone position. Patient was made comfortable with use of pillows under the head/chest, hips and ankles. Skin overlying the injection site on the affected side(s) was prepared broadly with ChloraPrep applicator and draped in a sterile manner. Aseptic technique was used throughout. The left SI joint was identified in the AP view and contralateral oblique angulation with caudal tilt was utilized to optimize visualization of the inferior and medial joint line representing the posterior portion of the joint. Local anesthesia was established by infiltration with approximately 5 mL of 2% lidocaine via a 1-1/2 inch 27-gauge needle. A 22-gauge 3.5 inch Quincke spinal needle was advanced until the needle entered the inferior third of the joint space approximately 1cm cephalad from its most inferior point. In the AP view, 0.5 mL of Omnipaque 300 contrast medium was injected after negative aspiration for CSF, blood or other bodily fluid, showing appropriate intra-articular spread of contrast without evidence of intravascular, perineural or intrathecal placement. A 1.5 mL solution containing 6 mg of betamethasone in 0.5% PF bupivacaine was injected after repeat negative aspiration. Appropriate spread of the injectate was confirmed with washout of previous injected contrast. No parasthesias were elicited. Needle was removed completely intact without difficulty. Images were saved and documented in the patient chart. Patient's skin was cleansed and sterile bandage applied. The patient tolerated the procedure well. The patient was transported to the recovery area in stable condition where they were observed for an appropriate amount of time prior to discharge, without evidence of complication. The patient was instructed to avoid excessive activity for the next 48 hours, including climbing and frequent use of stairs. Showers only for 48 hours. They were instructed not to drive or operate heavy machinery for 24 hours. They are to monitor for severe headaches, fevers, chills, night sweats, erythema/swelling at the site or any other signs of infection, bleeding/bruising, bowel or bladder changes as well as new pain, weakness or numbness in the upper or lower extremity. Should they notice these changes, they are instructed to call our office immediately or report directly to the nearest Emergency Department if no answer or if after posted office hours. COMPLICATIONS: None COMMENTS: None CONTRAST WASTED: 29.5mL Omnipaque 300. Complications No immediate complications Condition Stable Disposition Same day [facility] Billing Surgery - Charge Forward: Surgery Billing
[2024-06-03 08:50] VITALS: BP 112/83; PULSE 70; RESP 18; TEMP 37.2; O2SAT 99
[2024-06-03 09:06] VITALS: BP 135/80; PULSE 80; RESP 24; O2SAT 97
[2024-06-03] MEDS: LIDOCAINE HCL 1% PF INJ 5 ML VIAL XX (09:08)
[2024-06-03] MEDS: BUPivacaine HCL 0.5% 10 ML AMP INFILTRATE (09:10)
[2024-06-03] MEDS: BETAMETHASONE SODIUM PHOSPHATE PF INJ 6 MG/ML VIAL INFILTRATE (09:10)
[2024-06-03 09:14] VITALS: BP 122/78; PULSE 62; RESP 18; O2SAT 99
== END 2024-06-03 09:30 | disposition home or self-care (01) ==
PROVIDERS: PCP Internal Medicine; Visit Provider Anesthesiology Pain Medicine
PROC: (CPT G0260; principal; 2024-06-03 09:30)
DX: M46.1 Sacroiliitis, not elsewhere classified (principal); M54.59 Other low back pain
CPT/HCPCS: G0260; 27096; 99199

== ENCOUNTER 2024-06-13 14:18 | Outpatient (CLI) | payer MEDICARE, SELFPAY ==
[2024-06-13 15:03] LABS: Alanine Aminotransferase 23 U/L (6-50); Albumin Level 4.6 g/dL (3.5-5.1); Alkaline Phosphatase 53 U/L (38-126); Anion Gap 6 mmol/L (4-12); Aspartate Amino Transferase 33 U/L (17-59); Bilirubin,Total 2.1 mg/dL (0.2-1.3); Blood Urea Nitrogen 20 mg/dL (9-20); Carbon Dioxide 26 mmol/L (22-30); Chloride 103 mmol/L (98-107); Estimated Glomerular Filt Rate > 60; Glucose 194 mg/dL (65-110); Potassium 4.3 mmol/L (3.4-5.0); Sodium 135 mmol/L (137-145)
== END 2024-06-13 14:19 | disposition home or self-care (01) ==
LOC: ANHLAB 14:20
PROVIDERS: PCP Internal Medicine; Visit Provider Internal Medicine
DX: E87.1 Hypo-osmolality and hyponatremia (principal)
CPT/HCPCS: 36415; 80053

== ENCOUNTER 2024-08-14 12:50 | Outpatient (CLI) | payer MEDICARE, SELFPAY ==
--- NOTE | 2024-08-14 13:00 | ECG_ITS ---
Test Date: 2024-08-14 13:11:01 Measurements Intervals [place] Rate: 81 P: 0 AL: 0 QRS: -35 QRSD: 120 T: 112 QT: 391 QTc: 455 Interpretive Statements ATRIAL FLUTTER/TACHYCARDIA WITH VARIABLE BLOCK INTRAVENTRICULAR CONDUCTION DELAY LEFT VENTRICULAR HYPERTROPHY WITH ST-T CHANGE CANNOT R/O SEPTAL INFARCT, AGE INDETERMINATE BASELINE ARTIFACT- I, II, AVR, AVL, AVF, V1-V2 ABNORMAL ECG No previous ECG available for comparison Electronically Signed On 08-14-2024 13:58:42 STATE INSPECTOR by Giovany Kennedy D.O.
--- OUTSIDE RECORDS SUMMARY | 2024-08-14 13:04 | XMS_ITS | Clinical Summary ---
Author Organization [facility] Address [address] [place] [address] Care Team Providers Care Cosmetologist Name Role Phone Suman Dexter Esthela PATEL Primary Care Provider [phone] Source Comments [facility],non-[facility] Affiliates and Associated Physician Practices is amultiple site organization consisting of ambulatory clinics and hospital sitesin [place], [place], [place] and [place]. This disclosure is being madepursuant to the Care Everywhere program and may not contain all information available regarding this patient. Last updated 18.[facility] Social History Tobacco Use Types Packs/Day Years Used Date Smoking Tobacco: Never Assessed Sex and Gender Information Value Date Recorded Sex Assigned at Not on file Gender Identity Not on file Sexual Orientation Not on file Plan of Treatment Health Maintenance Due Date Last Done Comments MEDICARE AWV 12 MONTHS 1938 DTAP/TDAP/TD VACCINES (1 - Tdap) 1957 PNEUMOCOCCAL VACCINE 50+ (1 of 1 - PCV) 1988 ZOSTER VACCINE (1 of 2) 1988 Respiratory Syncytial Virus (RSV) Vaccine Pt: or over 60 yrs (1 - 1-dose 75+ series) 2013 COVID-19 VACCINE ( - 2023-2 5 season) 2024 INFLUENZA VACCINE (#1) 2024 DEPRESSION SCREENING 07/09/2024 HEPATITIS B VACCINE Aged Out No longe r eligible based on patient's age to complete this topic HIB VACCINE Aged Out No longer eligi ble based on patient's age to complete this topic HPV VACCINE Aged Out No longer eligi ble based on patient's age to complete this topic MENINGOCOCCAL (Group B) VACCINE Aged Out No longer eligible based on patient's age to complete this topic MENINGOCOCCAL VACCINE Aged Out No mariya west eligible based on patient's age to complete this topic Care Teams Cosmetologist Relationship Specialty Start Date End Date Suman Dexter DO [address] [place], [place] [id number] PCP - General 01/18/18
--- OUTSIDE RECORDS SUMMARY | 2024-08-14 13:04 | XMS_ITS | Referral Summary ---
Author Organization [facility] [address] Address [address] [place] [address] Care Team Providers Care 911 Operator Name Role Phone Sohail Rutherford DO Primary Care Provider [phone] Encounters Date Type Department Care Team Description 07/17/2024 Telephone [facility] Cardiology [address] [place] [address] Melecio Acosta MD from Last 3 Months Allergies Active Allergy Reactions Criticality Noted Date Comments Mirabegron Other (See comments) Low 03/01/2020 Hypertension Penicillins Unknown Low Tetanus Immune Globulin Hives Medium 07/12/2023 Sertraline Other (See comments) Low 07/12/2023 hyponatremia Medications polyethylene glycol (MIRALAX) 17 gram packetIndicatio ns:constipation Take 1 packet (17 g total) by mouth daily as needed for constipation Active finasteride (PROSCAR) 5 mg tablet Take 1 tablet (5 mg total) by mouth daily 3 9 Active irbesartan (AVAPRO) 300 mg tablet Take 1 tablet (300 mg total) by mouth nightly Active simvastatin (ZOCOR) 20 mg tablet Take 1 tablet (20 mg total) by mouth nightly Active acetaminophen ER (TYLENOL) 650 mg 8 hr tabletIndicatio ns:Pain Take 2 tablets (1,300 mg total) by mouth 2 (two) times a day Active cholecalciferol (VITAMIN D-3) 2000 unit capsuleIndicati ons:Vitamin D Deficiency Take 1 capsule (2,000 Units total) by mouth daily Active docusate sodium (COLACE) 100 mg capsuleIndicati ons:constipatio n Take 1 capsule (100 mg total) by mouth daily as needed for constipation Active pantoprazole DR (PROTONIX) 40 mg EC tablet Take 1 tablet (40 mg total) by mouth 2 (two) times a day Active tamsulosin (FLOMAX) 0.4 mg extended release capsule 2 Active trazodone HCl (TRAZODONE ORAL) 25 mg 3 Active levothyroxine (SYNTHROID) 88 mcg tablet Take 1 tablet (88 mcg total) by mouth planer setter before breakfast 3 Active lidocaine (ASPERCREME) 4 % adhesive patch,medicated Place 1 patch on the skin daily 4 Active metoprolol XL (TOPROL-XL) 100 mg 24 hr tablet Take 1 tablet (100 mg total) by mouth daily 4 Active Active Problems Problem Noted Date Diagnosed Date Presence of Watchman left atrial appendage closu re device 05/08/2024 Rectus sheath hematoma, initial encounter 2023 Permanent atrial fibrillation (CMS/HCC) 03/03/20 19 Assessment & Plan (09/24/2020 6:12 PM CDT): Heart rate is controlled with medication. He has had a Watchman procedure, so is not on anticoagulation but takes aspirin. Assessment & Plan (03/01/2020 1:56 PM CDT): Rate controlled. He is not anticoagulated because of a history of intracranial bleed. He is status post Watchman device. Assessment & Plan (12/22/2019 2:37 PM CDT): Rate controlled. He is not anticoagulated. He is status post Watchman device. Assessment & Plan (03/03/2019 6:52 PM CDT): Diagnosed on 02/21/2019, but minimally symptomatic and likely preceding that. He has a history of intracranial hemorrhage 15 years ago while hypertensive, and did tolerate six weeks of anticoagulation following knee surgery in 2007. He is heterozygous for Factor five Leiden mutation. He has a chads Vasc score of six counting his prior CVA, and four if that is disregarded because it was hemorrhagic rather than thrombotic. We discussed the risks and benefits of anticoagulation, and in light of his high chads Vasc score and the fact that his prior intracranial bleed was hypertension related, I have recommended systemic anticoagulation with Eliquis, stopping aspirin, and moving toward a Watchman evaluation to avoid long-term anticoagulation. He is well informed already about the Watchman device. I reviewed everything again, including the need for up to four TEEs. He is anxious to schedule the 1st NAVYA is soon as possible. I told him they would get a call from Leora Walters NP to facilitate this. His heart rate is already controlled on beta-valentine which he was on for hypertension, and I am not convinced at this point that he is very symptomatic from his atrial fibrillation. Hemodynamically, he is tolerating it well. With his biatrial enlargement, I am not sure that he would maintain sinus rhythm without anti rhythmic therapy, and the risks of that may exceed the benefit. Nocturnal cough 10/16/2018 Exertional dyspnea 07/25/2018 Assessment & Plan (03/01/2020 1:57 PM CDT): No evidence of congestive heart failure and heart rate and blood pressure are well controlled. I am not inclined to tweak things again as that did not work out well last time. I did encourage him to exercise to prevent deconditioning. Assessment & Plan (12/22/2019 2:37 PM CDT): Lungs sound lungs sound clear. Heart rate is well controlled, and echocardiogram shows normal LV systolic function with no significant valvular disease. Blood pressure is well controlled. This may represent a side effect of metoprolol, which is being used for heart rate control and blood pressure control. Will decrease metoprolol, stop amlodipine, and begin diltiazem, hoping to achieve normal blood pressure and normal heart rate to see if decreasing metoprolol helps exertional dyspnea. I will see him back in two months to reassess. Snoring 07/25/2018 Tiredness 07/25/2018 Hypersomnolence 07/25/2018 Fatigue 08/03/2017 Hypertension associated with diabetes 08/03/2017 Knee pain 04/27/2017 Hyperlipidemia associated with type 2 diabetes julius witt 01/26/2017 Assessment & Plan (09/24/2020 6:14 PM CDT): He is on low intensity statin therapy. LDL today is 104 with HDL 58. I believe this is satisfactory control. He is not known to have coronary artery disease. Mixed hyperlipidemia 01/26/2017 Assessment & Plan (12/22/2019 2:38 PM CDT): On chronic lipid lowering therapy with good control. No changes made. History of CVA (cerebrovascular accident) 2016 Type 2 diabetes mellitus 05/05/2014 Overview (10/13/2016): Type 2 diabetes mellitus Resolved Problems Problem Noted Date Diagnosed Date Resolved Date Essential hypertension 01/26/201705/08 Assessment & Plan (09/24/2020 6:13 PM CDT): Blood pressure is generally well controlled even with the recent reduction and amlodipine. Assessment & Plan (03/01/2020 1:56 PM CDT): Blood pressure is adequately controlled on current regimen. No change was made. Assessment & Plan (12/22/2019 2:37 PM CDT): Blood pressure is adequately controlled on current regimen. No change was made. Assessment & Plan (03/03/2019 6:53 PM CDT): Blood pressure is adequately controlled on current regimen. No change was made. Immunizations Name Administration Dates Next Due Influenza, Trivalent, High D ose, Split, Preservative Free, Intramuscular 04/23/2019,2018 Td, adsorbed 12/23/2001 Social History Tobacco Use Types Packs/Day Years Used Date Smoking Tobacco: Former Smokeless Tobacco: Never Tobacco Cessation:Counseling Given: Not Answered Comments:Smoking History Packs/day: 1 Cigars Alcohol Use Standard Drinks/Week Comments Yes 0 (1 standard drink = 0.6 oz pur e alcohol) Personal Safety Answer Date Recorded Have you ever been in or are you currently in a harmful physical or emotional relationship or is someone making you feel afraid or unsafe? Denies 07/12/2023 Sex and Gender Information Value Date Recorded Sex Assigned at Not on file Legal Sex Male 1:53 AM POWER TOOL REPAIR TECHNICIAN Gender Identity Not on file Sexual Orientation Not on file Last Filed Vital Signs Vital Sign Reading Time Taken Comments Blood Pressure 120/70 05/08/2024 11:17 AM CDT Pulse 62 05/08/2024 11:17 AM CDT Temperature 36.9 C (98.4 F) 07/16/2023 7:24 AM POWER TOOL REPAIR TECHNICIAN Respiratory Rate 16 07/16/2023 7:24 AM POWER TOOL REPAIR TECHNICIAN Oxygen Saturation 97% 05/08/2024 11:17 AM CDT Inhaled Oxygen Concentration - - Weight 77.1 kg (170 lb) 05/08/2024 11:17 AM CDT Height 170.2 cm (5' 7 ) 05/08/2024 11:17 AM CDT Body Mass Index 26.63 05/08/2024 11:17 AM CDT Plan of Treatment Not on file Medical Devices Implanted Type Area Tube Blower Device Identifier Shelf Expiration Date Model / Serial / Lot [employer]porati [id number] Device Closure Watchman Pebax Nitinol [place] Iridium Pet 30mm L75cm Od12 Fr [id number] Fr 3 Way Stopcock Y Adapter Self Expand Proximal Face Sterile Disposable Left Atrial Appendage - [id number] Implanted:Qty: 1 on 04/22/2019 by Jorge Alberto Desir MD at [facility] [employer] 01/05/2022 [id number] / / [id number] Procedures Procedure Name Priority Date/Time Associated Diagnosis Comments EGFR Routine 07/16/2023 5:20 AM POWER TOOL REPAIR TECHNICIAN POCT LIPID PANEL Routine 09/24/2020 11:4 0 AM CDT Hyperlipidemia associated with type 2 diabetes mellitus (CMS/HCC) from Last 3 Months or Most Recently Relevant to Health Maintenance Results * eGFR (07/16/2023 5:20 AM POWER TOOL REPAIR TECHNICIAN) eGFR 84 >=60 mL/min/1. 73 m2 [facility] Comment: Interpretive Data Reference Interval Normal >/= 90 mL/min/1.73m2 Mildly decreased* 60 - 89 mL/min/1.73m2 Mildly to moderately decreased 45 - 59 mL/min/1.73m2 Moderately to severely decreased 30 - 44 mL/min/1.73m2 Severely decreased 15 - 29 mL/min/1.73m2 Kidney Failure < 15 mL/min/1.73m2 *Relative to young adult level Estimated glomerular filtration rate is determined by the 2020 CKD-EPI equation recommended by the National Kidney Foundation (A Unifying Approach to GFR Estimation: Recommendations of the NKF-ASK Task Force on Reassessing the Inclusion of Race in Diagnosing Kidney Disease, JASN 2020). The CKD-EPI equation should not be used for patients with unstable renal function and has not been validated in children and those over 70. Current interpretive data was last reviewed 2021. Blood 07/16/2023 5:20 AM POWER TOOL REPAIR TECHNICIAN 07/16/2023 8:04 AM POWER TOOL REPAIR TECHNICIAN us Jimbo Burdick MD LAB BLOOD ORDERABLES Brittany fung Result [facility] [place] [address] * POCT lipid panel (09/24/2020 11:40 AM CDT) Cholesterol, POC 179 mg/dL HDL, POC 58 mg/dL Triglycerides, POC 88 mg/dL LDL Cholesterol POC 104 mg/dL Chol/HDL Ratio, POC 3.1 Non-HDL Cholesterol, POC 121 mg/dL Cholesterol Total, POC 179 mg/dL Capillary blood 09/24/2020 1 1:40 AM CDT us Nohemi Curtis MD POINT OF CARE TEST ORDERABL ES Final Result from Last 3 Months or Most Recently Relevant to Health Maintenance Insurance [facility] MEDICARE [facility] MEDICARE [facility]ICARE [facility] Advance Directives For more information, please contact: [phone] * Full Code (Latest Code Status on File) Date Activated Date Inactivated Comments 07/12/2023 7:16 PM 07/16/2023 7:26 PM * Full Code Date Activated Date Inactivated Comments 04/22/2019 10:34 PM 04/23/2019 5:51 PM Care Teams 911 Operator Relationship Specialty Start Date End Date Sohail Rutherford DO [address] [address] PCP - General Internal Medicine 05/08/24
--- OUTSIDE RECORDS SUMMARY | 2024-08-14 13:04 | XMS_ITS | Encounter Summary ---
Author Organization [facility] Address [address] [place] [address] Care Team Providers Care Ur Coordinator Name Role Phone Suman Dexter Primary Care Provider [phone] Encounter Details Date Type Department Care Team (Late st Contact Info) Description 09/20/2018 Lab Requisition [facility] Care DermPath Lab [address] [facility] [place] [id number] Doug Bruno MD [address] [place] [address] Social History Tobacco Use Types Packs/Day Years Used Date Smoking Tobacco: Never Assessed Sex and Gender Information Value Date Recorded Sex Assigned at Not on file Gender Identity Not on file Sexual Orientation Not on file documented as of this encounter Plan of Treatment Not on file documented as of this encounter Procedures Procedure Name Priority Date/Time Associated Diagnosis Comments DERMATOPATHOLOGY Routine 09/19/2018 12:0 0 AM CDT documented in this encounter Results * DERMATOPATHOLOGY (09/19/2018 12:00 AM CDT) Case Report Dermatopathology Report Case: [id number] Authorizing Provider: Doug Bruno MD Collected: 09/19/2018 12:00 AM Pathologist: Gisell Gagnon MD Received: 09/20/2018 11:33 AM Specimen: Skin, dorsal left hand 10:24 AM [facility] DERMATOPATHOLOGY LABORATORY Final Diagnosis Specimen A. SKIN, dorsal left hand: SEBORRHEIC KERATOSIS, RETICULATED (ADENOID) TYPE (L82.1) 10:24 AM [facility] DERMATOPATHOLOGY LABORATORY Clinical History R/O lentigo, other. 10:24 AM T DERMATOPATHOLOGY LABORATORY Gross Description Specimen A: Received is one formalin filled container labeled with the patient's name and designated dorsal left hand. The specimen consists of a shave biopsy measuring [id number] mm. Jar 0. 10:24 AM [facility] DERMATOPATHOLOGY LABORATORY Microscopic Description Specimen A. SKIN, dorsal left hand: There is reticulated hyperplasia of the epidermis with overlying delicate hyperorthokeratosis . Hyperpigmentation is present in the basaloid cells. 10:24 AM [facility] DERMATOPATHOLOGY LABORATORY Disclaimer An external and internal positive and negative controls are appropriate for the histochemical, immunohistochemical and immunofluorescence stain(s) in this case (if any), except where stated explicitly. The performance characteristics of the stain(s) cited in this report were developed and its performance characteristic determined by the Dermatopathology Laboratory at [facility], directed by Dr. Dagoberto Nj. These tests need not be, and therefore are not, approved by the [place] Food and Drug Administration. The tests are used for clinical purposes. Billing Codes Specimen Charges Stain Charges 89984 1 10:24 AM T DERMATOPATHOLOGY LABORATORY Embedded Images 10:24 AM T DERMATOPATHOLOGY LABORATORY Pathology/Cytolog y TISSUE SPECIMEN FROM SKIN / Unknown 09/19/2018 09/20/2018 11:33 AM CDT Doug Bruno MD LAB - PATHOLOGY/CYTO LOGY ORDERABLES DERMATOPATHOLOGY LABORATORY [facility] - Department of Dermatology [address] [place] [address], 5th Floor Lab [address] [phone] documented in this encounter Visit Diagnoses Not on filedocumented in this encounter Care Teams Ur Coordinator Relationship Specialty Start Date End Date Suman Dexter DO [address] [facility] [address] [facility] [address] [place] [address] PCP - General 01/18/18 documented as of this encounter
--- OUTSIDE RECORDS SUMMARY | 2024-08-14 13:04 | XMS_ITS | Encounter Summary ---
Author Organization [facility] Address [address] [facility] [place] [address] Care Team Providers Care Cutch Cleaner Name Role Phone Suman Dexter Primary Care Provider [phone] Encounter Details Date Type Department Care Team (Late st Contact Info) Description 01/18/2018 Lab Requisition [facility] Care DermPath Lab [address] [facility] [place] [id number] Doug Bruno MD [address] [place] [address] Social History Tobacco Use Types [...] Priority Date/Time Associated Diagnosis Comments DERMATOPATHOLOGY Routine 01/17/2018 12:0 0 AM CDT documented in this encounter Results * DERMATOPATHOLOGY (01/17/2018 12:00 AM CDT) Case Report Dermatopathology Report Case: [id number] Authorizing Provider: Doug Bruno MD Collected: 01/17/2018 12:00 AM Pathologist: Jeanine Luna MD Received: 01/18/2018 12:56 PM Specimen: Skin, left cheek below left eye medially 12:28 PM CDT DERMATOPATHOLOGY LABORATORY Final Diagnosis Specimen A. SKIN, left cheek below left eye medially: SEBORRHEIC KERATOSIS (L82.1) 12:28 PM CDT DERMATOPATHOLOGY LABORATORY Clinical History R/O BCC, ISK. 12:28 PM CDT DERMATOPATHOLOGY LABORATORY Gross Description Specimen A: Received is one formalin filled container labeled with the patient's name and designated left cheek below left eye medially. The specimen consists of a shave biopsy measuring [id number]. Jar 0. 12:28 PM CDT DERMATOPATHOLOGY LABORATORY Microscopic Description Specimen A. SKIN, left cheek below left eye medially: Sections show an acanthotic lesion composed of relatively uniform keratinocytes. There is hyperkeratosis and pseudo horn cysts formation. 12:28 PM T DERMATOPATHOLOGY LABORATORY Disclaimer An external and internal positive and negative controls are appropriate for the histochemical, immunohistochemical and immunofluorescence stain(s) in this case (if any), except where stated explicitly. The performance characteristics of the stain(s) cited in this report were developed and its performance characteristic determined by the Dermatopathology Laboratory at [facility]. These tests need not be, and therefore are not, approved by the [place] Food and Drug Administration. The tests are used for clinical purposes. Billing Codes Specimen Charges Stain Charges 19752 1 12:28 PM CDT DERMATOPATHOLOGY LABORATORY Embedded Images 12:28 PM CDT DERMATOPATHOLOGY LABORATORY Pathology/Cytolog y TISSUE SPECIMEN FROM SKIN / Unknown 01/17/2018 01/18/2018 12:56 PM CDT Doug Bruno MD LAB - PATHOLOGY/CYTO LOGY ORDERABLES DERMATOPATHOLOGY LABORATORY [facility] - Department of Dermatology [address] [facility], 5th Floor Lab [address] [phone] documented in this encounter Visit Diagnoses Not on filedocumented in this encounter Care Teams Cutch Cleaner Relationship Specialty Start Date End Date Suman Dexter DO [address] [facility] [address] [facility] [address] [place] [address] PCP - General 01/18/18 documented as of this encounter
--- OUTSIDE RECORDS SUMMARY | 2024-08-14 13:04 | XMS_ITS | Encounter Summary ---
Author Organization [facility] Healthcare Address [address] [place] [address] Care Team Providers Care Supervisor Refining Name Role Phone Sohail Rutherford Primary Care Provider [phone] Encounter Details Date Type Department Care Team (Late st Contact Info) Description 07/17/2024 Telephone [facility] Medical Group Cardiology [address] [place] [address] Melecio Acosta MD [address] [address] Social History Tobacco Use Types Packs/Day Years Used Date Smoking Tobacco: Former Smokeless Tobacco: Never Comments:Smoking History Pac ks/day: 1 Cigars Alcohol Use Standard Drinks/Week Comments [...] on file Legal Sex Male 1:53 AM SPECIAL EDUCATION INCLUSION TEACHER Gender Identity Not on file Sexual Orientation Not on file documented as of this encounter Miscellaneous Notes * Telephone Encounter - Oscar Alcazar RN - 07/17/2024 12:06 PM SPECIAL EDUCATION INCLUSION TEACHER Spoke with pt spouse. Pt spouse wanted to know if it was safe for pt to undergo upcoming procedure from our standpoint. Reviewed signed cardiac clearance from RP with her. Pt spouse verbalizes understanding. IAL EDUCATION INCLUSION TEACHER * Telephone Encounter - Carol Ann Pitts - 07/17/2024 11:57 AM CST Pt spouse states patient will have an Intercept on 08/[address] Zion Ho. Wants to know if it is safe for pt to go under general anaesthetic. Please advise, thank you. Contact: IAL EDUCATION INCLUSION TEACHER documented in this encounter Plan of Treatment Not on file documented as of this encounter Visit Diagnoses Not on filedocumented in this encounter Care Teams Supervisor Refining Relationship Specialty Start Date End Date Sohail Rutherford DO [address] [facility] [address] [place] [id number] PCP - General Internal Medicine 05/08/24 documented as of this encounter
--- OUTSIDE RECORDS SUMMARY | 2024-08-14 13:04 | XMS_ITS | Patient Health Summary ---
Author Organization [facility] Address [address] [facility] [place] [place] [address] Care Team Providers Care Paraprofessional Education Assistant Name Role Phone Suman Dexter Primary Care Provider [phone] Note from [facility],non-owned Affiliates and Associated Physician Practices is amultiple site organization consisting of ambulatory clinics and hospital sitesin [place], [place], [place] and [place]. This disclosure is being madepursuant to the Care Everywhere program and may not contain all information available regarding this patient. Last updated 18.[facility] Social History Tobacco Use Types Packs/Day Years Used Date Smoking Tobacco: Never Assessed Sex and Gender Information Value Date Recorded Sex Assigned at Not on file Gender Identity Not on file Sexual Orientation Not on file Procedures * DERMATOPATHOLOGY(Performed 09/19/2018) * DERMATOPATHOLOGY(Performed 01/17/2018) * DERMATOPATHOLOGY(Performed 05/08/2017) * DERMATOPATHOLOGY(Performed 03/15/2016) * DERMATOPATHOLOGY(Performed 09/24/2013) Results * DERMATOPATHOLOGY (09/19/2018 12:00 AM CDT) Only the most recent of5 resultswithin the time period is included. Case Report Dermatopathology Report Case: [id number] Authorizing Provider: Doug Bruno MD Collected: 09/19/2018 12:00 AM Pathologist: Gisell Gagnon MD Received: 09/20/2018 11:33 AM Specimen: Skin, dorsal left hand 9 10:24 AM T DERMATOPATHOLOGY LABORATORY Final Diagnosis Specimen A. SKIN, dorsal left hand: SEBORRHEIC KERATOSIS, RETICULATED (ADENOID) TYPE (L82.1) 9 10:24 AM [facility] DERMATOPATHOLOGY LABORATORY Clinical History R/O lentigo, other. 9 10:24 AM T DERMATOPATHOLOGY LABORATORY Gross Description Specimen A: Received is one formalin filled container labeled with the patient's name and designated dorsal left hand. The specimen consists of a shave biopsy measuring [id number] mm. Jar 0. 10:24 AM [facility] DERMATOPATHOLOGY LABORATORY Microscopic Description Specimen A. SKIN, dorsal left hand: There is reticulated hyperplasia of the epidermis with overlying delicate hyperorthokeratosis . Hyperpigmentation is present in the basaloid cells. 10:24 AM [facility] DERMATOPATHOLOGY LABORATORY Disclaimer An external and internal positive and negative controls are appropriate for the histochemical, immunohistochemical and immunofluorescence stain(s) in this case (if any), except where stated explicitly. The performance characteristics of the stain(s) cited in this report were developed and its performance characteristic determined by the Dermatopathology Laboratory at [facility], directed by Dr. Dagoberto Nj. These tests need not be, and therefore are not, approved by the [place] Food and Drug Administration. The tests are used for clinical purposes. Billing Codes Specimen Charges Stain Charges 35697 1 10:24 AM T DERMATOPATHOLOGY LABORATORY Embedded Images 10:24 AM T DERMATOPATHOLOGY LABORATORY Pathology/Cytolog y TISSUE SPECIMEN FROM SKIN / Unknown 09/19/2018 09/20/2018 11:33 AM CDT Doug Bruno MD LAB - PATHOLOGY/CYTO LOGY ORDERABLES DERMATOPATHOLOGY LABORATORY [facility] - Department of Dermatology [address] [place] [address], 5th Floor Lab [address] [phone] Care Teams Paraprofessional Education Assistant Relationship Specialty Start Date End Date uSman Dexter DO [address] [facility] [address] [facility] [address] [place] [address] PCP - General 01/18/18
--- OUTSIDE RECORDS SUMMARY | 2024-08-14 13:04 | XMS_ITS | Clinical Summary ---
Author Organization [facility] Address Formerly [facility] [place] [address] Care Team Providers Care Recruitment And Outreach Assistant Name Role Phone Suman Dexter MD Primary Care Provider [phone] Social History Tobacco Use Types Packs/Day Years Used Date Smoking Tobacco: Never Assessed Sex and Gender Information Value Date Recorded Sex Assigned at Not on file Legal Sex Male 8:33 PM CDT Gender Identity Not on file Sexual Orientation Not on file Plan of Treatment Health Maintenance Due Date Last Done Comments PHQ-2 (Physician [place]) 1950 Zoster Vaccines (1 of 2) 1988 DTaP, Tdap and Td Vaccines ( 1 - Tdap) 12/24/2001 12/23/2001 Annual Medicare Wellness Visit 2003 Pneumococcal Vaccine: 65+ Years (1 of 1 - PCV) 2003 RSV Immunization or 60+ Years (1 - 1-dose 75+ series) 2013 COVID-19 Vaccine ( - 2023-2 5 season) 2024 Influenza Adult (#1) 2024 04/23/2019, 2018 PHQ-2 (Physician [facility]) 07/09/2024 Meningococcal B Vaccine Aged Out No l onger eligible based on patient's age to complete this topic Meningococcal Vaccine Aged Out No mariya west eligible based on patient's age to complete this topic RSV Immunizations Under 20 Months Aged Out No longer eligible b ased on patient's age to complete this topic Medical Devices Implanted Type Area Mineralogy Teacher Device Identifier Shelf Expiration Date Model / Serial / Lot Watchman Insurance MEDICARE [facility] Care Teams Recruitment And Outreach Assistant Relationship Specialty Start Date End Date Suman Dexter MD [address] [place] [address] PCP - General INTERNAL MEDICINE 01/29/23
--- OUTSIDE RECORDS SUMMARY | 2024-08-14 13:04 | XMS_ITS | Clinical Summary ---
Author Organization [facility] [address] Address [address] [place] [address] Care Team Providers Care Ergonomist Name Role Phone Sohail Rutherford Primary Care Provider [phone] Allergies Active Allergy Reactions Criticality Noted Date [...] 1 tablet (88 mcg total) by mouth applied psychology professor before breakfast 3 Active lidocaine (ASPERCREME) 4 [...] on current regimen. No change was made. Encounters Date Type Department Care Team Description 07/17/2024 Telephone [facility] Cardiology [address] [place] [address] Melecio Acosta MD from Last 3 Months Immunizations Name Administration Dates Next Due Influenza, Trivalent, High D ose, Split, Preservative Free, Intramuscular 04/23/2019,2018 Td, adsorbed 12/23/2001 Surgical History Surgery Date Site/Laterality Comments OTHER SURGICAL HISTORY R. TKR, thyroid tumor removal OTHER SURGICAL HISTORY 04/22/2019 Watchman device placed Medical History Medical History Date Comments Hx Other Medical OA, hypothyroid , HTN, HLD, DM2, diverticulitis Cancer (CMS/HCC) (HCC) Hypertension Hyperlipidemia Stroke (HCC) A-fib (CMS/HCC) (HCC) Family History Medical History Relation Name Comments Heart attack Father Unexplained Mother Relation Name Status Comments Father (Age 77) Mother (Age 102) Social History Tobacco Use Types Packs/Day Years [...] on file Legal Sex Male 1:53 AM PROTOTYPE MACHINIST Gender Identity Not on file Sexual Orientation Not on file Obstetrics History Last Filed Vital Signs Vital Sign Reading Time Taken Comments Blood Pressure 120/70 05/08/2024 11:17 AM CDT Pulse 62 05/08/2024 11:17 AM CDT Temperature 36.9 C (98.4 F) 07/16/2023 7:24 AM PROTOTYPE MACHINIST Respiratory Rate 16 07/16/2023 7:24 AM PROTOTYPE MACHINIST Oxygen Saturation 97% 05/08/2024 11:17 AM CDT Inhaled Oxygen Concentration - - Weight 77.1 kg (170 lb) 05/08/2024 11:17 AM CDT Height 170.2 cm (5' 7 ) 05/08/2024 11:17 AM CDT Body Mass Index 26.63 05/08/2024 11:17 AM CDT Plan of Treatment Health Maintenance Due Date Last Done Comments Albumin Creatinine Ratio, Urine 1938 Depression Screening 1938 Hemoglobin A1C 1938 Dilated Eye Exam 1938 Foot Exam 1938 Pneumococcal vaccine 65+ (1 of 2 - PCV) 1944 Hepatitis B Screening 1956 Zoster Vaccine (1 of 2) 1988 DTaP/Tdap/Td Vaccine (1 - Tdap) 12/24/2001 06/17/200 2 Well Visit 65+ 2003 Lipid Panel 09/24/2021 09/24/2020, 12/07, 10/30/2018, Additional history exists Influenza Vaccine (#1) 2024 04/23/2019, 2017 Fall Risk Assessment 07/16/2024 07/16/2023 eGFR 07/16/2024 07/16/2023, 01/2024, 07/14/2023, Additional history exists Medical Devices Implanted Type Area Fuel Assembler Device Identifier Shelf Expiration Date Model / Serial / Lot mangofizz jobs [id number] Device Closure Watchman Pebax Nitinol Trafford Iridium Pet 30mm L75cm Od12 Fr [id number] Fr [address] Way Stopcock Y Adapter Self Expand Proximal Face Sterile Disposable Left Atrial Appendage - [id number] Implanted:Qty: 1 on 04/22/2019 by Jorge Alberto Desir MD at [facility] mangofizz jobs 01/05/2022 [id number] / / [id number] Procedures Procedure Name Priority Date/Time Associated Diagnosis Comments EGFR Routine 07/16/2023 5:20 AM PROTOTYPE MACHINIST POCT LIPID PANEL Routine 09/24/2020 11:4 0 AM CDT Hyperlipidemia associated with type 2 diabetes mellitus ([facility]/HCC) from Last 3 Months or Most Recently Relevant to Health Maintenance Results * eGFR (07/16/2023 5:20 AM PROTOTYPE MACHINIST) eGFR 84 >=60 mL/min/1. 73 m2 [facility] Comment: Interpretive Data Reference Interval Normal >/= [...] last reviewed 2021. Blood 07/16/2023 5:20 AM PROTOTYPE MACHINIST 07/16/2023 8:04 AM PROTOTYPE MACHINIST us Jimbo Burdick MD LAB BLOOD ORDERABLES Brittany fung Result [facility] Department [place] [address] * POCT lipid panel (09/24/2020 11:40 AM [...] Recently Relevant to Health Maintenance Insurance MEDICARE [facility] MEDICARE [facility] MEDICARE MEDICARE [facility] Advance Directives For more information, please contact: [phone] * Full Code (Latest Code Status on File) Date Activated Date Inactivated Comments 07/12/2023 7:16 PM 07/16/2023 7:26 PM * Full Code Date Activated Date Inactivated Comments 04/22/2019 10:34 PM 04/23/2019 5:51 PM Care Teams Ergonomist Relationship Specialty Start Date End Date Sohail Rutherford DO [address] [facility] [address] [place] [address] PCP - General Internal Medicine 05/08/24
--- OUTSIDE RECORDS SUMMARY | 2024-08-14 13:04 | XMS_ITS | Referral Summary ---
Author Organization [facility] Address [address] [facility] [place] [address] Care Team Providers Care Devulcanizer Loader Name Role Phone Suman Dexter DO Primary Care Provider [phone] Source Comments [facility],non-owned Affiliates and Associated Physician Practices is amultiple site organization consisting of ambulatory clinics and hospital sitesin [place], [place], [place] and [place]. This disclosure is being madepursuant to the Care Everywhere program and may not contain all information available regarding this patient. Last updated 18.[facility] Social History Tobacco Use Types Packs/Day Years Used Date Smoking Tobacco: Never Assessed Sex and Gender Information Value Date Recorded Sex Assigned at Not on file Gender Identity Not on file Sexual Orientation Not on file Plan of Treatment Not on file Care Teams Devulcanizer Loader Relationship Specialty Start Date End Date Suman Dexter DO [address] [facility] [address] [place] [address] [facility] - General 01/18/18
--- OUTSIDE RECORDS SUMMARY | 2024-08-14 13:04 | XMS_ITS | Continuity of Care Document ---
Author Organization [facility] Address [address] [place] [address] [place] [address] Phone Care Team Providers Care Health Service Worker Name Role Phone Alex Cartwright Unavailable Unavailable Procedures Procedure Date Eye Exam, New Patient Advance Directives Directive Yes / No Effective Date File Name No Information Encounters Encounter Description Practice Location Reason(s) For Visit Diagnoses Date Provider Providers Copied on Encounter [facility], [address] [place] [address] [address], [place], [place], [id number], [place] tel:[phone] SEC [facility] No Information 8-[address] Alex. [address] [facility] [address], [place], [address], [place]. tel:[phone] Family History Family Member Type Diagnosis Age At Onset No Information Payers Payer name Insurance type Covered democrat ID Authoriza tion(s) [employer] Mdcr Adv CI [id number] Social History Type Description Quantity Date Captured Comments Sex Male Smoking Status No Information Chief Complaint And Reason For Visit No Information Reason For Referral Reason For Referral No Information History Of Present Illness Encounter Date Complaint History Of Prese nt Illness No Information Functional Status Date Functional Assessmen t No Information Instructions Date Instruction Additional Infor mation No Information Assessments Type Assessment Date No Information Patient Care Teams Name Effective Dates (start - stop) Status Members No Information
== END 2024-08-14 12:51 | disposition home or self-care (01) ==
LOC: ANHSURGERY 12:58
PROVIDERS: PCP Internal Medicine; Visit Provider Anesthesiology Pain Medicine
DX: I10 Essential (primary) hypertension (principal); Z01.818 Encounter for other preprocedural examination; I45.9 Conduction disorder, unspecified
CPT/HCPCS: 93005

== ENCOUNTER 2024-08-19 01:10 | Day surgery (SDC) | payer MEDICARE, SELFPAY ==
--- NOTE | 2024-08-11 13:24 | PC.NURSE ---
Report to the Outpatient Waiting Room, entrance under the green pavilion located off [facility], at time _7 am on date _08/19/24 . Planned Procedure Time: _9 am .? Time changes happen often and if your time is changed the preop area will call you the afternoon before. - You and your visitor will be asked to self-screen and do not enter if you have any COVID symptoms. Please call surgeon if you need to reschedule. - A mask is optional within the hospital at this time. NOTHING TO EAT OR DRINK AFTER MIDNIGHT PER DR BARFIELD Take only the following medications with a SIP of water on the morning of surgery: __AMLODIPINE,LEVOTHYROXINE,METOPROLOL DO NOT STOP ANY OF YOUR OTHER PRESCRIPTION MEDICATIONS PRIOR TO SURGERY EXCEPT THE FOLLOWING Medications to discontinue per physician ____ASPIRIN PER DR BARFIELD____(PT WILL CALL) Please no make-up, nail honduran, hairspray, perfume, deodorant, or body powder the day of surgery.? No jewelry (including any body piercings) or valuables the day of surgery, leave them at home.? Please take a shower or bath the night before, AND the morning of, surgery with an antibacterial soap.? Wear comfortable, loose fitting clothing.? Children are encouraged to wear pajamas. - Jewelry must be removed prior to entering the operating room.? Rings and piercings that are not removed may be cut off. - The hospital will not accept responsibility for valuables.? - Please leave all valuables, including medications, at home the day of surgery. If you are going home after surgery, a licensed tanker driver must drive you home.? - NO public transportation without another adult if you receive anesthesia. - We recommend that an adult stay with you for 24 hours following discharge. - We also recommend that you do not drive, make important decision, drink alcoholic beverages, or take any drugs that were not prescribed by your health care provider for at least 24 hours after your discharge time. . Hold all vitamins and supplements for 3 days per anesthesiologist.LAST DOSE 08/15/24 Follow any additional instructions given to you from your surgeon. Telephone instructions given to __PATIENT and asked if any additional questions and then verbalized understanding. Patient advised to call surgeon office or pre surgery nurse liaison [phone] if any additional questions.
[2024-08-11 13:43] VITALS: BMI 27.8
[2024-08-19] VITALS (9 sets, daily range): BP systolic 117–141; BP diastolic 66–91; PULSE 71–97; RESP 12–20; TEMP 36.7; O2SAT 96–99
--- NOTE | ~2024-08-19 | XR_ITS ---
INTRAOPERATIVE FLUOROSCOPY: CLINICAL HISTORY: 84 years old Male; INTRACEPT PROCEDURE AT L3-S1 AND L2 PROCEDURE COMMENTS: Limited intraoperative fluoroscopy of the lumbar spine was performed. CUMULATIVE DOSE: 252 mGy FLUOROSCOPY TIME: 575 seconds FINDINGS/IMPRESSION: Please refer to operative note for further details. Reviewed, dictated and finalized at location A. SCRIPTION COORDINATOR
--- OUTSIDE RECORDS SUMMARY | 2024-08-19 01:12 | XMS_ITS | Encounter Summary ---
Author Organization [facility] Address [address] [facility] [place] [address] Care Team Providers Care Turning Machine Operator Helper Name Role Phone Suman Dexter Primary Care Provider [phone] Encounter Details Date Type Department Care Team (Late st Contact Info) Description 01/18/2018 Lab Requisition [facility] Care DermPath Lab [address] [facility] [place] [id number] Doug Bruno MD [address] [place] [address] Social History Tobacco Use Types [...] AM CDT) Case Report Dermatopathology Report Case: [id number] Authorizing Provider: Doug Bruno MD Collected: 01/17/2018 [...] specimen consists of a shave biopsy measuring [id number]. Jar 0. 12:28 PM CDT DERMATOPATHOLOGY LABORATORY [...] characteristic determined by the Dermatopathology Laboratory at [facility]. These tests need not be, and therefore are not, approved by the [place] Food and Drug Administration. The tests are used for clinical purposes. Billing Codes Specimen Charges Stain Charges 51539 1 12:28 PM CDT DERMATOPATHOLOGY LABORATORY Embedded Images 12:28 PM CDT DERMATOPATHOLOGY LABORATORY Pathology/Cytolog y TISSUE SPECIMEN FROM SKIN / Unknown 01/17/2018 01/18/2018 12:56 PM CDT Doug Bruno MD LAB - PATHOLOGY/CYTO LOGY ORDERABLES DERMATOPATHOLOGY LABORATORY [facility] - Department of Dermatology [address] [facility], 5th Floor Lab [address] [phone] documented in this encounter Visit Diagnoses Not on filedocumented in this encounter Care Teams Turning Machine Operator Helper Relationship Specialty Start Date End Date Suman Dexter DO [address] [facility] [address] [facility] [address] [place] [address] PCP - General 01/18/18 documented as of this encounter
--- OUTSIDE RECORDS SUMMARY | 2024-08-19 01:13 | XMS_ITS | Encounter Summary ---
Author Organization [facility] Address [address] [facility] [place] [address] Care Team Providers Care Manager Of Community Relations Name Role Phone Suman Dexter Primary Care Provider [phone] Encounter Details Date Type Department Care Team (Late st Contact Info) Description 09/20/2018 Lab Requisition [facility] Care DermPath Lab [address] [facility] [place] [id number] Doug Bruno MD [address] [place] [address] Social History Tobacco Use Types [...] AM CDT) Case Report Dermatopathology Report Case: [id number] Authorizing Provider: Doug Bruno MD Collected: 09/19/2018 12:00 AM Pathologist: Gisell Gagnon MD Received: 09/20/2018 11:33 AM Specimen: Skin, dorsal left hand 10:24 AM [facility] DERMATOPATHOLOGY LABORATORY Final Diagnosis Specimen A. SKIN, dorsal left hand: SEBORRHEIC KERATOSIS, RETICULATED (ADENOID) TYPE (L82.1) 10:24 AM [facility] DERMATOPATHOLOGY LABORATORY Clinical History R/O lentigo, other. 10:24 AM T DERMATOPATHOLOGY LABORATORY Gross Description Specimen A: Received is one formalin filled container labeled with the patient's name and designated dorsal left hand. The specimen consists of a shave biopsy measuring 38j94n2 mm. Jar 0. 10:24 AM [facility] DERMATOPATHOLOGY LABORATORY Microscopic Description Specimen A. SKIN, dorsal left hand: There is reticulated hyperplasia of the epidermis with overlying delicate hyperorthokeratosis . Hyperpigmentation is present in the basaloid cells. 10:24 AM [facility] DERMATOPATHOLOGY LABORATORY Disclaimer An external and internal positive and negative controls are appropriate for the histochemical, immunohistochemical and immunofluorescence stain(s) in this case (if any), except where stated explicitly. The performance characteristics of the stain(s) cited in this report were developed and its performance characteristic determined by the Dermatopathology Laboratory at [facility], directed by Dr. Dagoberto Nj. These tests need not be, and therefore are not, approved by the [place] Food and Drug Administration. The tests are used for clinical purposes. Billing Codes Specimen Charges Stain Charges 28944 1 10:24 AM T DERMATOPATHOLOGY LABORATORY Embedded Images 10:24 AM T DERMATOPATHOLOGY LABORATORY Pathology/Cytolog y TISSUE SPECIMEN FROM SKIN / Unknown 09/19/2018 09/20/2018 11:33 AM CDT Doug Bruno MD LAB - PATHOLOGY/CYTO LOGY ORDERABLES DERMATOPATHOLOGY LABORATORY [facility] - Department of Dermatology [address] [place] [address], 5th Floor Lab [address] [phone] documented in this encounter Visit Diagnoses Not on filedocumented in this encounter Care Teams Manager Of Community Relations Relationship Specialty Start Date End Date Suman Dexter DO [address] [facility] [address] [facility] [address] [place] [address] PCP - General 01/18/18 documented as of this encounter
--- OUTSIDE RECORDS SUMMARY | 2024-08-19 01:13 | XMS_ITS | Data Portability ---
Author Organization [facility] [employer], [facility] Address [address] [address] Assessment No assessment recorded. Plan of Treatment Reminders Order Date Submit Date Provider Last Modified By Organization Details Last Modified Time Details Appointments None recorded. Lab None recorded. Referral None recorded. Procedures None recorded. Surgeries None recorded. Imaging US, lower extremity, nonvascular 2016 017 [email or web address] Not available 7 10:33:15 XR, knee - rm 10 2016 017 [email or web address] Not available 7 10:33:15 Medication Orders None recorded. Patient TargetsNo targets recorded. Patient Instructions Encounter Date Encounter Id Patient Instructions Last Modified By Organization Details Last Modified Time 04/06/2017 [id number] with regard to his right knee discussed at length. I do feel that he needs to have reevaluation by his surgeon. He is having some increased instability and pain with a replacement is nearing that anymore. We discussed this and that he will likely need a knee replacement on that side. For his left knee, After review of radiographic and examination findings, we discussed treatment options available. These included corticosteroid injection, viscous supplementation, bracing of the knee, observation, surgical referral, physical therapy, pain management, and/or stem cell treatment. The patient is definitely interested in non-surgical alternatives. If they choose to undergo stem cell biologic treatment, it is understood that it is considered investigational and off label use of the product by FDA, that it is not a covered benefit by insurance, and that there is no guarantee of symptom improvement. With the malalignment and instability, I am recommending a custom measured lateral compartment information operator brace. We measured the patient for this and will submit to insurance for coverage. If opting to undergo biologic treatment, an order was given for laboratory studies to be completed. We reviewed the stem cell treatment and depth. Information packet was given to and reviewed with the patient. All questions were answered related to the procedure, post procedure expectations, and cost associated with treatment. We also discussed that sometimes more than one biologic treatment is required to attain desired efficacy. They will call our office if they desire to schedule an appointment for treatment or review any of the other treatment options discussed. Patient will also RTC or call for any worsening, questions or concerns prn. [email or web address] Not available 04/06/2017 16:31:57 Reason for Referral None Reported. Problems No Known Problems Procedures Surgical History Date Name Laterality Status Provider Name and Address Organization Details Recorded Time 8 Knee Surgery completed Phuong JamieKaminario 04/06/2017 16:03:17 Imaging Results None recorded. Procedure Notes None recorded. Medical Equipment None Reported. Allergies No known drug allergies Medications Name Sig Start Date Stop Date Status Note LastModified by Organization Details LastModified Time Prescription - New active brace order Not Available Not Available Not Available metoprolol succinate ER 50 mg tablet,extended release 24 hr active Not Available Not Availabl e Not Available amlodipine 2.5 mg tablet active Not Available Not Available No t Available levothyroxine 100 mcg tablet active Not Available Not Availab le Not Available tamsulosin 0.4 mg capsule active Not Available Not Available N ot Available pantoprazole 40 mg tablet,delayed release active Not Available Not Available Not Available simvastatin 20 mg tablet active Not Available Not Available No t Available dicyclomine 10 mg capsule active Not Available Not Available N ot Available finasteride 5 mg tablet active Not Available Not Available No t Available irbesartan 300 mg tablet active Not Available Not Available No t Available Vitals Date Recorded Heart rate Body height Body mass index (BMI) Body weight Systolic blood pressure Diastolic blood pressure Provider Name and Address Organization Details Last Updated DateTime 7 69 /min 170.18 cm 29 kg/m2 21711.5 9 g 179 mm[Hg] 94 mm[Hg] Phuong Ayala [employer] 7 15:45:08 Social History Question Answer Notes LastModified by Organizat ion Details LastModified Time Tobacco Smoking Status Never Smoker Phuong Ayala null, [employer] 04/06/2017 16:02:16 What Is Your Level Of Alcohol Consumption? Occasional Information not available 04/06/2017 What Is Your Occupation? Retired Information not available 04/06/2017 Marital Status Informati on not available 04/06/2017 What Was The Date Of Your Most Recent Tobacco Screening? 04/06/2017 Information n ot available 01/30/2019 Sex: Unknown Functional Status Question Answer Note LastModified by Organization D etails LastModified Time What is your exercise level? None Information not available 04/06/2017 Mental Status None recorded. Family History Relationship Description Onset Age of this Age Resolved Age Notes LastModified by Organization Details LastModified Time Unspecified Relation Arthritis Not available 16:01:31 Unspecified Relation Hypercholest erolemia Not available 03/10 16:01:40 Unspecified Relation Hypertensive disorder Not available 03/10 16:01:57 Unspecified Relation Hyperthyroid ism Not available 03/10 16:02:11 Medical History Condition Response HIV or AIDS N Coronary Artery Disease N Gout N Kidney Stones N Hyperthyroidism Y Head Trauma/Injury N Hernia N Lung Disease N Blood Clots N COPD N Depression N Hypothyroidism N Pacemaker N Anxiety Disorder N Arthritis Y Cancer N Stroke Y Leg or Foot Ulcers N Neck Injury N High Cholesterol N Liver Disease N Rheumatoid Arthritis N Fibromyalgia N Headaches N Kidney Disease N Heart Problems N Migraines N Thyroid Problems N Anemia N Multiple Sclerosis N Ulcers N Heart Attack ([place]) N Diabetes N Bleeding Disorder N Seizures/Epilepsy N Tuberculosis N Urinary Tract Infection N Back Problems N Diverticulitis N Asthma N Lupus N Peripheral Vascular Disease N Sleep Disorder N GERD/Reflux N Hepatitis N Aneurysm N Heart Disease N Pulmonary Embolism N Hypertension Y Osteoporosis N Past Encounters Encounter ID Performer Location Encounter Start Date Encounter Closed Date Diagnosis/Indication Diagnosis SNOMED-CT Code Diagnosis ICD10 Code Diagnosis Note [id number] Moise Guerrero DO [facility] [address] [place] [address] 04/06/2017 15:18:56 04/07/2017 10:33:15 Knee pain 37187725 M25.562 Osteoarthr itis of knee 103631124 M17.0 Health Concerns Section Related Observation LastModified by Organization Detai ls LastModified Time None Recorded Concern Status LastModified by Organization Details LastModified Time None Recorded Advance Directives Directive None Recorded Payers Encounter Date Sequence Insurance Name Policy Number Policy Tracey Covered Member ID Tracey Member ID Guarantor Name 04/06/2017 1 [place] Colt Mann [id number] Colt Mann 04/06/2017 2 [facility] [place] - PLAN F (MEDICARE SUPPLEMENT) Colt Mann [id number] Colt Mann Notes Date Note Type Note Provider Name and Address Organization Details Recorded Time 04/06/2017 text/html Patient is a 76-year-old male who is seen today for evaluation of bilateral knee pain. He has had long-standing knee pain. His right knee at a replacement approximately 9-1/2 years ago and he has started to have healing more of some instability most noticeable when he is walking that his family is noting that his lower leg is externally rotating at times. He states that pretty much has some pain most of the time especially after walking or going up and down stairs. He states he does not really trust in that joint as much anymore. His left joint however has been progressively worsening over time. It is described as lateral pain that is aching and can be intermittent with some constant component of this. It is described as 4/10 in severity. Neither of these are associated with any weakness, numbness, tingling. He has had multiple steroid injections into his left knee as well as Synvisc none of which provided him any benefit. He states that they may have had very transient benefit but that is it. He denies any new injuries to these joints. His family member who is with him states that 1 of the biggest concerns is that as his knees have worsened his gait has worsened quite a bit as well. They are worried about his stability. He has not been having increased falls as of yet. Surinder Guerrero, [address], [place], [address], [facility] 04/10/2017 10:28:07
--- OUTSIDE RECORDS SUMMARY | 2024-08-19 01:13 | XMS_ITS | Clinical Summary ---
Author Organization [facility] [address] Address [address] [place] [address] Care Team Providers Care Stock Or Delivery Clerk Name Role Phone Sohail Rutherford Primary Care Provider [phone] Allergies Active Allergy Reactions Criticality Noted Date [...] 1 tablet (88 mcg total) by mouth bus and trolley dispatcher before breakfast 3 Active lidocaine (ASPERCREME) 4 [...] Type Department Care Team Description 07/17/2024 Telephone [facility] Cardiology [address] [place] [address] Melecio Acosta MD from Last [...] on file Legal Sex Male 1:53 AM 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 GRAPHIC DESIGNER Gender Identity Not on file Sexual Orientation Not on file Obstetrics History Last Filed Vital Signs Vital Sign Reading Time Taken Comments Blood Pressure 120/70 05/08/2024 11:17 AM CDT Pulse 62 05/08/2024 11:17 AM CDT Temperature 36.9 C (98.4 F) 07/16/2023 7:24 AM COMPUTER GRAPHIC DESIGNER Respiratory Rate 16 07/16/2023 7:24 AM COMPUTER GRAPHIC DESIGNER Oxygen Saturation 97% 05/08/2024 11:17 AM CDT [...] history exists Medical Devices Implanted Type Area Vulcanizer Rubber Plate Device Identifier Shelf Expiration Date Model / Serial / Lot [employer] [id number] Device Closure Watchman Pebax Nitinol [place] Iridium Pet 30mm L75cm Od12 Fr [id number] Fr 3 Way Stopcock Y Adapter Self Expand Proximal Face Sterile Disposable Left Atrial Appendage - [id number] Implanted:Qty: 1 on 04/22/2019 by Jorge Alberto Desir MD at [facility] [employer] 01/05/2022 [id number] / / [id number] Procedures Procedure Name Priority Date/Time Associated Diagnosis Comments EGFR Routine 07/16/2023 5:20 AM COMPUTER GRAPHIC DESIGNER POCT LIPID PANEL Routine 09/24/2020 11:4 0 AM CDT Hyperlipidemia associated with type 2 diabetes mellitus ([facility]/HCC) from Last 3 Months or Most Recently Relevant to Health Maintenance Results * eGFR (07/16/2023 5:20 AM COMPUTER GRAPHIC DESIGNER) eGFR 84 >=60 mL/min/1. 73 m2 [facility] Comment: Interpretive Data Reference Interval Normal >/= [...] last reviewed 2021. Blood 07/16/2023 5:20 AM COMPUTER GRAPHIC DESIGNER 07/16/2023 8:04 AM COMPUTER GRAPHIC DESIGNER us Jimbo Burdick MD LAB BLOOD ORDERABLES Brittany fung Result [facility] Department [place] [address] * POCT lipid panel (09/24/2020 11:40 AM [...] Recently Relevant to Health Maintenance Insurance MEDICARE [facility]ICARE [facility] MEDICARE [facility] Advance Directives For more information, please contact: [phone] * Full Code (Latest Code Status on File) Date Activated Date Inactivated Comments 07/12/2023 7:16 PM 07/16/2023 7:26 PM * Full Code Date Activated Date Inactivated Comments 04/22/2019 10:34 PM 04/23/2019 5:51 PM Care Teams Stock Or Delivery Clerk Relationship Specialty Start Date End Date Sohail Rutherford DO [address] [facility] [address] [place] [address] PCP - General Internal Medicine 05/08/24
--- OUTSIDE RECORDS SUMMARY | 2024-08-19 01:13 | XMS_ITS | Clinical Summary ---
Author Organization [facility] Address [address] [facility] [place] [address] Care Team Providers Care Supervisor Machining Name Role Phone Suman Dexter Esthela PATEL Primary Care Provider [phone] Source Comments [facility],non-[facility] Affiliates and Associated Physician Practices is amultiple site organization consisting of ambulatory clinics and hospital sitesin [place], [place], [place] and [place]. This disclosure is being madepursuant to the Care Everywhere program and may not contain all information available regarding this patient. Last updated 18.[facility] Social History Tobacco Use Types Packs/Day Years [...] age to complete this topic Care Teams Supervisor Machining Relationship Specialty Start Date End Date Suman Dexter DO [address] [facility] [address] [place], [place] [id number] PCP - General 01/18/18
--- OUTSIDE RECORDS SUMMARY | 2024-08-19 01:13 | XMS_ITS | Referral Summary ---
Author Organization [facility] Address [address] [facility] [place] [address] Care Team Providers Care Glass Cleaner Name Role Phone Suman Dexter DO Primary Care Provider [phone] Source Comments [facility],non-owned Affiliates and Associated Physician Practices is amultiple site organization consisting of ambulatory clinics and hospital sitesin [place], [place], [place] and [place]. This disclosure is being madepursuant to the Care Everywhere program and may not contain all information available regarding this patient. Last updated 18.[facility] Social History Tobacco Use Types Packs/Day Years Used Date Smoking Tobacco: Never Assessed Sex and Gender Information Value Date Recorded Sex Assigned at Not on file Gender Identity Not on file Sexual Orientation Not on file Plan of Treatment Not on file Care Teams Glass Cleaner Relationship Specialty Start Date End Date Suman Dexter DO [address] [facility] [address] [place] [address] [facility] - General 01/18/18
--- OUTSIDE RECORDS SUMMARY | 2024-08-19 01:13 | XMS_ITS | Patient Health Summary ---
Author Organization [facility] Address [address] [facility] [place] [address] Care Team Providers Care Rn Concurrent Review Name Role Phone Suman Dexter Primary Care Provider [phone] Note from [facility],non-owned Affiliates and Associated Physician Practices is amultiple site organization consisting of ambulatory clinics and hospital sitesin [place], [place], [place] and [place]. This disclosure is being madepursuant to the Care Everywhere program and may not contain all information available regarding this patient. Last updated 18.[facility] Social History Tobacco Use Types Packs/Day Years [...] is included. Case Report Dermatopathology Report Case: [id number] Authorizing Provider: Doug Bruno MD Collected: 09/19/2018 12:00 AM Pathologist: Gisell Gagnon MD Received: 09/20/2018 11:33 AM Specimen: Skin, dorsal left hand 9 10:24 AM T DERMATOPATHOLOGY LABORATORY Final Diagnosis Specimen A. SKIN, dorsal left hand: SEBORRHEIC KERATOSIS, RETICULATED (ADENOID) TYPE (L82.1) 9 10:[address] [facility] DERMATOPATHOLOGY LABORATORY Clinical History R/O lentigo, other. 9 10:24 AM T DERMATOPATHOLOGY LABORATORY Gross Description Specimen A: Received is one formalin filled container labeled with the patient's name and designated dorsal left hand. The specimen consists of a shave biopsy measuring 64o47x0 mm. Jar 0. 10:[address] [facility] DERMATOPATHOLOGY LABORATORY Microscopic Description Specimen A. SKIN, dorsal left hand: There is reticulated hyperplasia of the epidermis with overlying delicate hyperorthokeratosis . Hyperpigmentation is present in the basaloid cells. 10:[address] [facility] DERMATOPATHOLOGY LABORATORY Disclaimer An external and internal positive and negative controls are appropriate for the histochemical, immunohistochemical and immunofluorescence stain(s) in this case (if any), except where stated explicitly. The performance characteristics of the stain(s) cited in this report were developed and its performance characteristic determined by the Dermatopathology Laboratory at [facility], directed by Dr. Dagoberto Nj. These tests need not be, and therefore are not, approved by the [place] Food and Drug Administration. The tests are used for clinical purposes. Billing Codes Specimen Charges Stain Charges 15813 1 10:24 AM T DERMATOPATHOLOGY LABORATORY Embedded Images 10:24 AM T DERMATOPATHOLOGY LABORATORY Pathology/Cytolog y TISSUE SPECIMEN FROM SKIN / Unknown 09/19/2018 09/20/2018 11:33 AM CDT Doug Bruno MD LAB - PATHOLOGY/CYTO LOGY ORDERABLES DERMATOPATHOLOGY LABORATORY [facility] - Department of Dermatology [address] [place] [address], 5th Floor Lab [address] [phone] Care Teams Rn Concurrent Review Relationship Specialty Start Date End Date Suman Dexter DO [address] [facility] [address] [facility] [address] [place] [address] PCP - General 01/18/18
--- OUTSIDE RECORDS SUMMARY | 2024-08-19 01:13 | XMS_ITS | Referral Summary ---
Author Organization [facility] [address] Address [address] [place] [address] Care Team Providers Care Cleat Maker Name Role Phone Sohail Rutherford DO Primary Care Provider [phone] Encounters Date Type Department Care Team Description 07/17/2024 Telephone [facility] Cardiology [address] [place] [address] Melecio Acosta MD from Last [...] 1 tablet (88 mcg total) by mouth energy conservation engineer before breakfast 3 Active lidocaine (ASPERCREME) 4 [...] on file Legal Sex Male 1:53 AM 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 Gender Identity Not on file Sexual Orientation Not on file Last Filed Vital Signs Vital Sign Reading Time Taken Comments Blood Pressure 120/70 05/08/2024 11:17 AM CDT Pulse 62 05/08/2024 11:17 AM CDT Temperature 36.9 C (98.4 F) 07/16/2023 7:24 AM 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 Respiratory Rate 16 07/16/2023 7:24 AM 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 Oxygen Saturation 97% 05/08/2024 11:17 AM CDT Inhaled Oxygen Concentration - - Weight 77.1 kg (170 lb) 05/08/2024 11:17 AM CDT Height 170.2 cm (5' 7 ) 05/08/2024 11:17 AM CDT Body Mass Index 26.63 05/08/2024 11:17 AM CDT Plan of Treatment Not on file Medical Devices Implanted Type Area System Dispatcher Device Identifier Shelf Expiration Date Model / Serial / Lot [employer] [place] [id number] Device Closure Watchman Pebax Nitinol [place] Iridium Pet 30mm L75cm Od12 Fr [id number] Fr [address] Way Stopcock Y Adapter Self Expand Proximal Face Sterile Disposable Left Atrial Appendage - [id number] Implanted:Qty: 1 on 04/22/2019 by Jorge Alberto Desir MD at [facility] [employer] [place] 01/05/2022 [id number] / / [id number] Procedures Procedure Name Priority Date/Time Associated Diagnosis Comments EGFR Routine 07/16/2023 5:20 AM 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 POCT LIPID PANEL Routine 09/24/2020 11:4 0 AM CDT Hyperlipidemia associated with type 2 diabetes mellitus (CMS/HCC) from Last 3 Months or Most Recently Relevant to Health Maintenance Results * eGFR (07/16/2023 5:20 AM 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) eGFR 84 >=60 mL/min/1. 73 m2 [facility] Comment: Interpretive Data Reference Interval Normal [...] last reviewed 2021. Blood 07/16/2023 5:20 AM 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 07/16/2023 8:04 AM 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 us Jimbo Burdick MD LAB BLOOD ORDERABLES Brittany fung Result [facility] Department [place] [address] * POCT lipid panel (09/24/2020 11:40 AM [...] Recently Relevant to Health Maintenance Insurance MEDICARE [facility] MEDICARE [facility] MEDICARE MEDICARE [facility] Advance Directives For more information, please contact: [phone] * Full Code (Latest Code Status on File) Date Activated Date Inactivated Comments 07/12/2023 7:16 PM 07/16/2023 7:26 PM * Full Code Date Activated Date Inactivated Comments 04/22/2019 10:34 PM 04/23/2019 5:51 PM Care Teams Cleat Maker Relationship Specialty Start Date End Date Sohail Rutherford DO [address] [address] PCP - General Internal Medicine 05/08/24
--- OUTSIDE RECORDS SUMMARY | 2024-08-19 01:13 | XMS_ITS | Clinical Summary ---
Author Organization [facility] Address [address] [facility] [place] [address] Care Team Providers Care Computer Specialist Name Role Phone Suman Dexter MD Primary Care Provider [phone] Social History Tobacco Use Types Packs/Day Years Used Date Smoking Tobacco: Never Assessed Sex and Gender Information Value Date Recorded Sex Assigned at Not on file Legal Sex Male 8:33 PM CDT Gender Identity Not on file Sexual Orientation Not on file Plan of Treatment Health Maintenance Due Date Last Done Comments PHQ-2 (Physician Blanca) 1952 Zoster Vaccines (1 of 2) 1988 DTaP, Tdap and Td Vaccines ( 1 - Tdap) 12/24/2001 12/23/2001 Annual Medicare Wellness Visit 2003 Pneumococcal Vaccine: 65+ Years (1 of 1 - PCV) 2003 RSV Immunization or 60+ Years (1 - 1-dose 75+ series) 2013 COVID-19 Vaccine ( - 2023-2 5 season) 2024 Influenza Adult (#1) 2024 04/23/2019, 2018 PHQ-2 (Physician Vacunek) 07/09/2024 Meningococcal B Vaccine Aged Out No l onger eligible based on patient's age to complete this topic Meningococcal Vaccine Aged Out No mariya west eligible based on patient's age to complete this topic RSV Immunizations Under 20 Months Aged Out No longer eligible b ased on patient's age to complete this topic Medical Devices Implanted Type Area Coke Handling Supervisor Device Identifier Shelf Expiration Date Model / Serial / Lot Watchman Insurance MEDICARE [facility] Care Teams Computer Specialist Relationship Specialty Start Date End Date Suman Dexter MD [address] [place] [address] PCP - General INTERNAL MEDICINE 01/29/23
--- OUTSIDE RECORDS SUMMARY | 2024-08-19 01:13 | XMS_ITS | Continuity of Care Document ---
Author Organization [facility] Address [address] [place] [address] [place] [address] Phone Care Team Providers Care Electrician Second Name Role Phone Alex Cartwright Unavailable Unavailable Procedures Procedure Date Eye Exam, New Patient Advance Directives Directive Yes / No Effective Date File Name No Information Encounters Encounter Description Practice Location Reason(s) For Visit Diagnoses Date Provider Providers Copied on Encounter [facility], [address] [place] [address] [address], [place], [place], [id number], [place] tel:[phone] SEC [facility] No Information 8[address] Alex. [address] [facility] [address], [place], [address], [place]. tel:[phone] Family History Family Member Type Diagnosis Age At Onset No Information Payers Payer name Insurance type Covered democrat ID Authoriza tion(s) [employer] Mdcr Adv CI [id number] Social History Type Description Quantity Date Captured [...]
--- NOTE | 2024-08-19 06:09 | P.HP_ITS ---
History of Present Illness History of Present Illness Consent: Risks, benefits, and alternatives have been discussed and questions answered. Patient agrees to proceed with procedure. Chief complaint: vertebrogenic back pain, chronic low back pain Narrative: Colt Mann Jr. is a 84 year old male with chronic, recalcitrant and disabling bilateral lumbosacral vertebrogenic back pain secondary to degenerative spondylosis, Modic type 1/2 endplate change with failure to respond to aggressive conservative measures including PT, oral and topical analgesics, opioid and nonopioid analgesics, rest, time and activity/behavioral modification over the past 1-2 years who presents for percutaneous transpedicular intraosseous basivertebral nerve ablation (Intracept procedure) of the L3, L4, L5, S1, possible L2 vertebral levels under fluoroscopic guidance, with L2 dependent upon intraoperative assessment given MRI evidence of Modic endplate change at this level. Review of Systems Review of Systems: Patient denies any new infectious, allergic, cardiopulmonary, neurologic or constitutional symptoms or changes in activity tolerance or exercise capacity including new or progressive SOB/YOO, peripheral edema, productive cough, dysuria, nausea/vomiting, diarrhea, weight change, fevers/chills/night sweats, new or progressive neurologic deficit, cognitive or mood changes since last seen, except as documented in the HPI. All systems reviewed & are unremarkable except as noted in HPI and below PMFSH Past Medical History Medical History Arthritis Basal cell carcinoma of skin Benign prostatic hyperplasia Cerebrovascular accident Chronic GERD Hyperlipidemia Hypertension Hypothyroidism Peripheral artery disease Persistent atrial fibrillation Type 2 diabetes mellitus Surgical History Surgical History History of arthroplasty of right knee History of cataract extraction with lens replacement History of partial thyroidectomy History of right inguinal hernia repair (04/13/22) Presence of Watchman left atrial appendage closure device Family History Family History Father Heart attack Mother , passed at age 104 No problems noted. Sibling Cancer Family history of malignant neoplasm of thyroid Mother Hypertension Sibling Malignant neoplasm of prostate Family history of malignant neoplasm of breast in first degree relative Father Patient's father is Sibling Diabetes mellitus Grandparent Diabetes mellitus Social History Social History Social History: Surrogate medical decision maker: Madonna Mann, spouse. Code status: Full code. Smoking status: Never smoker Second hand tobacco smoke exposure: No Alcohol intake: current Drinks per week: 3 Alcohol use details: wine occasionally Substance use: current Substance use type: does not use Do You Feel Safe in your Home?: Yes Lack of Transportation: No Lack of Food: Never True Current Housing: I Have Housing Concerned About Future Housing: No Difficulty Paying Gas/Electric Bills: No Difficulty Paying for Meds: No Currently Unemployed: No Education: High School Diploma/GED Difficulty w/ Childcare or Family Care: No Living arrangements: with family Additional living arrangements comments: Lives with spouse in [place]. They have been since he was 20 years old. They have a daughter was a nurse practitioner in [place]. Their son lives nearby. He ambulates with a cane. Occupation/Education: retired Additional occupation/education comments: Retired from [employer]. Gender identity (if verbalized by the patient): Male Sexual Orientation (if Verbalized by the Patient): Straight or Heterosexual Spiritual care concerns: No Meds Home Medications and Allergies Home Medications ?Medication ?Instructions ?Recorded ?Confirmed ?Type finasteride 5 mg tablet 5 mg PO DAILY 07/18/23 08/11/24 History tamsulosin 0.4 mg capsule 0.4 mg PO DAILY 07/18/23 08/11/24 History trazodone 50 mg tablet See Rx Instructions .Route .COMPLEX 07/18/23 08/11/24 History docusate sodium 100 mg capsule 100 mg PO DAILY 07/19/23 08/11/24 History (Colace) lidocaine 5 % topical patch 1 patch topical DAILY #15 ea 07/25/23 08/11/24 Rx simvastatin 20 mg tablet 20 mg PO DAILY #90 tabs 08/15/23 08/11/24 Rx ondansetron HCl 4 mg tablet 4 mg PO Q8H PRN nausea and 08/21/23 08/11/24 Rx vomiting #30 tabs levothyroxine 88 mcg tablet 88 mcg PO DAILY #90 tabs 09/17/23 08/11/24 Rx pantoprazole 40 mg tablet,delayed See Rx Instructions .Route 02/15/24 08/11/24 Rx release .COMPLEX #60 tabs metoprolol succinate 50 mg See Rx Instructions .Route 03/28/24 08/11/24 Rx tablet,extended release 24 hr .COMPLEX #180 tabs acetaminophen 650 mg 650 mg PO Q12H 05/13/24 08/11/24 History tablet,extended release aspirin 81 mg chewable tablet 81 mg PO DAILY 05/13/24 08/11/24 History cholecalciferol (vitamin D3) 25 25 mcg PO DAILY 05/13/24 08/11/24 History mcg (1,000 unit) capsule polyethylene glycol 3350 17 17 g PO DAILY 05/13/24 08/11/24 History gram/dose oral powder (Miralax) amlodipine 5 mg tablet 5 mg PO DAILY #90 tabs 07/03/24 08/11/24 Rx irbesartan 300 mg tablet 300 mg PO DAILY #90 tabs 08/12/24 Rx Allergies Allergy/AdvReac Type Severity Reaction Status Date / Time rosuvastatin Allergy Unknown leg Verified 08/11/24 13:23 cramps,Hives sertraline (From Zoloft) Allergy Other Verified 08/11/24 13:23 Penicillins AdvReac Mild Hives Verified 08/11/24 13:23 Sulfa (Sulfonamide AdvReac Mild Hives Verified 08/11/24 13:23 Antibiotics) Tetanus Vaccines and Toxoid AdvReac Mild Hives Verified 08/11/24 13:23 Exam Narrative: The patient's physical exam is essentially unchanged from prior examination on 06/17/2024. Specifically, patient demonstrates normal lung capacity, tidal volume and respiratory rate without wheezes, crackles, rales or rubs. Heart rate and rhythm are regular without murmurs, gallops or rubs. No JVD. Pulses 2+ globally without increasing peripheral edema. AAOx3 with no evidence of confusion, intoxication or altered mental state, NC/AT without acute distress or altered consciousness. Speech, cognition, mood, insight and judgment at baseline and within normal limits. Assessment and Plan Assessment and plan (1) Vertebrogenic low back pain: Code(s): M54.51 - Vertebrogenic low back pain Status: Acute Assessment and Plan: proceed as planned with percutaneous transpedicular intraosseous basivertebral nerve ablation (Intracept procedure) of the L3, L4, L5, S1, possible L2 vertebral levels under fluoroscopic guidance, with L2 dependent upon intraoperative assessment given MRI evidence of Modic endplate change at this level. (2) Lumbosacral spondylosis without myelopathy: Code(s): M47.817 - Spondylosis without myelopathy or radiculopathy, lumbosacral region Status: Acute (3) Dorsalgia of lumbar region: Code(s): M54.50 - Low back pain, unspecified Status: Acute (4) Chronic pain: Code(s): G89.29 - Other chronic pain Status: Acute
--- NOTE | 2024-08-19 06:15 | WPDHPUPDATE1 ---
History and Physical Update Update Date/Time: 08/19/24 06:15 History and Physical has been reviewed, including an updated exam of the patient. There are NO changes in the patient's condition. Risks, benefits, and alternatives have been discussed and questions answered. Patient agrees to proceed with procedure.
--- NOTE | 2024-08-19 06:17 | P.OP_ITS ---
Procedure Note - Detailed Date of Procedure 08/19/24 Pre-op Diagnosis vertebrogenic back pain, chronic low back pain Post-op Diagnosis Same Procedure Performed Percutaneous transpedicular intraosseous basivertebral nerve thermal radiofreq uency ablation (Intracept procedure) at [L3, L4, L5, S1] under fluoroscopic guidance. Surgeon Zion Ho MD Shaker Repairer None. Anesthesia General (GETA] in the [prone] position with infiltration of local anesthetic. 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 They are significantly limited in their daily and/or work-related activities as a result, including sitting, standing, lifting/carrying and sleeping, with failure to respond to and/or tolerate extensive efforts at more conservative management (i.e. oral and topical analgesics including NSAIDs, acetaminophen and opioids, Physical Therapy and modalities, time/rest, interventional procedures/corticosteroid injections) for greater than 6 months prior to today's procedure establishing medical necessity for this well-studied and FDA-approved pain-relieving procedure. INFORMED CONSENT: Procedure was discussed in detail with the patient at a previous visit and at the time of surgery. During this discussion, the risks, benefits, and alternatives to the procedure, including doing nothing, were thoroughly described to the patient, who expressed explicit understanding and consent to proceed. Specific risks discussed with the patient included, but were not limited to the risk of serious local or systemic infection, skin burn/scarring, major or minor bleeding/bruising, allergic reaction to medications or materials, inadvertent lung or other organ injury, new or worsening spinal fracture, inadvertent thermal or mechanical nerve or spinal cord injury resulting in increased pain, weakness, numbness or loss of bowel or bladder control, the need for repeat or additional surgery, inadvertent dural puncture resulting in acute or chronic CSF leak and post-dural puncture head ache, failure to treat pain, and risks associated with general anesthesia in the prone position including eye, dental, joint, nerve, spine or soft tissue injury/pain related to positioning, heart attack, respiratory failure, aspiration, pneumonia, DVT/PE or thrombosis, hemorrhagic or ischemic stroke, hypoxia, hypo- or hypertension, seizure, coma and . Patient understands these risks and agrees that the opportunity for benefit outweighs the potential risk of harm. Procedure specific informed consent form was read, reviewed, signed by the patient and surgeon and witnessed in the pre-operative area. All pertinent questions were asked and answered to the patient's satisfaction. Surgical site was pre-treated with chlorhexidine wipes. All materials required for the procedure were available and site and side of procedure was marked prior to procedure start. Appropriate timeout was conducted by all participants in the OR (patient's ID, procedure to be performed, procedure site and side, allergies and appropriate medications including pre-operative antibiotics were verified) prior to incision. PROCEDURE IN DETAIL: After full informed consent and adequate IV access was obtained without difficulty; the patient was escorted to the procedural suite. ASA standard monitors were applied and utilized throughout the case. Prophylactic antibiotics were administered prior to procedure start. GETA was initiated without difficulty or event. Eyes were protected. Patient was converted to the prone position in optimal flexion using pillows under the abdomen, hips and ankles. Pressure points were padded, cervical spine and joints were placed in neutral position. Eyes, breasts and genitals were evaluated and protected as appropriate. The thoracolumbar spine to the sacrum was prepared in the usual manner using alcohol scrub followed by broad application of ChloraPrep, and allowed to dry completely for over 3 minutes. Surgical site and C-arm was sterilely draped in the typical fashion. Aseptic technique and strict fluoroscopic guidance was utilized throughout. Fluoroscope was moved into position to visualize the vertebral bodies of interest in the AP and lateral plane, obtaining true linear projections of the endplates at each level, and was rotated in the ipsilateral oblique view approximately 35 degrees from true AP to visualize the vertebrae with respective ipsilateral facet joints visualized bisecting the superior disk space at the midpoint of the vertebral body. The superolateral border of the pedicle of each level treated was identified. After adequate general anesthesia was confirmed, the skin entry point was located and infiltrated with an adequate amount of a 1:1 admixture of 0.5% preservative free bupivacaine and 2.0% preservative-free lidocaine using a 27 gauge 1.5-inch hypodermic needle after negative aspiration for blood or bodily fluid. Appropriate introducer cannula trajectory was identified in the AP, oblique and lateral views, and local anesthesia was extended to periosteum in a similar fashion at each level treated using a 3.5 inch, 22-gauge Quincke spinal needle. A stab skin decision was made with a #11 scalpel blade and an 8-gauge introducer cannula with beveled tip was then introduced through the skin, subcutaneous tissue and paraspinal muscle until contact was made with the bony surface of the pedicle at the target level. Appropriate position was confirmed in both the AP and lateral views. Using a 24- ounce surgical mallet, the trocar was advanced through the Right pedicle to the posterior aspect of the vertebral body using a combination of AP and lateral views to ensure appropriate travel through the pedicle without breach of its medial wall or entry into the epidural/neuroforaminal space. Once the trocar had entered the posterior aspect of the S1 vertebral body, the trocar was removed from the cannula and the curved cannula assembly was inserted followed by replacement of the original straight stylette with the Nitinol J ? stylette without difficulty. The wingnut on the device was rotated counterclockwise to its endpoint permitting excursion of the J ? stylette. The curved cannula as sembly was then advanced under intermittent fluoroscopic guidance, using the surgical mallet, in 1 to 2 mm increments with observed travel anteriorly and medially through the vertebral body in both the AP and lateral views. When necessary, the J-stylette was intermittently removed and replaced with the straight stylette during advancement to reach the basivertebral nerve target near the center point of the vertebral body. Target was reached when the tip of the stylette was noted to be a minimum of 1 cm anterior to the posterior wall and approximately 30 to 50% of the posterior to anterior diameter of the targeted vertebral body and at the midpoint of the distance between the superior and inferior endplates, with tip of the stylette crossing midline as represented by the spinous process in the carefully aligned AP projection. J- stylette was then removed and the bipolar radiofrequency probe was connected to the generator and inserted into the introducer cannula until the proximal and di stal electrodes straddled the midpoint of the vertebral body. The wingnut was then rotated clockwise to retract the PEEK sleeve and expose the proximal electrode on the radiofrequency probe. The basivertebral nerve was then ablated through activation of the probe and generator. At each level treated, ablation was performed at 85 degrees centigrade for 7 minutes using [facility]'s RFG standard intraosseous ablation algorithm while simultaneously monitoring for any sign of motor or sensory nerve stimulation. While ablative lesioning was progressing to completion at the initial level, the fluoroscope was adjusted to successively visualize the target of entry at the superolateral aspect of the pedicle at each additional level treated, ( L2, L3, L4, L5), with each vertebral body subsequently and sequentially accessed and target nerve ablated in a similar manner modified only to accommodate for specific level, location and anatomical variation, alternating the site and side of entry to facilitate cannula placement. This was achieved in all cases without difficulty. Location of each entry point, final cannula and probe position was documented by fluoroscopy in the AP and lateral views with respective images recorded in the patient's chart. In all cases, once intraosseous access was obtained, needle tip remained intraosseous without violation of the pedicular wall, vertebral wall, neuroforamen and/or spinal canal. Once all ablations were complete, instruments were removed from the vertebral bodies without difficulty under direct visualization and fluoroscopic guidance. Pressure was held at each entry site until hemostasis was confirmed. Skin was cleaned with alcohol -soaked gauze and dried with a sterile towel. Surgical wounds were then closed with mastisol and Steri-Strips placed in a crisscrossing fashion and covered with a sterile Telfa and Tegaderm dressing. The patient was returned to the supine position and anesthesia was reversed without difficulty or event. The patient tolerated the procedure well with no evidence of complication. Patient was transported to the recovery room where they were monitored for an appropriate period of time prior to discharge. During this time, the patient demonstrated no evidence of new neurologic symptom or injury, uncontrolled pain, postsurgical or post anesthetic complication. The patient was eventually discharged with both written and verbal instructions for appropriate wound care and activity restriction and with instructions to contact the office or report directly to the emergency department if no immediate response or if after hours with any signs of urgent or emergent complication including but not limited to excessive discharge or bleeding, new focal or diffuse neurologic weakness, numbness or other sensory change in the upper or lower extremities, severe headaches, intractable nausea/vomiting, fevers, chills, night sweats, increasing pain or loss of bowel or bladder control. Patient will otherwise follow-up in person at the clinic in 7 to 10 days for wound check and reevaluation. COMPLICATIONS: None. COMMENTS: None. IV FLUIDS: On Chart. EBL: 20 ml. DRAINS: None. PACKING: None. SPECIMEN: None. Pathology None sent Complications No immediate complications Condition Stable Disposition PACU [facility] Billing Surgery - Charge Forward: Surgery Billing
[2024-08-19 07:30] LABS: Glucose Point of Care 127 mg/dl (65-105)
[2024-08-19] MEDS: LACTATED RINGERS 1,000 ML 30 ML IV CONT ×2 (07:30→12:30)
--- NOTE | 2024-08-19 08:22 | WPDANESEPP ---
Anes - Eval Pre Procedure Procedure: Operation Date: 08/19/24 09:00 Proposed Procedures p Intracept Procedure at L3, L4, L5, S1, Possible L2 Under Fluoroscopic Guidance - Zion Ho MD Date/Time: 08/19/24 08:22 Surgeon: jo-ann Pre Op Diagnosis: vertebrogenic back pain, chronic low back pain Patient Data Age: 84 Gender: M Height: 1.68 m Weight: 75.4 kg Last Vital Signs Temp 98.0 F 08/19/24 07:14 Pulse 72 08/19/24 07:14 Resp 18 08/19/24 07:14 BP 136/87 08/19/24 07:14 Pulse Ox 99 08/19/24 07:14 O2 Del Method Room Air 08/19/24 07:14 Allergies Allergy/AdvReac Type Severity Reaction Status Date / Time rosuvastatin Allergy Unknown leg Verified 08/19/24 07:35 cramps,Hives sertraline (From Zoloft) Allergy Other Verified 08/19/24 07:35 mirabegron (From Myrbetriq) AdvReac Intermediate HYPERTESION Verified 08/19/24 07:35 Penicillins AdvReac Mild Hives Verified 08/19/24 07:35 Sulfa (Sulfonamide AdvReac Mild Hives Verified 08/19/24 07:35 Antibiotics) Tetanus Vaccines and Toxoid AdvReac Mild Hives Verified 08/19/24 07:35 Home Medications ?Medication ?Instructions ?Recorded ?Confirmed ?Type finasteride 5 mg tablet 5 mg PO DAILY 07/18/23 08/19/24 History tamsulosin 0.4 mg capsule 0.4 mg PO DAILY 07/18/23 08/19/24 History trazodone 50 mg tablet See Rx Instructions .Route .COMPLEX 07/18/23 08/11/24 History docusate sodium 100 mg capsule 100 mg PO DAILY 07/19/23 08/11/24 History (Colace) lidocaine 5 % topical patch 1 patch topical DAILY #15 ea 07/25/23 08/11/24 Rx simvastatin 20 mg tablet 20 mg PO DAILY #90 tabs 08/15/23 08/19/24 Rx ondansetron HCl 4 mg tablet 4 mg PO Q8H PRN nausea and 08/21/23 08/11/24 Rx vomiting #30 tabs levothyroxine 88 mcg tablet 88 mcg PO DAILY #90 tabs 09/17/23 08/19/24 Rx pantoprazole 40 mg tablet,delayed See Rx Instructions .Route 02/15/24 08/19/24 Rx release .COMPLEX #60 tabs metoprolol succinate 50 mg See Rx Instructions .Route 03/28/24 08/19/24 Rx tablet,extended release 24 hr .COMPLEX #180 tabs acetaminophen 650 mg 650 mg PO Q12H 05/13/24 08/11/24 History tablet,extended release aspirin 81 mg chewable tablet 81 mg PO DAILY 05/13/24 08/19/24 History cholecalciferol (vitamin D3) 25 25 mcg PO DAILY 05/13/24 08/19/24 History mcg (1,000 unit) capsule polyethylene glycol 3350 17 17 g PO DAILY 05/13/24 08/11/24 History gram/dose oral powder (Miralax) amlodipine 5 mg tablet 5 mg PO DAILY #90 tabs 07/03/24 08/19/24 Rx irbesartan 300 mg tablet 300 mg PO DAILY #90 tabs 08/12/24 08/19/24 Rx Laboratory Tests 08/19/24 07:26 POC Capillary Glucose 127 H mg/dl (65-105) ECG: Test Date: 2024-08-14 13:11:01 Measurements Intervals [place] Rate: 81 P: 0 OH: 0 QRS: -35 QRSD: 120 T: 112 QT: 391 QTc: 455 Interpretive Statements ATRIAL FLUTTER/TACHYCARDIA WITH VARIABLE BLOCK INTRAVENTRICULAR CONDUCTION DELAY LEFT VENTRICULAR HYPERTROPHY WITH ST-T CHANGE CANNOT R/O SEPTAL INFARCT, AGE INDETERMINATE BASELINE ARTIFACT- I, II, AVR, AVL, AVF, V1-V2 ABNORMAL ECG No previous ECG available for comparison Electronically Signed On 08-14-2024 13:58:42 ASSISTANT BASKETBALL COACH by Giovany Kennedy D.O. Patient hx anesthesia problems: none Family hx anesthesia problems: none Results Review: All pre-operative results and documents have been reviewed as part of the pre-operative evaluation. [facility] Past Medical History Medical History Peripheral artery disease Basal cell carcinoma of skin Cerebrovascular accident Hyperlipidemia Hypertension Type 2 diabetes mellitus Benign prostatic hyperplasia Persistent atrial fibrillation Arthritis Hypothyroidism Chronic GERD Surgical History Surgical History History of cataract extraction with lens replacement History of partial thyroidectomy History of arthroplasty of right knee History of right inguinal hernia repair (04/13/22) Presence of Watchman left atrial appendage closure device Family History Family History Father Heart attack Mother , passed at age 104 No problems noted. Sibling Cancer Family history of malignant neoplasm of thyroid Mother Hypertension Sibling Malignant neoplasm of prostate Family history of malignant neoplasm of breast in first degree relative Father Patient's father is Sibling Diabetes mellitus Grandparent Diabetes mellitus Social History Social History Social History: Surrogate medical decision maker: Madonna Mann, spouse. Code status: Full code. Smoking status: Never smoker Second hand tobacco smoke exposure: No Alcohol intake: current Drinks per week: 3 Alcohol use details: wine occasionally Substance use: current Substance use type: does not use Do You Feel Safe in your Home?: Yes Lack of Transportation: No Lack of Food: Never True Current Housing: I Have Housing Concerned About Future Housing: No Difficulty Paying Gas/Electric Bills: No Difficulty Paying for Meds: No Currently Unemployed: No Education: High School Diploma/GED Difficulty w/ Childcare or Family Care: No Living arrangements: with family Additional living arrangements comments: Lives with spouse in [place]. They have been since he was 20 years old. They have a daughter was a nurse practitioner in [place]. Their son lives nearby. He ambulates with a cane. Occupation/Education: retired Additional occupation/education comments: Retired from [employer]. Gender identity (if verbalized by the patient): Male Sexual Orientation (if Verbalized by the Patient): Straight or Heterosexual Spiritual care concerns: No Exam Day of Procedure 08/19/24 08:22
--- NOTE | 2024-08-19 09:26 | SUR.PREOP ---
0905 PT AND DAUGHTER INFORMED OF SURGERY TIME DELAY, DENIES NEEDS
[2024-08-19] MEDS: ceFAZolin 2 GM/D5W 50 ML 2 GM/50 ML BAG IVPB (09:38)
--- NOTE | 2024-08-19 09:40 | P.PNAN_ITS ---
Anes - Eval Final PreProcedure Day of Procedure 08/19/24 09:40 Patient weight: normal Heart: irregular rhythm Lungs: clear to auscultation Airway: Mallampati scale class II (edentulous) Neurological: alert and oriented Last oral intake: >/= 8 hours ASA classification: III Emergent: no Anesthetic plan: proceed Anesthesia type and monitoring: general and standard monitoring Other findings: last ASA 7 days ago. Results Review: All pre-operative results and documents have been reviewed as part of the pre- operative evaluation. Informed Consent: The patient's anesthetic plan and its attendant risks and benefits were discussed with the patient/family/POA. Questions were solicited and answers provided to the satisfaction of the patient/family/POA.
[2024-08-19] MEDS: LIDOCAINE 1% LOCAL INJ 10 ML VIAL INFILTRATE (10:16)
[2024-08-19] MEDS: BUPIVACAINE/EPINEPHRINE 0.5% 50 ML VIAL 30 ML INFILTRATE (10:16)
[2024-08-19] MEDS: fentaNYL CITRATE INJ (*CRX) 100 MCG/2 ML VIAL 25 MCG IV PUSH ×4 (12:04→13:40)
[2024-08-19] MEDS: oxyCODONE HCL (*CRX) 5 MG TAB IR PO (13:01)
--- NOTE | 2024-08-19 13:58 | SUR.PHASEII ---
1358 - Dr. Ho at bedside doing a full assessment at this time
== END 2024-08-19 14:43 | disposition home or self-care (01) ==
PROVIDERS: PCP Internal Medicine; Visit Provider Anesthesiology Pain Medicine
PROC: (CPT 64628; principal; 2024-08-19 09:00)
DX: M54.51 Vertebrogenic low back pain (principal); M47.817 Spondylosis without myelopathy or radiculopathy, lumbosacral region; G89.29 Other chronic pain; E78.5 Hyperlipidemia, unspecified; I10 Essential (primary) hypertension; E03.9 Hypothyroidism, unspecified; E11.9 Type 2 diabetes mellitus without complications; N40.0 Benign prostatic hyperplasia without lower urinary tract symptoms; K21.9 Gastro-esophageal reflux disease without esophagitis; I48.19 Other persistent atrial fibrillation; I73.9 Peripheral vascular disease, unspecified; R94.31 Abnormal electrocardiogram [ECG] [EKG]; Z79.82 Long term (current) use of aspirin; Z98.890 Other specified postprocedural states; Z85.828 Personal history of other malignant neoplasm of skin; Z86.79 Personal history of other diseases of the circulatory system; Z80.8 Family history of malignant neoplasm of other organs or systems; Z80.42 Family history of malignant neoplasm of prostate; Z80.3 Family history of malignant neoplasm of breast; Z82.49 Family history of ischemic heart disease and other diseases of the circulatory system
CPT/HCPCS: 64628; 64629 ×2; 82948; 99199; A9270; C1889; J0330; J0690; J1100; J2003; J2405; J2704; J3010; J7120

== ENCOUNTER 2024-09-14 13:31 | Emergency (ER) | payer MEDICARE, SELFPAY ==
--- OUTSIDE RECORDS SUMMARY | 2024-09-14 13:33 | XMS_ITS | Clinical Summary ---
Author Organization [facility] Address [address] [place] [address] Care Team Providers Care Workforce Development Program Director Name Role Phone Suman Dexter Esthela PATEL Primary Care Provider [phone] Source Comments [facility],non-[facility] Affiliates and Associated Physician Practices is amultiple site organization consisting of ambulatory clinics and hospital sitesin [place], [place], [place] and [place]. This disclosure is being madepursuant to the Care Everywhere program and may not contain all information available regarding this patient. Last updated 18.[facility] Social History Tobacco Use Types Packs/Day Years [...] age to complete this topic Care Teams Workforce Development Program Director Relationship Specialty Start Date End Date Suman Dexter DO [address] [facility] [address] [place], [place] [id number] PCP - General 01/18/18
--- OUTSIDE RECORDS SUMMARY | 2024-09-14 13:33 | XMS_ITS | Encounter Summary ---
Author Organization [facility] Address [address] [place] [address] Care Team Providers Care Flux Mixer Name Role Phone Suman Dexter Primary Care Provider [phone] Encounter Details Date Type Department Care Team (Late st Contact Info) Description 09/20/2018 Lab Requisition [facility] Care DermPath Lab [address] [place] [id number] Doug Bruno MD [address] [place] [address] Social History Tobacco Use Types [...] AM CDT) Case Report Dermatopathology Report Case: [id number] Authorizing Provider: Doug Bruno MD Collected: 09/19/2018 12:00 AM Pathologist: Gisell Gagnon MD Received: 09/20/2018 11:33 AM Specimen: Skin, dorsal left hand 10:24 AM [facility] Final Diagnosis Specimen A. 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 10:24 AM [facility]OP[facility] Gross Description Specimen A: Received is one formalin filled container labeled with the patient's name and designated dorsal left hand. The specimen consists of a shave biopsy measuring 23c32g6 mm. Jar 0. 10:24 AM [facility] Microscopic Description Specimen A. SKIN, dorsal left hand: There is reticulated hyperplasia of the epidermis with overlying delicate hyperorthokeratosis . Hyperpigmentation is present in the basaloid cells. 10:24 AM [facility] Disclaimer An external and internal positive and negative controls are appropriate for the histochemical, immunohistochemical and immunofluorescence stain(s) in this case (if any), except where stated explicitly. The performance characteristics of the stain(s) cited in this report were developed and its performance characteristic determined by the Dermatopathology Laboratory at [facility], directed by Dr. Dagoberto Nj. These tests need not be, and therefore are not, approved by the [place] Food and Drug Administration. The tests are used for clinical purposes. Billing Codes Specimen Charges Stain Charges 90119 1 10:24 AM [facility] DERMATOP[facility] Embedded Images 10:24 AM [facility]MATOPATH[facility]ORY Pathology/Cytolog y TISSUE SPECIMEN FROM SKIN / Unknown 09/19/2018 09/20/2018 11:33 AM CDT Doug Bruno MD LAB - PATHOLOGY/CYTO LOGY ORDERABLES DERMATOPATHOLOGY LABORATORY [facility] - Department of Dermatology [address] [place] [address], 5th Floor Lab [address] [phone] documented in this encounter Visit Diagnoses Not on filedocumented in this encounter Care Teams Flux Mixer Relationship Specialty Start Date End Date Suman Dexter DO [address] [facility] [facility] [address] [place] [address] PCP - General 01/18/18 documented as of this encounter
--- OUTSIDE RECORDS SUMMARY | 2024-09-14 13:33 | XMS_ITS | Clinical Summary ---
Author Organization [facility] Address [facility] [place] [address] Care Team Providers Care Student Services Rep Name Role Phone Suman Dexter MD Primary Care Provider [phone] Social History Tobacco Use Types Packs/Day Years Used Date Smoking Tobacco: Never Assessed Sex and Gender Information Value Date Recorded Sex Assigned at Not on file Legal Sex Male 8:33 PM CDT Gender Identity Not on file Sexual Orientation Not on file Plan of Treatment Health Maintenance Due Date Last Done Comments PHQ-2 (Physician [facility]) 1952 Zoster Vaccines (1 of 2) 1988 DTaP, Tdap and Td Vaccines ( 1 - Tdap) 12/24/2001 12/23/2001 Annual Medicare Wellness Visit 2003 Pneumococcal Vaccine: 65+ Years (1 of 1 - PCV) 2003 RSV Immunization or 60+ Years (1 - 1-dose 75+ series) 2013 COVID-19 Vaccine ( - 2023-2 5 season) 2024 Influenza Adult (#1) 2024 04/23/2019, 2018 PHQ-2 (Physician [email or web address]) 07/09/2024 Meningococcal B Vaccine Aged Out No l onger eligible based on patient's age to complete this topic Meningococcal Vaccine Aged Out No mariya west eligible based on patient's age to complete this topic RSV Immunizations Under 20 Months Aged Out No longer eligible b ased on patient's age to complete this topic Medical Devices Implanted Type Area Club Lounge Attendant Device Identifier Shelf Expiration Date Model / Serial / Lot Watchman Insurance MEDICARE [facility] Care Teams Student Services Rep Relationship Specialty Start Date End Date Suman Dexter MD [address] [place] [address] [place] [address] PCP - General INTERNAL MEDICINE 01/29/23
--- OUTSIDE RECORDS SUMMARY | 2024-09-14 13:33 | XMS_ITS | Continuity of Care Document ---
Author Organization [facility] Address [address] [place] [address] [place] [address] Phone Care Team Providers Care Sales Representative Name Role Phone Alex Cartwright Unavailable Unavailable Procedures Procedure Date Eye Exam, New Patient Advance Directives Directive Yes / No Effective Date File Name No Information Encounters Encounter Description Practice Location Reason(s) For Visit Diagnoses Date Provider Providers Copied on Encounter [facility], [address] [place] [address] [address], [place], [place], [id number], [place] tel:[phone] SEC [facility] No Information 8-200 8 Chay Alex. [address] [facility] [address], [place], [address], [place]. tel:[phone] Family History Family Member Type Diagnosis Age At Onset No Information Payers Payer name Insurance type Covered constitution party ID Authoriza tion(s) Ad[employer]ra Mdcr Adv CI [id number] Social History Type Description Quantity Date Captured [...]
--- OUTSIDE RECORDS SUMMARY | 2024-09-14 13:33 | XMS_ITS | Encounter Summary ---
Author Organization [facility] Address [address] [facility] [place] [address] Care Team Providers Care Soil Science Teacher Name Role Phone Suman Dexter Primary Care Provider [phone] Encounter Details Date Type Department Care Team (Late st Contact Info) Description 01/18/2018 Lab Requisition [facility] Care DermPath Lab [address] [facility] [place] [address] Doug Bruno MD [address] [place] [address] Social History Tobacco Use Types [...] AM CDT) Case Report Dermatopathology Report Case: [id number] Authorizing Provider: Doug Bruno MD Collected: 01/17/2018 [...] specimen consists of a shave biopsy measuring [id number]. Jar 0. 12:28 PM CDT DERMATOPATHOLOGY LABORATORY [...] characteristic determined by the Dermatopathology Laboratory at [facility]. These tests need not be, and therefore are not, approved by the [place] Food and Drug Administration. The tests are used for clinical purposes. Billing Codes Specimen Charges Stain Charges 37568 1 12:28 PM CDT DERMATOPATHOLOGY LABORATORY Embedded Images 12:28 PM CDT DERMATOPATHOLOGY LABORATORY Pathology/Cytolog y TISSUE SPECIMEN FROM SKIN / Unknown 01/17/2018 01/18/2018 12:56 PM CDT Doug Bruno MD LAB - PATHOLOGY/CYTO LOGY ORDERABLES DERMATOPATHOLOGY LABORATORY [facility] - Department of Dermatology [address] [facility], 5th Floor Lab [address] [phone] documented in this encounter Visit Diagnoses Not on filedocumented in this encounter Care Teams Soil Science Teacher Relationship Specialty Start Date End Date Suman Dexter DO [address] [facility] [address] [facility] [address] [place] [address] PCP - General 01/18/18 documented as of this encounter
--- OUTSIDE RECORDS SUMMARY | 2024-09-14 13:33 | XMS_ITS | Patient Health Summary ---
Author Organization [facility] Address [address] [facility] [place] [address] Care Team Providers Care Sales Systems Engineer Name Role Phone Suman Dexter Primary Care Provider [phone] Note from [facility],non-owned Affiliates and Associated Physician Practices is amultiple site organization consisting of ambulatory clinics and hospital sitesin [place], [place], [place] and [place]. This disclosure is being madepursuant to the [...] is included. Case Report Dermatopathology Report Case: [id number] Authorizing Provider: Doug Bruno MD Collected: 09/19/2018 12:00 AM Pathologist: Gisell Gagnon MD Received: 09/20/2018 11:33 AM Specimen: Skin, dorsal left hand 9 10:24 AM T DERMATOPATHOLOGY LABORATORY Final Diagnosis Specimen A. SKIN, dorsal left hand: SEBORRHEIC KERATOSIS, RETICULATED (ADENOID) TYPE (L82.1) 9 10:24 AM [facility] DERMATOPATHOLOGY LABORATORY Clinical History R/O lentigo, other. 9 10:24 AM T DERMATOPATHOLOGY LABORATORY Gross Description Specimen A: Received is one formalin filled container labeled with the patient's name and designated dorsal left hand. The specimen consists of a shave biopsy measuring [id number] mm. Jar 0. 10:24 AM [facility] DERMATOPATHOLOGY LABORATORY Microscopic Description Specimen A. SKIN, dorsal left hand: There is reticulated hyperplasia of the epidermis with overlying delicate hyperorthokeratosis . Hyperpigmentation is present in the basaloid cells. 10:24 AM [facility] DERMATOPATHOLOGY LABORATORY Disclaimer An external and internal positive and negative controls are appropriate for the histochemical, immunohistochemical and immunofluorescence stain(s) in this case (if any), except where stated explicitly. The performance characteristics of the stain(s) cited in this report were developed and its performance characteristic determined by the Dermatopathology Laboratory at [facility], directed by Dr. Dagoberto Nj. These tests need not be, and therefore are not, approved by the [place] Food and Drug Administration. The tests are used for clinical purposes. Billing Codes Specimen Charges Stain Charges 50823 1 10:24 AM T DERMATOPATHOLOGY LABORATORY Embedded Images 10:24 AM T DERMATOPATHOLOGY LABORATORY Pathology/Cytolog y TISSUE SPECIMEN FROM SKIN / Unknown 09/19/2018 09/20/2018 11:33 AM CDT Doug Bruno MD LAB - PATHOLOGY/CYTO LOGY ORDERABLES DERMATOPATHOLOGY LABORATORY [facility] - Department of Dermatology [address] [place] [address], 5th Floor Lab [address] [phone] Care Teams Sales Systems Engineer Relationship Specialty Start Date End Date Suman Dexter DO [address] [facility] [address] [facility] [address] [place] [address] PCP - General 01/18/18
--- OUTSIDE RECORDS SUMMARY | 2024-09-14 13:33 | XMS_ITS | Referral Summary ---
Author Organization [facility] Address [address] [facility] [place] [address] Care Team Providers Care Pet Resort Concierge Name Role Phone Suman Dexter DO Primary Care Provider [phone] Source Comments [facility],non-owned Affiliates and Associated Physician Practices is amultiple site organization consisting of ambulatory clinics and hospital sitesin [place], [place], [place] and [place]. This disclosure is being madepursuant to the Care Everywhere program and may not contain all information available regarding this patient. Last updated 18.[facility] Social History Tobacco Use Types Packs/Day Years Used Date Smoking Tobacco: Never Assessed Sex and Gender Information Value Date Recorded Sex Assigned at Not on file Gender Identity Not on file Sexual Orientation Not on file Plan of Treatment Not on file Care Teams Pet Resort Concierge Relationship Specialty Start Date End Date Suman Dexter DO [address] [facility] [address] [place] [address] [place] [address] [facility] - General 01/18/18
--- NOTE | 2024-09-14 13:34 | ED_ITS ---
HPI - Male Genitourinary General Chief complaint: Urogenital-Male Stated complaint: uti Time Seen by Provider: 09/14/24 13:34 Source: patient, RN notes reviewed and old records reviewed Mode of arrival: ambulatory Limitations: no limitations History of Present Illness HPI Narrative: patient with complicated medical history, multiple urinary problems, presents with complaints of urinary frequency and burning. He reports that due to overactive bladder, he typically has urinary frequency. He began noticing the burning a few days ago. He denies any fever, chills, sweats. He does report noticing some blood in the urine and that the urine is looking cloudy. He denies any back pain or abdominal pain. He is nontoxic appearing and in no obvious distress Related Data Home Medications ?Medication ?Instructions ?Recorded ?Confirmed ?Last Taken ?Type finasteride 5 mg tablet 5 mg PO DAILY 07/18/23 08/19/24 08/18/24 History tamsulosin 0.4 mg capsule 0.4 mg PO DAILY 07/18/23 08/19/24 08/18/24 History trazodone 50 mg tablet See Rx Instructions .Route .COMPLEX 07/18/23 08/11/24 Unknown History docusate sodium 100 mg capsule 100 mg PO DAILY 07/19/23 08/11/24 Unknown History (Colace) acetaminophen 650 mg 650 mg PO Q12H 05/13/24 08/11/24 Unknown History tablet,extended release aspirin 81 mg chewable tablet 81 mg PO DAILY 05/13/24 08/19/24 08/11/24 History cholecalciferol (vitamin D3) 25 25 mcg PO DAILY 05/13/24 08/19/24 08/16/24 History mcg (1,000 unit) capsule polyethylene glycol 3350 17 17 g PO DAILY 05/13/24 08/11/24 Unknown History gram/dose oral powder (Miralax) Allergies Allergy/AdvReac Type Severity Reaction Status Date / Time rosuvastatin Allergy Unknown leg Verified 09/14/24 13:34 cramps,Hives sertraline (From Zoloft) Allergy Other Verified 09/14/24 13:34 mirabegron (From Myrbetriq) AdvReac Intermediate HYPERTESION Verified 09/14/24 13:34 Penicillins AdvReac Mild Hives Verified 09/14/24 13:34 Sulfa (Sulfonamide AdvReac Mild Hives Verified 09/14/24 13:34 Antibiotics) Tetanus Vaccines and Toxoid AdvReac Mild Hives Verified 09/14/24 13:34 Review of Systems Review of Systems: All systems reviewed & are unremarkable except as noted in HPI and below Constitutional: Constitutional: Reports no additional constitutional complaints ENT: Reports system reviewed and no additional complaints, except as documented Cardiovascular: Cardiovascular: Reports no additional cardiovascular complaints Respiratory: Respiratory: Reports no additional respiratory complaints Gastrointestinal: Gastrointestinal: Reports no additional gastrointestinal complaints Genitourinary: Genitourinary: Reports hematuria, Reports dysuria and Reports urinary frequency [facility] Past Medical History Medical History Peripheral artery disease Basal cell carcinoma of skin Cerebrovascular accident Hyperlipidemia Hypertension Type 2 diabetes mellitus Benign prostatic hyperplasia Persistent atrial fibrillation Arthritis Hypothyroidism Chronic GERD Surgical History Surgical History History of cataract extraction with lens replacement History of partial thyroidectomy History of arthroplasty of right knee History of right inguinal hernia repair (04/13/22) Presence of Watchman left atrial appendage closure device Family History Family History Father Heart attack Mother , passed at age 104 No problems noted. Sibling Cancer Family history of malignant neoplasm of thyroid Mother Hypertension Sibling Malignant neoplasm of prostate Family history of malignant neoplasm of breast in first degree relative Father Patient's father is Sibling Diabetes mellitus Grandparent Diabetes mellitus Social History Social History Social History: Surrogate medical decision maker: Madonna Mann, spouse. Code status: Full code. Smoking status: Never smoker Second hand tobacco smoke exposure: No Alcohol intake: current Drinks per week: 3 Alcohol use details: wine occasionally Substance use: current Substance use type: does not use Do You Feel Safe in your Home?: Yes Lack of Transportation: No Lack of Food: Never True Current Housing: I Have Housing Concerned About Future Housing: No Difficulty Paying Gas/Electric Bills: No Difficulty Paying for Meds: No Currently Unemployed: No Education: High School Diploma/GED Difficulty w/ Childcare or Family Care: No Living arrangements: with family Additional living arrangements comments: Lives with spouse in [place]. They have been since he was 20 years old. They have a daughter was a nurse practitioner in [place]. Their son lives nearby. He ambulates with a cane. Occupation/Education: retired Additional occupation/education comments: Retired from [employer]. Gender identity (if verbalized by the patient): Male Sexual Orientation (if Verbalized by the Patient): Straight or Heterosexual Spiritual care concerns: No Comments At the time of my signature, I reviewed and agree with the nursing past medical, surgical, social, and family history. There is no relevant family history pertinent to the patient complaint. Exam Const: General: cooperative, no acute distress, alert and awake Orientation/consciousness: oriented to person, oriented to place and oriented to time HENMT: Head: normal to inspection Resp: Effort & Inspection: normal respiratory effort and able to speak in complete sentences Auscultation: clear to auscultation bilaterally, no crackles, no rales, no rhonchi and no wheezes Cardio: Palpation: normal PMI Rate: regular rate Rhythm: regular rhythm Heart sounds: S1 normal heart sound present and S2 normal heart sound present : General: Yes no CVA tenderness Neuro: General: oriented to person, oriented to place and oriented to time Cranial nerves: Yes CN's II-XII intact bilaterally Psych: Appearance: grossly normal Thought process: Normal thought process present Insight: Good insight present (Psych) Judgement: Good judgement present (Psych) Course Course Level of Care: Express Care Visit Vital Signs Vital signs: Reviewed MDM - Male Genitourinary MDM Narrative Medical decision making narrative: UA concerning for UTI. Culture pending. Patient with multiple allergies, multiple medication reactions. Start Levaquin. Advised to go to emergency department immediately with worsening symptoms Discharge instructions reviewed with patient, as well as provided in writing per nursing staff. The instructions also include specific and strict return/GO TO THE ER as well as f/u information. All questions have been answered, and the patient deny any further questions with discharge and discharge plan. Some parts of this dictation were generated by voice recognition software and may contain typographical and/or grammatical inaccuracies. Differential Diagnosis Differential diagnosis: Likely urinary tract infection, prostatitis and acute retention of urine Medical Records Attestation: I reviewed the patient's medical records. Lab Data Attestation: I reviewed the patient's lab results. Discharge Plan Discharge Clinical Impression: Urinary tract infection Qualifiers: Urinary tract infection type: site unspecified Hematuria presence: with hematuria Qualified Code(s): N39.0 - Urinary tract infection, site not specified Patient Disposition: Home, Self-Care Condition: Stable Instructions: Antibiotic Form, Urinary Tract Infection in Men (ED) Additional Instructions: take medication as prescribed. Follow with primary care provider. Emergency department for new or worse symptoms Patient Language: Citizen Of [place] Prescriptions: New levofloxacin 750 mg tablet 750 mg PO DAILY Qty: 7 0RF No Action ondansetron HCl 4 mg tablet 4 mg PO Q8H PRN (Reason: nausea and vomiting) Qty: 30 2RF cholecalciferol (vitamin D3) 25 mcg (1,000 unit) capsule 25 mcg PO DAILY aspirin 81 mg tablet,chewable 81 mg PO DAILY acetaminophen 650 mg tablet extended release 650 mg PO Q12H polyethylene glycol 3350 [Miralax] 17 gram/dose powder 17 g PO DAILY lidocaine 5 % adhesive patch,medicated 1 patch topical DAILY Qty: 15 0RF Patient Comments: takes prn for pain Rx Instructions: leave on most painful area for up to 12 hrs trazodone 50 mg tablet See Rx Instructions .ROUTE .COMPLEX Rx Instructions: 25mg PRN tamsulosin 0.4 mg capsule 0.4 mg PO DAILY finasteride 5 mg tablet 5 mg PO DAILY docusate sodium [Colace] 100 mg Capsule 100 mg PO DAILY simvastatin 20 mg tablet 20 mg PO DAILY Qty: 90 3RF pantoprazole 40 mg tablet,delayed release (DR/EC) See Rx Instructions .ROUTE .COMPLEX Qty: 60 11RF Dose Instruction: TAKE 1 TABLET BY MOUTH TWICE DAILY Rx Instructions: TAKE 1 TABLET BY MOUTH TWICE DAILY metoprolol succinate 50 mg tablet extended release 24 hr See Rx Instructions .ROUTE .COMPLEX Qty: 180 2RF Dose Instruction: TAKE 1 TABLET BY MOUTH TWICE DAILY Rx Instructions: TAKE 1 TABLET BY MOUTH TWICE DAILY amlodipine 5 mg tablet 5 mg PO DAILY Qty: 90 2RF irbesartan 300 mg tablet 300 mg PO DAILY Qty: 90 3RF hydrocodone-acetaminophen 5-325 mg tablet 1 tablet PO Q8H PRN (Reason: pain) Qty: 20 0RF Rx Instructions: take one tab po every 6-8 hours for severe pain max 3/day levothyroxine 88 mcg tablet 88 mcg PO DAILY Qty: 90 3RF Follow-up/Referrals: Sohail Rutherford DO [Primary Care Provider] - 3 Days Time of Disposition: 14:30
--- OUTSIDE RECORDS SUMMARY | 2024-09-14 13:34 | XMS_ITS | Referral Summary ---
Author Organization [facility] [address] Address [address] [place] [address] Care Team Providers Care Bladder Blower Name Role Phone Sohail Rutherford DO Primary Care Provider [phone] Encounters Date Type Department Care Team Description 07/17/2024 Telephone [facility] Cardiology [address] [place] [address] Melecio Acosta MD from Last [...] 1 tablet (88 mcg total) by mouth pattern wheel maker before breakfast 3 Active lidocaine (ASPERCREME) 4 [...] hematoma, initial encounter 2023 Permanent atrial fibrillation 03/03/2019 Assessment & Plan (09/24/2020 6:12 PM CDT): [...] current regimen. No change was made. Immunizations Immunization Administration Dates Next Due Influenza, Trivalent, High [...] on file Legal Sex Male 1:53 AM OREMAN Gender Identity Not on file Sexual Orientation Not on file Last Filed Vital Signs Vital Sign Reading Time Taken Comments Blood Pressure 120/70 05/08/2024 11:17 AM CDT Pulse 62 05/08/2024 11:17 AM CDT Temperature 36.9 C (98.4 F) 07/16/2023 7:24 AM OREMAN Respiratory Rate 16 07/16/2023 7:24 AM OREMAN Oxygen Saturation 97% 05/08/2024 11:17 AM CDT Inhaled Oxygen Concentration - - Weight 77.1 kg (170 lb) 05/08/2024 11:17 AM CDT Height 170.2 cm (5' 7 ) 05/08/2024 11:17 AM CDT Body Mass Index 26.63 05/08/2024 11:17 AM CDT Plan of Treatment Not on file Medical Devices Implanted Type Area Tobacco Cloth Reclaimer Device Identifier Shelf Expiration Date Model / Serial / Lot [employer] [id number] Device Closure Watchman Pebax Nitinol [place] Iridium Pet 30mm L75cm Od12 Fr [id number] Fr 3 Way Stopcock Y Adapter Self Expand Proximal Face Sterile Disposable Left Atrial Appendage - [id number] Implanted:Qty: 1 on 04/22/2019 by Jorge Alberto Desir MD at [facility] [employer] 01/05/2022 [id number] / / [id number] Procedures Procedure Name Priority Date/Time Associated Diagnosis Comments EGFR Routine 07/16/2023 5:20 AM OREMAN POCT LIPID PANEL Routine 09/24/2020 11:4 0 AM CDT Hyperlipidemia associated with type 2 diabetes mellitus (HCC) from Last 3 Months or Most Recently Relevant to Health Maintenance Results * eGFR (07/16/2023 5:20 AM OREMAN) eGFR 84 >=60 mL/min/1. 73 m2 [facility] Comment: Interpretive Data Reference Interval Normal [...] last reviewed 2021. Blood 07/16/2023 5:20 AM OREMAN 07/16/2023 8:04 AM OREMAN us Jimbo Burdick MD LAB BLOOD ORDERABLES Brittany fung Result [facility] [place] [address] * POCT lipid panel (09/24/2020 11:40 AM [...] Relevant to Health Maintenance Insurance MEDICARE [facility]LY [facility] MEDICARE [facility]MERLY [facility] MEDICARE MEDICARE [facility] Advance Directives For more information, please contact: [phone] * Full Code (Latest Code Status on File) Date Activated Date Inactivated Comments 07/12/2023 7:16 PM 07/16/2023 7:26 PM * Full Code Date Activated Date Inactivated Comments 04/22/2019 10:34 PM 04/23/2019 5:51 PM Care Teams Bladder Blower Relationship Specialty Start Date End Date Sohail Rutherford DO [address] [address] PCP - General Internal Medicine 05/08/24
--- OUTSIDE RECORDS SUMMARY | 2024-09-14 13:34 | XMS_ITS | Data Portability ---
Author Organization [facility] [employer] [facility] Address [address] [address] Assessment No assessment recorded. Plan of Treatment [...] By Organization Details Last Modified Time 04/06/2017 [id number] with regard to his right knee discussed [...] am recommending a custom measured lateral compartment command center analyst brace. We measured the patient for this [...] Recorded Time 8 Knee Surgery completed [employer] 04/06/2017 16:03:17 Imaging Results None recorded. Procedure [...] 7 69 /min 170.18 cm 29 kg/m2 04087.5 9 g 179 mm[Hg] 94 mm[Hg] Phuong Ayala [employer] 7 15:45:08 Social History Question Answer Notes LastModified by Organizat ion Details LastModified Time Tobacco Smoking Status Never Smoker Phuong Ayala null, [employer] 04/06/2017 16:02:16 What Is Your Level Of [...] Gout N Kidney Stones N Hyperthyroidism Y Hernia N Head Trauma/Injury N Hypothyroidism N Lung Disease N Blood Clots N COPD N Depression N Pacemaker N Anxiety Disorder N Arthritis Y Cancer N Stroke Y Neck Injury N Leg or Foot Ulcers N High Cholesterol N Liver Disease N Rheumatoid Arthritis N Headaches N Fibromyalgia N Kidney Disease N Heart Problems N Migraines N Thyroid Problems N Anemia N Multiple Sclerosis N Ulcers N Heart Attack (PR) N Diabetes N Bleeding Disorder N Seizures/Epilepsy [...] SNOMED-CT Code Diagnosis ICD10 Code Diagnosis Note [id number] Moise Guerrero DO [facility] [address] [place] [address] 04/06/2017 15:18:56 04/07/2017 10:33:15 Knee pain 38346699 M25.562 Osteoarthr itis of knee 628411609 M17.0 Health Concerns Section Related Observation LastModified by Organization Detai ls LastModified Time None Recorded Concern Status LastModified by Organization Details LastModified Time None Recorded Advance Directives Directive None Recorded Payers Encounter Date Sequence Insurance Name Policy Number Policy Tracey Covered Member ID Tracey Member ID Guarantor Name 04/06/2017 1 [place] Colt Mann [id number] Colt Mann 04/06/2017 2 [facility] (MEDICARE SUPPLEMENT) Colt Mann [id number] Colt Mann Notes Date Note Type Note [...] increased falls as of yet. Surinder Guerrero, [address], [place], [address], [facility] [employer] [facility] 04/10/2017 10:28:07
--- OUTSIDE RECORDS SUMMARY | 2024-09-14 13:34 | XMS_ITS | Continuity of Care Document ---
Author Organization [facility] Address [address] [place] [address] [place] [address] Phone Care Team Providers Care Chicken Vaccinator Name Role Phone Alex Cartwright Unavailable Unavailable Procedures Procedure Date Eye Exam, New Patient Advance Directives Directive Yes / No Effective Date File Name No Information Encounters Encounter Description Practice Location Reason(s) For Visit Diagnoses Date Provider Providers Copied on Encounter [facility], [address] [place] [address] [address], [place], [place], [address], [place] tel:[phone] SEC [facility] No Information 8-200 8 Chay Alex. [address] [facility] [address], [place], [address], [place]. tel:[phone] Family History Family Member Type Diagnosis Age At Onset No Information Payers Payer name Insurance type Covered libertarian ID Authoriza tion(s) [employer] Mdcr Adv CI [id number] Social History Type Description Quantity Date Captured [...]
--- OUTSIDE RECORDS SUMMARY | 2024-09-14 13:34 | XMS_ITS | Clinical Summary ---
Author Organization [facility] [address] Address [address] [place] [address] Care Team Providers Care Sound Recording Technician Name Role Phone Sohail Rutherford Primary Care Provider [phone] Allergies Active Allergy Reactions Criticality Noted Date [...] 1 tablet (88 mcg total) by mouth resource room teacher before breakfast 3 Active lidocaine (ASPERCREME) 4 [...] 04/27/2017 Hyperlipidemia associated with type 2 diabetes m ellitus 01/26/2017 Assessment & Plan (09/24/2020 6:14 PM [...] Type Department Care Team Description 07/17/2024 Telephone [facility] Cardiology [address] [place] [address] Melecio Acosta MD from Last 3 Months Immunizations Immunization Administration Dates Next Due Influenza, Trivalent, High D ose, Split, Preservative Free, Intramuscular 04/23/2019,2018 Td, adsorbed 12/23/2001 Surgical History Surgery Date Site/Laterality Comments OTHER SURGICAL HISTORY R. 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 TEAM MEMBER Gender Identity Not on file Sexual Orientation Not on file Obstetrics History Last Filed Vital Signs Vital Sign Reading Time Taken Comments Blood Pressure 120/70 05/08/2024 11:17 AM CDT Pulse 62 05/08/2024 11:17 AM CDT Temperature 36.9 C (98.4 F) 07/16/2023 7:24 AM GROCERY TEAM MEMBER Respiratory Rate 16 07/16/2023 7:24 AM GROCERY TEAM MEMBER Oxygen Saturation 97% 05/08/2024 11:17 AM CDT [...] Dilated Eye Exam 1938 Foot Exam 1938 Hepatitis B Screening 1956 Pneumococcal vaccine 65+ (1 of 2 - PCV) 1957 Zoster Vaccine (1 of 2) 1988 DTaP/Tdap/Td Vaccine (1 - Tdap) 12/24/2001 2 Well Visit 65+ 2003 Lipid Panel 09/24/2021 09/24/2020, 12/07, 10/30/2018, Additional history exists Influenza Vaccine (#1) 2024 04/23/2019, 2017 Fall Risk Assessment 07/16/2024 07/16/2023 eGFR 07/16/2024 07/16/2023, 01/2024, 07/14/2023, Additional history exists Medical Devices Implanted Type Area Warp Dresser Device Identifier Shelf Expiration Date Model / Serial / Lot PassHat Catherine [id number] Device Closure Watchman Pebax Nitinol [place] Iridium Pet 30mm L75cm Od12 Fr [id number] Fr [address] Stopcock Y Adapter Self Expand Proximal Face Sterile Disposable Left Atrial Appendage - [id number] Implanted:Qty: 1 on 04/22/2019 by Jorge Alberto Desir MD at [facility] [employer] Catherine 01/05/2022 [id number] / / [id number] Procedures Procedure Name Priority Date/Time Associated Diagnosis Comments EGFR Routine 07/16/2023 5:20 AM GROCERY TEAM MEMBER POCT LIPID PANEL Routine 09/24/2020 11:4 0 AM CDT Hyperlipidemia associated with type 2 diabetes mellitus (HCC) from Last 3 Months or Most Recently Relevant to Health Maintenance Results * eGFR (07/16/2023 5:20 AM GROCERY TEAM MEMBER) eGFR 84 >=60 mL/min/1. 73 m2 [facility] Comment: Interpretive Data Reference Interval Normal [...] last reviewed 2021. Blood 07/16/2023 5:20 AM GROCERY TEAM MEMBER 07/16/2023 8:04 AM GROCERY TEAM MEMBER us Jimbo Burdick MD LAB BLOOD ORDERABLES Brittany fung Result [facility] [place] [address] * POCT lipid panel (09/24/2020 11:40 AM [...] Recently Relevant to Health Maintenance Insurance MEDICARE [facility] MEDICARE [facility] MEDICARE MEDICARE [facility] Advance Directives For more information, please contact: [phone] * Full Code (Latest Code Status on File) Date Activated Date Inactivated Comments 07/12/2023 7:16 PM 07/16/2023 7:26 PM * Full Code Date Activated Date Inactivated Comments 04/22/2019 10:34 PM 04/23/2019 5:51 PM Care Teams Sound Recording Technician Relationship Specialty Start Date End Date Sohail Rutherford DO [address] [facility] [address] [place], [place] [id number] PCP - General Internal Medicine 05/08/24
[2024-09-14 13:41] VITALS: BP 137/87; PULSE 66; RESP 17; TEMP 36.9; O2SAT 98
[2024-09-14 14:20] LABS: EDUAAPPEAR Cloudy; EDUABILI Negative (Negative); EDUABLOOD 2+ (Negative); EDUACOLOR1 Yellow; EDUAGLUCOSE Negative (Negative); EDUAKETONE Negative (Negative); EDUALEUKO 3+ (Negative); EDUANITRATE Positive (Negative); EDUAPROTEIN 2+ (Negative); EDUAUROBILI 0.2
== END 2024-09-14 14:32 | disposition home or self-care (01) ==
PROVIDERS: Emergency Provider Nurse Practitioner Family; PCP Internal Medicine
DX: N39.0 Urinary tract infection, site not specified (principal); B96.20 Unspecified Escherichia coli [E. coli] as the cause of diseases classified elsewhere; I10 Essential (primary) hypertension; E11.51 Type 2 diabetes mellitus with diabetic peripheral angiopathy without gangrene; E78.5 Hyperlipidemia, unspecified; N40.0 Benign prostatic hyperplasia without lower urinary tract symptoms; I48.19 Other persistent atrial fibrillation; E03.9 Hypothyroidism, unspecified; K21.9 Gastro-esophageal reflux disease without esophagitis; M19.90 Unspecified osteoarthritis, unspecified site; Z90.89 Acquired absence of other organs; Z96.651 Presence of right artificial knee joint; Z85.828 Personal history of other malignant neoplasm of skin; Z86.73 Personal history of transient ischemic attack (TIA), and cerebral infarction without residual deficits; Z79.82 Long term (current) use of aspirin
CPT/HCPCS: 81003; 87086; 87186; 99213; G0463

== ENCOUNTER 2024-10-17 14:40 | Outpatient (RCR) | payer MEDICARE, SELFPAY ==
[2024-08-01 16:25] LABS: Anion Gap 12 mmol/L (4-12); Blood Urea Nitrogen 19 mg/dL (9-20); Calcium 9.7 mg/dL (8.4-10.2); Carbon Dioxide 25 mmol/L (22-30); Chloride 99 mmol/L (98-107); Estimated Glomerular Filt Rate > 60; Glucose 149 mg/dL (65-110); Potassium 4.2 mmol/L (3.4-5.0); Sodium 136 mmol/L (137-145)
[2024-09-26 17:35] LABS: Anion Gap 10 mmol/L (4-12); Blood Urea Nitrogen 20 mg/dL (9-20); Calcium 9.2 mg/dL (8.4-10.2); Carbon Dioxide 24 mmol/L (22-30); Chloride 96 mmol/L (98-107); Estimated Glomerular Filt Rate > 60; Glucose 133 mg/dL (65-110); Potassium 4.4 mmol/L (3.4-5.0); Sodium 130 mmol/L (137-145)
[2024-10-17 15:20] LABS: Anion Gap 9 mmol/L (4-12); Blood Urea Nitrogen 26 mg/dL (9-20); Carbon Dioxide 24 mmol/L (22-30); Chloride 99 mmol/L (98-107); Estimated Glomerular Filt Rate > 60; Glucose 142 mg/dL (65-110); Potassium 4.5 mmol/L (3.4-5.0); Sodium 132 mmol/L (137-145)
== END 2024-10-30 23:59 | disposition home or self-care (01) ==
LOC: ANHLAB 14:40
PROVIDERS: PCP Internal Medicine; Visit Provider Internal Medicine
DX: E87.1 Hypo-osmolality and hyponatremia (principal)
CPT/HCPCS: 36415; 80048; 81003

== ENCOUNTER 2024-12-20 09:20 | Outpatient (CLI) | payer MEDICARE, SELFPAY ==
--- OUTSIDE RECORDS SUMMARY | 2024-12-20 09:22 | XMS_ITS | Encounter Summary ---
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 Gender Identity Not on file Sexual Orientation Not on file documented as of this encounter Plan of Treatment Not on file documented as of this encounter Procedures Procedure Name Priority Date/Time Associated Diagnosis Comments DERMATOPATHOLOGY Routine 01/17/2018 12:0 0 AM CDT documented in this encounter Results * DERMATOPATHOLOGY (01/17/2018 12:00 AM CDT) Case Report Dermatopathology Report Case: [id number] Authorizing Provider: Doug Bruno MD Collected: 01/17/2018 12:00 AM Pathologist: Jeanine Luna MD Received: 01/18/2018 12:56 PM Specimen: Skin, left cheek below left eye medially 12:28 PM CDT DERMATOPATHOLOGY LABORATORY Final Diagnosis Specimen A. SKIN, left cheek below left eye medially: SEBORRHEIC KERATOSIS (L82.1) 12:28 PM T DERMATOPATHOLOGY LABORATORY at 1228 CDT Clinical History R/O BCC, ISK. 12:28 PM CDT DERMATOPATHOLOGY LABORATORY Gross Description Specimen A: Received is one formalin filled container labeled with the patient's name and designated left cheek below left eye medially. The specimen consists of a shave biopsy measuring [id number]. Jar 0. 12:28 PM T DERMATOPATHOLOGY LABORATORY Microscopic Description Specimen A. SKIN, [...] characteristic determined by the Dermatopathology Laboratory at [facility]. These tests need not be, and therefore are not, approved by the [place] Food and Drug Administration. The tests are used for clinical purposes. Billing Codes Specimen Charges Stain Charges 27222 1 12:28 PM CDT DERMATOPATHOLOGY LABORATORY Embedded Images 12:28 PM CDT DERMATOPATHOLOGY LABORATORY Pathology/Cytolog y TISSUE SPECIMEN FROM SKIN / Unknown 01/17/2018 01/18/2018 12:56 PM CDT us Doug Bruno MD LAB - PATHOLOGY/CYTOLOGY ORD ERABLES Final Result DERMATOPATHOLOGY LABORATORY [facility] - Department of Dermatology [address] [place] [address], 5th Floor Lab [address] [phone] documented in this encounter Visit Diagnoses Not on filedocumented in this encounter Care Teams Operation Supervisor Relationship Specialty Start Date End Date Suman Dexter DO [address] [facility] [address] [id number] PCP - General 01/18/18 documented as of this encounter
--- OUTSIDE RECORDS SUMMARY | 2024-12-20 09:22 | XMS_ITS | Clinical Summary ---
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 Gender Identity Not on file Sexual Orientation Not on file Obstetrics History Last Filed Vital Signs Vital Sign Reading Time Taken Comments Blood Pressure 120/70 05/08/2024 11:17 AM CDT Pulse 62 05/08/2024 11:17 AM CDT Temperature 36.9 C (98.4 F) 07/16/2023 7:24 AM POLITICAL SCIENTIST Respiratory Rate 16 07/16/2023 7:24 AM POLITICAL SCIENTIST Oxygen Saturation 97% 05/08/2024 11:17 AM CDT Inhaled Oxygen Concentration - - Weight 77.1 kg (170 lb) 05/08/2024 11:17 AM CDT Height 170.2 cm (5' 7) 05/08/2024 11:17 AM CDT Body Mass Index [...] 09/24/2021 09/24/2020, 12/07, 10/30/2018, Additional history exists Fall Risk Assessment 07/16/2024 07/16/2023 eGFR 07/16/2024 07/16/2023, 01/2024, 07/14/2023, Additional history exists Influenza Vaccine (Season Ended) 2025 04/23/20, 2018 Medical Devices Implanted Type Area [employer] Department Head Device Identifier Shelf Expiration Date Model / Serial / Lot [employer] Catherine [id number] Device Closure Watchman Pebax Nitinol [place] Iridium Pet 30mm L75cm Od12 Fr [id number] Fr [address] Stopcock Y Adapter Self Expand Proximal Face Sterile Disposable Left Atrial Appendage - [id number] Implanted:Qty: 1 on 04/22/2019 by Jorge Alberto Desir MD at [facility] [employer] Catherine 01/05/2022 [id number] / / [id number] Procedures Procedure Name Priority Date/Time Associated Diagnosis Comments EGFR Routine 07/16/2023 5:20 AM POLITICAL SCIENTIST POCT LIPID PANEL Routine 09/24/2020 11:4 0 AM CDT Hyperlipidemia associated with type 2 diabetes mellitus (HCC) from Last 3 Months or Most Recently Relevant to Health Maintenance Results * eGFR (07/16/2023 5:20 AM POLITICAL SCIENTIST) eGFR 84 >=60 mL/min/1. 73 m2 [facility] Comment: Interpretive Data Reference Interval Normal [...] last reviewed 2021. Blood 07/16/2023 5:20 AM POLITICAL SCIENTIST 07/16/2023 8:04 AM POLITICAL SCIENTIST us Jimbo Burdick MD LAB BLOOD ORDERABLES Brittany fung Result [facility] Department [place] [address] * POCT lipid panel (09/24/2020 11:40 AM [...] Recently Relevant to Health Maintenance Insurance MEDICARE [facility] MEDICARE [facility] MEDICARE MEDICARE [facility] Advance Directives For more information, please contact: [phone] * Full Code (Latest Code Status on File) Date Activated Date Inactivated Comments 07/12/2023 7:16 PM 07/16/2023 7:26 PM * Full Code Date Activated Date Inactivated Comments 04/22/2019 10:34 PM 04/23/2019 5:51 PM Care Teams Refrigeration Service Technician Relationship Specialty Start Date End Date Sohail Rutherford DO [address] [email or web address] [address] [place] [address] PCP - General Internal Medicine 05/08/24
--- OUTSIDE RECORDS SUMMARY | 2024-12-20 09:22 | XMS_ITS | Clinical Summary ---
Author Organization [facility] Address [address] [facility] [place] [address] Care Team Providers Care Ecology Teacher Name Role Phone Suman Dexter Esthela PATEL Primary Care Provider [phone] Source Comments [facility],non-owned Affiliates and Associated Physician Practices is amultiple site organization consisting of ambulatory clinics and hospital sitesin [place] and [place]. This disclosure is being madepursuant to the Care Everywhere program and may not contain all information available regarding this patient. 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 Gender Identity Not on file Sexual Orientation Not on file Plan of Treatment Health Maintenance Due Date Last Done Comments DTAP/TDAP/TD VACCINES (1 - Tdap) 1957 PNEUMOCOCCAL VACCINE 50+ (1 of 1 - PCV) 1988 ZOSTER VACCINE (1 of 2) 1988 Respiratory Syncytial Virus (RSV) Vaccine Pt: or over 60 yrs (1 - 1-dose 75+ series) 2013 COVID-19 VACCINE ( - 2023-2 5 season) 2024 DEPRESSION SCREENING 07/09/2024 INFLUENZA VACCINE (Season Ended) 2025 HEPATITIS B VACCINE Aged Out No longe r eligible based on patient's age to complete this topic HIB VACCINE Aged Out No longer eligi ble based on patient's age to complete this topic HPV VACCINE Aged Out No longer eligi ble based on patient's age to complete this topic MENINGOCOCCAL (Group B) VACC INE SHARED DECISION-MAKING Aged Out No longer eligibl e based on patient's age to complete this topic MENINGOCOCCAL GROUPS A/C/Y/W VACCINE Aged Out No longer eligible b ased on patient's age to complete this topic [place] [address] Care Teams Ecology Teacher Relationship Specialty Start Date End Date Suman Dexter DO [address] [facility] [address] [id number] PCP - General 01/18/18
--- OUTSIDE RECORDS SUMMARY | 2024-12-20 09:22 | XMS_ITS | Continuity of Care Document ---
Author Organization [facility] Address [address] [place] [address] [place] [address] Phone Care Team Providers Care Hair Or Beauty Salon Manager Name Role Phone Alex Cartwright Unavailable Unavailable Procedures Procedure Date Eye Exam, New Patient Advance Directives Directive Yes / No Effective Date File Name No Information Encounters Encounter Description Practice Location Reason(s) For Visit Diagnoses Date Provider Providers Copied on Encounter [facility], [address] [place] [address] [address], [place], [place], [id number], [place] tel:[phone] [facility] No Information [address] Alex[address] [facility] [address], [place], [address], [place]. tel:[phone] Family History Family Member Type Diagnosis Age At Onset No Information Payers Payer name Insurance type Covered republican ID Authoriza tion(s) Advantra Mdcr Adv CI [id number] Social History Type Description Quantity Date Captured [...]
--- OUTSIDE RECORDS SUMMARY | 2024-12-20 09:22 | XMS_ITS | Encounter Summary ---
Author Organization [facility] Address [address] [place] [address] Care Team Providers Care System Integration Engineer Name Role Phone Suman Dexter Primary Care Provider [phone] Encounter Details Date Type Department Care Team (Late st Contact Info) Description 09/20/2018 Lab Requisition [facility] [address] [place] [phone] Doug Bruno MD [address] [place] [address] Social History Tobacco Use Types Packs/Day Years Used Date Smoking Tobacco: Never Assessed Sex and Gender Information Value Date Recorded Sex Assigned at Not on file 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 Gender Identity Not on file Sexual Orientation Not on file documented as of this encounter Plan of Treatment Not on file documented as of this encounter Procedures Procedure Name Priority Date/Time Associated Diagnosis Comments DERMATOPATHOLOGY Routine 09/19/2018 12:0 0 AM CDT documented in this encounter Results * DERMATOPATHOLOGY (09/19/2018 12:00 AM CDT) Case Report Dermatopathology Report Case: [id number] Authorizing Provider: Doug Bruno MD Collected: 09/19/2018 12:00 AM Pathologist: Gisell Gagnon MD Received: 09/20/2018 11:33 AM Specimen: Skin, dorsal left hand 9 10:24 AM T DERMATOPATHOLOGY LABORATORY Final Diagnosis Specimen A. SKIN, dorsal left hand: SEBORRHEIC KERATOSIS, RETICULATED (ADENOID) TYPE (L82.1) 9 10:24 AM T DERMATOPATHOLOGY LABORATORY at 1024 CDT Clinical History R/O lentigo, other. 9 10:24 AM T DERMATOPATHOLOGY LABORATORY Gross Description Specimen A: Received is one formalin filled container labeled with the patient's name and designated dorsal left hand. The specimen consists of a shave biopsy measuring [id number] mm. Jar 0. 10:24 AM [facility] DERMATOPATHOLOGY LABORATORY Microscopic Description Specimen A. SKIN, dorsal left hand: There is reticulated hyperplasia of the epidermis with overlying delicate hyperorthokeratosis . Hyperpigmentation is present in the basaloid cells. 9 10:24 AM T DERMATOPATHOLOGY LABORATORY Disclaimer An external and internal positive and negative controls are appropriate for the histochemical, immunohistochemical and immunofluorescence stain(s) in this case (if any), except where stated explicitly. The performance characteristics of the stain(s) cited in this report were developed and its performance characteristic determined by the Dermatopathology Laboratory at [facility], directed by Dr. Dagoberto Nj. These tests need not be, and therefore are not, approved by the [place] Food and Drug Administration. The tests are used for clinical purposes. Billing Codes Specimen Charges Stain Charges 18459 1 9 10:24 AM T DERMATOPATHOLOGY LABORATORY Embedded Images 9 10:24 AM T DERMATOPATHOLOGY LABORATORY Pathology/Cytolog y TISSUE SPECIMEN FROM SKIN / Unknown 09/19/2018 09/20/2018 11:33 AM CDT Doug Bruno MD LAB - PATHOLOGY/CYTOLOGY ORD ERABLES Final Result DERMATOPATHOLOGY LABORATORY [facility] - Department of Dermatology [address] [place] [address] 5th Floor Lab [address] [phone] documented in this encounter Visit Diagnoses Not on filedocumented in this encounter Care Teams System Integration Engineer Relationship Specialty Start Date End Date Suman Dexter DO [address] [facility] [address] [facility] [address] [place] [address] PCP - General 01/18/18 documented as of this encounter
--- OUTSIDE RECORDS SUMMARY | 2024-12-20 09:23 | XMS_ITS | Referral Summary ---
Author Organization [facility] [address] Address [address] [place] [address] Care Team Providers Care Historic Interpreter Name Role Phone Sohail Rutherford Primary Care Provider [phone] Allergies Active Allergy Reactions Criticality Noted Date [...] 1 tablet (88 mcg total) by mouth adding machine operator before breakfast 3 Active lidocaine (ASPERCREME) 4 [...] on file Legal Sex Male 1:53 AM CIRCUIT MANAGER Gender Identity Not on file Sexual Orientation Not on file Last Filed Vital Signs Vital Sign Reading Time Taken Comments Blood Pressure 120/70 05/08/2024 11:17 AM CDT Pulse 62 05/08/2024 11:17 AM CDT Temperature 36.9 C (98.4 F) 07/16/2023 7:24 AM CIRCUIT MANAGER Respiratory Rate 16 07/16/2023 7:24 AM CIRCUIT MANAGER Oxygen Saturation 97% 05/08/2024 11:17 AM CDT Inhaled Oxygen Concentration - - Weight 77.1 kg (170 lb) 05/08/2024 11:17 AM CDT Height 170.2 cm (5' 7) 05/08/2024 11:17 AM CDT Body Mass Index 26.63 05/08/2024 11:17 AM CDT Plan of Treatment Not on file Medical Devices Implanted Type Area Mining Engineering Technologist Device Identifier Shelf Expiration Date Model / Serial / Lot [employer] [id number] Device Closure Watchman Pebax Nitinol [place] Iridium Pet 30mm L75cm Od12 Fr [id number] Fr 3 Way Stopcock Y Adapter Self Expand Proximal Face Sterile Disposable Left Atrial Appendage - [id number] Implanted:Qty: 1 on 04/22/2019 by Jorge Alberto Desir MD at [facility] [employer] Catherine 01/05/2022 [id number] / / [id number] Procedures Procedure Name Priority Date/Time Associated Diagnosis Comments EGFR Routine 07/16/2023 5:20 AM CIRCUIT MANAGER POCT LIPID PANEL Routine 09/24/2020 11:4 0 AM CDT Hyperlipidemia associated with type 2 diabetes mellitus (HCC) from Last 3 Months or Most Recently Relevant to Health Maintenance Results * eGFR (07/16/2023 5:20 AM CIRCUIT MANAGER) eGFR 84 >=60 mL/min/1. 73 m2 [facility] Comment: Interpretive Data Reference Interval Normal [...] last reviewed 2021. Blood 07/16/2023 5:20 AM CIRCUIT MANAGER 07/16/2023 8:04 AM CIRCUIT MANAGER us Jimbo Burdick MD LAB BLOOD ORDERABLES Brittany fung Result [facility] Department [place] [address] * POCT lipid panel (09/24/2020 11:40 AM [...] Recently Relevant to Health Maintenance Insurance MEDICARE [facility] MEDICARE [facility] MEDICARE MEDICARE [facility] Advance Directives For more information, please contact: [phone] * Full Code (Latest Code Status on File) Date Activated Date Inactivated Comments 07/12/2023 7:16 PM 07/16/2023 7:26 PM * Full Code Date Activated Date Inactivated Comments 04/22/2019 10:34 PM 04/23/2019 5:51 PM Care Teams Historic Interpreter Relationship Specialty Start Date End Date Sohail Rutherford DO [address] [address] PCP - General Internal Medicine 05/08/24
--- OUTSIDE RECORDS SUMMARY | 2024-12-20 09:23 | XMS_ITS | Data Portability ---
Author Organization [facility], [facility] Address [address] [address] Assessment No assessment recorded. Plan of Treatment [...] By Organization Details Last Modified Time 04/06/2017 [id number] with regard to his right knee discussed [...] am recommending a custom measured lateral compartment tobacco curer brace. We measured the patient for this [...] Recorded Time 8 Knee Surgery completed Phuong [employer]PingMe 04/06/2017 16:03:17 Imaging Results None recorded. Procedure [...] 7 69 /min 170.18 cm 29 kg/m2 35686.5 9 g 179 mm[Hg] 94 mm[Hg] Phuong Ayala [facility] 7 15:45:08 Social History Question Answer Notes LastModified by Organizat ion Details LastModified Time Tobacco Smoking Status Never Smoker Phuong Ayala null, [facility] 04/06/2017 16:02:16 Marital Status Informati on not available 04/06/2017 What Was The Date Of Your Most Recent Tobacco Screening? 04/06/2017 Information n ot available 01/30/2019 Sex: Unknown Functional Status Question Answer Note LastModified by Organizat ion Details LastModified Time What is your level of alcohol consumption? Occasional Information not available 04/06/2017 What is your occupation? Retired Information not available 04/06/2017 What is your exercise level? None Information [...] available 03/10 16:02:11 Medical History Condition Response Coronary Artery Disease N HIV or AIDS N Gout N Kidney Stones N Hyperthyroidism Y Hernia N Head Trauma/Injury N Blood Clots N Lung Disease N Hypothyroidism N Depression N COPD N Pacemaker N Anxiety Disorder N Arthritis Y Cancer N Stroke Y Neck Injury N Leg or Foot Ulcers N High Cholesterol N Liver Disease N Rheumatoid Arthritis N Headaches N Fibromyalgia N Kidney Disease N Heart Problems N Migraines N Thyroid Problems N Anemia N Multiple Sclerosis N Ulcers N Heart Attack ([place]) N Diabetes N Bleeding Disorder N Seizures/Epilepsy [...] SNOMED-CT Code Diagnosis ICD10 Code Diagnosis Note [id number] Moise Guerrero DO [facility] [address] [place] [address] 04/06/2017 15:18:56 04/07/2017 10:33:15 Knee pain 71353280 M25.562 Osteoarthr itis of knee [id number] M17.0 Health Concerns Section Related Observation LastModified by Organization Detai ls LastModified Time None Recorded Concern Status LastModified by Organization Details LastModified Time None Recorded Advance Directives Directive None Recorded Payers Insurance Date Sequence Insurance Name Policy Number Policy Tracey Covered Member ID Tracey Member ID Guarantor Name 08/23/2017 1 [place] Colt Mann [id number] Colt Mann 08/23/2017 2 [facility] - PLAN F (MEDICARE SUPPLEMENT) Colt Mann [id number] Colt Mann 08/23/2017 1 [place] Colt Mann [id number] Colt Mann Notes Date Note Type Note [...] having increased [place] [address], [place], [address], [facility] 04/10/2017 10:28:07
[2024-12-20 09:48] LABS: Basophils Percent Auto 0.4 % (0.2-1.2); Eosinophils Absolute Auto 0.1 K/mm3 (0-0.3); Hematocrit 47.9 % (42.0-52.0); Hemoglobin 16.6 g/dL (14.0-18.0); Immature Granulocyte Absolute 0.03 K/mm3 (0.00-0.031); Immature Granulocyte Percent A 0.4 % (0-0.5); Lymphocytes Absolute Auto 3.24 K/mm3 (0.9-3.2); Lymphocytes Percent Auto 47.4 % (18.3-44.2); Mean Corpuscular HGB Conc 34.7 g/dl (32-36); Mean Corpuscular Hemoglobin 34.4 pg (26-34); Mean Corpuscular Volume 99.2 fl (80-100); Mean Platelet Volume 8.7 fl (7.4-10.4); Monocytes Absolute Auto 0.5 K/mm3 (0.1-0.6); Neutrophils Absolute Auto 2.9 K/mm3 (1.3-6.7); Neutrophils Percent Auto 42.8 % (45.5-73.1); Platelet Count Result 250 k/mm3 (150-375); Red Blood Count 4.83 M/mm3 (4.6-6.20); Red Cell Distribution Width 12.2 % (11.5-14.5); White Blood Count 6.8 K/mm3 (4.5-10.0)
[2024-12-20 10:01] LABS: Cholesterol 181 mg/dL (0-200); HDL Direct 67 mg/dL; Triglycerides 110 mg/dL (<150)
[2024-12-20 10:12] LABS: LDL Cholesterol Direct 79 mg/dL
[2024-12-20 10:16] LABS: Hemoglobin A1C 5.9 % (<5.7)
[2024-12-20 10:29] LABS: Free T4 Free Thyroxine 2.04 ng/dL (0.78-2.19); Vitamin D 25 Hydroxy 51.1 ng/mL
== END 2024-12-20 09:21 | disposition home or self-care (01) ==
PROVIDERS: PCP Internal Medicine; Visit Provider Internal Medicine
DX: E78.5 Hyperlipidemia, unspecified (principal); E03.9 Hypothyroidism, unspecified; E11.9 Type 2 diabetes mellitus without complications; E55.9 Vitamin D deficiency, unspecified
CPT/HCPCS: 36415; 80061; 82306; 83036; 84439; 84443; 85025

== ENCOUNTER 2025-01-05 13:38 | Outpatient (CLI) | payer MEDICARE, SELFPAY ==
--- OUTSIDE RECORDS SUMMARY | 2025-01-05 13:57 | XMS_ITS | Encounter Summary ---
Author Organization [facility] Address [address] [facility] [place] [address] Care Team Providers Care Cake Former Name Role Phone Suman Dexter Primary Care Provider Encounter Details Date Type Department Care Team (Late st Contact Info) Description 01/18/2018 Lab Requisition [facility] [address] [place] [address] Doug Bruno MD [address] [place] [address] Social History Tobacco Use Types Packs/Day Years Used Date Smoking Tobacco: Never Assessed Sex and Gender Information Value Date Recorded Sex Assigned at Not on file Legal Sex Male 5:10 AM PROTECTIVE SIGNAL OPERATOR Gender Identity Not on file Sexual Orientation Not on file documented as of this encounter Plan of Treatment Not on file documented as of this encounter Procedures Procedure Name Priority Date/Time Associated Diagnosis Comments DERMATOPATHOLOGY Routine 01/17/2018 12:0 0 AM CDT documented in this encounter Results * DERMATOPATHOLOGY (01/17/2018 12:00 AM CDT) Case Report Dermatopathology Report Case: [id number] Authorizing Provider: Doug Bruno MD Collected: 01/17/2018 [...] specimen consists of a shave biopsy measuring 7x2x8bh. Jar 0. 12:28 PM T DERMATOPATHOLOGY LABORATORY [...] characteristic determined by the Dermatopathology Laboratory at [facility]. These tests need not be, and therefore are not, approved by the [place] Food and Drug Administration. The tests are used for clinical purposes. Billing Codes Specimen Charges Stain Charges 44233 1 12:28 PM CDT DERMATOPATHOLOGY LABORATORY Embedded Images 12:28 PM CDT DERMATOPATHOLOGY LABORATORY Pathology/Cytolog y TISSUE SPECIMEN FROM SKIN / Unknown 01/17/2018 01/18/2018 12:56 PM CDT us Doug Bruno MD LAB - PATHOLOGY/CYTOLOGY ORD ERABLES Final Result DERMATOPATHOLOGY LABORATORY [facility] - Department of Dermatology [address] [place] [address], 5th Floor Lab [address] [phone] documented in this encounter Visit Diagnoses Not on filedocumented in this encounter Care Teams Cake Former Relationship Specialty Start Date End Date Suman Dexter DO [address] [facility] [address] [phone] PCP - General 01/18/18 documented as of this encounter
--- OUTSIDE RECORDS SUMMARY | 2025-01-05 13:57 | XMS_ITS | Clinical Summary ---
Author Organization [facility] Address [address] [facility] [place] [address] Care Team Providers Care Manager Implementation Name Role Phone Suman Dexter Esthela PATEL Primary Care Provider [phone] Source Comments [facility],non-owned Affiliates and Associated Physician Practices is amultiple site organization consisting of ambulatory clinics and hospital sitesin [place], [place], [place] and [place]. This disclosure is being madepursuant to the Care Everywhere program and may not contain all information available regarding this patient. Last updated 18.[facility] Social History Tobacco Use Types Packs/Day Years Used Date Smoking Tobacco: Never Assessed Sex and Gender Information Value Date Recorded Sex Assigned at Not on file Legal Sex Male 5:10 AM OFFICE HELPER Gender Identity Not on file Sexual Orientation [...] complete this topic Insurance MEDICARE Care Teams Manager Implementation Relationship Specialty Start Date End Date Suman Dexter DO [address] [facility] [address] [phone] PCP - General 01/18/18
--- OUTSIDE RECORDS SUMMARY | 2025-01-05 13:58 | XMS_ITS | Clinical Summary ---
Author Organization [facility] Address [facility] [place] [address] Care Team Providers Care Maintenance Apprentice Name Role Phone Suman Dexter MD Primary Care Provider [phone] Social History Tobacco Use Types Packs/Day Years Used Date Smoking Tobacco: Never Assessed Sex and Gender Information Value Date Recorded Sex Assigned at Not on file Legal Sex Male 8:33 PM CDT Gender Identity Not on file Sexual Orientation Not on file Plan of Treatment Health Maintenance Due Date Last Done Comments Pneumococcal Vaccine: 50+ Ye ars (1 of 1 - PCV) 1988 Zoster Vaccines (1 of 2) 1988 DTaP, Tdap and Td Vaccines ( 1 - Tdap) 12/24/2001 12/23/2001 Annual Medicare Wellness Visit 2003 RSV Immunization or 60+ Years (1 - 1-dose 75+ series) 2013 COVID-19 Vaccine ( - 2023-2 5 season) 2024 PHQ-2 (Physician [place]) 07/09/2024 Meningococcal B Vaccine Aged Out No l onger eligible based on patient's age to complete this topic Meningococcal Vaccine Aged Out No mariya west eligible based on patient's age to complete this topic RSV Immunizations Under 20 Months Aged Out No longer eligible based on patient's age to complete this topic Medical Devices Implanted Type Area Ssrs Report Developer Device Identifier Shelf Expiration Date Model / Serial / Lot Watchman Insurance MEDICARE [facility] Care Teams Maintenance Apprentice Relationship Specialty Start Date End Date Suman Dexter MD [address] [place] [address] PCP - General INTERNAL MEDICINE 01/29/23
--- OUTSIDE RECORDS SUMMARY | 2025-01-05 13:58 | XMS_ITS | Data Portability ---
Author Organization [facility] Loop Survey, [facility] Address [address] [address] Assessment No assessment recorded. Plan of Treatment [...] By Organization Details Last Modified Time 04/06/2017 [id number] with regard to his right knee discussed [...] am recommending a custom measured lateral compartment pole peeler brace. We measured the patient for this [...] Recorded Time 8 Knee Surgery completed Ph[employer]ong [employer] 04/06/2017 16:03:17 Imaging Results None recorded. Procedure [...] 7 69 /min 170.18 cm 29 kg/m2 56910.5 9 g 179 mm[Hg] 94 mm[Hg] Phuong Ayala [facility] 7 15:45:08 Social History Question Answer Notes LastModified by Organizat ion Details LastModified Time Tobacco Smoking Status Never Smoker PhuongLINDSEY B[facility] [employer] [facility], [facility] 04/06/2017 16:02:16 Marital Status Informati on not [...] Hyperthyroidism Y Head Trauma/Injury N Hernia N Hypothyroidism N Lung Disease N Blood [...] Multiple Sclerosis N Ulcers N Heart Attack ([place]) N Diabetes N Bleeding Disorder N Seizures/Epilepsy [...] SNOMED-CT Code Diagnosis ICD10 Code Diagnosis Note [id number] Moise Guerrero DO [facility] OFF[facility] [address] [facility] [address] [place] [address] 04/06/2017 15:18:56 04/07/2017 10:33:15 Knee pain 22024613 M25.562 Osteoarthr itis of knee 402794972 M17.0 Health Concerns Section Related Observation LastModified by Organization Detai ls LastModified Time None Recorded Concern Status LastModified by Organization Details LastModified Time None Recorded Advance Directives Directive None Recorded Payers Insurance Date Sequence Insurance Name Policy Number Policy Tracey Covered Member ID Tracey Member ID Guarantor Name 08/23/2017 1 [place] Colt Mann [id number] Colt Mann 08/23/2017 2 [facility] [place] - PLAN F (MEDICARE SUPPLEMENT) Colt Mann [id number] Colt Mann 08/23/2017 1 [place] Colt Mann [id number] A Colt Mann Notes Date Note Type [...] [place] [address], [place], [address], [facility] 04/10/2017 10:28:07
--- OUTSIDE RECORDS SUMMARY | 2025-01-05 13:58 | XMS_ITS | Clinical Summary ---
Author Organization [facility] [address] Address [address] [place] [address] Care Team Providers Care Last Model Maker Name Role Phone Sohail Rutherford Primary Care Provider [phone] Allergies Active Allergy Reactions Criticality Noted Date [...] 1 tablet (88 mcg total) by mouth equine vet before breakfast 3 Active lidocaine (ASPERCREME) 4 [...] on file Legal Sex Male 1:53 AM RAILROAD SIGNAL AND SWITCH OPERATOR Gender Identity Not on file Sexual Orientation Not on file Obstetrics History Last Filed Vital Signs Vital Sign Reading Time Taken Comments Blood Pressure 120/70 05/08/2024 11:17 AM CDT Pulse 62 05/08/2024 11:17 AM CDT Temperature 36.9 C (98.4 F) 07/16/2023 7:24 AM RAILROAD SIGNAL AND SWITCH OPERATOR Respiratory Rate 16 07/16/2023 7:24 AM RAILROAD SIGNAL AND SWITCH OPERATOR Oxygen Saturation 97% 05/08/2024 11:17 AM [...] 04/23/20, 2018 Medical Devices Implanted Type Area Casing Worker Device Identifier Shelf Expiration Date Model / Serial / Lot [employer] Catherine [id number] Device Closure Watchman Pebax Nitinol Mentasta Iridium Pet 30mm L75cm Od12 Fr [id number] Fr 3 [address] Stopcock Y Adapter Self Expand Proximal Face Sterile Disposable Left Atrial Appendage - [id number] Implanted:Qty: 1 on 04/22/2019 by Jorge Alberto Desir MD at [facility] [employer] Catherine 01/05/2022 [id number] / / [id number] Procedures Procedure Name Priority Date/Time Associated Diagnosis Comments EGFR Routine 07/16/2023 5:20 AM RAILROAD SIGNAL AND SWITCH OPERATOR POCT LIPID PANEL Routine 09/24/2020 11:4 0 AM CDT Hyperlipidemia associated with type 2 diabetes mellitus (HCC) from Last 3 Months or Most Recently Relevant to Health Maintenance Results * eGFR (07/16/2023 5:20 AM RAILROAD SIGNAL AND SWITCH OPERATOR) eGFR 84 >=60 mL/min/1. [address] [facility] Comment: Interpretive Data Reference Interval Normal [...] last reviewed 2021. Blood 07/16/2023 5:20 AM RAILROAD SIGNAL AND SWITCH OPERATOR 07/16/2023 8:04 AM RAILROAD SIGNAL AND SWITCH OPERATOR us Jimbo Burdick MD LAB BLOOD ORDERABLES Brittany fung Result [facility] Department [place] [address] * POCT lipid panel (09/24/2020 11:40 AM [...] Recently Relevant to Health Maintenance Insurance MEDICARE [facility] MEDICARE Member Subscriber Plan / Payer ( fective 2003-Present) Name:Colt Mann Member ID:[id number] Relation to Subscriber:Self Name:Colt Mann Subscriber ID:[id number] Payer ID:[id number] Group ID:Not on file Type:MEDICARE [place] [facility] Address: [id number] [place] [id number] [facility] MEDICARE MEDICARE [facility] Advance Directives For more information, please contact: [phone] * Full Code (Latest Code Status on File) Date Activated Date Inactivated Comments 07/12/2023 7:16 PM 07/16/2023 7:26 PM * Full Code Date Activated Date Inactivated Comments 04/22/2019 10:34 PM 04/23/2019 5:51 PM Care Teams Last Model Maker Relationship Specialty Start Date End Date Sohail Rutherford DO [address] [facility] [address] [place] [address] PCP - General Internal Medicine 05/08/24
--- OUTSIDE RECORDS SUMMARY | 2025-01-05 13:58 | XMS_ITS | Continuity of Care Document ---
Author Organization [facility] Address [address] [place] [address] [place] [address] Phone Care Team Providers Care Rn Forensic Name Role Phone Alex Cartwright Unavailable Unavailable Procedures Procedure Date Eye Exam, New Patient Advance Directives Directive Yes / No Effective Date File Name No Information Encounters Encounter Description Practice Location Reason(s) For Visit Diagnoses Date Provider Providers Copied on Encounter [facility], [address] [place] [address] [address], [place], [place], [id number], [place] tel:[phone] [facility] No Information 8-[address] Alex. [address] [facility] [address], [place], [address], [place]. tel:[phone] Family History Family Member Type Diagnosis Age At Onset No Information Payers Payer name Insurance type Covered democrat ID Authoriza tion(s) [employer] Mdcr Adv CI [id number] Social History Type Description Quantity Date Captured [...]
--- OUTSIDE RECORDS SUMMARY | 2025-01-05 13:58 | XMS_ITS | Encounter Summary ---
Author Organization [facility] Address [address] [place] [address] Care Team Providers Care Oven Equipment Repairer Name Role Phone Suman Dexter Primary Care Provider Encounter Details Date Type Department Care Team (Late st Contact Info) Description 09/20/2018 Lab Requisition [facility] Care [facility] Lab [address] [place] [phone] Doug Bruno MD [address] [place] [address] Social History Tobacco Use Types Packs/Day Years Used Date Smoking Tobacco: Never Assessed Sex and Gender Information Value Date Recorded Sex Assigned at Not on file Legal Sex Male 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 Jar 0. 10:24 AM [facility] DERMATOPATHOLOGY LABORATORY Microscopic Description [...] by the Dermatopathology Laboratory at [facility], directed by Dr. Dagoberto Nj. These tests need not be, and therefore are not, approved by the [place] Food and Drug Administration. The tests are used for clinical purposes. Billing Codes Specimen Charges Stain Charges 63129 1 9 10:24 AM T DERMATOPATHOLOGY LABORATORY Embedded Images 9 10:24 AM T DERMATOPATHOLOGY LABORATORY Pathology/Cytolog y TISSUE SPECIMEN FROM SKIN / Unknown 09/19/2018 09/20/2018 11:33 AM CDT Doug Bruno MD LAB - PATHOLOGY/CYTOLOGY ORD ERABLES Final Result DERMATOPATHOLOGY LABORATORY [facility] - Department of Dermatology [address] [place] [address] 5th Floor Lab [address] [phone] documented in this encounter Visit Diagnoses Not on filedocumented in this encounter Care Teams Oven Equipment Repairer Relationship Specialty Start Date End Date Suman Dexter DO [address] [facility] [address] [facility] 21 [place] [address] PCP - General 01/18/18 documented as of this encounter
--- OUTSIDE RECORDS SUMMARY | 2025-01-05 13:58 | XMS_ITS | Referral Summary ---
Author Organization [facility] [address] Address [address] [place] [address] Care Team Providers Care Lithographic Etcher Name Role Phone Sohail Rutherford Primary Care Provider [phone] Allergies Active Allergy Reactions Criticality Noted Date [...] 1 tablet (88 mcg total) by mouth core shaper before breakfast 3 Active lidocaine (ASPERCREME) 4 [...] on file Legal Sex Male 1:53 AM HIGH SPEED WARPER TENDER Gender Identity Not on file Sexual Orientation Not on file Last Filed Vital Signs Vital Sign Reading Time Taken Comments Blood Pressure 120/70 05/08/2024 11:17 AM CDT Pulse 62 05/08/2024 11:17 AM CDT Temperature 36.9 C (98.4 F) 07/16/2023 7:24 AM HIGH SPEED WARPER TENDER Respiratory Rate 16 07/16/2023 7:24 AM HIGH SPEED WARPER TENDER Oxygen Saturation 97% 05/08/2024 11:17 AM CDT Inhaled Oxygen Concentration - - Weight 77.1 kg (170 lb) 05/08/2024 11:17 AM CDT Height 170.2 cm (5' 7) 05/08/2024 11:17 AM CDT Body Mass Index 26.63 05/08/2024 11:17 AM CDT Plan of Treatment Not on file Medical Devices Implanted Type Area Cable Coverer Device Identifier Shelf Expiration Date Model / Serial / Lot CLO [employer] [id number] Device Closure Watchman Pebax Nitinol [place] Iridium Pet 30mm L75cm Od12 Fr Odsec14 Fr [address] Stopcock Y Adapter Self Expand Proximal Face Sterile Disposable Left Atrial Appendage - [id number] Implanted:Qty: 1 on 04/22/2019 by Jorge Alberto Desir MD at [facility] [employer] Catherine 01/05/2022 [id number] / / [id number] Procedures Procedure Name Priority Date/Time Associated Diagnosis Comments EGFR Routine 07/16/2023 5:20 AM HIGH SPEED WARPER TENDER POCT LIPID PANEL Routine 09/24/2020 11:4 0 AM CDT Hyperlipidemia associated with type 2 diabetes mellitus (HCC) from Last 3 Months or Most Recently Relevant to Health Maintenance Results * eGFR (07/16/2023 5:20 AM HIGH SPEED WARPER TENDER) eGFR 84 >=60 mL/min/1. [address] [facility] Comment: Interpretive Data Reference Interval Normal [...] last reviewed 2021. Blood 07/16/2023 5:20 AM HIGH SPEED WARPER TENDER 07/16/2023 8:04 AM HIGH SPEED WARPER TENDER us Jimbo Burdick MD LAB BLOOD ORDERABLES Brittany fung Result [facility] Department [place] [address] * POCT lipid panel (09/24/2020 11:40 AM [...] to Health Maintenance Insurance MEDICARE [facility] MEDICARE [facility] MEDICARE MEDICARE [facility] Advance Directives For more information, please contact: [phone] * Full Code (Latest Code Status on File) Date Activated Date Inactivated Comments 07/12/2023 7:16 PM 07/16/2023 7:26 PM * Full Code Date Activated Date Inactivated Comments 04/22/2019 10:34 PM 04/23/2019 5:51 PM Care Teams Lithographic Etcher Relationship Specialty Start Date End Date Sohail Rutherford DO [address] [address] PCP - General Internal Medicine 05/08/24
[2025-01-05 14:16] LABS: Add Urine Microscopic? YES; Appearance Urine Clear (Clear); Bacteria Urine None Seen /hpf; Bilirubin Urine Negative (Negative); Blood Urine Negative (Negative); Color Urine Yellow (Yellow); Glucose Urine UA Negative (Negative); Ketones Urine Trace mg/dL (Negative); Leukocyte Esterase Ur Trace LEU/UL (Negative); Nitrate Urine Negative (Negative); Non Pathogenic Casts 0-2; Protein Urine Negative (Negative); RBC Urine 0-2 /hpf (0-2); Specific Grav Ur 1.017 (1.001-1.035); Squamous Epithelial Cell Urine None Seen /hpf (Few); WBC Urine 0-5 /hpf (0-3)
== END 2025-01-05 13:39 | disposition home or self-care (01) ==
PROVIDERS: PCP Internal Medicine; Visit Provider Internal Medicine
DX: R30.0 Dysuria (principal)
CPT/HCPCS: 81001

== ENCOUNTER 2025-02-04 09:41 | Outpatient (CLI) | payer MEDICARE, SELFPAY ==
--- NOTE | ~2025-02-04 | XR_ITS ---
EXAMINATION: XR UGIAC w barium swallow DATE: 02/04/2025 10:37 INDICATION: Nausea TECHNIQUE: The patient drank thick barium, gas-producing crystals, and thin barium. Fluoroscopic spot radiographs of the hypopharynx, esophagus, stomach and proximal small bowel were obtained. A total o f 1278 fluoroscopic images were recorded. Fluoroscopy exposure time was 2.9 minutes. Total DAP was 17 .298 Gycm^2. COMPARISON: None. FINDINGS: The pharynx is symmetric and without evidence of mass lesion or mucosal irregularity. The esophagus i s normal without mass or stricture. Esophageal motility is normal. There is no hiatal hernia. There w as no gastroesophageal reflux with provocative maneuvers. The stomach and proximal small bowel are no rmal. 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 Th ere is also an ASD closure device. 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 IMPRESSION: 1. Unremarkable esophagram and upper GI study. 2. 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 Reviewed, dictated and finalized at location A.
--- OUTSIDE RECORDS SUMMARY | 2025-02-04 10:02 | XMS_ITS | Referral Summary ---
Author Organization [facility] [address] Address [address] [place] [address] Care Team Providers Care Portfolio Strategist Name Role Phone Sohail Rutherford Primary Care Provider [phone] Allergies Active Allergy Reactions Criticality Noted Date [...] 1 tablet (88 mcg total) by mouth sock boarder before breakfast 3 Active lidocaine (ASPERCREME) 4 [...] on file Legal Sex Male 1:53 AM INDUSTRIAL METHODS CONSULTANT Gender Identity Not on file Sexual Orientation Not on file Last Filed Vital Signs Vital Sign Reading Time Taken Comments Blood Pressure 120/70 05/08/2024 11:17 AM CDT Pulse 62 05/08/2024 11:17 AM CDT Temperature 36.9 C (98.4 F) 07/16/2023 7:24 AM INDUSTRIAL METHODS CONSULTANT Respiratory Rate 16 07/16/2023 7:24 AM INDUSTRIAL METHODS CONSULTANT Oxygen Saturation 97% 05/08/2024 11:17 AM CDT Inhaled Oxygen Concentration - - Weight 77.1 kg (170 lb) 05/08/2024 11:17 AM CDT Height 170.2 cm (5' 7) 05/08/2024 11:17 AM CDT Body Mass Index 26.63 05/08/2024 11:17 AM CDT Plan of Treatment Not on file Medical Devices Implanted Type Area Feather Shaper Device Identifier Shelf Expiration Date Model / Serial / Lot Syncapse [id number] Device Closure Watchman Pebax Nitinol [place] Iridium Pet 30mm L75cm Od12 Fr Odsec14 Fr [address] Way Stopcock Y Adapter Self Expand Proximal Face Sterile Disposable Left Atrial Appendage - [id number] Implanted:Qty: 1 on 04/22/2019 by Jorge Alberto Desir MD at [facility] [employer] Catherine 01/05/2022 [id number] / / [id number] Procedures Procedure Name Priority Date/Time Associated Diagnosis Comments EGFR Routine 07/16/2023 5:20 AM INDUSTRIAL METHODS CONSULTANT POCT LIPID PANEL Routine 09/24/2020 11:4 0 AM CDT Hyperlipidemia associated with type 2 diabetes mellitus (HCC) from Last 3 Months or Most Recently Relevant to Health Maintenance Results * eGFR (07/16/2023 5:20 AM INDUSTRIAL METHODS CONSULTANT) eGFR 84 >=60 mL/min/1. 73 m2 [facility] Comment: Interpretive Data Reference Interval [...] last reviewed 2021. Blood 07/16/2023 5:20 AM INDUSTRIAL METHODS CONSULTANT 07/16/2023 8:04 AM INDUSTRIAL METHODS CONSULTANT us Jimbo Burdick MD LAB BLOOD ORDERABLES Brittany fung Result [facility] [place] [address] * POCT lipid panel (09/24/2020 11:40 AM [...] Recently Relevant to Health Maintenance Insurance [facility]ICARE [facility] Advance Directives For more information, please contact: [phone] * Full Code (Latest Code Status on File) Date Activated Date Inactivated Comments 07/12/2023 7:16 PM 07/16/2023 7:26 PM * Full Code Date Activated Date Inactivated Comments 04/22/2019 10:34 PM 04/23/2019 5:51 PM Care Teams Portfolio Strategist Relationship Specialty Start Date End Date Sohail Rutherford DO [address] [address] PCP - General Internal Medicine 05/08/24
--- OUTSIDE RECORDS SUMMARY | 2025-02-04 10:02 | XMS_ITS | Encounter Summary ---
Author Organization [facility] Address [address] [facility] [place] [address] Care Team Providers Care Retail Field Supervisor Name Role Phone Suman Dexter Primary Care Provider Encounter Details Date Type Department Care Team (Late st Contact Info) Description 09/20/2018 Lab Requisition 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 Jar 0. 10:24 AM [facility] DERMATOPATHOLOGY LABORATORY Microscopic Description Specimen A. SKIN, [...] characteristic determined by the Dermatopathology Laboratory at [facility], directed by Dr. Dagoberto Nj. These tests need not be, and therefore are not, approved by the [place] Food and Drug Administration. The tests are used for clinical purposes. Billing Codes Specimen Charges Stain Charges 65223 1 9 10:24 AM T DERMATOPATHOLOGY LABORATORY Embedded Images 9 10:24 AM T DERMATOPATHOLOGY LABORATORY Pathology/Cytolog y TISSUE SPECIMEN FROM SKIN / Unknown 09/19/2018 09/20/2018 11:33 AM CDT Doug Bruno MD LAB - PATHOLOGY/CYTOLOGY ORD ERABLES Final Result DERMATOPATHOLOGY LABORATORY [facility] - Department of Dermatology [address] [place] [address] 5th Floor Lab [address] [phone] documented in this encounter Visit Diagnoses Not on filedocumented in this encounter Care Teams Retail Field Supervisor Relationship Specialty Start Date End Date Suman Dexter DO [address] [facility] [address] [facility] [address] [place] [address] PCP - General 01/18/18 documented as of this encounter
--- OUTSIDE RECORDS SUMMARY | 2025-02-04 10:02 | XMS_ITS | Clinical Summary ---
Author Organization [facility] Address [facility] [place] [address] Care Team Providers Care Surgical Garment Assembler Name Role Phone Suman Dexter MD Primary Care Provider [phone] Social History Tobacco Use Types Packs/Day Years [...] - 2023-2 5 season) 2024 PHQ-2 (Physician [place]) 07/09/2024 Meningococcal B Vaccine Aged Out No l onger eligible based on patient's age to complete this topic Meningococcal Vaccine Aged Out No mariya west eligible based on patient's age to complete this topic RSV Immunizations Under 20 Months Aged Out No longer eligible based on patient's age to complete this topic Medical Devices Implanted Type Area Appellate Law Clerk Device Identifier Shelf Expiration Date Model / Serial / Lot Watchman Insurance MEDICARE [facility] Care Teams Surgical Garment Assembler Relationship Specialty Start Date End Date Suman Dexter MD [address] [place] [address] PCP - General INTERNAL MEDICINE 01/29/23
--- OUTSIDE RECORDS SUMMARY | 2025-02-04 10:02 | XMS_ITS | Encounter Summary ---
Author Organization [facility] Address [address] [place] [address] Care Team Providers Care Centerless Grinder Operator Name Role Phone Suman Dexter MD Primary Care Provider [phone] Sohail Rutherford DO Primary Care Provider [phone] Encounter Details Date Type Department Care Team (Late st Contact Info) Description 12/13/2022 Orders Only [facility] Health Information Management [address] [place] [address] Scanning, Provider Social History Tobacco Use Types Packs/Day Years Used Date Smoking Tobacco: Former Smokeless Tobacco: Never Comments:Smoking History Pac ks/day: 1 Cigars Alcohol Use Standard Drinks/Week Comments Yes 0 (1 standard drink = 0.6 oz pur e alcohol) Sex and Gender Information Value Date Recorded Sex Assigned at Not on file Legal Sex Male 1:53 AM THERAPEUTIC RIDING INSTRUCTOR Gender Identity Not on file Sexual Orientation Not on file documented as of this encounter Plan of Treatment Not on file documented as of this encounter Procedures Procedure Name Priority Date/Time Associated Diagnosis Comments SCAN - RADIOLOGY/IMAGING 12/13/2022 documented in this encounter Results * SCAN - RADIOLOGY/IMAGING (12/13/2022) Anatomical Region Laterality Modality Other us Provider Scanning Final Result documented in this encounter Visit Diagnoses Not on filedocumented in this encounter Care Teams Centerless Grinder Operator Relationship Specialty Start Date End Date Suman Dexter MD [address] [place] [address] PCP - General 05/27/13 05/07/24 Sohail Rutherford DO [address] [place] [address] PCP - General Internal Medicine 05/08/24 documented as of this encounter
--- OUTSIDE RECORDS SUMMARY | 2025-02-04 10:02 | XMS_ITS | Clinical Summary ---
Author Organization [facility] Address [address] [facility] [place] [address] Care Team Providers Care Pastry Decorator Name Role Phone Suman Dexter Esthela PATEL Primary Care Provider [phone] Source Comments [facility],non-owned Affiliates and Associated Physician Practices is amultiple site organization consisting of ambulatory clinics and hospital sitesin [place], [place], [place] and [place]. This disclosure is being madepursuant to the Care Everywhere program and may not contain all information available regarding this patient. 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
--- OUTSIDE RECORDS SUMMARY | 2025-02-04 10:02 | XMS_ITS | Encounter Summary ---
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 Jar 0. 12:28 PM T DERMATOPATHOLOGY LABORATORY [...] characteristic determined by the Dermatopathology Laboratory at [facility]. These tests need not be, and therefore are not, approved by the [place] Food and Drug Administration. The tests are used for clinical purposes. Billing Codes Specimen Charges Stain Charges 06322 1 12:28 PM CDT DERMATOPATHOLOGY LABORATORY Embedded Images 12:28 PM CDT DERMATOPATHOLOGY LABORATORY Pathology/Cytolog y TISSUE SPECIMEN FROM SKIN / Unknown 01/17/2018 01/18/2018 12:56 PM CDT us Doug Bruno MD LAB - PATHOLOGY/CYTOLOGY ORD ERABLES Final Result DERMATOPATHOLOGY LABORATORY [facility] - Department of Dermatology [address] [place] [address], 5th Floor Lab [address] [phone] documented in this encounter Visit Diagnoses Not on filedocumented in this encounter Care Teams Manager Quantitative Relationship Specialty Start Date End Date Suman Dexter DO [address] [facility] [address] [id number] PCP - General 01/18/18 documented as of this encounter
--- OUTSIDE RECORDS SUMMARY | 2025-02-04 10:02 | XMS_ITS | Clinical Summary ---
Author Organization [facility] [address] Address [address] [place] [address] Care Team Providers Care Slasher Tender Name Role Phone Sohail Rutherford Primary Care Provider [phone] Allergies Active Allergy Reactions Criticality Noted Date [...] 1 tablet (88 mcg total) by mouth shadowgraph scale operator before breakfast 3 Active lidocaine (ASPERCREME) [...] on file Legal Sex Male 1:53 AM PROFESSIONAL ATHLETES COACH Gender Identity Not on file Sexual Orientation Not on file Obstetrics History Last Filed Vital Signs Vital Sign Reading Time Taken Comments Blood Pressure 120/70 05/08/2024 11:17 AM CDT Pulse 62 05/08/2024 11:17 AM CDT Temperature 36.9 C (98.4 F) 07/16/2023 7:24 AM PROFESSIONAL ATHLETES COACH Respiratory Rate 16 07/16/2023 7:24 AM PROFESSIONAL ATHLETES COACH Oxygen Saturation 97% 05/08/2024 11:17 AM CDT [...] 01/2024, 07/14/2023, Additional history exists Influenza Vaccine (#1) 2025 04/23/2019, 2017 Medical Devices Implanted Type Area Colon And Rectal Surgeon Device Identifier Shelf Expiration Date Model / Serial / Lot [employer] Catherine [id number] Device Closure Watchman Pebax Nitinol [place] Iridium Pet 30mm L75cm Od12 Fr [id number] Fr 3 Way Stopcock Y Adapter Self Expand Proximal Face Sterile Disposable Left Atrial Appendage - [id number] Implanted:Qty: 1 on 04/22/2019 by Jorge Alberto Desir MD at [facility] [employer] Catherine 01/05/2022 [id number] / / [id number] Procedures Procedure Name Priority Date/Time Associated Diagnosis Comments EGFR Routine 07/16/2023 5:20 AM PROFESSIONAL ATHLETES COACH POCT LIPID PANEL Routine 09/24/2020 11:4 0 AM CDT Hyperlipidemia associated with type 2 diabetes mellitus (HCC) from Last 3 Months or Most Recently Relevant to Health Maintenance Results * eGFR (07/16/2023 5:20 AM PROFESSIONAL ATHLETES COACH) eGFR 84 >=60 mL/min/1. 73 m2 [facility] Comment: Interpretive Data Reference Interval Normal [...] last reviewed 2021. Blood 07/16/2023 5:20 AM PROFESSIONAL ATHLETES COACH 07/16/2023 8:04 AM PROFESSIONAL ATHLETES COACH us Jimbo Burdick MD LAB BLOOD ORDERABLES Brittany antonieta Result [facility] Department [place] [address] * POCT lipid panel (09/24/2020 11:40 AM [...] Recently Relevant to Health Maintenance Insurance MEDICARE [facility] MEDICARE [facility] MEDICARE MEDICARE [facility] Advance Directives For more information, please contact: [phone] * Full Code (Latest Code Status on File) Date Activated Date Inactivated Comments 07/12/2023 7:16 PM 07/16/2023 7:26 PM * Full Code Date Activated Date Inactivated Comments 04/22/2019 10:34 PM 04/23/2019 5:51 PM Care Teams Slasher Tender Relationship Specialty Start Date End Date Sohail Rutherford DO [address] [address] PCP - General Internal Medicine 05/08/24
== END 2025-02-04 09:42 | disposition home or self-care (01) ==
PROVIDERS: PCP Internal Medicine; Visit Provider Internal Medicine
DX: R11.0 Nausea (principal)
CPT/HCPCS: 74246

== ENCOUNTER 2025-02-28 12:20 | Outpatient (RCR) | payer MEDICARE, SELFPAY ==
--- OUTSIDE RECORDS SUMMARY | 2024-12-23 14:39 | XMS_ITS | Encounter Summary ---
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 Jar 0. 12:28 PM T DERMATOPATHOLOGY LABORATORY [...] determined by the Dermatopathology Laboratory at [facility]. These tests need not be, and therefore are not, approved by the [place] Food and Drug Administration. The tests are used for clinical purposes. Billing Codes Specimen Charges Stain Charges 78430 1 12:28 PM CDT DERMATOPATHOLOGY LABORATORY Embedded Images 12:28 PM CDT DERMATOPATHOLOGY LABORATORY Pathology/Cytolog y TISSUE SPECIMEN FROM SKIN / Unknown 01/17/2018 01/18/2018 12:56 PM CDT us Doug Bruno MD LAB - PATHOLOGY/CYTOLOGY ORD ERABLES Final Result DERMATOPATHOLOGY LABORATORY [facility] - Department of Dermatology [address] [place] [address], 5th Floor Lab [address] [phone] documented in this encounter Visit Diagnoses Not on filedocumented in this encounter Care Teams Visual Merchandise Manager Relationship Specialty Start Date End Date Suman Dexter DO [address] [facility] [address] [phone] PCP - General 01/18/18 documented as of this encounter
--- OUTSIDE RECORDS SUMMARY | 2024-12-23 14:39 | XMS_ITS | Clinical Summary ---
Author Organization [facility] Address [address] [facility] [place] [address] Care Team Providers Care Design Technology Teacher Name Role Phone Suman Dexter Esthela PATEL Primary Care Provider [phone] Source Comments [facility],non-owned Affiliates and Associated Physician Practices is amultiple site organization consisting of ambulatory clinics and hospital sitesin [place], [place], [place] and [place]. This disclosure is being madepursuant to the Care Everywhere program and may not contain all information available regarding this patient. Last updated 18.[facility] Social History Tobacco Use Types Packs/Day Years Used Date Smoking Tobacco: Never Assessed Sex and Gender Information Value Date Recorded Sex Assigned at Not on file Legal Sex Male 5:10 AM DIRECTOR LEARNING SERVICES Gender Identity Not on file Sexual Orientation [...] age to complete this topic Insurance MEDICARE Care Teams Design Technology Teacher Relationship Specialty Start Date End Date Suman Dexter DO [address] [facility] [address] [phone] PCP - General 01/18/18
--- OUTSIDE RECORDS SUMMARY | 2024-12-23 14:39 | XMS_ITS | Continuity of Care Document ---
Author Organization [facility] Address [address] [place] [address] [place] [address] Phone Care Team Providers Care Fastener Sewing Machine Operator Name Role Phone Alex Cartwright Unavailable Unavailable Procedures Procedure Date Eye Exam, New Patient Advance Directives Directive Yes / No Effective Date File Name No Information Encounters Encounter Description Practice Location Reason(s) For Visit Diagnoses Date Provider Providers Copied on Encounter [facility], [address] [place] [address] [address], [place], [place], [id number], [place] tel:[phone] SEC [facility] No Information [phone] Chay Alex. [address] [facility] [address], [place], [address], [place]. tel:[phone] Family History Family Member Type Diagnosis Age At Onset No Information Payers Payer name Insurance type Covered democrat ID Authoriza tion(s) [employer] Mdcr Adv CI [id number] Social History Type Description Quantity Date Captured [...]
--- OUTSIDE RECORDS SUMMARY | 2024-12-23 14:39 | XMS_ITS | Encounter Summary ---
Author Organization [facility] Address [address] [facility] [place] [address] Care Team Providers Care Tactical Response Group Officer Name Role Phone Suman Dexter Primary Care Provider Encounter Details Date Type Department Care Team (Late st Contact Info) Description 09/20/2018 Lab Requisition [facility] [address] [place] [phone] Doug Bruno MD [address] [place] [address] Social History Tobacco Use Types Packs/Day Years Used Date Smoking Tobacco: Never Assessed Sex and Gender Information Value Date Recorded Sex Assigned at Not on file Legal Sex Male 5:10 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 Jar 0. 10:24 AM [facility] DERMATOPATHOLOGY LABORATORY Microscopic Description Specimen [...] characteristic determined by the Dermatopathology Laboratory at [facility], directed by Dr. Dagoberto Nj. These tests need not be, and therefore are not, approved by the [place] Food and Drug Administration. The tests are used for clinical purposes. Billing Codes Specimen Charges Stain Charges 33312 1 9 10:24 AM T DERMATOPATHOLOGY LABORATORY Embedded Images 9 10:24 AM T DERMATOPATHOLOGY LABORATORY Pathology/Cytolog y TISSUE SPECIMEN FROM SKIN / Unknown 09/19/2018 09/20/2018 11:33 AM CDT Doug Bruno MD LAB - PATHOLOGY/CYTOLOGY ORD ERABLES Final Result DERMATOPATHOLOGY LABORATORY [facility] - Department of Dermatology [address] [place] [address] 5th Floor Lab [address] [phone] documented in this encounter Visit Diagnoses Not on filedocumented in this encounter Care Teams Tactical Response Group Officer Relationship Specialty Start Date End Date Suman Dexter DO [address] [facility] [address] [facility] [address] [place] [address] PCP - General 01/18/18 documented as of this encounter
--- OUTSIDE RECORDS SUMMARY | 2024-12-23 14:39 | XMS_ITS | Referral Summary ---
Author Organization [facility] [address] Address [address] [place] [address] Care Team Providers Care Moving Consultant Name Role Phone Sohail Rutherford Primary Care Provider Allergies Active Allergy Reactions Criticality Noted Date [...] 1 tablet (88 mcg total) by mouth slot ambassador before breakfast 3 Active lidocaine (ASPERCREME) 4 [...] on file Legal Sex Male 1:53 AM CABIN SERVICE AGENT Gender Identity Not on file Sexual Orientation Not on file Last Filed Vital Signs Vital Sign Reading Time Taken Comments Blood Pressure 120/70 05/08/2024 11:17 AM CDT Pulse 62 05/08/2024 11:17 AM CDT Temperature 36.9 C (98.4 F) 07/16/2023 7:24 AM CABIN SERVICE AGENT Respiratory Rate 16 07/16/2023 7:24 AM CABIN SERVICE AGENT Oxygen Saturation 97% 05/08/2024 11:17 AM CDT Inhaled Oxygen Concentration - - Weight 77.1 kg (170 lb) 05/08/2024 11:17 AM CDT Height 170.2 cm (5' 7) 05/08/2024 11:17 AM CDT Body Mass Index 26.63 05/08/2024 11:17 AM CDT Plan of Treatment Not on file Medical Devices Implanted Type Area Separations Scientist Device Identifier Shelf Expiration Date Model / Serial / Lot SLID [id number] Device Closure Watchman Pebax Nitinol Freedom Iridium Pet 30mm L75cm Od12 Fr [id number] Fr 3 Way Stopcock Y Adapter Self Expand Proximal Face Sterile Disposable Left Atrial Appendage - [id number] Implanted:Qty: 1 on 04/22/2019 by Jorge Alberto Desir MD at [facility] [employer] Catherine 01/05/2022 [id number] / / [id number] Procedures Procedure Name Priority Date/Time Associated Diagnosis Comments EGFR Routine 07/16/2023 5:20 AM CABIN SERVICE AGENT POCT LIPID PANEL Routine 09/24/2020 11:4 0 AM CDT Hyperlipidemia associated with type 2 diabetes mellitus (HCC) from Last 3 Months or Most Recently Relevant to Health Maintenance Results * eGFR (07/16/2023 5:20 AM CABIN SERVICE AGENT) eGFR 84 >=60 mL/min/1. 73 m2 [facility] Comment: Interpretive Data Reference Interval Normal [...] last reviewed 2021. Blood 07/16/2023 5:20 AM CABIN SERVICE AGENT 07/16/2023 8:04 AM CABIN SERVICE AGENT us Jimbo Burdick MD LAB BLOOD ORDERABLES Brittany fung Result [facility] Department [place] [address] * POCT lipid panel (09/24/2020 11:40 AM [...] Recently Relevant to Health Maintenance Insurance MEDICARE [facility] MEDICARE [facility] MEDICARE MEDICARE [facility] Advance Directives For more information, please contact: [phone] * Full Code (Latest Code Status on File) Date Activated Date Inactivated Comments 07/12/2023 7:16 PM 07/16/2023 7:26 PM * Full Code Date Activated Date Inactivated Comments 04/22/2019 10:34 PM 04/23/2019 5:51 PM Care Teams Moving Consultant Relationship Specialty Start Date End Date Sohail Rutherford DO [address] [address] PCP - General Internal Medicine 05/08/24
--- OUTSIDE RECORDS SUMMARY | 2024-12-23 14:39 | XMS_ITS | Clinical Summary ---
Author Organization [facility] [address] Address [address] [place] [address] Care Team Providers Care Cardiac Catheterization Technologist Name Role Phone Sohail Rutherford Primary Care Provider [phone] Allergies Active Allergy Reactions Criticality Noted Date [...] 1 tablet (88 mcg total) by mouth federal aid coordinator before breakfast 3 Active lidocaine (ASPERCREME) 4 [...] on file Legal Sex Male 1:53 AM FEDERAL AID COORDINATOR Gender Identity Not on file Sexual Orientation Not on file Obstetrics History Last Filed Vital Signs Vital Sign Reading Time Taken Comments Blood Pressure 120/70 05/08/2024 11:17 AM CDT Pulse 62 05/08/2024 11:17 AM CDT Temperature 36.9 C (98.4 F) 07/16/2023 7:24 AM FEDERAL AID COORDINATOR Respiratory Rate 16 07/16/2023 7:24 AM FEDERAL AID COORDINATOR Oxygen Saturation 97% 05/08/2024 11:17 AM CDT [...] 04/23/20, 2018 Medical Devices Implanted Type Area Incident Response Consultant Device Identifier Shelf Expiration Date Model / Serial / Lot [employer] Catherine [id number] Device Closure Watchman Pebax Nitinol [place] Iridium Pet 30mm L75cm Od12 Fr [id number] Fr [address] Stopcock Y Adapter Self Expand Proximal Face Sterile Disposable Left Atrial Appendage - [id number] Implanted:Qty: 1 on 04/22/2019 by Jorge Alberto Desir MD at [facility] [employer] Catherine 01/05/2022 [id number] / / [id number] Procedures Procedure Name Priority Date/Time Associated Diagnosis Comments EGFR Routine 07/16/2023 5:20 AM FEDERAL AID COORDINATOR POCT LIPID PANEL Routine 09/24/2020 11:4 0 AM CDT Hyperlipidemia associated with type 2 diabetes mellitus (HCC) from Last 3 Months or Most Recently Relevant to Health Maintenance Results * eGFR (07/16/2023 5:20 AM FEDERAL AID COORDINATOR) eGFR 84 >=60 mL/min/1. 73 m2 [facility] Comment: Interpretive Data Reference Interval Normal [...] last reviewed 2021. Blood 07/16/2023 5:20 AM FEDERAL AID COORDINATOR 07/16/2023 8:04 AM FEDERAL AID COORDINATOR us Jimbo Burdick MD LAB BLOOD ORDERABLES Brittany fung Result [facility] Department [place] [address] * POCT lipid panel (09/24/2020 11:40 AM [...] Recently Relevant to Health Maintenance Insurance MEDICARE [facility] MEDICARE [facility] MEDICARE MEDICARE [facility] Advance Directives For more information, please contact: [phone] * Full Code (Latest Code Status on File) Date Activated Date Inactivated Comments 07/12/2023 7:16 PM 07/16/2023 7:26 PM * Full Code Date Activated Date Inactivated Comments 04/22/2019 10:34 PM 04/23/2019 5:51 PM Care Teams Cardiac Catheterization Technologist Relationship Specialty Start Date End Date Sohail Rutherford DO [address] [facility] [address] [place] [address] PCP - General Internal Medicine 05/08/24
--- OUTSIDE RECORDS SUMMARY | 2024-12-23 14:40 | XMS_ITS | Data Portability ---
Author Organization [facility] [place], [facility] Address [address] [address] Assessment No assessment recorded. Plan of Treatment [...] By Organization Details Last Modified Time 04/06/2017 [id number] with regard to his right knee discussed [...] am recommending a custom measured lateral compartment service line layer brace. We measured the patient for this [...] Recorded Time 8 Knee Surgery completed Ph[employer] 04/06/2017 16:03:17 Imaging Results None recorded. Procedure [...] 7 69 /min 170.18 cm 29 kg/m2 51793.5 9 g 179 mm[Hg] 94 mm[Hg] Phuong Ayala [employer] 7 15:45:08 Social History Question Answer Notes LastModified by Organizat ion Details LastModified Time Tobacco Smoking Status Never Smoker Phuong Ayala null, [employer] 04/06/2017 16:02:16 Marital Status [email or web address] Informati on not available 04/06/2017 What Was [...] Hyperthyroidism Y Hernia N Head Trauma/Injury N COPD N Blood Clots N Lung Disease N Hypothyroidism N Depression N Pacemaker N Anxiety Disorder N Arthritis Y Cancer N Stroke Y Neck Injury N Leg or Foot Ulcers N High Cholesterol N Liver Disease N Rheumatoid Arthritis N Headaches N Fibromyalgia N Kidney Disease N Heart Problems N Migraines N Thyroid Problems N Anemia N Multiple Sclerosis N Ulcers N Heart Attack ([place]) N Diabetes N Bleeding Disorder N Seizures/Epilepsy [...] SNOMED-CT Code Diagnosis ICD10 Code Diagnosis Note [id number] Moise Guerrero DO [facility] OFF[facility] [address] [place] [address] 04/06/2017 15:18:56 04/07/2017 10:33:15 Knee pain 89466649 M25.562 Osteoarthr itis of knee [id number] M17.0 Health Concerns Section Related Observation LastModified by Organization Detai ls LastModified Time None Recorded Concern Status LastModified by Organization Details LastModified Time None Recorded Advance Directives Directive None Recorded Payers Insurance Date Sequence Insurance Name Policy Number Policy Tracey Covered Member ID Tracey Member ID Guarantor Name 08/23/2017 1 [place] Colt Mann [id number] Colt Mann 08/23/2017 2 [facility] [place] - PLAN F (MEDICARE SUPPLEMENT) Colt Mann [id number] Colt Mann 08/23/2017 1 MEDIC[place] Colt Mann [id number] Colt Mann Notes Date Note Type [...] [place]. [place] [address], [place], [address], [facility] 04/10/2017 10:28:07
[2024-12-23 15:05] LABS: Anion Gap 9 mmol/L (4-12); Blood Urea Nitrogen 21 mg/dL (9-20); Calcium 9.1 mg/dL (8.4-10.2); Carbon Dioxide 24 mmol/L (22-30); Chloride 98 mmol/L (98-107); Estimated Glomerular Filt Rate > 60; Glucose 158 mg/dL (65-110); Potassium 4.6 mmol/L (3.4-5.0); Sodium 131 mmol/L (137-145)
[2025-02-28 12:59] LABS: Anion Gap 10 mmol/L (4-12); Blood Urea Nitrogen 24 mg/dL (9-20); Calcium 9.3 mg/dL (8.4-10.2); Carbon Dioxide 25 mmol/L (22-30); Chloride 98 mmol/L (98-107); Estimated Glomerular Filt Rate > 60; Glucose 183 mg/dL (65-110); Potassium 4.0 mmol/L (3.4-5.0); Sodium 133 mmol/L (137-145)
== END 2025-03-23 23:59 | disposition home or self-care (01) ==
LOC: ANHLAB 12:20
PROVIDERS: PCP Internal Medicine; Visit Provider Internal Medicine
DX: E87.1 Hypo-osmolality and hyponatremia (principal)
CPT/HCPCS: 36415; 80048

== ENCOUNTER 2025-07-05 15:17 | Emergency (ER) | payer MEDICARE, SELFPAY ==
--- OUTSIDE RECORDS SUMMARY | 2025-07-05 15:23 | XMS_ITS | Encounter Summary ---
Author Organization [facility] Address [address] [facility] [place] [address] Care Team Providers Care Business Services Assistant Name Role Phone Suman Dexter Primary Care Provider Encounter Details Date Type Department Care Team (Late st Contact Info) Description 01/18/2018 Lab Requisition [facility] [address] [place] [id number] Doug Bruno MD [address] [place] [address] Social History Tobacco Use Types Packs/Day Years Used Date Smoking Tobacco: Never Assessed Sex and Gender Information Value Date Recorded Sex Assigned at Not on file 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 Jar 0. 12:28 PM T DERMATOPATHOLOGY LABORATORY [...] characteristic determined by the Dermatopathology Laboratory at [facility]. These tests need not be, and therefore are not, approved by the [place] Food and Drug Administration. The tests are used for clinical purposes. Billing Codes Specimen Charges Stain Charges 64115 1 12:28 PM CDT DERMATOPATHOLOGY LABORATORY Embedded Images 12:28 PM CDT DERMATOPATHOLOGY LABORATORY Pathology/Cytolog y TISSUE SPECIMEN FROM SKIN / Unknown 01/17/2018 01/18/2018 12:56 PM CDT us Doug Bruno MD LAB - PATHOLOGY/CYTOLOGY ORD ERABLES Final Result DERMATOPATHOLOGY LABORATORY [facility] - Department of Dermatology [address] [place] [address], 5th Floor Lab [address] [phone] documented in this encounter Visit Diagnoses Not on filedocumented in this encounter Care Teams Business Services Assistant Relationship Specialty Start Date End Date Suman Dexter DO [address] [facility] [address] [id number] PCP - General 01/18/18 documented as of this encounter
--- OUTSIDE RECORDS SUMMARY | 2025-07-05 15:23 | XMS_ITS | Encounter Summary ---
Author Organization [facility] Address [address] [facility] [place] [address] Care Team Providers Care Legal Adviser Name Role Phone Suman Dexter Primary Care Provider Encounter Details Date Type Department Care Team (Late st Contact Info) Description 09/20/2018 Lab Requisition [facility] [address] [place] [id number] Doug Bruno MD [address] [place] [address] Social History Tobacco Use Types Packs/Day Years Used Date Smoking Tobacco: Never Assessed Sex and Gender Information Value Date Recorded Sex Assigned at Not on file 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 Jar 0. 10:24 AM [facility] DERMATOPATHOLOGY LABORATORY Microscopic Description Specimen A. SKIN, [...] characteristic determined by the Dermatopathology Laboratory at [facility], directed by Dr. Dagoberto Nj. These tests need not be, and therefore are not, approved by the [place] Food and Drug Administration. The tests are used for clinical purposes. Billing Codes Specimen Charges Stain Charges 81528 1 9 10:24 AM T DERMATOPATHOLOGY LABORATORY Embedded Images 9 10:24 AM T DERMATOPATHOLOGY LABORATORY Pathology/Cytolog y TISSUE SPECIMEN FROM SKIN / Unknown 09/19/2018 09/20/2018 11:33 AM CDT Doug Bruno MD LAB - PATHOLOGY/CYTOLOGY ORD ERABLES Final Result DERMATOPATHOLOGY LABORATORY [facility] - Department of Dermatology [address] [place] [address] 5th Floor Lab [address] [phone] documented in this encounter Visit Diagnoses Not on filedocumented in this encounter Care Teams Legal Adviser Relationship Specialty Start Date End Date Suman Dexter DO [address] [facility] [address] [facility] [address] [place] [address] PCP - General 01/18/18 documented as of this encounter
--- OUTSIDE RECORDS SUMMARY | 2025-07-05 15:23 | XMS_ITS | Clinical Summary ---
Author Organization [facility] [address] Address [address] [place] [address] Care Team Providers Care Shirt Finisher Name Role Phone Sohail Rutherford Primary Care Provider [phone] Allergies Active Allergy Reactions Criticality Noted Date [...] 0.4 mg extended release capsule 2 Active levothyroxine (SYNTHROID) 88 mcg tablet Take 1 tablet (88 mcg total) by mouth in home tutor before breakfast 3 Active lidocaine (ASPERCREME) 4 % adhesive patch,medicated Place 1 patch on the skin daily 4 Active amLODIPine (NORVASC) 5 mg tablet Take 1 tablet (5 mg total) by mouth daily 5 Active fluticasone propionate (FLONASE) 50 mcg/actuation nasal spray Administer 1 spray into each nostril daily 5 Active ipratropium (ATROVENT) 21 mcg (0.03 %) nasal spray Administer 1 spray into each nostril nightly 5 Active metoprolol XL (TOPROL-XL) 50 mg extended release tablet Take 1 tablet (50 mg total) by mouth 2 (two) times a day 5 Active Active Problems Problem Noted Date Diagnosed [...] Encounters Date Type Department Care Team Description 05/12/2025 2:00 PM DIRECTOR OF HOME ECONOMICS Office Visit [facility] Cardiology [address] [place] [address] Matthew, Doris Shira, VICE PRESIDENT DIVERSITY Permanent atrial fibrillation (HCC) (Primary Dx); Presence of Watchman left atrial appendage closure device; Hypertension associated with diabetes (HCC) from Last 3 Months Immunizations Immunization Administration [...] on file Legal Sex Male 1:53 AM DIRECTOR OF HOME ECONOMICS Gender Identity Not on file Sexual Orientation Not on file Last Filed Vital Signs Vital Sign Reading Time Taken Comments Blood Pressure 122/64 05/12/2025 2:07 PM DIRECTOR OF HOME ECONOMICS Pulse 76 05/12/2025 2:07 PM DIRECTOR OF HOME ECONOMICS Temperature 36.9 C (98.4 F) 07/16/2023 7:24 AM DIRECTOR OF HOME ECONOMICS Respiratory Rate 14 05/12/2025 2:07 PM DIRECTOR OF HOME ECONOMICS Oxygen Saturation 96% 05/12/2025 2:07 PM DIRECTOR OF HOME ECONOMICS Inhaled Oxygen Concentration - - Weight 74.8 kg (165 lb) 05/12/2025 2:07 PM DIRECTOR OF HOME ECONOMICS Height 170.2 cm (5' 7) 05/12/2025 2:07 PM DIRECTOR OF HOME ECONOMICS Body Mass Index 25.84 05/12/2025 2:07 PM DIRECTOR OF HOME ECONOMICS Plan of Treatment Health Maintenance Due Date Last Done Comments Albumin Creatinine Ratio, Urine 1938 Depression Screening 1938 Hemoglobin A1C 1938 Dilated Eye Exam 1938 Foot Exam 1938 Hepatitis B Screening 1956 Zoster Vaccine (1 of 2) 1988 DTaP/Tdap/Td Vaccine (1 - Tdap) 12/24/2001 2 Well Visit 65+ 2003 Pneumococcal vaccine 65+ (2 of 2 - PCV) 04/11/2007 04/11/2006 Lipid Panel 09/24/2021 09/24/2020, 12/07, 10/30/2018, Additional history exists Fall Risk Assessment 07/16/2024 07/16/2023 eGFR 07/16/2024 07/16/2023, 01/2024, 07/14/2023, Additional history exists Influenza Vaccine (#1) 2025 9, 2018, 05/08/2016, Additional history exists Medical Devices Implanted Type Area Radiotelegrapher Device Identifier Shelf Expiration Date Model / Serial / Lot PWA [id number] Device Closure Watchman Pebax Nitinol Kenaitze Iridium Pet 30mm L75cm Od12 Fr Odsec14 Fr 3 Way Stopcock Y Adapter Self Expand Proximal Face Sterile Disposable Left Atrial Appendage - [id number] Implanted:Qty: 1 on 04/22/2019 by Jorge Alberto Desir MD at [facility] [employer] Catherine 01/05/2022 [id number] / / [id number] Procedures Procedure Name Priority Date/Time Associated Diagnosis Comments EGFR Routine 07/16/2023 5:20 AM DIRECTOR OF HOME ECONOMICS POCT LIPID PANEL Routine 09/24/2020 11:4 0 AM CDT Hyperlipidemia associated with type 2 diabetes mellitus (HCC) from Last 3 Months or Most Recently Relevant to Health Maintenance Results * eGFR (07/16/2023 5:20 AM DIRECTOR OF HOME ECONOMICS) [facility] eGFR 84 >=60 mL/min/1. [address] [facility] Comment: Interpretive Data Reference Interval [...] last reviewed 2021. Blood 07/16/2023 5:20 AM DIRECTOR OF HOME ECONOMICS 07/16/2023 8:04 AM DIRECTOR OF HOME ECONOMICS us Jimbo Burdick MD LAB BLOOD ORDERABLES Brittany fung Result [facility] [address] [facility] Department [place] [address] * POCT lipid panel (09/24/2020 11:40 AM [...] Recently Relevant to Health Maintenance Insurance MEDICARE [facility] MEDICARE [facility] MEDICARE MEDICARE BLUE CROSS MEDICARE SUPPLEMENT Advance Directives For more information, please contact: [phone] * Full Code (Latest Code Status on File) Date Activated Date Inactivated Comments 07/12/2023 7:16 PM 07/16/2023 7:26 PM * Full Code Date Activated Date Inactivated Comments 04/22/2019 10:34 PM 04/23/2019 5:51 PM Care Teams Shirt Finisher Relationship Specialty Start Date End Date Sohail Rutherford DO PCP - General Internal Medicine 05/08/24
--- OUTSIDE RECORDS SUMMARY | 2025-07-05 15:23 | XMS_ITS | Data Portability ---
Author Organization [facility] [employer], [facility] Address [address] [address] Assessment No assessment recorded. Plan of Treatment [...] By Organization Details Last Modified Time 04/06/2017 [id number] w ith regard to his right knee discussed at [...] am recommending a custom measured lateral compartment university internship brace. We measured the patient for this [...] Recorded Time 8 Knee Surgery completed [employer] 04/06/2017 16:03:17 Imaging Results None recorded. Procedure [...] Body mass index (BMI) Body weight Systolic And Diastolic Provider Name and Address Organization Details Last Updated DateTime 04/06/2017 69 /min 170.18 cm 29 kg/m2 71882.59 g 179/94 mm[Hg] Phuong Ayala [employer] 7 15:45:08 Social History Question Answer Notes LastModified by Organizat ion Details LastModified Time Tobacco Smoking Status Never Smoker Phuong Ayala Nur[employer]ene 04/06/2017 16:02:16 Marital Status harvey Informati on not available 04/06/2017 What Was [...] Multiple Sclerosis N Ulcers N Heart Attack ([place]) N Diabetes N Bleeding Disorder N Seizures/Epilepsy [...] Diagnosis SNOMED-CT Code Diagnosis ICD10 Code Diagnosis IMO Codes Diagnosis Note [id number] Moise Guerrero, DO [facility] [address] [facility] [place] [phone] 04/06/2017 15:18:56 04/07/2017 10:33:15 Knee pain 71866420 M25.562 Osteoarthr itis of knee 752684554 M17.0 Health Concerns Section Related Observation LastModified by Organization Detai ls LastModified Time None Recorded Concern Status LastModified by Organization Details LastModified Time None Recorded Advance Directives Directive None Recorded Payers Insurance Date Sequence Insurance Name Policy Number Policy Tracey Covered Member ID Tracey Member ID Guarantor Name 08/23/2017 1 [place] Colt Mann [id number] Colt Mann 08/23/2017 2 [facility] [place] - PLAN F (MEDICARE SUPPLEMENT) Colt Mann [id number] Colt Mann 08/23/2017 1 [place] Colt Mann [id number] Colt Mann Notes Date Note Type [...] increased [place]. [place] [address] [facility], [place], [address], [facility], [facility] 04/10/2017 10:28:07
--- OUTSIDE RECORDS SUMMARY | 2025-07-05 15:23 | XMS_ITS | Clinical Summary ---
Author Organization [facility] Address [facility] [place] [address] Care Team Providers Care Manager User Experience Name Role Phone Suman Dexter MD Primary Care Provider [phone] Social History Tobacco Use Types Packs/Day Years Used Date Smoking Tobacco: Never Assessed Sex and Gender Information Value Date Recorded Sex Assigned at Not on file Legal Sex Male 8:33 PM CDT Gender Identity Not on file Sexual Orientation Not on file Plan of Treatment Health Maintenance Due Date Last Done Comments Pneumococcal Vaccine: 50+ Years (1 of 1 - PCV) 1988 Zoster Vaccines (1 of 2) 1988 DTaP, Tdap and Td Vaccines ( 1 - Tdap) 12/24/2001 12/23/2001 Annual Medicare Wellness Visit 2003 RSV Immunization or 60+ Years (1 - 1-dose 75+ series) 2013 COVID-19 Vaccine ( - 2024-2 6 season) 2025 Influenza Adult (#1) 2025 04/23/2019, 2018 Hepatitis A Vaccines Aged Out No long er eligible based on patient's age to complete this topic Meningococcal B Vaccine Aged Out No l onger eligible based on patient's age to complete this topic Meningococcal Vaccine Aged Out No mariya west eligible based on patient's age to complete this topic RSV Immunizations Under 20 Months Aged Out No longer eligible b ased on patient's age to complete this topic Medical Devices Implanted Type Area Wash Plant Operator Device Identifier Shelf Expiration Date Model / Serial / Lot Watchman Insurance MEDICARE [facility] Care Teams Manager User Experience Relationship Specialty Start Date End Date Suman Dexter MD [address] [place], [place] [phone] PCP - General INTERNAL MEDICINE 01/29/23
--- OUTSIDE RECORDS SUMMARY | 2025-07-05 15:23 | XMS_ITS | Clinical Summary ---
Author Organization [facility] Address [address] [facility] [place] [address] Care Team Providers Care Block Hacker Name Role Phone Suman Dexter Esthela PATEL Primary Care Provider [phone] Source Comments [facility],non-owned Affiliates and Associated Physician Practices is amultiple site organization consisting of ambulatory clinics and hospital sitesin [place], [place], [place] and [place]. This disclosure is being madepursuant to the Care Everywhere program and may not contain all information available regarding this patient. 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 Gender Identity Not on file Sexual Orientation Not on file Plan of Treatment Health Maintenance Due Date Last Done Comments DTAP/TDAP/TD VACCINES (1 - Tdap) 1957 PNEUMOCOCCAL VACCINE 50+ (1 of 1 - PCV) 1988 ZOSTER VACCINE (1 of 2) 1988 Respiratory Syncytial Virus (RSV) Vaccine Pt: or over 60 yrs (1 - 1-dose 75+ series) 2013 DEPRESSION SCREENING 07/09/2024 COVID-19 VACCINE ( - 2024-2 6 season) 2025 INFLUENZA VACCINE (#1) 2025 HEPATITIS B VACCINE [...] complete this topic Insurance MEDICARE Care Teams Block Hacker Relationship Specialty Start Date End Date Suman Dexter DO [address] [facility] [address] [phone] PCP - General 01/18/18
[2025-07-05 15:27] VITALS: BP 151/90; PULSE 77; RESP 16; TEMP 36.7; O2SAT 100
[2025-07-05 15:46] LABS: EDUAAPPEAR Cloudy; EDUABILI Negative (Negative); EDUABLOOD 1+ (Negative); EDUACOLOR1 Yellow; EDUAGLUCOSE Negative (Negative); EDUAKETONE Negative (Negative); EDUALEUKO 3+ (Negative); EDUANITRATE Positive (Negative); EDUAPH 6.0; EDUAPROTEIN 1+ (Negative); EDUASPGRAVITY 1.020; EDUAUROBILI 0.2
--- NOTE | 2025-07-05 16:11 | ED_ITS ---
HPI - Male Genitourinary General Chief complaint: Urogenital-Male Stated complaint: UTI History of Present Illness HPI Narrative: CHIEF COMPLAINT: Urinary tract infection symptoms PATIENT SUMMARY: The patient presented with urinary tract infection symptoms. HISTORY OF PRESENT ILLNESS: The patient presented with symptoms consistent with a urinary tract infection, reporting increased frequency of urination and changes in urine color from darker yellow to light. These symptoms began on Sunday. The patient did not report having fevers, body aches, chills, or confusion. A previous urine analysis indicated the presence of blood, nitrates, and leukocytes, which are indicative of a urinary tract infection. The patient also had a history of E. Coli in the urine in September. The patient cannot take penicillin. PAST MEDICAL HISTORY: - Previous urinary tract infection with E. Coli in September REVIEW OF SYSTEMS: Genitourinary: Positive for increased frequency of urination and changes in urine color. Negative for confusion, body aches, chills, and fever. PAST SURGICAL HISTORY: Not available MEDICATIONS: Not available ALLERGIES: Penicillin (specific reaction not noted) FAMILY HISTORY: Not available SOCIAL HISTORY: - Pharmacy: Prefers prescriptions sent to [facility] due to closure of [place] [facility] VITALS AND PHYSICAL EXAM: Not available DIAGNOSTIC STUDIES: Urine analysis showed blood, nitrates, and leukocytes. ASSESSMENT: The differential diagnoses are listed in order of most to least likely. 1. Urinary Tract Infection (UTI): The presence of urinary frequency, changes in urine color, and urine analysis showing blood, nitrates, and leukocytes are consistent with a urinary tract infection. 2. Possible recurrence of E. Coli infection: Given the patient's history of E. Coli in the urine, there's a possibility of recurrence, especially given the similar presentation. 3. Overactive bladder PLAN: Treatment: - Prescribed antibiotics based on previous culture and sensitivity, avoiding penicillin due to allergy. Tests: - Culture sent, treatment based on previous urine culture information. Patient Education: - Educated on signs of worsening infection such as weakness, forgetfulness, or aggressive behavior that would require emergency department evaluation. Follow-Up: - Scheduled to see Dr. Rutherford on July 10. Disposition: - Prescription sent to [facility] due to the closure of the [place] pharmacy. MEDICAL DECISION MAKING: Review of History of Present Illness: The patient's symptoms, coupled with the urine analysis findings, strongly indicated a urinary tract infection. Past medical history of E. Coli in the urine was considered in treatment planning. Testing to be Performed: No further testing was performed at this time due to reliance on previous culture data. Differential Diagnosis: Considered UTI and possible E. Coli recurrence. Plan of Care: Treatment included prescribing antibiotics based on past sensitivity data, avoiding penicillin, and providing education on symptoms that would necessitate emergency care. The patient's pharmacy preference was noted, and follow-up with Dr. Rutherford was confirmed. Related Data Home Medications ?Medication ?Instructions ?Recorded ?Confirmed ?Last Taken ?Type finasteride 5 mg tablet 5 mg PO DAILY 07/18/2306/1108/18/24 History tamsulosin 0.4 mg capsule 0.4 mg PO DAILY 07/18/2310/3108/18/24 History docusate sodium 100 mg capsule 100 mg PO DAILY 4 06/11/25 Unknown History (Colace) acetaminophen 650 mg 650 mg PO Q12H 05/13/2410/31 Unknown History tablet,extended release aspirin 81 mg chewable tablet 81 mg PO DAILY 05/13/24 06/11/25 08/11/24 History Held on 08/19/24. Instructions: Resume on 08/21/24. hold an additional 48 hours. cholecalciferol (vitamin D3) 25 25 mcg PO DAILY 06/11/25 08/16/24 History mcg (1,000 unit) capsule polyethylene glycol 3350 17 17 g PO DAILY 05/13/2410/31 Unknown History gram/dose oral powder (Miralax) Allergies Allergy/AdvReac Type Severity Reaction Status Date / Time rosuvastatin Allergy Unknown leg Verified 07/05/25 15:27 cramps,Hives sertraline (From Zoloft) Allergy Other Verified 07/05/25 15:27 mirabegron (From Myrbetriq) AdvReac Intermediate HYPERTESION Verified 07/05/25 15:27 Penicillins AdvReac Mild Hives Verified 07/05/25 15:27 Sulfa (Sulfonamide AdvReac Mild Hives Verified 07/05/25 15:27 Antibiotics) Tetanus Vaccines and Toxoid AdvReac Mild Hives Verified 07/05/25 15:27 Review of Systems Review of Systems: All systems reviewed & are unremarkable except as noted in HPI and below Eyes: Eyes: Reports as per HPI ENT: Reports as per HPI Cardiovascular: Cardiovascular: Reports as per HPI Respiratory: Respiratory: Reports as per HPI Genitourinary: Genitourinary: Reports as per HPI Musculoskeletal: Musculoskeletal: Reports as per HPI Integumentary/Breasts: Skin/Breast: Reports as per HPI Neurologic: Reports as per HPI Psychiatric: Psychiatric: Reports as per HPI Endocrine: Endocrine: Reports as per HPI Hematologic/Lymphatic: Hematologic/Lymphatic: Reports as per HPI Allergic/Immunologic: Allergic/Immunologic: Reports as per HPI FOR[facility]LY [facility], [facility] Past Medical History Medical History BMI 27.0-27.9,adult Peripheral artery disease Basal cell carcinoma of skin Cerebrovascular accident Hyperlipidemia Hypertension Type 2 diabetes mellitus Benign prostatic hyperplasia Persistent atrial fibrillation Arthritis Hypothyroidism Chronic GERD Surgical History Surgical History History of cataract extraction with lens replacement History of partial thyroidectomy History of arthroplasty of right knee History of right inguinal hernia repair (04/13/22) Presence of Watchman left atrial appendage closure device Family History Family History Father Heart attack Mother , passed at age 104 No problems noted. Sibling Cancer Family history of malignant neoplasm of thyroid Mother Hypertension Sibling Malignant neoplasm of prostate Family history of malignant neoplasm of breast in first degree relative Father Patient's father is Sibling Diabetes mellitus Grandparent Diabetes mellitus Social History Social History Social History: Surrogate medical decision maker: Madonna Mann, spouse. Code status: Full code. Smoking status: Never smoker Second hand tobacco smoke exposure: No Alcohol intake: current Drinks per week: 2 Alcohol use details: wine occasionally Substance use: never Substance use type: does not use Lack of Transportation: No Lack of Food: Never True Current Housing: I Have Housing Concerned About Future Housing: No Difficulty Paying Gas/Electric Bills: No Difficulty Paying for Meds: No Currently Unemployed: No Education: High School Diploma/GED Difficulty w/ Childcare or Family Care: No Living arrangements: with family Additional living arrangements comments: Lives with spouse in [place]. They have been since he was 20 years old. They have a daughter was a nurse practitioner in [place]. Their son lives nearby. He ambulates with a cane. Occupation/Education: retired Additional occupation/education comments: Retired from [employer]. Gender identity (if verbalized by the patient): Male Sexual Orientation (if Verbalized by the Patient): Straight or Heterosexual Spiritual care concerns: No Exam Const: General: cooperative, healthy appearing, comfortable, no acute distress and well developed Orientation/consciousness: patient oriented x3 HENMT: Head: normal to inspection Eyes: General: appearance normal, both eyes and all related structures Resp: Effort & Inspection: normal respiratory effort and able to speak in complete sentences Auscultation: clear to auscultation bilaterally Cardio: Rate: regular rate Rhythm: regular rhythm Heart sounds: S1 normal heart sound present and S2 normal heart sound present Skin: General skin exam: normal color Neuro: General: patient oriented x3 Cognition (Neuro): normal cognition Speech: normal speech Psych: Mental Status: mental status grossly normal Course Course Emergency Course: ASSESSMENT: The differential diagnoses are listed in order of most to least likely. 1. Urinary Tract Infection (UTI): The presence of urinary frequency, changes in urine color, and urine analysis showing blood, nitrates, and leukocytes are consistent with a urinary tract infection. 2. Possible recurrence of E. Coli infection: Given the patient's history of E. Coli in the urine, there's a possibility of recurrence, especially given the similar presentation. 3. Overactive bladder PLAN: Treatment: - Prescribed antibiotics based on previous culture and sensitivity, avoiding penicillin due to allergy. Tests: - [place] sent, treatment based on previous urine culture information. Patient Education: - Educated on signs of worsening infection such as weakness, forgetfulness, or aggressive behavior that would require emergency department evaluation. Follow-Up: - Scheduled to see Dr. Rutherford on July 10. Disposition: - Prescription sent to [facility] due to the closure of the [place] pharmacy. Level of Care: Express Care Visit Vital Signs Vital signs: Vital Signs Temperature 98.1 F 07/05/25 15:27 Pulse Rate 77 07/05/25 15:27 Respiratory Rate 16 07/05/25 15:27 Blood Pressure 151/90 H 07/05/25 15:27 Pulse Oximetry 100 07/05/25 15:27 Oxygen Delivery Room Air 07/05/25 15:27 Temperature 98.1 F 07/05/25 15:27 Pulse Rate 77 07/05/25 15:27 Respiratory Rate 16 07/05/25 15:27 Blood Pressure 151/90 H 07/05/25 15:27 Pulse Oximetry 100 07/05/25 15:27 Oxygen Delivery Room Air 07/05/25 15:27 [facility] Narrative Medical decision making narrative: MEDICAL DECISION MAKING: Review of History of Present Illness: The patient's symptoms, coupled with the urine analysis findings, strongly indicated a urinary tract infection. Past medical history of E. Coli in the urine was considered in treatment planning. Testing to be Performed:Culture sent Differential Diagnosis: Considered UTI and possible E. Coli recurrence. Plan of Care: Treatment included prescribing antibiotics based on past sensitiv ity data, avoiding penicillin, and providing education on symptoms that would necessitate emergency care. The patient's pharmacy preference was noted, and follow-up with Dr. Monet was confirmed. Differential Diagnosis Differential Diagnosis: ASSESSMENT: The differential diagnoses are listed in order of most to least likely include but not limited too. 1. Urinary Tract Infection (UTI): The presence of urinary frequency, changes in urine color, and urine analysis showing blood, nitrates, and leukocytes are consistent with a urinary tract infection. 2. Possible recurrence of E. Coli infection: Given the patient's history of E. Coli in the urine, there's a possibility of recurrence, especially given the similar presentation. 3. Overactive bladder Medical Records I have reviewed the following patient records and this information was taken into consideration when formulating the assessment and plan.: previous labs Lab Data [facility] Lab Attestation statement: I personally reviewed the patient's lab results. Labs: Lab Results 07/05/25 Range/Units 15:43 POC Urine Color Yellow POC Urine Clarity Cloudy POC Urine pH 6.0 POC Ur Specif [place] 1.020 POC Urine Protein 1+ (Negative) POC Ur Glucose (UA) Negative (Negative) POC Urine Ketones Negative (Negative) POC Urine Blood 1+ (Negative) POC Urine Nitrite Positive (Negative) POC Urine Bilirubin Negative (Negative) POC Urine Urobilinogen 0.2 POC U Leukocyte Esteras 3+ (Negative) Discharge Plan Discharge Clinical Impression: Acute UTI Patient Disposition: Home Condition: Stable Instructions: Antibiotic Form, Urinary Tract Infection in Men (DC) Additional Instructions: Make sure to take all antibiotics as prescribed unless told otherwise. Follow-up with your primary care provider prior to ending the antibiotics to see if he needs to be extended. To the emergency department with any worsening of symptoms such as fever, confusion, agitation. Patient Language: Iraqi Prescriptions: New levofloxacin 750 mg tablet 750 mg PO DAILY Qty: 7 0RF No Action ipratropium bromide 21 mcg (0.03 %) spray,non-aerosol 2 spray intranasal .qd-tid Qty: 30 1RF Rx Instructions: administer into each nostril. Aim back/up/out cholecalciferol (vitamin D3) 25 mcg (1,000 unit) capsule 25 mcg PO DAILY aspirin 81 mg tablet,chewable 81 mg PO DAILY acetaminophen 650 mg tablet extended release 650 mg PO Q12H polyethylene glycol 3350 [Miralax] 17 gram/dose powder 17 g PO DAILY lidocaine 5 % adhesive patch,medicated 1 patch topical DAILY Qty: 15 0RF Patient Comments: takes prn for pain Rx Instructions: leave on most painful area for up to 12 hrs tamsulosin 0.4 mg capsule 0.4 mg PO DAILY finasteride 5 mg tablet 5 mg PO DAILY docusate sodium [Colace] 100 mg Capsule 100 mg PO DAILY irbesartan 300 mg tablet 300 mg PO DAILY Qty: 90 3RF levothyroxine 88 mcg tablet 88 mcg PO DAILY Qty: 90 3RF simvastatin 20 mg tablet 20 mg PO DAILY Qty: 90 3RF fluticasone propionate [Flonase Allergy Relief] 50 mcg/actuation spray,suspension 2 spray intranasal DAILY Qty: 16 3RF Rx Instructions: administer into each nostril. Aim back/up/out metoprolol succinate 50 mg tablet extended release 24 hr See Rx Instructions .ROUTE .COMPLEX Qty: 180 2RF Dose Instruction: TAKE 1 TABLET BY MOUTH TWICE DAILY Rx Instructions: TAKE 1 TABLET BY MOUTH TWICE DAILY amlodipine 5 mg tablet 5 mg PO DAILY Qty: 90 2RF ondansetron HCl 4 mg tablet See Rx Instructions .ROUTE .COMPLEX Qty: 30 0RF Dose Instruction: TAKE 1 TABLET BY MOUTH EVERY 8 HOURS NEEDED FOR NAUSEA Rx Instructions: TAKE 1 TABLET BY MOUTH EVERY 8 HOURS NEEDED FOR NAUSEA pantoprazole 40 mg tablet,delayed release (DR/EC) See Rx Instructions .ROUTE .COMPLEX Qty: 60 11RF Dose Instruction: TAKE 1 TABLET BY MOUTH TWICE DAILY Rx Instructions: TAKE 1 TABLET BY MOUTH TWICE DAILY Follow-up/Referrals: Sohail Rutherford DO [Primary Care Provider, Internal Medicine] Time of Disposition: 16:10 Quality NIHSS Nursing Documentation ED NIHSS nursing documentation: reviewed/agree
== END 2025-07-05 16:11 | disposition home or self-care (01) ==
PROVIDERS: Emergency Provider Nurse Practitioner Family; PCP Internal Medicine
DX: N39.0 Urinary tract infection, site not specified (principal); I73.9 Peripheral vascular disease, unspecified; E78.5 Hyperlipidemia, unspecified; I10 Essential (primary) hypertension; E03.9 Hypothyroidism, unspecified; E11.9 Type 2 diabetes mellitus without complications; K21.9 Gastro-esophageal reflux disease without esophagitis
CPT/HCPCS: 81003; 87077; 87086; 87186; 99213; G0463